=== PATIENT | female | born 1955 | race African-American/Black ===

== ENCOUNTER 2019-05-11 20:50 | Emergency (ER) | payer SELFPAY ==
--- NOTE | ~2019-05-11 | NM_ITS ---
EXAMINATION: NM lung vent and perfusion DATE: 05/12/2019 02:00 INDICATION: Chest pain TECHNIQUE: The patient breathed 14.8 mCi xenon-133 for ventilation images. 5.0 mCi Tc-99m MAA was adm inistered intravenously for perfusion images. Scintigraphic images of the chest were obtained. COMPARISON: None FINDINGS: The single breath ventilation image demonstrates uniform wash-in of tracer. Ventilation washout image s show mild tracer retention. Perfusion images show a small perfusion defect in the left mid posteri or lung zone in a nonsegmental distribution. ] IMPRESSION: 1. Low probability for pulmonary embolism. Reviewed, dictated and finalized at location A.
--- NOTE | ~2019-05-11 | XR_ITS ---
XR chest 2V 05/11/2019 21:40 Indication: Mid chest pain. Procedure: 2 view chest Comparison: 05/14/2004 Findings: Cardiomegaly. No focal air space disease, pulmonary edema, pleural effusion or suspected pn eumothorax. No acute osseous abnormality. Impression: 1: No acute cardiopulmonary disease. Reviewed, dictated and finalized at location A. Impression: 1: No acute cardiopulmonary disease.
[2019-05-11 21:02] VITALS: BP 153/109; PULSE 89; RESP 20; TEMP 37.2; O2SAT 95
--- NOTE | 2019-05-11 21:07 | ECG_ITS ---
Measurements Intervals [place] Rate: 85 P: 34 OR: 156 QRS: -10 QRSD: 83 T: 13 QT: 345 QTc: 411 Interpretive Statements SINUS RHYTHM LOW QRS VOLTAGE IN PRECORDIAL LEADS BORDERLINE R WAVE PROGRESSION, ANTERIOR LEADS BORDERLINE ECG Electronically Signed On 05-12-2019 7:56:43 CDT by Noe Rea D.O.
[2019-05-11 21:18] LABS: Basophils Percent Auto 0.4 % (0.2-1.2); Eosinophils Absolute Auto 0.2 K/mm3 (0-0.3); Eosinophils Percent Auto 2.2 % (0-4.4); Hematocrit 41.8 % (37.0-47.0); Hemoglobin 13.6 g/dL (12.0-15.0); Immature Granulocyte Absolute 0.12 K/mm3 (0.00-0.031); Immature Granulocyte Percent A 1.3 % (0-0.5); Lymphocytes Absolute Auto 3.46 K/mm3 (0.9-3.2); Lymphocytes Percent Auto 37.7 % (18.3-44.2); Mean Corpuscular HGB Conc 32.5 g/dl (32-36); Mean Corpuscular Hemoglobin 28.3 pg (26-34); Mean Corpuscular Volume 87.1 fl (80-100); Mean Platelet Volume 9.7 fl (7.4-10.4); Monocytes Absolute Auto 0.5 K/mm3 (0.1-0.6); Neutrophils Absolute Auto 4.9 K/mm3 (1.3-6.7); Neutrophils Percent Auto 53.4 % (45.5-73.1); Platelet Count Result 337 k/mm3 (150-375); Red Cell Distribution Width 13.8 % (11.5-14.5); White Blood Count 9.2 K/mm3 (4.5-10.0)
[2019-05-11 21:29] LABS: INR 0.9; Partial Thromboplastin Time 23.1 SECONDS (22.3-36.8); Prothrombin Time 11.7 Seconds (11.1-14.7)
[2019-05-11 21:30] LABS: Blood Urea Nitrogen 9 mg/dL (7-17); Calcium 9.1 mg/dL (8.4-10.2); Carbon Dioxide 29 mmol/L (22-30); Chloride 103 mmol/L (98-107); Estimated CRCL calculation 107 ml/min; Estimated Glomerular Filt Rate > 60; Glucose 92 mg/dL (65-105); Sodium 139 mmol/L (137-145)
[2019-05-11 21:41] LABS: Troponin I < 0.012 ng/mL (0.000-0.034)
--- NOTE | 2019-05-11 22:22 | ED.CHESTPAIN ---
HPI - Chest Pain General Chief Complaint: Chest Pain Stated Complaint: cp, sob Time Seen by Provider: 05/11/19 22:20 History of Present Illness HPI narrative: A 63 y/o female presents to the ED with worsening, constant, CP since 10 AM this morning. She states that she first developed rt chest pressure at 10 AM and then throughout the day the pain became more severe and began to migrated into her lt chest. She reports associated SOB. She notes that the pain is aggravated when she coughs, moves, or inspiration. She also notes that she went to her dentist on 05/03/19 and from 05/02-01/17 she had a sore throat, cough, a subjective fever, and chills, but denies having any since 05/09/19. She also denies any N/V/D or constipation. complaint: chest pain Onset (ago): hour(s) (12.5) Timing of current episode: constant and increasing Pain location: left chest, right chest and parasternal Quality: other (pressure) Exacerbating factors: inspiration, movement and other (cough) Associated symptoms: dyspnea, fever (subjective - resolved), cough (resolved) and other (sore throat (resolved) and chills (resolved)) Risk Factors Coronary artery disease risk factors: smoking history Related Data Allergies Allergy/AdvReac Type Severity Reaction Status Date / Time aspirin Allergy Unknown Unknown Verified 05/11/19 22:46 caffeine Allergy Unknown Unknown Verified 05/11/19 22:46 latex Allergy Unknown Unknown Verified 05/11/19 22:46 Review of Systems Review of Systems: All systems reviewed & are unremarkable except as noted in HPI and below Constitutional: Constitutional: Reports chills (resolved) and Reports fever(s) (subjective - resolved) ENT: Reports sore throat (resolved) Cardiovascular: Cardiovascular: Reports chest pain Respiratory: Respiratory: Reports cough (resolved) and Reports dyspnea Gastrointestinal: Gastrointestinal: Denies constipation, Denies diarrhea, Denies nausea and Denies vomiting PMFSH Past Medical History Medical History (Updated 05/12/19 @ 02:58 by Heidi Corey MD) IBS (irritable bowel syndrome) Surgical History Surgical History (Updated 05/11/19 @ 22:47 by Jake Bray) History of spinal surgery x2. Family History Family History Sibling Family history of migraine headaches Hypertension Family history of seizure disorder Mother Hypertension Family history of diabetes mellitus in first degree relative Father Family history of alcoholism Cerebrovascular accident Family history of arthritis Family history of hearing loss Social History Social History (Updated 05/11/19 @ 22:46 by Jake Bray) Smoking packs per day: 0.5 Smoking cigarettes per day: 10.0 Smoking status: Current every day smoker Tobacco type: cigarettes Second hand tobacco smoke exposure: Yes Alcohol intake: never Gender identity (if verbalized by the patient): Female Comments Patient reports questionable history of heart attack . However it does not sound as though patient had an abnormal stress test or cardiac catheterization or any other concrete findings to confirm this. Patient states after her hospitalization she was only put on a baby aspirin and no other medications. Exam Const: General: cooperative, no acute distress and alert Nutritional Appearance: well nourished Orientation/consciousness: patient oriented x3 Limitations: no limitations HENMT: Mouth: Yes lip normal and Yes moist mucous membranes Chest: Chest palpation & inspection: tenderness (Anterior) and other (sitting up reproduces the her CP) Resp: Effort & Inspection: normal respiratory effort Auscultation: clear to auscultation bilaterally Cardio: Rate: regular rate Rhythm: regular rhythm GI: GI Palp: Yes Soft to palpation and No Tenderness to palpation present (GI) Auscultation: normal bowel sounds Skin: General skin exam: normal color Neuro: General: patient oriented x3 Cognition (Neuro):
--- NOTE | 2019-05-11 22:37 | PC.NURSE ---
Called lab to add on D Dimer
[2019-05-11 22:43] VITALS: BP 171/93; PULSE 89; PULSE 94; RESP 18; O2SAT 100
[2019-05-11 22:49] LABS: D Dimer 0.53 ug/mL (<0.48)
[2019-05-11] MEDS: KETOROLAC 30 MG/ML VIAL (*BKC) IV PUSH (23:16)
[2019-05-12 00:22] VITALS: BP 169/93; PULSE 87; RESP 18; O2SAT 98
[2019-05-12 00:40] LABS: Troponin I < 0.012 ng/mL (0.000-0.034)
--- NOTE | 2019-05-12 00:52 | PC.NURSE ---
xy notified nuclear medicine need to be contacted.
[2019-05-12 01:05] VITALS: BP 170/94; PULSE 92; RESP 18; O2SAT 100
[2019-05-12 03:21] VITALS: BP 144/79; PULSE 78; RESP 18; O2SAT 98
== END 2019-05-12 03:22 | disposition home or self-care (01) ==
PROVIDERS: Emergency Provider Emergency Medicine; PCP Physician Assistant
DX: R07.89 Other chest pain (principal); K58.9 Irritable bowel syndrome, unspecified; F17.210 Nicotine dependence, cigarettes, uncomplicated; R94.31 Abnormal electrocardiogram [ECG] [EKG]
CPT/HCPCS: 36415; 71046; 71275; 78582; 80048; 84484; 85025; 85380; 85610; 85730; 93005; 96374; 99284; A9540; A9558; J1885; Q9967

== ENCOUNTER 2020-07-24 09:14 | Outpatient (CLI) | payer OTHER, SELFPAY ==
--- NOTE | ~2020-07-24 | CT_ITS ---
EXAMINATION: CT lung screening DATE: 07/24/2020 10:26 INDICATION: Personal history of tobacco dependence, current smoker with 72 pack year history TECHNIQUE: Computed tomography (CT) of the chest was performed without intravenous contrast. The dose -length product (DLP) was 502.18 mGy-cm. Automated exposure control and iterative reconstruction tech [employer] were employed. COMPARISON: None FINDINGS: There is mild emphysema. No suspicious pulmonary nodules are identified. The lungs are free of focal airspace opacities. Mild atelectasis is noted. There is no pleural effusion or pneumothorax . No pathologically enlarged thoracic lymph nodes are identified. The heart size is normal. There is mild thoracic spondylosis. IMPRESSION: 1. Lung-RADS category 1: Negative. Continue annual screening with noncontrast low-dose chest CT in 12 months. Reviewed, dictated and finalized at location A. IMPRESSION: 1. Lung-RADS category 1: Negative. Continue annual screening with noncontrast l ow-dose chest CT in 12 months.
== END 2020-07-24 09:15 | disposition home or self-care (01) ==
PROVIDERS: PCP Physician Assistant; Visit Provider Physician Assistant
DX: Z12.2 Encounter for screening for malignant neoplasm of respiratory organs (principal); Z87.891 Personal history of nicotine dependence
CPT/HCPCS: 71271

== ENCOUNTER 2021-08-13 13:14 | Outpatient (CLI) | payer OTHER, SELFPAY ==
--- NOTE | ~2021-08-13 | MM_ITS ---
EXAMINATION: MM diagnostic johann BI w tami HISTORY: Breast pain TECHNIQUE: Additional 3-D tomosynthesis images of the breasts were performed and synthetic 2-D images were generated. CAD analysis was submitted and interpreted. COMPARISON: Comparison to multiple prior studies sequentially, with oldest reviewed study dated 03/2013. BREAST PARENCHYMAL COMPOSITION: Breast composed of scattered areas of fibroglandular density FINDINGS: There are no suspicious masses, calcifications or architectural distortion in either breast to suggest malignancy. The breasts are stable. IMPRESSION: 1. No mammographic evidence for malignancy in either breast. 2. Routine yearly screening mammogram and regular clinical breast examination are recommended. BI-RADS Category 1: Negative Reviewed, dictated and finalized at location A. IMPRESSION: 1. No mammographic evidence for malignancy in either breast. 2. Routine yearly screening mammogram and regular clinical breast examination a re recommended. BI-RADS Category 1: Negative
== END 2021-08-13 13:15 | disposition home or self-care (01) ==
PROVIDERS: PCP Physician Assistant; Visit Provider Nurse Practitioner
DX: N64.4 Mastodynia (principal)
CPT/HCPCS: 77062; 77066; G0279

== ENCOUNTER 2021-11-19 15:13 | Outpatient (CLI) | payer OTHER, SELFPAY ==
--- NOTE | ~2021-11-19 | CT_ITS ---
EXAMINATION: CT lung screening DATE: 11/19/2021 15:33 INDICATION: Nicotine dependence TECHNIQUE: Computed tomography (CT) of the chest was performed without intravenous contrast. The dose -length product was 270.98 mGy-cm. Automated exposure control and iterative reconstruction technique were employed. COMPARISON: CT dated 07/24/2020 FINDINGS: Mild atherosclerosis. Heart size normal. No significant pleural or pericardial effusion. Vi sualized aspects of the upper abdomen are unremarkable. No thoracic lymphadenopathy. There are multip le small upper lobe nodules bilaterally measuring 4 mm or less. There are additional 3 mm nodules in the lower lobes. These are new compared with prior examinations. No focal airspace consolidation. No endobronchial lesions. Mild thoracic spondylosis. IMPRESSION: 1. Lung-RADS category 3: Probably benign. Further evaluation is recommended with noncontrast low-dose chest CT in 6 months. Reviewed, dictated and finalized at location A. IMPRESSION: 1. Lung-RADS category 3: Probably benign. Further evaluation is recommended wit h noncontrast low-dose chest CT in 6 months.
== END 2021-11-19 15:14 | disposition home or self-care (01) ==
PROVIDERS: PCP Physician Assistant; Visit Provider Physician Assistant
DX: Z12.2 Encounter for screening for malignant neoplasm of respiratory organs (principal); Z87.891 Personal history of nicotine dependence; R91.8 Other nonspecific abnormal finding of lung field
CPT/HCPCS: 71271

== ENCOUNTER 2022-11-07 23:06 | Emergency (ER) | payer OTHER, MEDICARE, SELFPAY ==
--- NOTE | ~2022-11-07 | CT_ITS ---
CT of the Abdomen and Pelvis: Indication: Abdominal pain Technique: 2.5 mm axial scans were obtained through the abdomen and pelvis following intravenous adm inistration of 100 cc of Omnipaque 350. Dose reduction technique was used on this scan by utilizing a utomated exposure control and iterative reconstruction technique. The dose-length product (DLP) was 1 473.49 mGy-cm. Findings: Scans through the lung bases are unremarkable. The liver, spleen, pancreas, gallbladder, adrenals and kidneys are within normal limits. There are at herosclerotic calcifications of the aorta. No lymphadenopathy. No bowel obstruction or bowel wall thickening. There is no evidence to suggest acute appendicitis. Images through the pelvis were performed. Urinary bladder unremarkable. No adnexal mass seen. No asci martin. Lumbar spinal fixation hardware is present. Impression: No significant abnormalities seen. Reviewed, dictated and finalized at [facility]. Impression: No significant abnormalities seen.
--- NOTE | ~2022-11-07 | XR_ITS ---
Clinical Indication: Chest pain PA and lateral views of the chest: Comparison: 05/11/2019 Findings: The lungs are clear, without evidence of focal consolidation or pleural effusion. Cardiome diastinal silhouette is within normal limits. Bones and soft tissues are unremarkable. Impression: Normal chest. Reviewed, dictated and finalized at location . Impression: Normal chest.
--- NOTE | 2022-11-07 23:07 | ECG_ITS ---
Measurements Intervals [place] Rate: 96 P: 49 LA: 149 QRS: -22 QRSD: 90 T: 12 QT: 327 QTc: 414 Interpretive Statements SINUS RHYTHM DELAYED PRECORDIAL R/S TRANSITION LOW QRS VOLTAGE IN PRECORDIAL LEADS BORDERLINE T WAVE ABNORMALITY- ANT/INF LEADS BORDERLINE ECG COMPARED TO ECG 05/11/2019 20:57:49 NO SIGNIFICANT CHANGES Electronically Signed On 11-08-2022 6:27:20 CDT by Noe Rae D.O.
[2022-11-07 23:42] VITALS: BP 207/80; PULSE 85; RESP 18; TEMP 37.1; O2SAT 98
[2022-11-08] VITALS (9 sets, daily range): BP systolic 176–199; BP diastolic 82–96; PULSE 83–110; RESP 14–26; O2SAT 97–100
[2022-11-08 00:05] LABS: Basophils Percent Auto 0.4 % (0.2-1.2); Eosinophils Absolute Auto 0.1 K/mm3 (0-0.3); Eosinophils Percent Auto 0.9 % (0-4.4); Hematocrit 40.3 % (37.0-47.0); Hemoglobin 13.5 g/dL (12.0-15.0); Immature Granulocyte Absolute 0.06 K/mm3 (0.00-0.031); Immature Granulocyte Percent A 0.6 % (0-0.5); Lymphocytes Absolute Auto 2.34 K/mm3 (0.9-3.2); Mean Corpuscular HGB Conc 33.5 g/dl (32-36); Mean Corpuscular Hemoglobin 29.7 pg (26-34); Mean Corpuscular Volume 88.6 fl (80-100); Mean Platelet Volume 9.6 fl (7.4-10.4); Monocytes Absolute Auto 0.7 K/mm3 (0.1-0.6); Monocytes Percent Auto 6.5 % (2.6-8.5); Neutrophils Absolute Auto 7.4 K/mm3 (1.3-6.7); Neutrophils Percent Auto 69.6 % (45.5-73.1); Nucleated Red Blood Cells Perc 0.2 % (0.0-0.2); Platelet Count Result 319 k/mm3 (150-375); Red Blood Count 4.55 M/mm3 (4.2-5.4); Red Cell Distribution Width 14.8 % (11.5-14.5); White Blood Count 10.6 K/mm3 (4.5-10.0)
[2022-11-08 00:18] LABS: Alanine Aminotransferase 33 U/L (6-35); Albumin Level 4.1 g/dL (3.5-5.1); Alkaline Phosphatase 130 U/L (38-126); Anion Gap 7 mmol/L (8-16); Aspartate Amino Transferase 31 U/L (14-36); Bilirubin,Total 0.3 mg/dL (0.2-1.3); Blood Urea Nitrogen 9 mg/dL (7-17); Calcium 9.6 mg/dL (8.4-10.2); Carbon Dioxide 31 mmol/L (22-30); Chloride 100 mmol/L (98-107); Estimated CRCL calculation 120 ml/min; Estimated Glomerular Filt Rate > 60; Glucose 97 mg/dL (65-110); Lipase 130 U/L (23-300); Partial Thromboplastin Time 28.5 SECONDS (22.3-36.8); Sodium 138 mmol/L (137-145)
[2022-11-08 00:21] LABS: INR 0.9; Prothrombin Time 12.3 Seconds (11.1-14.7)
[2022-11-08 00:30] LABS: Troponin I < 0.012 ng/mL (0.000-0.034)
[2022-11-08] MEDS: ONDANSETRON INJ 4 MG/2 ML VIAL IV PUSH (05:00)
--- NOTE | 2022-11-08 05:00 | ED.GENADULT ---
HPI - General Adult General Chief complaint: Chest Pain Stated complaint: chest pain Time Seen by Provider: 11/08/22 04:29 History of Present Illness HPI narrative: Patient presents to the emergency department with right upper quadrant abdominal pain. Pain started yesterday morning around 4 AM. It has been constant since. Taking medications at home without improvement. She denies vomiting or diarrhea. Denies fevers and chills. Pain radiates up into her chest. She still has her gallbladder Related Data Allergies Allergy/AdvReac Type Severity Reaction Status Date / Time aspirin Allergy Unknown Unknown Verified 11/08/22 04:41 caffeine Allergy Unknown Unknown Verified 11/08/22 04:41 latex Allergy Unknown Unknown Verified 11/08/22 04:41 Review of Systems Review of Systems: CONSTITUTIONAL: Denies fever, chills, or sweats. EYES: Denies visual changes, redness, or discharge. ENT: Denies rhinorrhea, congestion, sore throat, or otalgia. CARDIOVASCULAR: Denies chest pain, palpitations, or edema. RESPIRATORY: Denies cough or dyspnea. GASTROINTESTINAL: Denies nausea, vomiting, or diarrhea. Positive abdominal pain GENITOURINARY: Denies dysuria or hematuria. SKIN: Denies rash or itching. MUSCULOSKELETAL: Denies back pain, joint pain, or myalgia. NEUROLOGIC: Denies headache, numbness, or weakness. PSYCHIATRIC: Denies anxiety or depression. PMFSH Past Medical History Medical History (Updated 11/08/22 @ 07:36 by Jaycee Fernandez MD) IBS (irritable bowel syndrome) Surgical History Surgical History (Updated 05/11/19 @ 22:47 by Jake Bray) History of spinal surgery x2. Family History Family History Sibling Family history of migraine headaches Hypertension Family history of seizure disorder Mother Hypertension Family history of diabetes mellitus in first degree relative Father Family history of alcoholism Cerebrovascular accident Family history of arthritis Family history of hearing loss Social History Social History (Updated 05/11/19 @ 22:46 by Jake Bray) Smoking packs per day: 0.5 Smoking cigarettes per day: 10.0 Smoking status: Current every day smoker Tobacco type: cigarettes Second hand tobacco smoke exposure: Yes Alcohol intake: never Gender identity (if verbalized by the patient): Female Exam Narrative: GENERAL: Well-appearing, well-nourished, and in no acute distress. HEAD: Normocephalic, atraumatic. EYES: PERRLA and EOMI. ENT: Nares clear, no rhinorrhea or epistaxis. Mucous membranes moist. NECK: Supple. CHEST: Clear to auscultation. No respiratory distress. HEART: Regular rate and rhythm. ABDOMEN: Soft,nondistended. Right upper quadrant tenderness EXTREMITIES: Normal range of motion. No edema. SKIN: Warm, dry, no rash. NEURO: No focal deficits. Alert and oriented x3. PSYCH: Normal mood and affect. Course Course Emergency Course: Differential diagnosis includes but not limited to acute cholecystitis, kidney stone, pyelonephritis, pancreatitis Labs and CAT scan ordered. Labs evaluated with white blood cell count 10.6 normal hemoglobin Telemetry ordered due to abdominal pain and chest pain and pt getting narcotic to evaluate for dysrhythmias. Evaluated by myself. Rhythm NSR Rate 99 Patient hypertensive and tachycardic. She is very anxious about getting CAT scan. Valium ordered Vital Signs Vital signs: Vital Signs Temperature 37.1 C 11/07/22 23:42 Pulse Rate 85 11/07/22 23:42 Respiratory Rate 18 11/07/22 23:42 Blood Pressure 207/80 H 11/07/22 23:42 Pulse Oximetry 98 11/07/22 23:42 Oxygen Delivery Room Air 11/07/22 23:42 Temperature 37.1 C 11/07/22 23:42 Pulse Rate 103 H 11/08/22 07:02 Respiratory Rate 25 H 11/08/22 07:02 Blood Pressure 199/88 H 11/08/22 07:02 Pulse Oximetry 97 11/08/22 06:02 Oxygen Delivery Room Air 11/08/22 04:38 Medical Decision Making
[2022-11-08] MEDS: MORPHINE SULFATE (*CRX) 2 MG/ML INJ IV PUSH (05:01)
[2022-11-08] MEDS: diazePAM INJ (*CRX) 10 MG/2 ML SYRINGE 5 MG IV PUSH (05:02)
[2022-11-08] MEDS: SODIUM CHLORIDE 0.9% IV 1,000 ML 999 ML IV CONT (05:02)
[2022-11-08 07:11] LABS: Troponin I < 0.012 ng/mL (0.000-0.034)
== END 2022-11-08 08:02 | disposition home or self-care (01) ==
PROVIDERS: Emergency Provider Emergency Medicine; PCP Physician Assistant
DX: R10.11 Right upper quadrant pain (principal); I10 Essential (primary) hypertension; F17.210 Nicotine dependence, cigarettes, uncomplicated
CPT/HCPCS: 36415; 71046; 74177; 80053; 83690; 84484; 85025; 85610; 85730; 93005; 96361; 96374; 96375; 99284; J2270; J2405; J3360; J7030; Q9967

== ENCOUNTER 2022-11-13 00:38 | Inpatient (IN) | payer MEDICARE, SELFPAY ==
[2022-11-13] VITALS (32 sets, daily range): BP systolic 134–183; BP diastolic 57–117; PULSE 79–121; RESP 16–20; TEMP 36.5–37; O2SAT 92–100; BMI 43.1
--- NOTE | ~2022-11-13 | CT_ITS ---
EXAMINATION: CT abdomen pelvis w con DATE: 11/13/2022 06:24 INDICATION: Abdominal pain. Constipation. TECHNIQUE: Computed tomography (CT) of the abdomen and pelvis was performed with 100 CC Omnipaque 350 intravenous contrast. Automated exposure control and iterative reconstruction technique were employe d. Exam dose: 1416.06 mGy-cm total exam DLP. COMPARISON: 11/08/2022 CT abdomen pelvis FINDINGS: Slight atelectasis at the lung bases, greatest at the lingula. No pericardial or pleural ef fusion. Small sliding hiatal hernia. There is pericholecystic fat stranding. There is thickening of the wall of the gallbladder. There is thickening of the right anterior pararenal fascia. Findings suggest acute cholecystitis. The liver, spleen, pancreas, bile ducts and pancreatic duct appear normal. Normal morphology of the adrenal glands. No renal mass lesion or urinary tract calculus or hydroureteronephrosis. The urinary bladder is unrem arkable. Status post hysterectomy. 2 approximately 2.8 cm right ovarian cystic lesion; consider non-e mergent pelvic ultrasound correlation. Normal appendix. No bowel obstruction or intraperitoneal free air is detected. There is atherosclerotic calcification but normal caliber of the abdominal aorta. No intraperitoneal or retroperitoneal or pelvic mass lesion or adenopathy or ascites is detected. Posterior and interbody lumbar spine fusion at L3-L5. No suspicious osteolytic or osteoblastic lesions are noted. IMPRESSION: Prominent pericholecystic inflammation, gallbladder wall thickening, suggesting acute ch olecystitis Dr. Rodriguez telephoned the report on 11/13/2022 at 0803 hours to emergency room physician Dr. Escalante. Reviewed, dictated and finalized at [facility]. Reviewed, dictated and finalized at location [facility]. IMPRESSION: Prominent pericholecystic inflammation, gallbladder wall thickenin g, suggesting acute cholecystitis Dr. Rodriguez telephoned the report on 11/13/2022 at 0803 hours to emergency room sadia Escalante.
--- NOTE | ~2022-11-13 | US_ITS ---
EXAMINATION: US pelvic complete DATE: 11/15/2022 08:51 INDICATION: Ovarian cysts TECHNIQUE: Multiple transabdominal and endovaginal sonographic images of the pelvis were obtained. COMPARISON: CT, 11/13/2022 FINDINGS: The uterus is surgically absent. The left ovary is not visualized however no left adnexal a bnormality is seen. The right ovary measures approximately 5.1 x 3.5 cm. There are simple cysts of th e right ovary measuring 2.3 and 1.7 cm. There is normal vascular flow in the right ovary. There is no free fluid in the pelvis. IMPRESSION: 1. Simple cysts of the right ovary measuring up to 2.3 cm. Reviewed, dictated and finalized at location [facility].
--- NOTE | ~2022-11-13 | US_ITS ---
US abdomen limited DATE: 11/13/2022 13:37 INDICATION: Abdominal pain. Acute cholecystitis. TECHNIQUE: Real-time imaging and Doppler analysis with attention to liver, pancreas, gallbladder COMPARISON: 11/13/2022 CT abdomen pelvis FINDINGS: No hepatic or pancreatic space-occupying mass lesion is evident. Normal hepatopedal portal venous flow direction. Multiple gallbladder filling defects are noted with associated acoustical shadowing, consistent with cholelithiasis. There is gallbladder wall thickening and pericholecystic increased vascularity. Posit gumaro sonographic Aguilar's sign. The findings are most consistent with acute cholecystitis. The common bile duct measures 2.9 mm, within normal limits. IMPRESSION: Acute cholecystitis Reviewed, dictated and finalized at [facility]. Reviewed, dictated and finalized at location [facility]. IMPRESSION: Acute cholecystitis
[2022-11-13] MEDS: ONDANSETRON INJ 4 MG/2 ML VIAL IV PUSH ×2 (04:43→10:50)
[2022-11-13] MEDS: LORazepam INJ (*CRX) 2 MG/ML VIAL 0.5 MG IV PUSH (04:43)
[2022-11-13] MEDS: SODIUM CHLORIDE 0.9% IV 1,000 ML 999 ML IV CONT ×2 (04:43→08:35)
[2022-11-13 04:49] LABS: Basophils Absolute Auto 0.1 K/mm3 (0.0-0.1); Basophils Percent Auto 0.4 % (0.2-1.2); Eosinophils Absolute Auto 0.2 K/mm3 (0-0.3); Eosinophils Percent Auto 1.6 % (0-4.4); Hematocrit 37.6 % (37.0-47.0); Hemoglobin 12.4 g/dL (12.0-15.0); Immature Granulocyte Absolute 0.15 K/mm3 (0.00-0.031); Immature Granulocyte Percent A 1.1 % (0-0.5); Lymphocytes Percent Auto 22.1 % (18.3-44.2); Mean Corpuscular Hemoglobin 29.2 pg (26-34); Mean Corpuscular Volume 88.7 fl (80-100); Mean Platelet Volume 9.7 fl (7.4-10.4); Monocytes Percent Auto 7.1 % (2.6-8.5); Neutrophils Absolute Auto 9.2 K/mm3 (1.3-6.7); Neutrophils Percent Auto 67.7 % (45.5-73.1); Platelet Count Result 323 k/mm3 (150-375); Red Blood Count 4.24 M/mm3 (4.2-5.4); Red Cell Distribution Width 14.6 % (11.5-14.5); White Blood Count 13.6 K/mm3 (4.5-10.0)
[2022-11-13 04:57] LABS: Appearance Urine Clear (Clear); Bilirubin Urine Negative (Negative); Blood Urine Negative (Negative); Color Urine Yellow (Yellow); Glucose Urine UA Negative (Negative); Ketones Urine Negative (Negative); Leukocyte Esterase Ur Negative LEU/UL (Negative); Nitrate Urine Negative (Negative); Protein Urine Negative (Negative); Specific Grav Ur 1.005 (1.001-1.035); Urobilinogen Urine 0.2 mg/dL (<2.0); pH Urine 5.5 (5.0-9.0)
[2022-11-13 04:59] LABS: Add Urine Microscopic? NO
[2022-11-13 05:21] LABS: Alanine Aminotransferase 45 U/L (6-35); Albumin Level 3.8 g/dL (3.5-5.1); Alkaline Phosphatase 185 U/L (38-126); Anion Gap 7 mmol/L (8-16); Aspartate Amino Transferase 28 U/L (14-36); Bilirubin,Total 0.5 mg/dL (0.2-1.3); Blood Urea Nitrogen 4 mg/dL (7-17); Carbon Dioxide 29 mmol/L (22-30); Chloride 101 mmol/L (98-107); Estimated CRCL calculation 87 ml/min; Estimated Glomerular Filt Rate > 60; Glucose 116 mg/dL (65-110); Lipase 115 U/L (23-300); Potassium 3.7 mmol/L (3.4-5.0); Sodium 137 mmol/L (137-145)
[2022-11-13 05:22] LABS: Lactic Acid Reflex 1.3 mmol/L (0.7-2.0)
--- NOTE | 2022-11-13 05:31 | ED.GENADULT ---
HPI - General Adult General Chief complaint: Abdominal Pain <Juarez Bernard MD - Last Filed: 11/13/22 05:32> Stated complaint: constipated <Juarez Bernard MD - Last Filed: 11/13/22 05:32> Time Seen by Provider: 11/13/22 03:57 <Juarez Bernard MD - Last Filed: 11/13/22 05:32> History of Present Illness HPI narrative: Patient 66-year-old female who presents the emergency department with chief complaint of constipation and abdominal pain. Patient reports that she has not had a bowel movement in almost a week patient states she has tried multiple different home remedies to try to have a bowel movement and has had no success. The patient reports that her abdomen is sore all over reports she feels nauseated but has not had vomiting. <Juarez Bernard MD - Last Filed: 11/13/22 05:32> Related Data Home medications: Home Medications Medication Instructions Recorded Confirmed No Home Medications 11/13/22 11/13/22 <Juarez Bernard MD - Last Filed: 11/13/22 05:32> Allergies/adverse reactions: Allergies Allergy/AdvReac Type Severity Reaction Status Date / Time aspirin Allergy Unknown Unknown Verified 11/13/22 04:02 caffeine Allergy Unknown Unknown Verified 11/13/22 04:02 latex Allergy Unknown Unknown Verified 11/13/22 04:02 <Juarez Bernard MD - Last Filed: 11/13/22 05:32> Review of Systems Review of Systems: A 10 system review of systems was completed on the patient and is negative except for what is stated in the HPI. Nursing and ancillary documentation was reviewed. <Juarez Bernard MD - Last Filed: 11/13/22 05:32> [facility] Past Medical History Medical History: Medical History IBS (irritable bowel syndrome) <Juarez Bernard MD - Last Filed: 11/13/22 05:32> Surgical History Surgical History: Surgical History History of spinal surgery x2. <Juarez Bernard MD - Last Filed: 11/13/22 05:32> Family History Family History: Family History Sibling Family history of migraine headaches Hypertension Family history of seizure disorder Mother Hypertension Family history of diabetes mellitus in first degree relative Father Family history of alcoholism Cerebrovascular accident Family history of arthritis Family history of hearing loss <Juarez Bernard MD - Last Filed: 11/13/22 05:32> Social History Social History: Social History Smoking packs per day: 0.5 Smoking cigarettes per day: 10.0 Smoking status: Current every day smoker Tobacco type: cigarettes Second hand tobacco smoke exposure: Yes Alcohol intake: never Gender identity (if verbalized by the patient): Female <Juarez Bernard MD - Last Filed: 11/13/22 05:32> Exam Narrative: GENERAL: Well-appearing, well-nourished, and in no acute distress. HEAD: Normocephalic, atraumatic. EYES: PERRLA and EOMI. ENT: Nares clear, no rhinorrhea or epistaxis. Mucous membranes moist. NECK: Supple. CHEST: Clear to auscultation. No respiratory distress. HEART: Regular rate and rhythm. No murmur heard. Normal peripheral pulses. ABDOMEN: Soft, tenderness to palpation throughout the abdomen, nondistended, normal active bowel sounds. EXTREMITIES: Normal range of motion. No edema. SKIN: Warm, dry, no rash. NEURO: No focal deficits. Alert and oriented x3. PSYCH: Normal mood and affect. <Juarez Bernard MD - Last Filed: 11/13/22 05:32> Course Reevaluation(s) Reevaluation #1: Patient been resting quietly in the emergency room with right upper quadrant mild to moderate pain, Last p.o. intake 2 days ago, Dr. Rodriguez and hospitalist carmencita
--- NOTE | 2022-11-13 05:51 | PC.NURSE ---
Patient taken to CT via w/c at this time.
[2022-11-13] MEDS: PIPERACILLN/TAZ 3.375GM/NS50ML 3.375 GM/50 ML BAG IVPB ×3 (08:35→20:04)
[2022-11-13] MEDS: SODIUM CHLORIDE 0.9% IV 1,000 ML 125 ML IV CONT (10:45)
[2022-11-13] MEDS: HYDROmorphone HCL INJ (*CRX) 1 MG/ML SYR 0.5 MG IV PUSH ×3 (10:50→22:38)
--- NOTE | 2022-11-13 11:28 | ADMGEN ---
This patient, Hanane Fermin, was admitted to Medical Room 253-01. Patient/family oriented to hospital policies and general routines including ID bracelet, bed and alarms, visiting hours, pain management, procedures, bathroom and other care routines, personal items, smoking policy, room service/diet, and visiting hours. Information on how to activate the Rapid Response Team has been discussed. Patient/Family are encouraged to report perceived risks to care and to ask questions if they do not understand what they are told or what they should do.
--- NOTE | 2022-11-13 11:47 | PM.IMHP ---
H&P: HPI History of Present Illness Date/Time: 11/13/22 11:47 Chief Complaint: Abdominal pain Narrative: 66yo female with IBS, GERD and tobacco abuse here for abdominal pain. Patient developed abdominal about 1 week prior to admission. She is cooperative burning sensation. Occurred on our after eating 2 sandwiches consistent with canned meat, av and red pepper flakes. She was seen in the emergency room on 11/07/2022. Chest x-ray was clear. CT of the abdomen pelvis showed no abnormalities. Labs were unrevealing. She was hypertensive and tachycardic with EKG showing no change. Troponin negative. Her pain was treated. She felt better after discharge. Over next few days she was having abdominal ?soreness? but no significant pain. She which was having trouble with constipation and tried multiple home remedies. She had a bowel movement on 11/09 but nothing since. She complained of nausea to the ER but denies to me any nausea or vomiting. No dysuria or hematuria. No vaginal discharge. No fever or chills. No odynophagia dysphagia. She has irritable bowel syndrome but no history of IBD or colon cancer. No family history of colon cancer. She does take ibuprofen 800 mg 1-2 times per day chronically. She is on omeprazole as well. She has been having symptoms of pain that she describes as ?feels like gas? in the left upper chest that radiates to her mid chest. It is better with Tums and belching. She is on the members all for this symptom. Symptoms last about half an hour. She has had this for many years. No recent stress test. Patient had recurrent abdominal pain on the evening of 11/10 which came on when eating American fries. Symptoms continued to worsen and she presented to the emergency room for evaluation. Blood pressure was 150/98 with a heart rate of 105 white count was 13 K. CMP was normal except for an ALT of 45 and alk-phos 185. UA negative. CT the abdomen pelvis shows prominent pericholecystic inflammation and gallbladder wall thickening consistent with acute cholecystitis. She was given Zofran, Ativan, IV fluids and started on Zosyn. She was also given Dilaudid for pain. Return surgery was consulted. Patient was admitted for further care. Review of Systems Review of Systems: All systems reviewed & are unremarkable except as noted in HPI and below [facility] Past Medical History Medical History (Updated 11/13/22 @ 13:07 by Juarez Ferguson MD) Chronic low back pain GERD (gastroesophageal reflux disease) IBS (irritable bowel syndrome) ROSITA (obstructive sleep apnea) Noncompliant with treatment Surgical History Surgical History (Updated 11/13/22 @ 12:57 by Juarez Ferguson MD) History of section x2 History of spinal surgery x2. History of thyroid surgery 1988 for noncancerous reasons Family History Family History (Updated 11/13/22 @ 12:57 by Juarez Ferguson MD) Sibling Family history of migraine headaches Hypertension Family history of seizure disorder Lung cancer Mother Hypertension Family history of diabetes mellitus in first degree relative Father Family history of alcoholism Cerebrovascular accident Family history of arthritis Family history of hearing loss Social History Social History (Updated 11/13/22 @ 13:00 by Juarez Ferguson MD) Social History: Patient smokes half a pack a day since age 15. She states that she was an alcoholic and quit alcohol a age 32. She denies drug use. She denies any history of drug use. She is . She lives with her sister. She has an adult son and daughter. She is a full code. She nominates her granddaughter (Ashu) to be the individual would make medical decisions for her if she is unable Smoking packs per day: 0.5 Smoking cigarettes per day: 10.0 Smoking status: Current every day smoker Second hand tobacco smoke exposure: Yes Alcohol intake: never Lack of Transportation: No Lack of Food: Never True C
--- NOTE | 2022-11-13 12:10 | PM.CNGS ---
Assessment and Plan Assessment and plan (1) Acute cholecystitis: Code(s): K81.0 - Acute cholecystitis Status: Acute Assessment and Plan: I reviewed the CT and discussed the findings with the patient. She has evidence of acute cholecystitis. CT did not mention any evidence of cholelithiasis, therefore I would like to get a gallbladder ultrasound for further workup. Discussed that if gallstones are identified then I would recommend laparoscopic cholecystectomy, possible open. Discussed options of urgent surgical intervention verses dietary modification and antibiotics as first-line treatments. Surgery during this admission would certainly reduce the risk of recurrent hospitalization and recurrent attacks, but there are some slightly increased risks of conversion to open and other complications doing the surgery during an acute flare up. Patient voiced her understanding and would like to have surgery as soon as possible. Will review the ultrasound and determine further treatment options from there. Patient may have a clear liquid diet after ultrasound is completed. (2) IBS (irritable bowel syndrome): Qualifiers: Irritable bowel syndrome type: with constipation Qualified Code(s): K58.1 - Irritable bowel syndrome with constipation Code(s): K58.9 - Irritable bowel syndrome without diarrhea Status: Acute (3) Tobacco abuse: Code(s): Z72.0 - Tobacco use Status: Acute Assessment and Plan: Patient understands her risks of lung cancer but is unwilling to stop smoking now. History of Present Illness Consult details Consult date: 11/13/22 Reason for consult: other (cholecystitis) Requesting physician: Rosa Escalante MD Narrative: This is a 66-year-old woman who I am asked to see for acute cholecystitis. She presented to the emergency department this morning with worsening upper abdominal pain. She began having the pain about 5 days ago and felt like she was constipated. She tried taking prune juice and stool softeners but was not getting any relief. She went to the emergency department on 11/08/[address] was normal at that time. She was discharged from the emergency department. She continued taking some stool softeners and prune juice and eventually did have multiple bowel movements. She states that she still continued to have the same symptoms despite having some bowel movements. She does not recall any particular food that she ate that caused the pain. She had eaten a pork steak the night before the pain started. She has not had any symptoms like this in the past. She does deal with occasional constipation but does not typically deal with the pain like this. She denies any fevers or chills. In the emergency department this morning, she was noted to have a slightly elevated white blood count and transaminases. A repeat CT showed evidence of acute cholecystitis. She was admitted for further treatment. Review of Systems Review of Systems: All systems reviewed & are unremarkable except as noted in HPI and below Constitutional: Constitutional: Denies chills and Denies fever(s) Eyes: Eyes: Denies change in vision ENT: Denies hearing loss, Denies neck pain and Denies sore throat Cardiovascular: Cardiovascular: Denies chest pain and Denies dyspnea Respiratory: Respiratory: Denies cough, Denies dyspnea and Denies wheezing Gastrointestinal: Gastrointestinal: Reports as per HPI Genitourinary: Genitourinary: Denies hematuria and Denies dysuria Musculoskeletal: Musculoskeletal: Denies arthralgias, Denies joint swelling and Denies neck pain Allergic/Immunologic: Allergic/Immunologic: Denies wheezing [facility] Past Medical History Medical History (Updated 11/13/22 @ 12:17 by Eric Rodriguez DO) IBS (irritable bowel syndrome) Surgical History Surgical History (Updated 11/13/22 @ 12:15 by Eric Rodriguez DO) History of section x2 History of spinal surger
[2022-11-13] MEDS: PANTOPRAZOLE SODIUM IV 40 MG VIAL IV PUSH (13:54)
[2022-11-14] VITALS (14 sets, daily range): BP systolic 142–159; BP diastolic 62–85; PULSE 84–113; RESP 16–20; TEMP 36–36.9; O2SAT 91–97
[2022-11-14] MEDS: PIPERACILLN/TAZ 3.375GM/NS50ML 3.375 GM/50 ML BAG IVPB ×4 (03:48→20:29)
[2022-11-14] MEDS: SODIUM CHLORIDE 0.9% IV 1,000 ML 125 ML IV CONT (03:50)
[2022-11-14 05:23] LABS: Basophils Percent Auto 0.2 % (0.2-1.2); Eosinophils Absolute Auto 0.2 K/mm3 (0-0.3); Eosinophils Percent Auto 1.3 % (0-4.4); Hematocrit 34.5 % (37.0-47.0); Hemoglobin 10.9 g/dL (12.0-15.0); Immature Granulocyte Absolute 0.15 K/mm3 (0.00-0.031); Immature Granulocyte Percent A 1.2 % (0-0.5); Lymphocytes Absolute Auto 2.17 K/mm3 (0.9-3.2); Lymphocytes Percent Auto 17.4 % (18.3-44.2); Mean Corpuscular HGB Conc 31.6 g/dl (32-36); Mean Corpuscular Volume 91.8 fl (80-100); Mean Platelet Volume 9.3 fl (7.4-10.4); Monocytes Absolute Auto 0.7 K/mm3 (0.1-0.6); Monocytes Percent Auto 5.9 % (2.6-8.5); Neutrophils Absolute Auto 9.2 K/mm3 (1.3-6.7); Platelet Count Result 286 k/mm3 (150-375); Red Blood Count 3.76 M/mm3 (4.2-5.4); Red Cell Distribution Width 14.7 % (11.5-14.5); White Blood Count 12.4 K/mm3 (4.5-10.0)
[2022-11-14 05:33] LABS: Alanine Aminotransferase 37 U/L (6-35); Albumin Level 3.2 g/dL (3.5-5.1); Alkaline Phosphatase 171 U/L (38-126); Anion Gap 3 mmol/L (8-16); Aspartate Amino Transferase 27 U/L (14-36); Bilirubin,Total 0.7 mg/dL (0.2-1.3); Blood Urea Nitrogen 5 mg/dL (7-17); Carbon Dioxide 29 mmol/L (22-30); Chloride 103 mmol/L (98-107); Estimated CRCL calculation 88 ml/min; Estimated Glomerular Filt Rate > 60; Glucose 88 mg/dL (65-110); Potassium 3.9 mmol/L (3.4-5.0); Sodium 135 mmol/L (137-145)
[2022-11-14] MEDS: PANTOPRAZOLE SODIUM IV 40 MG VIAL IV PUSH (08:53)
[2022-11-14] MEDS: HYDROmorphone HCL INJ (*CRX) 1 MG/ML SYR 0.5 MG IV PUSH ×2 (09:11→20:28)
--- NOTE | 2022-11-14 09:19 | PM.IMPN ---
Progress Note: A&P Assessment and Plan (1) Acute cholecystitis: Code(s): K81.0 - Acute cholecystitis Status: Acute Assessment and Plan: Patient presents with abdominal pain and found to have acute cholecystitis by history, physical exam and imaging.? CT abdomen/pelvis shows prominent pericholecystic inflammation, gallbladder wall thickening. White count was elevated.? Lactic acid level was normal.? ALT mildly elevated as is the alk-phos but bili and AST are normal.? RUQ US with consistent with acute cholecystitis. Common bile duct was normal size. Patient started on Zosyn. WBC better. ALT and AP levels tredning down. She is NPO. General surgery is consulted with plans for cholecystectomy. (2) IBS (irritable bowel syndrome): Qualifiers: Irritable bowel syndrome type: with constipation Qualified Code(s): K58.1 - Irritable bowel syndrome with constipation Code(s): K58.9 - Irritable bowel syndrome without diarrhea Status: Acute Assessment and Plan: Stable. Patient complain of constipation. Resume laxatives once her surgery is complete. (3) Ovarian cyst: Code(s): N83.209 - Unspecified ovarian cyst, unspecified side Status: Acute Assessment and Plan: CT scan shows incidental finding of two 2.8 cm right ovarian cystic lesions. Radiology recommends pelvic ultrasound which will proceed with. (4) Elevated blood pressure reading: Code(s): R03.0 - Elevated blood-pressure reading, without diagnosis of hypertension Status: Acute Assessment and Plan: Blood pressures been elevated legs or the hospital course but this could be related to pain. She also has untreated sleep apnea which could be contributing to her elevated blood pressure. She also takes ibuprofen regularly which could be a contributing factor. Blood pressure overall has improved. Will continue to monitor. (5) ROSITA (obstructive sleep apnea): Code(s): G47.33 - Obstructive sleep apnea (adult) (pediatric) Status: Acute Assessment and Plan: Patient was encouraged to be compliant with CPAP therapy and she should talk with her doctor about this. (6) Chronic low back pain: Code(s): M54.50 - Low back pain, unspecified; G89.29 - Other chronic pain Status: Acute Assessment and Plan: Patient was educated about minimizing ibuprofen use and using acetaminophen if possible for her chronic low back pain.? (7) Tobacco abuse: Code(s): Z72.0 - Tobacco use Status: Acute Assessment and Plan: Patient was educated about the benefits of smoking cessation.? (8) GERD (gastroesophageal reflux disease): Code(s): K21.9 - Gastro-esophageal reflux disease without esophagitis Status: Acute Assessment and Plan: Protonix Plan DVT prophylaxis -SCDs Code status -full Subjective Date/time seen: 11/14/22 09:19 Interval history: 66yo female with IBS and tobacco abuse here for abdominal pain. No bowel movement since admission. She was asleep upon entering the room but she easily arouses. She complains that her abdominal pain is 7/10. No chest pain or shortness of breath. No nausea or vomiting. Exam Narrative: AF 98.4 155/74 113 18 95% ra Gen - NARD Chest - CTA bilaterally. CV - RRR S1/S2 Abd - soft, obese, +BS. Tender diffusely but worse in the RUQ pain. Ext - no pedal edema. SCDs applied. Psych - normal mood and affect Skin - warm and dry Objective Data Vital Signs Vital Signs: Vital Signs - 24 hr 11/13/22 10:52 11/13/22 11:00 11/13/22 13:55 Temperature 98.6 F 97.8 F Pulse Rate 86 95 79 Respiratory Rate 16 16 16 Blood Pressure 145/92 H 150/78 H 134/72 Pulse Oximetry 98 97 92 Oxygen Delivery 11/13/22 14:06 11/13/22 19:58 11/13/22 20:00 Temperature 97.9 F Pulse Rate 99 Respiratory Rate 16 Blood Pressure 134/57 L Pulse Oximetry 95 Oxygen Deliver
--- NOTE | 2022-11-14 10:00 | WPDHPUPDATE1 ---
History and Physical Update Update Date/Time: 11/14/22 10:00 History and Physical has been reviewed, including an updated exam of the patient. There are NO changes in the patient's condition. Risks, benefits, and alternatives have been discussed and questions answered. Patient agrees to proceed with procedure.
--- NOTE | 2022-11-14 10:17 | WPDANESEPPF ---
Anes - Initial Pre Proc Eval Procedure: Operation Date: 11/14/22 10:30 Proposed Procedures p Laparoscopic Cholecystectomy - Eric Rodriguez DO Date/Time: 11/14/22 10:17 Surgeon: Antonio Ferguson MD Pre Op Diagnosis: Acute Cholecystitis Patient Data Age: 66 Gender: F Height: 1.65 m Weight: 117.5 kg Last Vital Signs Temp 36.9 C 11/14/22 04:08 Pulse 113 H 11/14/22 04:08 Resp 18 11/14/22 04:08 BP 155/74 H 11/14/22 04:08 Pulse Ox 95 11/14/22 04:08 O2 Del Method Room Air 11/13/22 20:00 Allergies Allergy/AdvReac Type Severity Reaction Status Date / Time aspirin Allergy Unknown Unknown Verified 11/13/22 04:02 latex Allergy Unknown Unknown Verified 11/13/22 04:02 Home Medications Medication Instructions Recorded Confirmed Type bisacodyl 5 mg tablet,delayed 10 mg PO DAILY 11/13/22 11/13/22 History release (Women's Laxative (bisacodyl)) cyclobenzaprine 10 mg tablet 10 mg PO DAILY 11/13/22 11/13/22 History estradiol 1 mg tablet 1 mg PO DAILY 11/13/22 11/13/22 History ibuprofen 800 mg tablet 800 mg PO TID 11/13/22 11/13/22 History linaclotide 145 mcg capsule 145 mcg PO DAILY 11/13/22 11/13/22 History (Linzess) omeprazole 40 mg capsule,delayed 40 mg PO DAILY PRN Abdominal 11/13/22 11/13/22 History release Discomfort triamcinolone acetonide 0.1 % 1 applic topical DAILY 11/13/22 11/13/22 History topical ointment Laboratory Tests 11/14/22 05:13 WBC 12.4 H K/mm3 (4.5-10.0) RBC 3.76 L M/mm3 (4.2-5.4) Hgb 10.9 L g/dL (12.0-15.0) Hct 34.5 L % (37.0-47.0) MCV 91.8 fl (80-100) MCH 29.0 pg (26-34) MCHC 31.6 L g/dl (32-36) RDW 14.7 H % (11.5-14.5) Plt Count 286 k/mm3 (150-375) MPV 9.3 fl (7.4-10.4) Immature Gran % (Auto) 1.2 H % (0-0.5) Neut % (Auto) 74.0 H % (45.5-73.1) Lymph % (Auto) 17.4 L % (18.3-44.2) [place] % (Auto) 5.9 % (2.6-8.5) Eos % (Auto) 1.3 % (0-4.4) Baso % (Auto) 0.2 % (0.2-1.2) Lymph # (Auto) 2.17 K/mm3 (0.9-3.2) [place] # (Auto) 0.7 H K/mm3 (0.1-0.6) Eos # (Auto) 0.2 K/mm3 (0-0.3) Baso # (Auto) 0.0 K/mm3 (0.0-0.1) Abs Immat Gran (auto) 0.15 H K/mm3 (0.00-0.031) Absolute Neuts (auto) 9.2 H K/mm3 (1.3-6.7) Absolute Nucleated RBC 0.0 K/mm3 (0.0-0.012) Nucleated RBC % 0.0 % (0.0-0.2) Sodium 135 L mmol/L (137-145) Potassium 3.9 mmol/L (3.4-5.0) Chloride 103 mmol/L (98-107) Carbon Dioxide 29 mmol/L (22-30) Anion Gap 3 L mmol/L (8-16) BUN 5 L mg/dL (7-17) Creatinine 0.70 mg/dL (0.7-1.0) Estim Creat Clear Calc 88 ml/min Estimated GFR > 60 (59 - ) Glucose 88 mg/dL (65-110) Calcium 8.0 L mg/dL (8.4-10.2) Total Bilirubin 0.7 mg/dL (0.2-1.3) AST 27 U/L (14-36) ALT 37 H U/L (6-35) Alkaline Phosphatase 171 H U/L (38-126) Total Protein 6.0 L g/dL (6.3-8.2) Albumin 3.2 L g/dL (3.5-5.1) Patient hx anesthesia problems: none Family hx anesthesia problems: none Results Review: All pre-operative results and documents have been reviewed as part of the pre-operative evaluation. [facility] Past Medical History Medical History Chronic low back pain GERD (gastroesophageal reflux disease) IBS (irritable bowel syndrome) ROSITA (obstructive sleep apnea) Noncompliant with treatment Surgical History Surgical History History of section x2 History of spinal surgery x2. History of thyroid surgery 1988 for noncancerous reasons Family History Family History Sibling Family history of migraine headaches Hypertension Family history of seizure disorder Lung cancer Mother Hypertension Family history of diabetes mellitus in first degree relative Fa
--- NOTE | 2022-11-14 10:55 | PC.NURSE ---
Patient off the floor for surgery [id number]
[2022-11-14] MEDS: BUPIVACAINE/EPINEPHRINE 0.5% 30 ML VIAL INFILTRATE (11:08)
--- NOTE | 2022-11-14 11:19 | W.PM.PROC2 ---
Procedure Note - Detailed Date of Procedure 11/14/22 Pre-op Diagnosis Acute Cholecystitis Post-op Diagnosis Other (Acute/chronic calculous cholecystitis with gallbladder hydrops) Procedure Performed Laparoscopic Cholecystectomy Surgeon Eric Rodriguez, DO Anesthesia General and Local (0.5% bupivacaine) Indications This is a 66-year-old woman who presented to the emergency department with right upper quadrant abdominal pain that started about 1 week ago. She was feeling better initially but then symptoms worsened over the past 3-4 days. She had a CT in the emergency department 1 week ago when she 1st presented to the emergency department and there were no acute abnormalities. A repeat CT was then done yesterday morning and this showed evidence of acute cholecystitis. Ultrasound was also obtained and showed evidence of cholelithiasis with cholecystitis. Discussions were made with the patient about treatment options and decision was made to proceed with laparoscopic cholecystectomy, possible open. Findings Laparoscopic cholecystectomy was performed. The patient had evidence of acute and chronic cholecystitis. There were multiple large gallstones within the gallbladder and the gallbladder was distended and difficult to grasp. About 40 mL of clear mucus bile was aspirated. The gallbladder contained multiple gallstones and had evidence of gallbladder wall thickening and hyperemia. The cystic duct appeared normal in size. The gallbladder was removed and sent to the lab for pathology. Description of Procedure Procedure as well as risks, benefits, and alternatives were discussed with patient. Written consent was obtained and placed in chart prior to procedure. The patient was brought back to surgical suite. Patient was placed in supine position on operating table. Time-out was done to confirm patient and procedure. Patient was then intubated by the anesthesia department. Abdomen was prepped and draped in sterile fashion using chlorhexidine prep. 0.5% bupivacaine with epinephrine was infiltrated at each site of incision. A 5 millimeter incision was made near the umbilicus, and a 5 millimeter Optiview trocar was advanced through the abdominal layers under direct visualization. Once inside the abdominal cavity, carbon dioxide was insufflated to create a pneumoperitoneum. The camera was inserted and the abdomen was inspected. No immediate abnormalities were identified. The patient was placed in reverse Trendelenburg position and rotated slightly to the left. An 11 millimeter incision was made in the subxiphoid region, and an 11 millimeter trocar was inserted under direct visualization. Two 5 millimeter incisions were made in the right upper quadrant, and two 5 millimeter trocars were inserted under direct visualization. The gallbladder was identified and grasped at the fundus and retracted superiorly. It was then grasped at the infundibulum retracted laterally. Careful dissection around the neck of the gallbladder was performed using blunt dissection with a [place] grasper and hook electrocautery. The cystic duct was identified, and a window was created behind it. The cystic artery was also identified and a window was created behind it. The critical view of safety was identified, visualizing the cystic duct running directly into the neck of the gallbladder, and the cystic artery running directly into the wall of the gallbladder. A 5 millimeter clip elevator constructor helper was then used to place 2 clips proximally and 1 clip distally on both the cystic duct and cystic artery. They were then both transected using endoscopic scissors. Once safely away from the bautista hepatitis, the gallbladder was dissected free from the liver bed using hook electrocautery. Hemostasis was achieved along the way. The gallbladder was removed completely and then removed through the subxiphoid port. The liver bed was then inspected. Hemostasis appeared adequate, and our clips appeared secure.
[2022-11-14] MEDS: LACTATED RINGERS 1,000 ML 30 ML IV CONT (11:38)
[2022-11-14] MEDS: LACTATED RINGERS 1,000 ML 100 ML IV CONT (14:14)
[2022-11-14] MEDS: polyethylene glycoL 3350 17 GM POWD.PACK PO (17:20)
[2022-11-14] MEDS: BISACODYL 10 MG SUPPOSITORY RECTAL (21:20)
[2022-11-14] MEDS: HYDROcodone/acetaminophen (*CRX) 10-325 MG TABLET 1 TAB PO (21:29)
[2022-11-15 00:28] VITALS: BP 170/67; PULSE 95; RESP 20; TEMP 36.1; O2SAT 93
[2022-11-15] MEDS: PIPERACILLN/TAZ 3.375GM/NS50ML 3.375 GM/50 ML BAG IVPB ×2 (03:42→08:54)
[2022-11-15] MEDS: HYDROmorphone HCL INJ (*CRX) 1 MG/ML SYR IV PUSH (03:48)
[2022-11-15 03:49] VITALS: BP 171/73; PULSE 98; RESP 20; TEMP 36.4; O2SAT 97
--- NOTE | 2022-11-15 07:27 | WPDANESPN ---
Anes - Prog Note Post-Op Date/Time: 11/15/22 07:27 Cardiovascular status: other (HTN) Respiratory status: normal Airway patency: baseline Mental status: baseline Post-Op hydration status: normal Vital Signs: Last Vital Signs Temp 36.4 C 11/15/22 03:49 Pulse 98 11/15/22 03:49 Resp 20 11/15/22 03:49 BP 171/73 H 11/15/22 03:49 Pulse Ox 97 11/15/22 03:49 O2 Del Method Room Air 11/14/22 20:00 O2 Flow Rate 8 11/14/22 12:15 Pain Score (VAS): 03/09 I/O: Intake & Output 11/14/22 11/14/22 11/15/22 15:59 23:59 07:59 Intake Total 500 1638 1540 Output Total 300 Balance 200 1638 1540 Laboratory Tests 11/14/22 05:13 11/14/22 05:13 Post-procedural complaints: none Patient Feedback: Patient satisfied with anesthetic care.
[2022-11-15] MEDS: PANTOPRAZOLE SODIUM IV 40 MG VIAL IV PUSH (08:17)
[2022-11-15] MEDS: HYDROcodone/acetaminophen (*CRX) 10-325 MG TABLET 1 TAB PO (08:17)
[2022-11-15] MEDS: polyethylene glycoL 3350 17 GM POWD.PACK PO (08:18)
[2022-11-15] MEDS: BISACODYL 10 MG SUPPOSITORY RECTAL (08:19)
[2022-11-15 08:25] VITALS: RESP 20; O2SAT 97
--- NOTE | 2022-11-15 11:40 | PM.PNGS ---
Progress Note: A&P Assessment and Plan (1) Acute cholecystitis: Code(s): K81.0 - Acute cholecystitis Status: Acute Assessment and Plan: Postop day 1 and patient doing well. Stable from a surgical standpoint to discharge today. Follow up with Dr. Rodriguez in 2 weeks. Continue low-fat diet. (2) IBS (irritable bowel syndrome): Qualifiers: Irritable bowel syndrome type: with constipation Qualified Code(s): K58.1 - Irritable bowel syndrome with constipation Code(s): K58.9 - Irritable bowel syndrome without diarrhea Status: Acute (3) Tobacco abuse: Code(s): Z72.0 - Tobacco use Status: Acute Plan I have discussed the patient's case and plan of care with Dr. Rodriguez. Subjective Subjective Date/Time Seen: 11/15/22 11:40 Post Op day: 1 (Laparoscopic cholecystectomy) Patient reports: no new complaints Interval history: Patient doing well today. Pain well controlled. Tolerating activity. Tolerating low-fat diet. No nausea or vomiting. Review of Systems Review of Systems: All systems reviewed & are unremarkable except as noted in HPI and below Exam Const: General: comfortable, no acute distress and awake Orientation/consciousness: patient oriented x3 GI: Inspection: non-distended and incision (incisions dry and intact) GI Palp: Yes Soft to palpation and Yes Tenderness to palpation present (GI) (incisional) Auscultation: normal bowel sounds Objective Data Vital Signs Vital Signs: Vital Signs - 24 hr 11/14/22 11:50 11/14/22 12:15 11/14/22 12:30 Temperature Pulse Rate 90 90 89 Respiratory Rate 20 18 20 Blood Pressure 151/74 H 151/74 H 142/75 H Pulse Oximetry 97 97 92 Oxygen Delivery Simple Face Mask Simple Face Mask Room Air Oxygen Flow Rate 8 8 11/14/22 12:45 11/14/22 13:00 11/14/22 14:48 Temperature Pulse Rate 89 91 Respiratory Rate 18 20 Blood Pressure 150/74 H 156/70 H Pulse Oximetry 94 94 91 Oxygen Delivery Room Air Room Air Room Air Oxygen Flow Rate 11/14/22 13:12 11/14/22 13:27 11/14/22 13:57 Temperature 97 F L 97 F L 97.1 F L Pulse Rate 84 89 90 Respiratory Rate 18 18 16 Blood Pressure 154/74 H 150/62 H 153/67 H Pulse Oximetry 96 97 95 Oxygen Delivery Oxygen Flow Rate 11/14/22 14:57 11/14/22 19:21 11/14/22 21:04 Temperature 97.1 F L 96.9 F L 96.8 F L Pulse Rate 91 96 101 H Respiratory Rate 18 18 20 Blood Pressure 159/67 H 151/85 H 150/81 H Pulse Oximetry 96 94 94 Oxygen Delivery Oxygen Flow Rate 11/15/22 00:28 11/14/22 20:00 11/15/22 03:49 Temperature 96.9 F L 97.6 F Pulse Rate 95 98 Respiratory Rate 20 20 Blood Pressure 170/67 H 171/73 H Pulse Oximetry 93 97 Oxygen Delivery Room Air Oxygen Flow Rate 11/15/22 08:25 Temperature Pulse Rate Respiratory Rate 20 Blood Pressure Pulse Oximetry 97 Oxygen Delivery Room Air Oxygen Flow Rate Intake/Output Intake/Output: Intake & Output 11/12/22 11/13/22 11/14/22 11/15/22 23:59 23:59 23:59 23:59 Intake Total 3190 3388 1830 Output Total 850 1000 Balance 2340 2388 1830 Meds/Results Medications: Active Medications Generic Name Dose Route Start Last Admin Trade Name Freq PRN Reason Stop Dose Admin Acetaminophen 500 mg 11/14/22 13:12 Acetaminophen 500 Mg Tablet PO Q6H PRN Mild Pain (1-3) or Fever Hydrocodone Bitart/Acetaminophen 1 tab 11/14/22 13:12 Hydrocodone/Acetaminophen (*Crx) 5-325 Mg Tablet PO Q4H PRN Pain Rated 4-6 Hydrocodone Bitart/Acetaminophen 1 tab 11/14/22 13:12 11/15/22 08:17 Hydrocodone/Acetaminophen (*Crx) 10-325 Mg Tablet PO 1 tab Q6H PRN Administration Pain Rated 7-10 Bisacodyl 10 mg 11/15/22 09:00 11/15/22 08:19 Bisacodyl 10 Mg Suppository RECTAL 11/16/22 09:01 10 mg QAM DORA Administration Fluticasone Propionate 2 spray 11/14/22 09:30 11/15/22 08:17 Fluticasone Propionate 0.05% Na Spr 16 Gm Btl (*Bkc) NASAL Not Giv
[2022-11-15 12:03] VITALS: BP 155/77; PULSE 88; RESP 17; TEMP 36.6; O2SAT 95
--- NOTE | 2022-11-15 12:58 | PM.DS ---
DS: Admitting Diagnosis Discharge Date 11/15/22 Admitting Diagnosis Abdominal pain DS: Discharge Diagnosis Discharge Diagnosis (1) Acute cholecystitis: Code(s): K81.0 - Acute cholecystitis Status: Acute (2) IBS (irritable bowel syndrome): Qualifiers: Irritable bowel syndrome type: with constipation Qualified Code(s): K58.1 - Irritable bowel syndrome with constipation Code(s): K58.9 - Irritable bowel syndrome without diarrhea Status: Acute (3) Ovarian cyst: Code(s): N83.209 - Unspecified ovarian cyst, unspecified side Status: Acute (4) Elevated blood pressure reading: Code(s): R03.0 - Elevated blood-pressure reading, without diagnosis of hypertension Status: Acute (5) ROSITA (obstructive sleep apnea): Code(s): G47.33 - Obstructive sleep apnea (adult) (pediatric) Status: Acute (6) Chronic low back pain: Code(s): M54.50 - Low back pain, unspecified; G89.29 - Other chronic pain Status: Acute (7) Tobacco abuse: Code(s): Z72.0 - Tobacco use Status: Acute (8) GERD (gastroesophageal reflux disease): Code(s): K21.9 - Gastro-esophageal reflux disease without esophagitis Status: Acute DS: Summary Hospital Course Reason for hospitalization: 66yo female with IBS and tobacco abuse here for abdominal pain. Please see H&P for details. Hospital Course: Patient presented with abdominal pain and found to have acute cholecystitis by history, physical exam and imaging.?CT abdomen/pelvis shows prominent pericholecystic inflammation and gallbladder wall thickening. White count was elevated.? Lactic acid level was normal.? ALT mildly elevated as is the alk-phos but bili and AST are normal.?RUQ US with consistent with acute cholecystitis.?Common bile duct was normal size. Patient was started on Zosyn. WBC better. ALT and AP levels trended down. She was seen by General surgery and underwent a laparoscopic cholecystectomy on 11/14/22. The GB was sent to pathology. She tolerated the procedure well. She was started on a diet and advanced. CT scan showed incidental finding of two 2.8 cm right ovarian cystic lesions.? Radiology recommended pelvic ultrasound which showed right ovarian 2.3cm simple cyst. Patient informed and already has followup with her UPHOLSTERY TECH doctor for this. Blood pressures was elevated during her hospital course but this could be related to pain.? She also has untreated sleep apnea which could be contributing to her elevated blood pressure.? She also takes ibuprofen regularly which could be a contributing factor.? Blood pressure overall has improved.?Patient was encouraged to be compliant with CPAP therapy and she should talk with her doctor about this. Patient was educated about minimizing ibuprofen use and using acetaminophen if possible for her chronic low back pain.?Patient was educated about the benefits of smoking cessation.?She overall did well and was able to be discharged on 11/15/22. Status at Discharge Cognitive/behavioral status at discharge: stable Time Spent with Patient Time attestation: Total time spent providing and/or coordinating discharge services: 35 minutes Time spent: Greater than 30 minutes Exam Narrative: AF 97.9 155/77 88 17 95% ra Gen - NARD Chest - CTA bilaterally. CV - RRR S1/S2 Abd - soft, obese, +BS. 4 small healing incision with surrounding bruising Ext - no pedal edema. Psych - normal mood and affect Skin - warm and dry DS: Data Data Completed and Pending Pending studies at discharge: Pending at discharge 11/14/22 11:03 Surgical [PTH] Routine Discharge Plan Discharge Attending physician on discharge: Juarez Ferguson Consulting providers: Eric Rodriguez Discharging Clinician: Juarez Ferguson Anticipated Discharge Date/Time: 11/15/22 13:07 Patient Disposition: Home, Self-Care Activity: other - see discharge instructions D
[2022-11-15 14:26] VITALS: O2SAT 93
== END 2022-11-15 15:30 | disposition home or self-care (01) | DRG 418 ==
LOC: ANHED 09:48 → ANH2MED 10:25
PROVIDERS: Emergency Medicine; Surgery; Admitting Provider Internal Medicine; Emergency Provider Emergency Medicine; PCP Physician Assistant; Visit Provider Internal Medicine
PROC: 0FT44ZZ Resection of Gallbladder, Percutaneous Endoscopic Approach (ICD-10-PCS; CPT 47562; principal; 2022-11-14 10:30)
DX: K80.00 Calculus of gallbladder with acute cholecystitis without obstruction (principal); K82.1 Hydrops of gallbladder; K58.9 Irritable bowel syndrome, unspecified; F17.210 Nicotine dependence, cigarettes, uncomplicated; G47.33 Obstructive sleep apnea (adult) (pediatric); G89.29 Other chronic pain; K21.9 Gastro-esophageal reflux disease without esophagitis; M54.9 Dorsalgia, unspecified; N83.201 Unspecified ovarian cyst, right side; R03.0 Elevated blood-pressure reading, without diagnosis of hypertension; Z91.199 Patient's noncompliance with other medical treatment and regimen due to unspecified reason
CPT/HCPCS: 36415; 74177; 76705; 76856; 80053; 81003; 83605; 83690; 85025; 88304; 96361; 96374; 96375; 99285; A9270; C9113; J1100; J1170; J2060; J2250; J2405; J2543; J2704; J3010; J7030; J7120; Q9967

== ENCOUNTER 2022-11-22 08:07 | Outpatient (CLI) | payer MEDICARE, SELFPAY ==
--- NOTE | ~2022-11-22 | CT_ITS ---
EXAMINATION:CT lung screening DATE: 11/22/2022 08:35 INDICATION: Personal history of nicotine dependence. Current smoker with 50 pack year history. TECHNIQUE: Computed tomography (CT) of the chest was performed without intravenous contrast. Automate d exposure control and iterative reconstruction technique were employed. The dose-length product (DLP ) was 310.78 mGy-cm. COMPARISON: Chest CT 11/19/2021 FINDINGS: There is mild atelectasis bilaterally. There are a few pulmonary nodules measuring up to 3 mm in right upper lobe. No pleural effusion. The heart size is normal. No pericardial effusion. Surgi vandana clips in the right upper quadrant are likely from cholecystectomy. There is mild thoracic spondyl osis. IMPRESSION: 1. Lung-RADS category 2: Benign appearance or behavior. Continue annual screening with noncontrast lo w-dose chest CT in 12 months. Reviewed, dictated and finalized at location A. IMPRESSION: 1. Lung-RADS category 2: Benign appearance or behavior. Continue annual screeni ng with noncontrast low-dose chest CT in 12 months.
== END 2022-11-22 08:08 | disposition home or self-care (01) ==
PROVIDERS: PCP Physician Assistant; Visit Provider Physician Assistant
DX: Z12.2 Encounter for screening for malignant neoplasm of respiratory organs (principal); F17.210 Nicotine dependence, cigarettes, uncomplicated
CPT/HCPCS: 71271

== ENCOUNTER 2022-12-11 09:17 | Outpatient (CLI) | payer MEDICARE, SELFPAY ==
--- NOTE | ~2022-12-11 | US_ITS ---
EXAMINATION: US pelvic complete DATE: 12/11/2022 10:37 INDICATION: Ovarian cyst. TECHNIQUE: Multiple transabdominal sonographic images of the pelvis were obtained. COMPARISON: Ultrasound pelvis 11/15/2022, CT abdomen and pelvis 11/13/22 FINDINGS: There is no free fluid in the pelvis. The right ovary measures 5.9 x 3.2 cm. There are 2.3 cm and 2.3 cm cystic lesions in right ovary. The left ovary is not visualized.. IMPRESSION: 1. Small cystic lesions in the right ovary, likely benign. 2. Left ovary not visualized. 3. Absent uterus. Reviewed, dictated and finalized at location A.
== END 2022-12-11 09:18 ==
LOC: MICIMG 09:19
PROVIDERS: PCP Nurse Practitioner; Visit Provider Nurse Practitioner
DX: N83.201 Unspecified ovarian cyst, right side (principal)
CPT/HCPCS: 76856

== ENCOUNTER 2022-12-11 09:19 | Outpatient (CLI) | payer MEDICARE, SELFPAY ==
--- NOTE | ~2022-12-11 | US_ITS ---
EXAMINATION: US thyroid DATE: 12/11/2022 10:32 INDICATION: Dysphagia. TECHNIQUE: Multiple ultrasound images of the thyroid were obtained. COMPARISON: Ultrasound 04/16/2011 FINDINGS: The right thyroid lobe measures 6.2 x 2.9 x 3.5 cm. The left thyroid lobe measures 4.7 x 2.8 x 2.4 c m. In the right thyroid lobe, there is a 2.9 cm solid, isoechoic, wider than tall nodule with smooth margin without echogenic foci (TI-RADS TR3), increased from 2.2 cm on 04/16/11. In the right thyroid lobe, there is a 2.0 cm solid, isoechoic, wider than tall nodule with ill-defined margin without echo genic foci (TR3), increased from 1.1 cm on 04/16/11. In the left thyroid lobe, there is a 3.1 cm solid , hypoechoic, wider than tall nodule with ill-defined margin without echogenic foci (TR4), increased from 1.4 cm on 04/16/11. IMPRESSION: 1. Multinodular goiter. Consider ultrasound-guided fine-needle aspiration of 2 nodules. Reviewed, dictated and finalized at location A.
== END 2022-12-11 09:20 ==
LOC: MICIMG 09:20
PROVIDERS: PCP Physician Assistant; Visit Provider Physician Assistant
DX: R13.10 Dysphagia, unspecified (principal); E04.2 Nontoxic multinodular goiter
CPT/HCPCS: 76536

== ENCOUNTER 2023-02-17 08:27 | Outpatient (CLI) | payer MEDICARE, SELFPAY ==
--- NOTE | ~2023-02-17 | US_ITS ---
EXAMINATION: US FNA w image guidance, US FNA additional DATE: 02/17/2023 10:18 (accession [id number]), 02/17/2023 16:09 (accession [id number]) INDICATION: Multinodular goiter TECHNIQUE: A time-out was performed to verify the patient's name, date of , and procedure to be performed . The procedure and its benefits and risks were discussed with the patient. Risks specifically discus sed included bleeding and infection. The patient understood the risks and agreed to proceed. The neck was prepped and draped in the usual sterile manner. Attention was first turned to the right thyroid nodule. 3 mL 1% lidocaine was used for local anesthesia. A total of 6 passes were made with a 25G ne edle into the lesion. Appropriate needle location was documented with continuous sonographic guidanc e. Attention was then turned to the left thyroid nodule. An additional 3 mm 1% lidocaine was used for local anesthesia. A total of 7 passes were made with a 20 5G needle into the lesion. Appropriate nee dle location was documented with continuous sonographic guidance. Sterile bandages were applied. The re were no immediate complications. FINDINGS: Grayscale ultrasound images demonstrate biopsy needles advanced into a 3.1 cm solid right thyroid nod ule. Subsequent images demonstrate biopsy needles advanced into a 3.6 cm solid left thyroid nodule. IMPRESSION: 1. Successful ultrasound-guided fine needle aspiration of a 3.1 cm right thyroid nodule. 2. Successful ultrasound-guided fine-needle aspiration of a 3.6 cm left thyroid nodule. Reviewed, dictated and finalized at location A. DRY PRESS HELPER IMPRESSION: 1. Successful ultrasound-guided fine needle aspiration of a 3.1 cm right thyroi d nodule. 2. Successful ultrasound-guided fine-needle aspiration of a 3.6 cm left thyroid nodule.
== END 2023-02-17 08:28 | disposition home or self-care (01) ==
LOC: ANHIMG 08:34
PROVIDERS: PCP Physician Assistant; Visit Provider Otolaryngology
DX: E04.2 Nontoxic multinodular goiter (principal)
CPT/HCPCS: 10005; 10006; 88172; 88173; 88305

== ENCOUNTER 2023-03-02 14:07 | Outpatient (CLI) | payer MEDICARE, SELFPAY ==
--- NOTE | ~2023-03-02 | US_ITS ---
EXAMINATION: US venous doppler [facility] DATE: 03/02/2023 15:07 INDICATION: Lower limb pain and swelling TECHNIQUE: Grayscale ultrasound images without and with compression and Doppler ultrasound images of the bilateral lower extremity veins were obtained. COMPARISON: None. FINDINGS: The visualized portions of right common femoral vein, profunda (deep) femoral vein, femoral vein, pop liteal vein, posterior tibial veins, peroneal veins, gastrocnemius vein and greater saphenous vein ou tflow are patent. The visualized portions of left common femoral vein, profunda femoral vein, femoral vein, popliteal v ein, posterior tibial veins, peroneal veins, gastrocnemius vein and greater saphenous vein outflow ar e patent. IMPRESSION: 1. No deep venous thrombosis in either lower limb. Reviewed, dictated and finalized at location A. CH HOUSE OPERATOR
== END 2023-03-02 14:08 | disposition home or self-care (01) ==
LOC: ANHIMG 14:32
PROVIDERS: PCP Physician Assistant; Visit Provider Physician Assistant
DX: R60.9 Edema, unspecified (principal)
CPT/HCPCS: 93970

== ENCOUNTER → 2023-03-31 08:38 | Outpatient (CLI) | payer MEDICARE, SELFPAY ==
--- NOTE | ~2023-03-31 | MM_ITS ---
EXAMINATION: MM screening johann BI w tami HISTORY: Screening TECHNIQUE: Craniocaudal and mediolateral oblique 3-D tomosynthesis images were obtained and synthetic 2-D images were generated. CAD analysis was submitted and interpreted. COMPARISON: Comparison to multiple prior studies sequentially, with oldest reviewed study dated 03/2013. BREAST PARENCHYMAL COMPOSITION: Dense: The breasts are extremely dense, which lowers the sensitivity of mammography. FINDINGS: There is no evidence of suspicious mass, calcification, or architectural distortion to sugg est malignancy in either breast. There has been no suspicious interval change. IMPRESSION: 1. No mammographic evidence of malignancy. 2. Recommend routine screening mammography in one year. BI-RADS Category 1: Negative. Reviewed, dictated and finalized at location A. H ROLLER OPERATOR
--- NOTE | ~2023-03-31 | DEXA_ITS ---
Bone Density Report Name: SANG MUNIZ Age: 67 Sex: Female Ethnicity: Black Date of : 1955 Indication: postmenopausal; screening for osteoporosis; hysterectomy; Referring Provider: MIYA, ELIANA Study: Bone densitometry was performed. Exam Date: March 31, 2023 Accession number: [id number] Bone Density: Region BMD T-score Z-score Classification Total Forearm (Left) 0.603 0.8 2.5 1/3 Forearm (Left) 0.744 1.0 2.8 UD Forearm (Left) 0.421 0.2 1.5 Total Forearm (Right) 0.610 0.9 2.7 1/3 Forearm (Right) 0.738 0.9 2.7 UD Forearm (Right) 0.439 0.5 1.9 World Health Organization criteria for BMD impression classify patients as: Normal (T-score at or above -1.0), Osteopenia (T-score between -1.0 and -2.5), or Osteoporosis (T-score at or below -2.5). Clinical Information Provided by Patient: Smokes Has used the following medications: HRT (i.e. estrogen/hormone therapy), Vitamin D Has the following medical conditions: Hysterectomy Patient maximum height was 63 Menopause Age: 23 No regular weight bearing exercise Onset of menses at age 16 Number of children 2 Impression: The patient has normal bone mass. The patient has risk factors, including: smoking. Discussion: LOW RISK OF FRACTURE; BONE DENSITY IS WELL ABOVE THE MINIMUM DESIRABLE LEVEL AND ABOVE AVERAGE FOR AGE AND SEX AT ALL SKELETAL SITES TESTED. This person's bone density is above expected limits for age and sex. This is rarely clinically significant, but should be pursued if there are significant musculoskeletal complaints. The patient should follow a healthful lifestyle (good nutrition with adequate calcium and vitamin D, and appropriate weight-bearing exercise). Follow-Up: Consider repeating this study in 5 years or sooner if there is some new clinical indication. Reported by: DAMON on 03/31/2023 9:39:00 AM. Reviewed, dictated and finalized at location Marily BARRIENTOS
== END ==
PROVIDERS: PCP Nurse Practitioner; Visit Provider Nurse Practitioner
DX: Z12.31 Encounter for screening mammogram for malignant neoplasm of breast (principal); Z78.0 Asymptomatic menopausal state
CPT/HCPCS: 77063; 77067; 77081

== ENCOUNTER 2023-12-08 12:54 | Outpatient (CLI) | payer MEDICARE, MEDICAID, SELFPAY ==
--- NOTE | ~2023-12-08 | XR_ITS ---
3 VIEWS LUMBAR SPINE Ordering provider: Rudy Kwok, PA History: . INJURY OF RIGHT KNEE AND LEFT FOREARM;LBP . Comparison: None. FINDINGS: VERTEBRAL BODIES:Postoperative changes at the level of L3, L4 and L5. No visible fracture or subluxa tion. Degenerative changes of the spine. DISK SPACES: Disc spacers seen at the level of L4-L5. Narrowing of disc L5-S1. Other Disc spaces are preserved. SOFT TISSUES: Aortic atherosclerotic changes. Bilateral hip moderate osteoarthritic changes. IMPRESSION: No acute osseous abnormality lumbar spine. Postoperative changes. Reviewed, dictated and finalized at location A.
--- NOTE | ~2023-12-08 | XR_ITS ---
XR knee RT 3V Ordering provider: Rudy Kwok, PA History: . INJURY OF RIGHT KNEE AND LEFT FOREARM;LBP . Comparison: May 16, 2008 FINDINGS: BONES: No acute fracture or dislocation. JOINT SPACES: Chondrocalcinosis seen in the medial and lateral menisci. Narrowing of the medial tia rtment. SOFT TISSUES: Normal. IMPRESSION: No acute osseous abnormality right knee. Chondrocalcinosis. Reviewed, dictated and finalized at location A.
--- NOTE | ~2023-12-08 | CT_ITS ---
CT Scan of the Chest without Contrast: Clinical Indication: Lung cancer screening, nicotine dependence Technique: Contiguous sections were acquired throughout the chest without intravenous contrast. Dose reduction technique was used on this scan by utilizing automated exposure control and iterative recon struction technique. The dose-length product (DLP) was 453.15 mGy-cm. COMPARISON: 11/22/2022 Findings: There is no evidence of any significant mediastinal, hilar or axillary lymphadenopathy. The mediastin al soft tissues appear normal. There is no evidence of pleural or pericardial effusion. The lungs are clear. No pulmonary nodules or infiltrates are noted. Images through the upper abdomen reveal no abnormalities. Impression: Lung RADS 1: Negative. 12 month follow-up screening CT advised. Reviewed, dictated and finalized at location . Impression: Lung RADS 1: Negative. 12 month follow-up screening CT advised.
--- NOTE | ~2023-12-08 | XR_ITS ---
XR forearm LT 2V Ordering provider: Rudy Kwok, PA History: . INJURY OF RIGHT KNEE AND LEFT FOREARM;LBP . Comparison: None. FINDINGS: BONES: No acute fracture or dislocation. JOINT SPACES: Normal. SOFT TISSUES: Normal. IMPRESSION: No acute osseous abnormality left forearm. Reviewed, dictated and finalized at location A.
== END 2023-12-08 12:55 | disposition home or self-care (01) ==
PROVIDERS: PCP Family Medicine; Visit Provider Physician Assistant
DX: Z12.2 Encounter for screening for malignant neoplasm of respiratory organs (principal); M11.261 Other chondrocalcinosis, right knee; Z98.890 Other specified postprocedural states; Z87.891 Personal history of nicotine dependence; Z12.31 Encounter for screening mammogram for malignant neoplasm of breast
CPT/HCPCS: 71271; 72100; 73090; 73562

== ENCOUNTER 2024-04-05 11:20 | Outpatient (CLI) | payer MEDICARE, MEDICAID, SELFPAY ==
--- NOTE | ~2024-04-05 | MM_ITS ---
EXAMINATION: MM screening johann BI w tami HISTORY: Screening TECHNIQUE: Craniocaudal and mediolateral oblique 3-D tomosynthesis images were obtained and synthetic 2-D images were generated. CAD analysis was submitted and interpreted. COMPARISON: Comparison to multiple prior studies sequentially, with oldest reviewed study dated 08/27. BREAST PARENCHYMAL COMPOSITION: Not Dense: The breasts are almost entirely fatty. FINDINGS: There is no evidence of suspicious mass, calcification, or architectural distortion to sugg est malignancy in either breast. There has been no suspicious interval change. IMPRESSION: 1. No mammographic evidence of malignancy. 2. Recommend routine screening mammography in one year. BI-RADS Category 1: Negative Reviewed, dictated and finalized at location B. S LABORER
== END 2024-04-05 11:21 | disposition home or self-care (01) ==
LOC: MICIMG 11:24
PROVIDERS: PCP Obstetrics & Gynecology Gynecology; Visit Provider Physician Assistant
DX: Z12.31 Encounter for screening mammogram for malignant neoplasm of breast (principal)
CPT/HCPCS: 77063; 77067

== ENCOUNTER 2024-04-17 10:23 | Outpatient (CLI) | payer MEDICARE, MEDICAID, SELFPAY ==
--- NOTE | ~2024-04-17 | US_ITS ---
EXAMINATION: US transvaginal INDICATION: Follow-up ovarian cyst. Comparison:No prior studies for comparison. TECHNIQUE: Multiple transabdominal and endovaginal sonographic images of the pelvis performed. FINDINGS: The uterus is surgically absent. The right ovary measures 4.7 x 2.8 x 3.5 cm. The left ovary is not visualized. There are right ovaria n cysts measuring 2.6 and 2.4 cm respectively. Normal doppler signal in the right ovary. There is no free fluid in the pelvis. There are no abnormal masses seen on either side. IMPRESSION: 1. Simple right ovarian cysts, largest measuring 2.6 cm. Reviewed, dictated and finalized at location [facility]. [employer]
== END 2024-04-17 10:24 | disposition home or self-care (01) ==
LOC: MICIMG 10:24
PROVIDERS: PCP Obstetrics & Gynecology Gynecology; Visit Provider Obstetrics & Gynecology Gynecology
DX: N83.291 Other ovarian cyst, right side (principal)
CPT/HCPCS: 76830

== ENCOUNTER 2024-04-17 11:00 | Emergency (ER) | payer MEDICARE, MEDICAID, SELFPAY ==
--- NOTE | ~2024-04-17 | CT_ITS ---
Noncontrast CT scan of the lumbar spine CLINICAL HISTORY: Left-sided back pain TECHNIQUE: Axial noncontrast imaging of the lumbar spine was performed. Sagittal and coronal reformat jo ann images were constructed. Dose reduction technique was used on this scan by utilizing automated ex posure control and iterative reconstruction technique. The dose-length product (DLP) was 1096.74 mGy- cm. FINDINGS: No acute fracture or subluxation seen. There is posterior and interbody fusion from L3 thro ugh L5, bilateral rods and intrapedicular screws present. There are disc fusion devices with mature f usion across L3-L4 and L4-L5 disc spaces. At L1-L2, there is mild degenerative disc change, with mild bulge. There is advanced, severe facet ar thropathy. No carlos a central canal stenosis evident. There is probable severe bilateral neural foramin al narrowing, left worse than right. At L2-L3, there is moderate to advanced degenerative disc change with diffuse disc bulge and severe f acet arthropathy. There is severe spinal canal stenosis/thecal sac compression. There is severe bilat eral neural foraminal compromise. L3-L4 and L4-L5, there is no definite canal stenosis identified. Neural foramina appear patent at the se levels. At L5-S1, there is mild to moderate degenerative disc change. There is disc bulge with mild to modera te facet arthropathy. No carlos a central canal stenosis. There is severe bilateral neural foraminal mi rowing, right probably worse than left. Paravertebral soft tissues are unremarkable. Impression: Posterior and interbody fusion from L3 through L5, as above. Severe degenerative spondylosis at L1-L2 and L2-L3, as detailed above. Moderate degenerative spondylosis at L5-S1. Reviewed, dictated and finalized at [facility]. [employer]ING AND DEVELOPMENT DIRECTOR Impression: Posterior and interbody fusion from L3 through L5, as above. Severe degenerative spondylosis at L1-L2 and L2-L3, as detailed above. Moderate degenerative spondylosis at L5-S1.
--- OUTSIDE RECORDS SUMMARY | 2024-04-17 11:11 | XMS_ITS | Patient Health Summary ---
Author Organization [facility] Address [address] [place] [address] Care Team Providers Care Larriman Helper Name Role Phone Rudy Kwok Primary Care Provider + Note from [facility],non-owned Affiliates and Associated Physician Practices is amultiple site organization consisting of ambulatory clinics and hospital sitesin [place], [place], [place] and [place]. This disclosure is being madepursuant to the Care Everywhere program and may not contain all information available regarding this patient. Last updated 17.[facility] Social History Tobacco Use Types Packs/Day Years Used Date Smoking Tobacco: Never Assessed Sex and Gender Information Value Date Recorded Sex Assigned at Not on file Gender Identity Not on file Sexual Orientation Not on file Procedures * DERMATOPATHOLOGY(Performed 09/13/2023) Results * DERMATOPATHOLOGY (09/13/2023 12:00 AM CDT) Case Report Dermatopathology Report Case: [id number] Authorizing Provider: Issac Mae Jr., MD Collected: 09/13/2023 12:00 AM Ordering Location: [facility] - Received: 09/14/2023 01:39 PM DermPath Lab Pathologist: Marisol Lin MD Specimen: Skin, right nasal ala 1:40 PM CDT DERMATOPATHOLOGY LABORATORY Final Diagnosis Specimen A. SKIN, right nasal ala: INTRADERMAL MELANOCYTIC NEVUS WITH HYPERPIGMENTATION (D22.39) 1:40 PM CDT DERMATOPATHOLOGY LABORATORY Clinical History Intradermal nevus 1:40 PM CDT DERMATOPATHOLOGY LABORATORY Gross Description Specimen A: Received is one formalin filled container labeled with the patient's name and designated right nasal ala. The specimen consists of a shave biopsy measuring 2x2x1 mm. Jar 0. 4 1:40 PM CDT DERMATOPATHOLOGY LABORATORY Microscopic Description Specimen A. SKIN, right nasal ala: Sections show a domed skin segment containing a largely dermal proliferation of melanocytes with round to oval nuclei. Melanocytes diminish in size with dermal descent, and some melanocytes have pigmented cytoplasm. 4 1:40 PM CDT DERMATOPATHOLOGY LABORATORY Disclaimer An external and internal positive and negative controls are appropriate for the histochemical, immunohistochemical and immunofluorescence stain(s) in this case (if any), except where stated explicitly. The performance characteristics of the stain(s) cited in this report were developed and its performance characteristic determined by the Dermatopathology Laboratory at [facility], directed by Dr. Ольга Pope. These tests need not be, and therefore are not, approved by the [place] Food and Drug Administration. The tests are used for clinical purposes. Billing Codes Specimen Charges Stain Charges 20808 1 4 1:40 PM CDT DERMATOPATHOLOGY LABORATORY Embedded Images 4 1:40 PM CDT DERMATOPATHOLOGY LABORATORY Pathology/Cytolog y TISSUE SPECIMEN FROM SKIN / Unknown 09/13/2023 09/14/2023 1:39 PM CDT Issac Mae Jr., MD LAB - PATHOLOGY /CYTOLOGY ORDERABLES DERMATOPATHOLOGY LABORATORY [facility] - Department of Dermatology [facility] Special[facility] Medicine [address] [place] [address], [address] [phone] Care Teams Larriman Helper Relationship Specialty Start Date End Date Rudy Kwok PA [address] [place] [id number] PCP - General Physician Milk Receiver 09/13/18
--- OUTSIDE RECORDS SUMMARY | 2024-04-17 11:11 | XMS_ITS | Clinical Summary ---
Author Organization [facility] Address [address] [place] [address] Care Team Providers Care Rug Clipper Name Role Phone Rudy Kwok Primary Care Provider + Source Comments [facility],non-owned Affiliates and Associated Physician Practices is amultiple site organization consisting of ambulatory clinics and hospital sitesin [place], [place], [place] and [place]. This disclosure is being madepursuant to the Care Everywhere program and may not contain all information available regarding this patient. Last updated 17.[facility] [employer] Social History Tobacco Use Types Packs/Day Years Used Date Smoking Tobacco: Never Assessed Sex and Gender Information Value Date Recorded Sex Assigned at Not on file Gender Identity Not on file Sexual Orientation Not on file Plan of Treatment Health Maintenance Due Date Last Done Comments BONE DENSITY TESTING 1956 COLOGUARD (AGES 45-75) - COL ON CA SCREENING 1956 COLON MONITORING 1956 COLONOSCOPY - COLON CA SCREENING 1956 CT COLONOGRAPHY - COLON CA SCREENING 1956 Colorectal Cancer Screening 1956 FIT - COLON CA SCREENING 1956 FLEX SIG - COLON CA SCREENING 1956 LIPID TESTING 1956 MAMMOGRAM 1956 HEPATITIS C SCREENING 12/25/1974 DTAP/TDAP/TD VACCINES (1 - Tdap) 12/30/1975 PNEUMOCOCCAL VACCINE 50+ (1 of 1 - PCV) 2006 ZOSTER VACCINE (1 of 2) 2006 COVID-19 VACCINE ( - 2023-2 5 season) 2023 INFLUENZA VACCINE (#1) 2023 DEPRESSION SCREENING 02/29/2024 MEDICARE AWV CALENDAR YEAR 2024 Respiratory Syncytial Virus (RSV) Vaccine Pt: or over 60 yrs (1 - 1-dose 75+ series) 12/30/2031 HEPATITIS B VACCINE Aged Out No longe r eligible based on patient's age to complete this topic HIB VACCINE Aged Out No longer eligi ble based on patient's age to complete this topic HPV VACCINE Aged Out No longer eligi ble based on patient's age to complete this topic MENINGOCOCCAL (Group B) VACCINE Aged Out No longer eligible based on patient's age to complete this topic MENINGOCOCCAL VACCINE Aged Out No shaina ramos eligible based on patient's age to complete this topic Care Teams Rug Clipper Relationship Specialty Start Date End Date Rudy Kwok PA [address] [place] [id number] PCP - General Physician Legal Practice Manager 09/13/18
--- OUTSIDE RECORDS SUMMARY | 2024-04-17 11:11 | XMS_ITS | Referral Summary ---
Author Organization [facility] Address [address] [place] [address] Care Team Providers Care Linen Aide Name Role Phone Rudy Kwok Primary Care Provider + Source Comments [facility],non-owned Affiliates and Associated Physician Practices is amultiple site organization consisting of ambulatory clinics and hospital sitesin [place], [place], [place] and [place]. This disclosure is being madepursuant to the Care Everywhere program and may not contain all information available regarding this patient. Last updated 17.[facility] [employer] Social History Tobacco Use Types Packs/Day Years Used Date Smoking Tobacco: Never Assessed Sex and Gender Information Value Date Recorded Sex Assigned at Not on file Gender Identity Not on file Sexual Orientation Not on file Plan of Treatment Not on file Care Teams Linen Aide Relationship Specialty Start Date End Date Rudy Kwok PA [address] [place] [address] PCP - General Physician Train Operations Supervisor 09/13/18
--- OUTSIDE RECORDS SUMMARY | 2024-04-17 11:12 | XMS_ITS | Data Portability ---
Author Organization [facility] RODOLFOAddi Ferrari Address [address] [place] [address] Assessment No assessment recorded. Plan of Treatment Reminders Order Date Submit Date Provider Last Modified By Organization Details Last Modified Time Details Appointments None recorded . Lab None recorded . Referral None recorded . Procedures None recorded . Surgeries None recorded . Imaging XR, hip, bilatera l, 3 or 4 view [address] ([facility]), [address] [place] [address], [address], 3 14:15:17 XR, femur, 2 or more view [address] ([facility] Scheduling), [address] [place] [address], [address], 3 14:15:17 XR, chest, 2 view 2020 021 [facility] ([facility] Scheduling), [address] [place] [address], [address], 1 16:00:14 Medication Orders ibuprofe n 800 mg tablet 2022 023 [facility], [address] [facility], [place], [address], 3 12:36:49 cholecal ciferol (vitamin D3) 50 mcg (2,000 unit) capsule 2022 023 [facility], [address] [place], [address], 3 12:36:37 baclofen 10 mg tablet 2022 023 [facility], [address] [place], [address], 3 14:32:51 omeprazo le 20 mg capsule, delayed release 2022 023 [facility], [address] [place], [address], 3 15:56:54 ibuprofe n 800 mg tablet 2021 022 [email or web address] Not available 13:38:06 sulfamet hoxazole 800 mg-trime thoprim 160 mg tablet 2021 023 ATHENAFAX Not available 11:23:15 Linzess 290 mcg capsule 2021 022 JOSE E Not available 13:03:58 DOK 100 mg capsule 2021 023 [facility], [address] [place] [address], [id number], 3 13:05:19 baclofen 10 mg tablet 2021 022 [email or web address] Not available 14:32:51 cycloben zaprine 10 mg tablet 2021 022 JOSE E Not available 2 13:03:58 triamcin olone acetonid e 0.1 % topical ointment 2021 [email or web address] [facility], [address] [place] [address], [id number], 3 11:32:30 omeprazo le 20 mg capsule, delayed release 2021 022 [facility] 3 15:56:54 Linzess 290 mcg capsule 2020 [facility], [address] [place] [address], [id number], 1 13:01:21 ibuprofe n 800 mg tablet 2020 021 [facility], [address] [place] [address], [id number], 1 13:01:18 cycloben zaprine 10 mg tablet 2020 [facility], [address] [place] [address], [id number], 1 13:01:24 baclofen 10 mg tablet 2020 [facility], [address] [place] [address], [id number], 3 14:32:51 omeprazo le 20 mg capsule, delayed release 2020 [facility], [address] [place] [address], [id number], 3 15:56:54 azithrom ycin 250 mg tablet 2019 020 [facility], [address] [place] [address], [id number], 1 12:54:12 prometha zine-DM 6.25 mg-15 mg/5 mL oral syrup [email or web address] [place] [address] Pharmacy, [address] [place] [address], [id number], 2 12:10:21 Patient TargetsNo targets recorded. Patient Instructions Encounter Date Encounter Id Patient Instructions Last Modified By Organization Details Last Modified Time 05/24/2019 [id number] FF, sleep uprigh t , breathe in seam daily [email or web address] Not available 05/27/2019 14:25:08 she will go back to ED if not getting better ... [email or web address] Not available 05/27/2019 14:24:49 04/12/2022 [id number] gastroesophageal reflux disease (GERD): care instructions [facility] Not available 04/12/2022 12:36:29 A healthy lifest yle: care instructions [facility] Not available 04/12/2022 12:20:24 high cholesterol : care instructions [facility] Not available 04/12/2022 12:36:28 Reason for Referral None Reported. Results Created Date Observation Date Name Description Value Unit Range Abnormal Flag Note LastModifiedBy Organization Detail LastModifiedTime 06/16/19 22 06/16/2021 CBC WITH DIFFE RENTI AL/PL ATELE T WBC 7.9 x10e3 /uL 3.4-10 .8 Not Available [facility] ([facility]) [address] [place], [address], 06/16/2021 17:09:24 06/16/19 22 06/16/2021 CBC WITH DIFFE RENTI AL/PL ATELE T RBC 5.03 x10e6 /uL 3.77-5 .28 Not Available [facility] ([facility]) [address] [place], [address], 06/16/2021 17:09:24 06/16/19 22 06/16/2021 CBC WITH DIFFE RENTI AL/PL ATELE T hemoglobin 14.6 g/dL 11.1-1 5.9 Not Available [facility] ([facility]) [address] [place], [address], 06/16/2021 17:09:24 06/16/19 22 06/16/2021 CBC WITH DIFFE RENTI AL/PL ATELE T hematocrit 43.9 % 34.0-4 6.6 Not Available [facility] ([facility]) [address] [place], [address], 06/16/2021 17:09:24 06/16/19 22 06/16/2021 CBC WITH DIFFE RENTI AL/PL ATELE T MCV 87 fL 79-97 Not Available [facility] ([facility]) [address] [facility], [place], [address], 06/16/2021 17:09:24 06/16/19 22 06/16/2021 CBC WITH DIFFE RENTI AL/PL ATELE T MCH 29.0 pg 26.6-3 3.0 Not Available [facility] ([facility]) [address] [facility], [place], [address], 06/16/2021 17:09:24 06/16/19 22 06/16/2021 CBC WITH DIFFE RENTI AL/PL ATELE T MCHC 33.3 g/dL 31.5-3 5.7 Not Available [facility] ([facility]) [address] [facility], [place], [address], 06/16/2021 17:09:24 06/16/19 22 06/16/2021 CBC WITH DIFFE RENTI AL/PL ATELE T RDW 14.1 % 11.7-1 5.4 Not Available [facility] ([facility]) [address] [facility], [place], [address], 06/16/2021 17:09:24 06/16/19 22 06/16/2021 CBC WITH DIFFE RENTI AL/PL ATELE T platelets 343 x10e3 /uL 150-45 0 Not Available [facility] ([facility]) [address] [place], [address], 06/16/2021 17:09:24 06/16/19 22 06/16/2021 CBC WITH DIFFE RENTI AL/PL ATELE T neutrophils 57 % not estab. Not Available [facility] ([facility]) [address] [place], [address], 06/16/2021 17:09:24 06/16/19 22 06/16/2021 CBC WITH DIFFE RENTI AL/PL ATELE T lymphs 34 % not estab. Not Available [facility] ([facility]) [address] [facility], [place], [address], 06/16/2021 17:09:24 06/16/19 22 06/16/2021 CBC WITH DIFFE RENTI AL/PL ATELE T monocytes 6 % not estab. Not Available [facility] ([facility]) [address] [facility], [place], [address], 06/16/2021 17:09:24 06/16/19 22 06/16/2021 CBC WITH DIFFE RENTI AL/PL ATELE T eos 2 % not estab. Not Available [facility] ([facility]) [address] [facility], [place], [address], 06/16/2021 17:09:24 06/16/19 22 06/16/2021 CBC WITH DIFFE RENTI AL/PL ATELE T basos 0 % not estab. Not Available [facility] ([facility]) [address] [facility], [place], [address], 06/16/2021 17:09:24 06/16/19 22 06/16/2021 CBC WITH DIFFE RENTI AL/PL ATELE T immature cells WALLCOVERING HANGER Not Available [facility] ([facility]) [address] [facility], [place], [address], 06/16/2021 17:09:24 06/16/19 22 06/16/2021 CBC WITH DIFFE RENTI AL/PL ATELE T neutrophils (absolute) 4.5 x10e3 /uL 1.4-7. 0 Not Available [facility] ([facility]) [address] [place], [address], 06/16/2021 17:09:24 06/16/19 22 06/16/2021 CBC WITH DIFFE RENTI AL/PL ATELE T lymphs (absolute) 2.6 x10e3 /uL 0.7-3. 1 Not Available [facility] ([facility]) [address] [facility], [place], [address], 06/16/2021 17:09:24 06/16/19 22 06/16/2021 CBC WITH DIFFE RENTI AL/PL ATELE T monocytes(ab solute) 0.5 x10e3 /uL 0.1-0. 9 Not Available [facility] ([facility]) [address] [facility], [place], [address], 06/16/2021 17:09:24 06/16/19 22 06/16/2021 CBC WITH DIFFE RENTI AL/PL ATELE T eos (absolute) 0.2 x10e3 /uL 0.0-0. 4 Not Available [facility] ([facility]) [address] [place], [address], 06/16/2021 17:09:24 06/16/19 22 06/16/2021 CBC WITH DIFFE RENTI AL/PL ATELE T baso (absolute) 0.0 x10e3 /uL 0.0-0. 2 Not Available [facility] ([facility]) [address] [facility], [place], [address], 06/16/2021 17:09:24 06/16/19 22 06/16/2021 CBC WITH DIFFE RENTI AL/PL ATELE T immature granulocytes 1 % not estab. Not Available [facility] ([facility]) [address] [place], [address], 06/16/2021 17:09:24 06/16/19 22 06/16/2021 CBC WITH DIFFE RENTI AL/PL ATELE T immature grans (abs) 0.1 x10e3 /uL 0.0-0. 1 Not Available [facility] ([facility]) [address] [place], [address], 06/16/2021 17:09:24 06/16/19 22 06/16/2021 CBC WITH DIFFE RENTI AL/PL ATELE T NRBC [employer] H[employer]ER Not Available [facility] ([facility]) [address] [facility], [place], [address], 06/16/2021 17:09:24 06/16/19 22 06/16/2021 CBC WITH DIFFE RENTI AL/PL ATELE T hematology comments: W[employer]OVER[employer] HANGER Not Available [facility] ([facility]) [address] [facility], [place], [address], 06/16/2021 17:09:24 06/16/19 22 06/16/2021 COMP. METAB OLIC PANEL (14) glucose 97 mg/dL 65-99 Not Available [facility] ([facility]) [address] [facility], [place], [address], 06/16/2021 17:09:25 06/16/19 22 06/16/2021 COMP. METAB OLIC PANEL (14) BUN 7 mg/dL 8-27 below low normal Not Available [facility] ([facility]) [address] [place], [address], 06/16/2021 17:09:25 06/16/19 22 06/16/2021 COMP. METAB OLIC PANEL (14) creatinine 0.66 mg/dL 0.57-1 .00 Not Available [facility] ([facility]) [address] [place], [address], 06/16/2021 17:09:25 06/16/19 22 06/16/2021 COMP. METAB OLIC PANEL (14) eGFR 98 mL/mi n/1.7 3 >59 Not Available [facility] ([facility]) [address] [place], [address], 06/16/2021 17:09:25 06/16/19 22 06/16/2021 COMP. METAB OLIC PANEL (14) BUN/creatini ne ratio 11 12-28 below low normal Not Available [facility] ([facility]) [address] [facility] [place], [address], 06/16/2021 17:09:25 06/16/19 22 06/16/2021 COMP. METAB OLIC PANEL (14) sodium 144 mmol/ L 134-14 4 Not Available [facility] ([facility]) [address] [facility] [place], [address], 06/16/2021 17:09:25 06/16/19 22 06/16/2021 COMP. METAB OLIC PANEL (14) potassium 4.5 mmol/ L 3.5-5. 2 Not Available [facility] ([facility]) [address] [facility] [place], [address], 06/16/2021 17:09:25 06/16/19 22 06/16/2021 COMP. METAB OLIC PANEL (14) chloride 104 mmol/ L 96-106 Not Available [facility] ([facility]) [address] [facility] [place], [address], 06/16/2021 17:09:25 06/16/19 22 06/16/2021 COMP. METAB OLIC PANEL (14) carbon dioxide, total 22 mmol/ L 20-29 Not Available [facility] ([facility]) [address] [facility] [place], [address], 06/16/2021 17:09:25 06/16/19 22 06/16/2021 COMP. METAB OLIC PANEL (14) calcium 9.4 mg/dL 8.7-10 .3 Not Available [facility] ([facility]) [address] [facility] [place], [address], 06/16/2021 17:09:25 06/16/19 22 06/16/2021 COMP. METAB OLIC PANEL (14) protein, total 7.0 g/dL 6.0-8. 5 Not Available [facility] ([facility]) [address] [facility], [place], [address], 06/16/2021 17:09:25 06/16/19 22 06/16/2021 COMP. METAB OLIC PANEL (14) albumin 4.0 g/dL 3.8-4. 8 Not Available [facility] ([facility]) [address] [place], [address], 06/16/2021 17:09:25 06/16/19 22 06/16/2021 COMP. METAB OLIC PANEL (14) globulin, total 3.0 g/dL 1.5-4. 5 Not Available [facility] ([facility]) [address] [place], [address], 06/16/2021 17:09:25 06/16/19 22 06/16/2021 COMP. METAB OLIC PANEL (14) A/G ratio 1.3 1.2-2. 2 Not Available [facility] ([facility]) [address] [place], [address], 06/16/2021 17:09:25 06/16/19 22 06/16/2021 COMP. METAB OLIC PANEL (14) bilirubin, total <0.2 mg/dL 0.0-1. 2 Not Available [facility] ([facility]) [address] [place], [address], 06/16/2021 17:09:25 06/16/19 22 06/16/2021 COMP. METAB OLIC PANEL (14) alkaline phosphatase 167 IU/L 44-121 above high normal Not Available [facility] ([facility]) [address] [place], [address], 06/16/2021 17:09:25 06/16/19 22 06/16/2021 COMP. METAB OLIC PANEL (14) AST (SGOT) 26 IU/L 0-40 Not Available [facility] ([facility]) [address] [place], [address], 06/16/2021 17:09:25 06/16/19 22 06/16/2021 COMP. METAB OLIC PANEL (14) ALT (SGPT) 31 IU/L 0-32 Not Available [facility] ([facility]) [address] [facility], [place], [address], 06/16/2021 17:09:25 06/16/19 22 06/16/2021 LIPID PANEL WITH LDL/H DL RATIO cholesterol, total 193 mg/dL 100-19 9 Not Available [facility] ([facility]) [address] [place], [address], 06/16/2021 17:09:26 06/16/19 22 06/16/2021 LIPID PANEL WITH LDL/H DL RATIO triglyceride s 70 mg/dL 0-149 Not Available [facility] ([facility]) [address] [place], [address], 06/16/2021 17:09:26 06/16/19 22 06/16/2021 LIPID PANEL WITH LDL/H DL RATIO HDL cholesterol 54 mg/dL >39 Not Available [facility] ([facility]) [address] [place], [address], 06/16/2021 17:09:26 06/16/19 22 06/16/2021 LIPID PANEL WITH LDL/H DL RATIO VLDL cholesterol vandana 13 mg/dL 5-40 Not Available [facility] ([facility]) [address] [place], [address], 06/16/2021 17:09:26 06/16/19 22 06/16/2021 LIPID PANEL WITH LDL/H DL RATIO LDL chol calc ([facility]) 126 mg/dL 0-99 above high normal Not Available [facility] ([facility]) [address] [place], [address], 06/16/2021 17:09:26 06/16/19 22 06/16/2021 LIPID PANEL WITH LDL/H DL RATIO comment: [employer]ER Not Available [facility] ([facility]) [address] [facility], [place], [address], 06/16/2021 17:09:26 06/16/19 22 06/16/2021 LIPID PANEL WITH LDL/H DL RATIO LDL/HDL ratio 2.3 ratio 0.0-3. 2 LDL/H DL Ratio Men Women 1/2 Avg.R isk 1.0 1.5 Avg.R isk 3.6 3.2 2X Avg.R isk 6.2 5.0 3X Avg.R isk 8.0 6.1 Not Available [facility] ([facility]) [address] [facility], [place], [address], 06/16/2021 17:09:26 06/16/19 22 06/16/2021 VITAM IN B12 AND FOLAT E vitamin B12 752 pg/mL 232-12 45 Not Available [facility] ([facility]) [address] [facility], [place], [address], 06/16/2021 17:09:27 06/16/19 22 06/16/2021 VITAM IN B12 AND FOLAT E folate (folic acid), serum 5.3 NG/mL >3.0 A serum folat e mary ntrat ion of less than 3.1 ng/mL is consi dered to repre sent clini vandana defic iency . Not Available [facility] ([facility]) [address] [facility], [place], [address], 06/16/2021 17:09:27 06/16/19 22 06/16/2021 DIABE EDUARDO PATIE NT EDUCA TION pdf . Not Available [facility] ([facility]) [address] [facility], [place], [address], 06/16/2021 17:09:29 06/16/19 22 06/16/2021 HEMOG LOBIN A1C hemoglobin A1C 6.5 % 4.8-5. 6 above high normal Predi abete s: 5.7 - 6.4 Diabe eduardo: >6.4 Glyce janet contr ol for adult s with diabe eduardo: <7.0 Not Available [facility] ([facility]) [address] [facility], [place], [address], 06/16/2021 17:09:29 06/16/19 22 06/16/2021 TSH TSH 1.890 uIU/m L 0.450- 4.500 Not Available [facility] ([facility]) [address] [facility], [place], [address], 06/16/2021 17:09:30 06/16/19 22 06/16/2021 VITAM IN D, 25-HY DROXY vitamin D, 25-hydroxy 11.5 NG/mL 30.0-1 00.0 below low normal Vitam in D defic iency has been defin ed by the Insti tute of Medic ine and an Endoc rine Socie ty pract ice guide line as a level of serum 25-OH vitam in D less than 20 ng/mL (1,2) . The Endoc rine Socie ty went on to furth er defin e vitam in D insuf ficie ncy as a level betwe en 21 and 29 ng/mL (2). 1. IOM (Inst itute of Medic ine). 2009. Dieta ry refer ence intak es for calci um and D. Naz pineda [place]: [facility] . 2. Ale burnett MF, Eber masters [place], Yasmine off-F errar i BROWN, et al. Evalu ation , treat ment, and preve ntion of vitam in D defic iency : an Endoc rine Socie ty clini vandana pract ice guide line. JCEM. 2010; 96(7) :1911 -30. Not Available [facility] ([facility]) [address] [facility], [place], [address], 06/16/2021 17:09:31 06/16/19 22 06/16/2021 CREAT INE DIANNE E,TOT AL creatine kinase,total 158 U/L 32-182 Not Available [facility] ([facility]) [address] [facility], [place], [address], 06/16/2021 17:09:32 06/01/19 23 06/01/2022 VITAM IN D, 25-HY DROXY vitamin D, 25-hydroxy 44.3 NG/mL 30.0-1 00.0 Vitam in D defic iency has been defin ed by the Insti tute of Medic ine and an Endoc rine Socie ty pract ice guide line as a level of serum 25-OH vitam in D less than 20 ng/mL (1,2) . The Endoc rine Socie ty went on to furth er defin e vitam in D insuf ficie ncy as a level betwe en 21 and 29 ng/mL (2). 1. IOM (Inst itute of Medic ine). 2009. Ilanaa ry refer ence intak es for calci um and D. Naz pineda [place]: [facility] . 2. Ale burnett MF, Eber masters [place], Yasmine off-F errar i BROWN, et al. Evalu ation , treat ment, and preve ntion of vitam in D defic iency : an Endoc rine Socie ty clini vandana pract ice guide line. JCEM. 2010; 96(7) :1911 -30. Not Available [facility] ([facility]) [address] [facility], [place], [address], 06/01/2022 07:11:59 05/18/19 20 05/11/2019 XR, chest , 2 view No observ ation record ed. [email or web address] Not Available 03/2019 20:17:30 05/18/19 20 05/12/2019 NM, lung scan, venti latio n/per fusio n No observ ation record ed. [email or web address] Not Available 03/2019 20:17:30 05/15/19 21 05/14/2020 DEXA, axial skele ton No observ ation record ed. [address], [address], 06/03/2020 16:35:08 05/15/19 21 05/14/2020 MAMMO , scree ana, bilat eral No observ ation record ed. [email or web address] [facility], [place], [address], 05/15/2020 11:00:46 08/01/19 21 07/24/2020 LDCT, chest , for lung cance r scree ana No observ ation record ed. [facility] (Im[facility]) [address] [place] [address] [address], [place], [address], 07/28/2021 17:10:36 08/14/19 22 08/13/2021 MAMMO , diagn ostic , bilat eral No observ ation record ed. [address], [place], [address], 08/25/2021 15:06:44 11/21/19 22 11/19/2021 LDCT, chest , for lung cance r scree ana No observ ation record ed. [address], [place], [address], 11/26/2021 18:34:30 11/09/19 23 11/07/2022 XR, chest No observ ation record ed. [address], [place], [address], 11/08/2022 16:21:49 11/09/19 23 11/08/2022 CT, abdom en + pelvi s, w/ contr ast No observ ation record ed. [address], [place], [address], 11/08/2022 16:21:50 11/14/19 23 11/13/2022 CT, abdom en + pelvi s, w/o contr ast No observ ation record ed. [address], [place], [address], 11/17/2022 18:46:49 11/14/19 23 11/13/2022 US, abdom en No observ ation record ed. [address], [place], [address], 11/17/2022 18:46:49 11/16/19 23 11/15/2022 US, pelvi s, compl ete No observ ation record ed. [address], [place], [address], 11/17/2022 18:46:50 11/23/19 23 11/22/2022 LDCT, chest , for lung cance r scree ana No observ ation record ed. [address], [place], [address], 11/23/2022 14:30:31 12/12/19 23 12/11/2022 US, thyro id No observ ation record ed. [facility] [address], [place], [address], 12/17/2022 11:51:16 02/18/20 23 02/17/2023 imagi ng/di agnos tic resul t No observ ation record ed. [address], [place], [address], 02/18/2023 11:22:01 03/02/19 24 03/02/2023 US, vesna elkins, lower extre mity No observ ation record ed. [address], [place], [address], 03/03/2023 18:00:47 03/04/19 24 03/02/2023 US, vesna elkins, lower extre mity No observ ation record ed. [address], [place], [address], 03/04/2023 13:51:46 06/02/19 24 06/02/2023 XR, chest , 3 view No observ ation record ed. [facility] [address] [place], [address], 06/02/2023 12:26:03 12/08/19 24 12/08/2023 CT, chest , w/o contr ast No observ ation record ed. [address] [facility], [place], [address], 12/08/2023 17:22:08 12/08/19 24 12/08/2023 XR, forea rm No observ ation record ed. [address] [address], [place], [address], 12/08/2023 17:21:31 12/08/19 24 12/08/2023 XR, knee No observ ation record ed. [address] [address], [place], [address], 12/08/2023 17:21:01 12/08/19 24 12/08/2023 XR, lumba r spine No observ ation record ed. [address] [address], [place], [address], 12/08/2023 17:34:33 Result Notes None recorded. 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 Not Available [facility] 3 16:32:12 Obesity 934735158 Active 2017 Not Available [facility] 3 16:32:13 Hyperlipidemi a 00148569 Active 2017 Not Available [facility] 3 16:32:13 Failure to lose weight 21016749 Active 2018 Not Available [facility] 3 16:32:13 Vitamin D deficiency 39790628 Active 2018 Not Available [facility] 3 16:32:12 Acute pharyngitis 870894546 Active 2018 Not Available [facility] 3 16:32:12 Claustrophobi a 32497552 Active 2020 Not Available [facility] 3 16:32:12 Contact dermatitis 52641632 Active 2021 legs and arms Not Available [facility] 3 16:32:13 Acute folliculitis 314860008 Active 2021 Not Available [facility] 3 16:32:12 Anxiety 40654039 Active Not Available [facility] 3 16:32:13 Sleep apnea 30642078 Active Not Available [facility] 3 16:32:13 Constipation 02943174 Active Not Available [facility] 3 16:32:12 Depressive disorder 15772425 Active Not Available [facility] 3 16:32:12 Acute sciatica 620011635 Active Not Available [facility] 3 16:32:12 High hemoglobin A1c level 455564211 Active Not Available [facility] 3 16:32:13 Neck pain 63813968 Active Not Available [facility] 3 16:32:13 Sinusitis 37963452 Active Not Available [facility] 3 16:32:12 Gastroesophag eal reflux disease 070598827 Active Not Available [facility] 3 16:32:12 Menopausal syndrome 521699478 Active Not Available [facility] 3 16:32:12 Low back pain 327864530 Active Not Available [facility] 3 16:32:12 Hyperglycemia 83272857 Active Not Available [facility] 3 16:32:13 Tobacco user 363367567 Active Not Available [facility] 3 16:32:12 Headache 70594698 Active 2016 Not Available [facility] 3 16:32:12 Postconcussio n syndrome 26413066 Active 2016 Not Available [facility] 3 16:32:13 Cramp in lower limb 094092768 Active 2016 Not Available [facility] 3 16:32:13 Administratio n of influenza vaccine Active 2016 Not Available [facility] 3 16:32:13 Notes:Some problems listed i n Document: #[id number] could not be added to this patient's chart. Please review this document and add these problems to the patient's chart manually as needed. Problem Notes None recorded. Procedures Surgical History Date Name Laterality Status Provider Name and Address Organization Details Recorded Time 11/20/19 22 biopsy completed JERONIMO Luna [facility] 12/01/2021 11:55:19 11/20/19 22 biopsy completed JERONIMO Luna [facility] 12/01/2021 11:55:42 02/28/19 05 Back Surgery completed JERONIMO Abbott [facility] 03/13/2014 11:48:21 02/28/19 00 Back Surgery completed Enma Varela MA [facility] 03/13/2014 11:48:21 02/28/18 89 Remove thyroid lesion completed Enma Varela MA [facility] 03/13/2014 11:48:21 02/28/18 85 Hysterectomy completed Enma Varela MA [facility] 03/13/2014 11:48:21 02/28/18 74 Caesarean Section completed Enma Varela MA [facility] 03/13/2014 11:48:21 02/28/18 73 Caesarean Section completed Enma Varela MA [facility] 03/13/2014 11:48:21 Imaging Results Imaging Date Name Status [facility]Modified by [facility] Details LastModified Time 05/11/2019 XR, chest, 2 view completed [email or web address] Information not available 05/31/2019 20:17:30 05/12/2019 NM, lung scan, ventilation/pe rfusion completed [email or web address] Information not available 05/31/2019 20:17:30 05/14/2020 DEXA, axial skeleton completed [facility] [address] [place], [address], 06/03/2020 16:35:08 05/14/2020 MAMMO, screening, bilateral completed [address] [facility], [place], [address], 05/15/2020 11:00:46 07/24/2020 LDCT, chest, for lung cancer screening completed [facility] (Imaging) [address] [place] [address] [address] [facility], [place], [address], 07/28/2021 17:10:36 08/13/2021 MAMMO, diagnostic, bilateral completed [address], [place], [address], 08/25/2021 15:06:44 11/19/2021 LDCT, chest, for lung cancer screening completed [address] [facility], [place], [address], 11/26/2021 18:34:30 11/07/2022 XR, chest completed [address], [place], [address], 11/08/2022 16:21:49 11/08/2022 CT, abdomen + pelvis, w/ contrast completed [address] [facility], [place], [address], 11/08/2022 16:21:50 11/13/2022 CT, abdomen + pelvis, w/o contrast completed [address] [facility], [place], [address], 11/17/2022 18:46:49 11/13/2022 US, abdomen completed [address] [facility], [place], [address], 11/17/2022 18:46:49 11/15/2022 US, pelvis, complete completed [address], [place], [address], 11/17/2022 18:46:50 11/22/2022 LDCT, chest, for lung cancer screening completed [address], [place], [address], 11/23/2022 14:30:31 12/11/2022 US, thyroid completed [facility] [address], [place], [address], 12/17/2022 11:51:16 02/17/2023 imaging/diagno stic result completed [address] [facility], [place], [address], 02/18/2023 11:22:01 03/02/2023 US, duplex, venous, lower extremity completed [address], [place], [address], 03/03/2023 18:00:47 03/02/2023 US, duplex, venous, lower extremity completed [address] [facility], [place], [address], 03/04/2023 13:51:46 06/02/2023 XR, chest, 3 view completed [facility] [address] [place], [address], 06/02/2023 12:26:03 12/08/2023 CT, chest, w/o contrast completed [address] [facility], [place], [address], 12/08/2023 17:22:08 12/08/2023 XR, forearm completed [address] [place] [address], [address], 12/08/2023 17:21:31 12/08/2023 XR, knee completed [address], [address], 12/08/2023 17:21:01 12/08/2023 XR, lumbar spine completed [email or web address], [place], [address], 12/08/2023 17:34:33 Procedure Notes None recorded. Medical Equipment None Reported. Allergies Allergen ID Allergen Name Allergen Category Reaction Reaction Severity Criticality Documentation Date Start Date Code Code System Note Provider Name and Address Organization Details Recorded Time 71753 aspirin medicatio n itching Not available Not available 03/13/2014 1191 RxNorm Not Available Not Available Not Available Medications Name Sig Start Date Stop Date Status Note LastModified by Organization Details LastModified Time cyclobenz aprine 10 mg tablet TAKE 1 TABLET BY MOUTH ONCE DAILY AT BEDTIME FOR 30 DAYS active Not Available Not Available No t Available metformin 500 mg tablet Take 1 tablet twice a day by oral route. 08/07 completed Not Available Not Available Not Available promethaz ine-DM 6.25 mg-15 mg/5 mL oral syrup Take 5 mL every 4 hours by oral route for 10 days. 12/01 completed Not Available Not Available Not Available azithromy karel 250 mg tablet TAKE 2 TABLETS (500 MG) BY ORAL ROUTE ONCE DAILY FOR 1 DAY THEN 1 TABLET (250 MG) BY ORAL ROUTE ONCE DAILY FOR 4 DAYS 05/06 completed Not Available Not Available Not Available ibuprofen 800 mg tablet TAKE 1 TABLET BY MOUTH THREE TIMES DAILY WITH MEALS active Not Available Not Available No t Available ranitidin e 300 mg tablet 07/06 completed Not Available Not Available Not Available clarithro mycin 500 mg tablet 08/07 completed Not Available Not Available Not Available promethaz ine 6.25 mg/5 mL oral syrup 12/01 completed Not Available Not Available Not Available clonazepa m 0.5 mg tablet Take 1 tablet twice a day by oral route as needed for 30 days. 08/07 completed Not Available Not Available Not Available ciproflox acin 500 mg tablet Take 1 tablet every 12 hours by oral route for 10 days. active Not Available Not Available No t Available sulfameth oxazole 800 mg-trimet hoprim 160 mg tablet Take 1 tablet every 12 hours by oral route for 10 days. 04/12 completed Not Available Not Available Not Available omeprazol e 40 mg capsule,d elayed release Take 1 capsule every day by oral route for 30 days. 2022 active Not Available Not Available Not Danie barajas Kenalog 40 mg/mL suspensio n for injection Take 40 mg by injectio n route. 08/07 completed patient tolerate d injectio n well Not Available Not Available Not Available estradiol 1 mg tablet TAKE 1 TABLET BY MOUTH ONCE DAILY active Not Available Not Available No t Available DOK 100 mg capsule Take 1 capsule twice a day by oral route for 30 days. 06/01 completed Not Available Not Available Not Available baclofen 10 mg tablet TAKE 1 TABLET BY MOUTH TWICE DAILY FOR MUSCLE SPASM 06/04 completed Not Available Not Available Not Available Banophen 25 mg tablet Take 1 tablet every 4 hours by oral route. active Not Available Not Available No t Available triamcino lone acetonide 0.1 % topical ointment APPLY A THIN LAYER TO THE AFFECTED AREA(S) BY TOPICAL ROUTE 2 TIMES PER DAY 04/12 completed Not Available Not Available Not Available ranitidin e 150 mg tablet TAKE ONE TABLET BY MOUTH TWICE A DAY BEFORE MEALS 07/06 completed Not Available Not Available Not Available sertralin e 25 mg tablet Take 1 tablet every day by oral route in the morning for 30 days. 08/07 completed Not Available Not Available Not Available omeprazol e 20 mg capsule,d elayed release TAKE 1 CAPSULE BY MOUTH TWICE DAILY BEFORE MEAL(S) FOR STOMACH active Not Available Not Available No t Available aspirin 81 mg chewable tablet Chew 1 tablet every day by oral route. 04/12 completed Not Available Not Available Not Available estradiol 2 mg tablet 12/01 completed Not Available Not Available Not Available estradiol 0.5 mg tablet 08/07 completed Not Available Not Available Not Available ergocalci ferol (vitamin D2) 1,250 mcg (50,000 unit) capsule TAKE 1 CAPSULE BY MOUTH ONCE A WEEK WITH MEALS active Not Available Not Available No t Available diazepam 10 mg tablet TAKE 1 TABLET BY MOUTH NEEDED [address] SCAN,MAY REPEAT NEEDED TIMES ONE. active Not Available Not Available No t Available metformin ER 500 mg tablet,ex tended release 24 hr take one tablet by mouth every evening with food 08/07 completed Not Available Not Available Not Available bisacodyl 5 mg tablet Take 1 tablet every day by oral route. active Not Available Not Available No t Available rosuvasta tin 10 mg tablet Take 1 tablet every day by oral route in the morning for 30 days. 12/01 completed Not Available Not Available Not Available Constulos e 10 gram/15 mL oral solution TAKE 15 ML BY MOUTH ONCE DAILY NEEDED FOR 30 DAYS active Not Available Not Available No t Available estradiol 08/07 completed Not Available Not Available Not Available metformin ER 500 mg 24 hr tablet,ex tended release (gastric retention ) active Not Available Not Available Not Available ClearLax 17 gram/dose oral powder TAKE 17 G NEEDED BY ORAL ROUTE IN THE MORNING FOR 3 DAYS. 08/07 completed Not Available Not Available Not Available Vitamin D3 50 mcg (2,000 unit) capsule TAKE 1 CAPSULE BY MOUTH ONCE DAILY WITH MEALS FOR 30 DAYS active Not Available Not Available No t Available Combivent Respimat 20 mcg-100 mcg/actua tion solution for inhalatio n 04/12 completed Not Available Not Available Not Available Linzess 145 mcg capsule 1AM 08/07 completed Not Available Not Available Not Available Linzess 290 mcg capsule TAKE 1 CAPSULE BY MOUTH ONCE DAILY WITH MEALS FOR 30 DAYS active Not Available Not Available No t Available ChlorTabs 4 mg tablet Take 1 tablet every 4 hours by oral route. active Not Available Not Available No t Available Vitals Date Recorded Body height Provider Name an d Address Organization Details Last Updated DateTime 05/24/2019 160.02 cm Norma De La Cr , [facility] 05/24/2019 11:16:18 Date Recorded Body height Provider Name an d Address Organization Details Last Updated DateTime 05/06/2020 160.02 cm Norma De La Cr u, [facility] 05/06/2020 12:54:04 Date Recorded Body height Provider Name an d Address Organization Details Last Updated DateTime 06/19/2020 160.02 cm Norma De La Cr u, [facility] 06/19/2020 15:34:13 Date Recorded Body height Body mass index (BMI) Body weight Oxygen saturation Oxygen saturation in Arterial blood by Pulse oximetry Heart rate Body temperature Systolic blood pressure Diastolic blood pressure Provider Name and Address Organization Details Last Updated DateTime 2 160.02 cm 48.5 kg/m2 235836. 59 g 98 % 98 % 96 /min 98.1 [degF] 140 mm[Hg] 78 mm[Hg] Norma Nicholas [place] - [facility] 2 12:49:11 Date Recorded Body height Body mass index (BMI) Body weight Oxygen saturation Oxygen saturation in Arterial blood by Pulse oximetry Heart rate Systolic blood pressure Diastolic blood pressure Provider Name and Address Organization Details Last Updated DateTime 2 160.02 cm 48 kg/m2 611662. 53 g 95 % 95 % 101 /min 142 mm[Hg] 76 mm[Hg] Norma Nicholas [place] [facility] 2 12:02:13 Date Recorded Body height Body mass index (BMI) Body weight Oxygen saturation Oxygen saturation in Arterial blood by Pulse oximetry Heart rate Systolic blood pressure Diastolic blood pressure Provider Name and Address Organization Details Last Updated DateTime 3 160.02 cm 47.3 kg/m2 411284. 59 g 95 % 95 % 90 /min 130 mm[Hg] 80 mm[Hg] Norma Nicholas [place] [facility] 3 11:37:12 Social History Question Answer Notes LastModified by Organizat ion Details LastModified Time Tobacco Smoking Status Current Every Day Smoker Enma Varela MA [facility], [facility] 03/13/2014 11:48:21 Do You Have An Advance Directive? No Information not available 03/13/2014 What Is Your Level Of Alcohol Consumption? None Information not available 03/13/2014 Are You Blind Or Do You Have Difficulty Seeing? No Information not available 03/13/2014 What Is Your Level Of Caffeine Consumption? None Information not available 03/13/2014 Are You A Caregiver? No Information not available 03/13/2014 How Much Tobacco Do You Chew? None Information not available 03/13/2014 Are You Deaf Or Do You Have Serious Difficulty Hearing? No Information not available 03/13/2014 What Type Of Diet Are You Following? REGULAR Information not available 03/13/2014 Do You Have A Directive To Physicians? No Information not available 03/13/2014 Which Illicit Or Recreational Drugs Have You Used? 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 No Information not available 03/13/2014 Hard Of Hearing Or Deaf In One Or Both Ears? No Information not available 03/13/2014 Legally Blind In One Or Both Eyes? No Information no t available 03/13/2014 Marital Status Informatio n not available 03/13/2014 Do You Have A Medical Power Of Learning Support Assistant? No Information not available 03/13/2014 What Was The Date Of Your Most Recent Tobacco Screening? 04/12/2022 Information not available 04/12/2022 Do You Have An Out Of Hospital DNR? No Information not available 03/13/2014 Performs Monthly Self-breast Exam? No Information no t available 03/13/2014 Seat Belts Used Routinely Yes Information not available 03/13/2014 Smoke Alarm In Home Yes Information not available 03/13/2014 At What Age Did You Start Smoking Tobacco? 16 Information not available 03/13/2014 How Much Tobacco Do You Smoke? 0.5 PPD Information not available 03/13/2014 General Stress Level Low Information not available 03/13/2014 Do You Use Sunscreen Routinely? Yes Information not available 03/13/2014 Has Tobacco Cessation Counseling Been Provided? Yes Information not available 06/11/2021 On What Date Was Tobacco Cessation Counseling Provided? 12/01/2021 Information not available 12/01/2021 Sex: Unknown Functional Status Question Answer Note LastModified by Organizat ion Details LastModified Time Do you have difficulty walking or climbing stairs? Yes Climbing stairs Information not available 03/13/2014 Do you have transportation difficulties? No Information not available 03/13/2014 Do you have difficulty doing errands alone? No Information not available 03/13/2014 Do you have difficulty dressing or bathing? No Information not available 03/13/2014 What is your exercise level? None Information not available 03/13/2014 Mental Status Question Answer Note LastModified by Organization D etails LastModified Time Do you have difficulty concentrating, remembering or making decisions? No Information no t available 03/13/2014 Family History Relationship Description Onset Age of this Age Resolved Age Notes LastModified by Organization Details LastModified Time Mother Hypertensive disorder Not available 2014 10:38:58 Mother Heart disease Not available 2014 10:38:58 Mother Diabetes mellitus Not available 2014 10:38:58 Father Alcohol abuse Not available 2014 10:38:58 Brother Alcohol abuse Not available 2014 10:38:58 Maternal Grandmother Alcohol abuse Not available 2014 10:38:58 Medical History Condition Response Thyroid Problems Y Heart Attack (CT) Y Muscle, Joint, or Bone Problems Y Allergies Y Gynecological HistoryNo gynecological history recorded. Obstetrics History GPAL:G 0 P 0 0 0 0 Immunizations Vaccine Type Date Status Note Provider Nam e and Address Organization Details Recorded Time Influenza, split virus, trivalent, preservative 5 completed Not Available [facility] 03/17/2019 02:45:26 COVID-19, mRNA, LNP-S, PF, 30 mcg/0.3 mL dose 1 completed Not Available [facility] 07/28/2022 16:32:13 COVID-19, mRNA, LNP-S, PF, 30 mcg/0.3 mL dose 1 completed Not Available [facility] 07/28/2022 16:32:13 Influenza, split virus, quadrivalent, preservative 1 completed Not Available [facility] 07/28/2022 16:32:13 COVID-19, mRNA, LNP-S, PF, 30 mcg/0.3 mL dose 1 completed Not Available [facility] 07/28/2022 16:32:13 COVID-19, mRNA, LNP-S, PF, 100 mcg/0.5mL dose or 50 mcg/0.25mL dose 2 completed Not Available [facility] 07/28/2022 16:32:13 pneumococcal, unspecified formulation 2 completed Not Available [facility] 07/28/2022 16:32:13 zoster, unspecified formulation 2 completed Not Available [facility] 07/28/2022 16:32:13 influenza, unspecified formulation 2 completed Not Available [facility] 07/28/2022 16:32:13 Influenza, split virus, quadrivalent, preservative 7 completed Not Available [facility] 03/17/2019 02:34:22 Influenza, split virus, quadrivalent, preservative 8 completed Not Available [facility] 03/17/2019 02:43:37 Influenza, split virus, quadrivalent, preservative 9 completed Not Available [facility] 03/17/2019 02:46:43 Past Encounters Encounter ID Performer Location Encounter Start Date Encounter Closed Date Diagnosis/Indication Diagnosis SNOMED-CT Code Diagnosis ICD10 Code Diagnosis Note [id number] JERONIMO Abbott (Adult Med) [address] [place] [address] [id number] 03/13/2014 11:25:50 03/13/2014 13:58:51 Sinusitis 79388784 Gastroesop hageal reflux disease 965020753 Menopausal syndrome 364909096 Low back pain 943185590 Hyperglycemia 96758005 Active or passive immunization 168552641 Tobacco user [id number] NURYS Fuentes (Adult Med) [address] [place] [address] [id number] 05/20/2014 10:30:59 05/20/2014 11:27:17 Sinusitis 87753467 Tobacco user 044772021 Low back pain 341564872 Menopausal syndrome 785971624 Gastroesop hageal reflux disease 733156555 Hyperglycemia 80367137 Anxiety 78519121 Sleep apnea 71823727 [id number] JERONIMO Abbott (Adult Med) [address] [place] [address] [id number] 06/14/2014 10:41:30 06/14/2014 11:19:44 Sinusitis 22281894 Anxiety 47081680 Gastroesop hageal reflux disease 878442028 Hyperglycemia 24096665 Low back pain 285618597 Tobacco user [id number] Norma Coffey Gerry (Adult Med) [address] [place] [address] [id number] 09/17/2014 10:10:31 09/17/2014 14:28:00 Low back pain 982965849 Anxiety 76200697 Gastroesop hageal reflux disease 225272772 Hyperglycemia 10362290 Active or passive immunization 708490860 Sleep apnea 82907864 Tobacco user 364988345 Constipation 02863834 Depressive disorder 16803963 [id number] NURYS Fuentes (Adult Med) [address] [place] [address] [id number] 08/06/2015 09:41:09 08/06/2015 10:27:59 Acute sciatica 404694045 M54.31 Depressive disorder 3548 9007 F32.9 Gastroesop hageal reflux disease 358662271 K21.9 Low back pain 026978184 M54.5 Sleep apnea 06300735 G47 .30 Tobacco user 790124275 Z 72.0 High hemog lobin A1c level 463401873 R73.09 [id number] NURYS Fuentes (Adult Med) [address] [place] [address] [id number] 10/06/2015 10:22:39 10/06/2015 17:59:16 Anxiety 26841985 F41.9 Constipation 93388256 K5 9.00 Depressive disorder 3548 9007 F32.9 Gastroesop hageal reflux disease 466576386 K21.9 Low back pain 870793319 M54.5 Neck pain 10106533 M54.2 Sleep apnea 20610969 G47 .30 Tobacco user 207649295 Z 72.0 down to 8 cigarettes per day . (10/06/15) [id number] NURYS Fuentes (Adult Med) [address] [place] [address] [id number] 03/24/2016 11:04:15 03/24/2016 17:29:06 Low back pain 755290343 M54.5 Postconcus ale syndrome 49278298 F07.81 Gastroesop hageal reflux disease 597640317 K21.9 [id number] NURYS Fuentes (Adult Med) [address] [place] [address] [id number] 05/24/2016 11:06:21 05/24/2016 18:13:39 Low back pain 552120607 M54.5 Acute sciatica 213426288 M54.31 High hemog lobin A1c level 157753893 R73.09 [id number] NURYS Fuentes (Adult Med) [address] [place] [address] [id number] 12/02/2016 10:40:48 12/02/2016 11:43:09 Administration of influenza vaccine 52166679 Z23 Constipation 28074994 K5 9.00 Low back pain 483641466 M54.5 Gastroesop hageal reflux disease 233774511 K21.9 Sleep apnea 02193047 G47 .30 Depressive disorder 3548 9007 F32.9 Tobacco user 506765346 Z 72.0 [id number] NURYS Fuentes (Adult Med) [address] [place] [address] [id number] 07/14/2017 13:50:52 07/14/2017 16:53:53 Constipation 20815214 K59.04 Disorder o f lumbar spine 940401469 M53.9 6 screws , plates , cage Obesity 321651578 E66.9 High hemog lobin A1c level 336287934 R73.09 Gastroesop hageal reflux disease 962362977 K21.9 Tobacco user 698267903 Z 72.0 Hyperlipidemia 84726019 E78.00 Acute sciatica 078182400 M54.31 Sleep apnea 98748834 G47 .30 [id number] JERONIMO Queen (Adult Med) [address] [place] [address] [id number] 01/09/2018 10:47:39 01/09/2018 15:15:54 Administration of influenza vaccine 10943373 Z23 [id number] NURYS Fuentes (Adult Med) [address] [place] [address] [id number] 08/07/2018 11:00:49 08/08/2018 08:53:58 Failure to lose weight 05080530 R63.8 Gastroesop hageal reflux disease 398153490 K21.9 High hemog lobin A1c level 404695445 R73.09 Sleep apnea 25699808 G47 .30 Hyperlipidemia 26795507 E78.00 Obesity 594406215 E66.9 Vitamin D deficiency 347 05873 E55.9 Constipation 87713008 K5 9.04 Low back pain 205943938 M54.5 [id number] NURYS Fuentes (Adult Med) [address] [place] [address] [id number] 12/01/2018 10:57:57 12/04/2018 12:02:20 Acute pharyngitis 619021736 J02.9 Vitamin D deficiency 347 30603 E55.9 Hyperlipidemia 74068102 E78.00 Obesity 431734943 E66.9 Gastroesop hageal reflux disease 854304891 K21.9 Low back pain 740208223 M54.5 Sleep apnea 62491300 G47 .30 [id number] NURYS Fuentes (Adult Med) [address] [place] [address] [id number] 01/02/2019 10:58:57 01/04/2019 17:25:48 [id number] JERONIMO Luna (Adult Med) [address] [place] [address] [id number] 01/02/2019 11:31:34 01/03/2019 09:29:15 Administration of influenza vaccine 83950900 Z23 [id number] NURYS Fuentes (Adult Med) [address] [place] [address] [id number] 05/24/2019 08:59:52 05/24/2019 11:27:33 Acute pharyngitis 620826436 J02.9 Anxiety 49846255 F41.9 Gastroesop hageal reflux disease 368984635 K21.9 Hyperlipidemia 20081553 E78.00 Low back pain 187286329 M54.5 Sleep apnea 30589624 G47 .30 Tobacco user 152397597 Z 72.0 Vitamin D deficiency 347 82205 E55.9 [id number] NURYS Fuentes (Adult Med) [address] [place] [address] [id number] 05/06/2020 09:39:07 05/06/2020 13:04:54 Low back pain 675796770 M54.5 Chronic id iopathic constipation 61375029 K59.04 Disorder o f lumbar spine 704152713 M53.9 6 screws , plates , cage Hyperlipidemia 73517951 E78.00 Gastroesop hageal reflux disease 086228187 K21.9 Vitamin D deficiency 347 43949 E55.9 Tobacco user 641937144 Z 72.0 Z87.891 Anxiety 91141680 F41.9 Sleep apnea 68275299 G47 .30 Obesity 325145890 E66.9 [id number] NURYS Fuentes (Adult Med) [address] [place] [address] [id number] 06/11/2021 12:25:04 06/12/2021 09:02:28 Gastroesophageal reflux disease 867972767 K21.9 Disorder o f lumbar spine 954901926 M53.9 6 screws , plates , cage High hemog lobin A1c level 084713002 R73.09 Hyperlipidemia 74960310 E78.00 Low back pain 549784765 M54.50 Postconcus ale syndrome 81181187 F07.81 Sleep apnea 28102373 G47 .30 Tobacco user 258648820 Z 72.0 Z87.891 Constipation 97944331 K5 9.04 Contact dermatitis 67494 004 L25.9 Anxiety 80598187 F41.9 Claustrophobia 67588967 F40.240 Neck pain 73839996 M54.2 Vitamin D deficiency 347 53094 E55.9 [id number] NURYS Fuentes (Adult Med) [address] [place] [address] [id number] 12/01/2021 11:31:29 12/02/2021 12:07:20 Acute pharyngitis 569955472 J02.9 Anxiety 48620032 F41.9 Claustrophobia 35045435 F40.240 Constipation 25768425 K5 9.04 Cramp in lower limb 4499 22013 R25.2 Disorder o f lumbar spine 156139619 M53.9 6 screws , plates , cage Failure to lose weight 97977901 R63.8 Headache 90376512 R51.9 Hyperlipidemia 26641317 E78.00 Obesity 301281662 E66.9 Sinusitis 13422121 J32.9 Tobacco user 303487618 Z 72.0 Z87.891 Vitamin D deficiency 347 06841 E55.9 Hyperglycemia 58074317 R 73.9 Acute folliculitis 87660 7007 L73.9 [id number] JERONIMO Renner (Adult Med) [address] [place] [address] [id number] 04/12/2022 11:11:01 04/13/2022 14:15:17 Morbid obesity 199440168 E66.01 As 04/12/22. BMI is 47.3, diet, exercise and lose weight. Pain of bi lateral thighs 8237485673 3884082 M79.651 M79.652 She wants x ray first., NO injury. Gastroesop hageal reflux disease 245685964 K21.9 Med refill. Hyperlipidemia 84643268 E78.00 Low animal fat diet. Vitamin D deficiency 347 28113 E55.9 Refill med. Low back pain 330237001 M54.50 No acting up of her back or sciatica she said. Disorder o f lumbar spine [id number] M53.9 Had operation on lower back with metal rodeos in. 2000 and 2006 Health Concerns Section Related Observation LastModified by Organization Detai ls LastModified Time None Recorded Concern Status LastModified by Organization Details LastModified Time None Recorded Advance Directives Directive N: Payers Encounter Date Sequence Insurance Name Policy Number Policy Rivera Covered Member ID Rivera Member ID Guarantor Name 05/06/2020 1 [employer] [id number] Hanane [id number] Hanane Fermin 06/11/2021 1 [employer] [facility] [id number] Hanane Fermin [id number] Hanane Fermin 12/01/2021 1 [facility] [id number] Hanane Fermin [id number] Hanane Fermin 04/12/2022 1 [facility] Fermin [id number] Hanane Fermin Notes Date Note Type Note Provider Name and Address Organization Details Recorded Time 05/24/2019 text/html no fever for las 3 days , still coughing; throat sore ... 7 on a scale of 1 to 10 ....no close acquaintances with throat infections .... no travel or friends with traveling Rudy Kwok PA-C Attn: [address] [place], [address], [place] 05/27/2019 14:25:18 05/06/2020 text/html no changes Rudy Kwok PA-C Attn: [address] [place], [address], [place] 05/07/2020 17:52:38 06/11/2021 text/html no changes , goi ng on apple cider vinegar to lose weight Rudy Kwok PA-C Attn: [address] [facility], [place], [address], [place] 06/18/2021 14:47:22 12/01/2021 text/html Sabra Fermin is her e today for a general follow up. She states that she had sores on her right elbow and mercedes and went to her paster supervisor to get them biopsied on 11/24/21. She states that she has the results and needs to call her paster supervisor to ask how she should manage them. She recently refilled her medication and is taking them regularly. She currently smokes .5 pack a day and has been smoking for the past 50 years. LDCT was performed last week and results were negative. Rudy Kwok PA-C Attn: [address] [place], [address], [place] [facility] 12/08/2021 10:56:28 04/12/2022 text/html Office visit, allergic to aspirin. C/C both hips and thigh's sore, failed to respond to OTC med she had tried. Wants to refill all other med, Will D/C aspirin which she is allergic to. Vianey Leach MA [facility], [place] - PENDING SALE TO [facility] 04/12/2022 17:22:14 OBGyn Episode No OBEpisode recorded.
--- OUTSIDE RECORDS SUMMARY | 2024-04-17 11:12 | XMS_ITS | Clinical Summary ---
Author Organization [facility] Address [address] [place] [address] Care Team Providers Care Consumer Loan Manager Name Role Phone Rudy Kwok Primary Care Provider + Francine Claudio MD Unavailable [phone] Allergies Active Allergy Reactions Criticality Noted Date Comments Aspirin Nausea only Low 09/18/2018 Medications cyclobenzaprine (FLEXERIL) 10 mg tablet Take 1 tablet (10 mg total) by mouth daily Active estradiol (ESTRACE) 2 mg tablet Take 1 tablet (2 mg total) by mouth daily Active ibuprofen (ADVIL,MOTRIN) 800 mg tablet Take 1 tablet (800 mg total) by mouth daily as needed for pain Active linaCLOtide (LINZESS) 290 mcg capsule Take 1 capsule (290 mcg total) by mouth daily Active aspirin 81 mg enteric coated tablet Take 1 tablet (81 mg total) by mouth daily Active ezetimibe (ZETIA) 10 mg tablet 11/01/2023 Active hydroCHLOROthia zide (HYDRODIURIL) 25 mg tablet 12/01/2023 Active losartan (COZAAR) 100 mg tablet 10/08/2023 Active magnesium citrate solution Take 296 mL by mouth once Active Rybelsus 14 mg tablet 11/22/2023 Active triamcinolone (KENALOG) 0.5 % ointment 12/02/2023 Active multivit-minera h-iwrz-oxffas tablet Take by mouth Active gabapentin (NEURONTIN) 300 mg capsule Take 1 capsule (300 mg total) by mouth nightly 30 capsule 2 12/13/2023 Active ammonium lactate (LAC-HYDRIN) 12 % lotion APPLY TO THE AFFECTED AREAS ON THE BODY TWICE A DAY Active diazePAM (VALIUM) 10 mg tablet 0 02/14/2024 Active Active Problems No known active problems Encounters Date Type Department Care Team Description 03/20/2024 Telephone [facility] [address] [place] [address] [place] [phone] Johana Hoyt NP 03/15/2024 1:00 PM FISHING ACCESSORIES MAKER Office Visit [facility] [address] [place] [address] [place] [phone] Johana Hoyt NP Low back pain, unspecified back pain laterality, unspecified chronicity, unspecified whether sciatica present (Primary Dx) 01/31/2024 Orders Only [facility] [address] [place] [address] [address], [address] [place] [address] Aaron Longo MD Chronic low back pain with sciatica, sciatica laterality unspecified, unspecified back pain laterality (Primary Dx) 01/30/2024 11:44 AM FISHING ACCESSORIES MAKER - 01/30/2024 11:59 PM FISHING ACCESSORIES MAKER Hospital Encounter [facility] Di[facility] Imaging [address] [place] [address] Low back pain, unspecified back pain laterality, unspecified chronicity, unspecified whether sciatica present Discharge Disposition: Discharge to home or self care 01/30/2024 11:00 AM FISHING ACCESSORIES MAKER Office Visit [facility] [address] [place] [address], [address] [place] [address] Babak Hutchins PA Chronic left-sided low back pain with right-sided sciatica (Primary Dx) from Last 3 Months Surgical History Surgery Date Site/Laterality Comments BACK SURGERY Medical History Medical History Date Comments Chronic back pain IBS (irritable bowel syndrome) Social History Tobacco Use Types Packs/Day Years Used Date Smoking Tobacco: Every Day Cigarettes Alcohol Use Standard Drinks/Week Comments Not Currently 0 (1 standard drink = 0.6 oz pur e alcohol) Comments Unknown Sex and Gender Information Value Date Recorded Sex Assigned at Not on file Legal Sex Female 11:58 PM FISHING ACCESSORIES MAKER Gender Identity Not on file Sexual Orientation Not on file Obstetrics History Last Filed Vital Signs Vital Sign Reading Time Taken Comments Blood Pressure 140/70 03/15/2024 12:37 PM FISHING ACCESSORIES MAKER Pulse 108 03/15/2024 12:37 PM FISHING ACCESSORIES MAKER Temperature 36.4 C (97.5 F) 09/18/2018 12:01 PM CDT Respiratory Rate 22 03/15/2024 12:37 PM FISHING ACCESSORIES MAKER Oxygen Saturation 96% 03/15/2024 12:37 PM FISHING ACCESSORIES MAKER Inhaled Oxygen Concentration - - Weight 114.3 kg (252 lb) 03/15/2024 12:37 PM FISHING ACCESSORIES MAKER Height 162.6 cm (5' 4 ) 03/15/2024 12:37 PM FISHING ACCESSORIES MAKER Body Mass Index 43.26 03/15/2024 12:37 PM FISHING ACCESSORIES MAKER Plan of Treatment Health Maintenance Due Date Last Done Comments Breast Cancer Screening-Mammogram 1956 Colon Cancer Screening-Colonoscopy 1955 Depression Screening 1956 Fall Risk Assessment 1956 Hepatitis C Screening 1956 Osteoporosis Screening-Bone Density Scan 1956 DTaP/Tdap/Td Vaccine (1 - Tdap) 12/30/1967 Hepatitis B Screening 1974 Well Visit 65+ 2021 Pneumococcal vaccine 65+ Completed 11/25/2021, 10/30 Zoster Vaccine Completed 02/01/2022, 10/30, 11/23/2021 Covid-19 Vaccine Completed 10/28/2023, , 11/06/2021, Additional history exists Influenza Vaccine Completed 10/28/2023, , 12/30/2021, Additional history exists Procedures Procedure Name Priority Date/Time Associated Diagnosis Comments XR SCOLIOSIS AP LAT Schedule Routine, Read Routine (OP Routine) 01/30/2024 11:56 AM FISHING ACCESSORIES MAKER Low back pain, unspecified back pain laterality, unspecified chronicity, unspecified whether sciatica present XR LUMBAR SPINE ROUTINE W FLEX EXT Schedule Routine, Read Routine (OP Routine) 01/30/2024 11:56 AM FISHING ACCESSORIES MAKER Low back pain, unspecified back pain laterality, unspecified chronicity, unspecified whether sciatica present from Last 3 Months Results * XR Spine Lumbar Incl Bending Views 6 or More Views (01/30/2024 11:56 AM FISHING ACCESSORIES MAKER) Anatomical Region Laterality Modality L-spine N/A Computed Radiogr aphy 01/30/2024 7:05 PM FISHING ACCESSORIES MAKER Narrative 01/30/2024 7:14 PM FISHING ACCESSORIES MAKER EXAM DESCRIPTION: XR SPINE LUMBAR INCL BENDING VIEWS 6 OR MORE VIEWS; XR SCOLIOSIS AP AND LATERAL REASON FOR STUDY: lumbar stenosis Increased pain in lower back for 1 year, no injury, hx of lumbar surgery in 2000 and 2004 FINDINGS: 6 views lumbar spine two views thoracolumbar spine submitted with comparison 2023. There is long segment levoscoliosis of the thoracolumbar spine. No acute fractures are identified. There is multilevel thoracic degenerative disc disease. No acute fractures are identified. L3-L5 combined anterior posterior spinal fusion with posterior decompression is present. There is mild L1-L3 and L5-S1 degenerative disc disease. Arterial atherosclerosis is present. IMPRESSION: Long segment levoscoliosis of the thoracolumbar spine. Mild multilevel thoracic degenerative disc disease. L3-L5 combined anterior posterior spinal fusion with posterior decompression. Mild L1-L3 and L5-S1 degenerative disc disease. THIS IS AN ELECTRONICALLY VERIFIED FINAL REPORT 01/30/2024 7:14 PM - Electronically signed by Osmel Zhang M.D. T: Report ID: [id number] Reading Location: [id number] Procedure Note Osmel Zhang MD - 01/30/2024 EXAM DESCRIPTION: XR SPINE LUMBAR INCL BENDING VIEWS 6 OR MORE VIEWS; XR SCOLIOSIS AP AND LATERAL REASON FOR STUDY: lumbar stenosis Increased pain in lower back for 1 year, no injury, hx of lumbar surgeryin 2000 and 2004 FINDINGS: 6 views lumbar spine two views thoracolumbar spine submittedwith comparison 2023. There is long segment levoscoliosis of the thoracolumbar spine. No acute fractures are identified. There is multilevel thoracic degenerative disc disease. No acute fractures are identified. L3-L5 combined anterior posterior spinal fusion with posterior decompression is present. There is mild L1-L3 and L5-S1 degenerative disc disease. Arterial atherosclerosisis present. IMPRESSION: Long segment levoscoliosis of the thoracolumbar spine. Mild multilevel thoracic degenerative disc disease. L3-L5 combined anterior posterior spinal fusion with posteriordecompression. Mild L1-L3 and L5-S1 degenerative disc disease. THIS IS AN ELECTRONICALLY VERIFIED FINAL REPORT 01/30/2024 7:14 PM - Electronically signed by Osmel Zhang M.D. T: Report ID: [id number] Reading Location: [id number] us Babak MCKENZIE IMG XR PROCEDURES Final Re sult * XR Scoliosis 2 or 3 Views (01/30/2024 11:56 AM FISHING ACCESSORIES MAKER) Anatomical Region Laterality Modality Spine N/A Computed Radiogr aphy 01/30/2024 7:05 PM FISHING ACCESSORIES MAKER Narrative 01/30/2024 7:14 PM FISHING ACCESSORIES MAKER EXAM DESCRIPTION: XR SPINE LUMBAR INCL BENDING VIEWS 6 OR MORE VIEWS; XR SCOLIOSIS AP AND LATERAL REASON FOR STUDY: lumbar stenosis Increased pain in lower back for 1 year, no injury, hx of lumbar surgery in 2000 and 2004 FINDINGS: 6 views lumbar spine two views thoracolumbar spine submitted with comparison 2023. There is long segment levoscoliosis of the thoracolumbar spine. No acute fractures are identified. There is multilevel thoracic degenerative disc disease. No acute fractures are identified. L3-L5 combined anterior posterior spinal fusion with posterior decompression is present. There is mild L1-L3 and L5-S1 degenerative disc disease. Arterial atherosclerosis is present. IMPRESSION: Long segment levoscoliosis of the thoracolumbar spine. Mild multilevel thoracic degenerative disc disease. L3-L5 combined anterior posterior spinal fusion with posterior decompression. Mild L1-L3 and L5-S1 degenerative disc disease. THIS IS AN ELECTRONICALLY VERIFIED FINAL REPORT 01/30/2024 7:14 PM - Electronically signed by Osmel Zhang M.D. T: Report ID: [id number] Reading Location: [id number] Procedure Note Omsel Zhang MD - 01/30/2024 EXAM DESCRIPTION: XR SPINE LUMBAR INCL BENDING VIEWS 6 OR MORE VIEWS; XR SCOLIOSIS AP AND LATERAL REASON FOR STUDY: lumbar stenosis Increased pain in lower back for 1 year, no injury, hx of lumbar surgeryin 2000 and 2004 FINDINGS: 6 views lumbar spine two views thoracolumbar spine submittedwith comparison 2023. There is long segment levoscoliosis of the thoracolumbar spine. No acute fractures are identified. There is multilevel thoracic degenerative disc disease. No acute fractures are identified. L3-L5 combined anterior posterior spinal fusion with posterior decompression is present. There is mild L1-L3 and L5-S1 degenerative disc disease. Arterial atherosclerosisis present. IMPRESSION: Long segment levoscoliosis of the thoracolumbar spine. Mild multilevel thoracic degenerative disc disease. L3-L5 combined anterior posterior spinal fusion with posteriordecompression. Mild L1-L3 and L5-S1 degenerative disc disease. THIS IS AN ELECTRONICALLY VERIFIED FINAL REPORT 01/30/2024 7:14 PM - Electronically signed by Osmel Zhang M.D. T: Report ID: [id number] Reading Location: [place] [address] Babak MCKENZIE IMNikolas XR PROCEDURES Final Re sult from Last 3 Months Insurance [facility] MEDICARE [facility] Address: [address] [address] [place] [address] ID[employer] MEDICARE [employer] MEDICARE Care Teams Consumer Loan Manager Relationship Specialty Start Date End Date Rudy Kwok PA [facility] [place] [address] PCP - General Internal Medicine 12/23/23 Francine Claudio MD [address] [address] Referring Physician Gynecology 03/15/24
--- OUTSIDE RECORDS SUMMARY | 2024-04-17 11:12 | XMS_ITS | Referral Summary ---
Author Organization [facility] Address [address] [place] [address] Care Team Providers Care Biscuit Factory Worker Name Role Phone Rudy Kwok Primary Care Provider + Francine Claudio MD Unavailable [phone] Encounters Date Type Department Care Team Description 03/20/[address] [facility] Neurology [address] [place] [address] [address] [place] [address] Johana Hoyt NP 03/15/2024 1:00 PM FRAME STRAIGHTENER Office Visit [facility] Neurology [address] [place] [address] [address] [place] [address] Johana Hoyt NP Low back pain, unspecified back pain laterality, unspecified chronicity, unspecified whether sciatica present (Primary Dx) 01/31/2024 Orders Only [facility] [address] [place] [address] [address], [address] [place] [phone] Aaron Longo MD Chronic low back pain with sciatica, sciatica laterality unspecified, unspecified back pain laterality (Primary Dx) 01/30/2024 11:44 AM FRAME STRAIGHTENER - 01/30/2024 11:59 PM FRAME STRAIGHTENER Hospital Encounter [facility] Diag Imaging [address] [place] [address] Low back pain, unspecified back pain laterality, unspecified chronicity, unspecified whether sciatica present Discharge Disposition: Discharge to home or self care 01/30/2024 11:00 AM FRAME STRAIGHTENER Office Visit [facility] [address], [address] [place] [address] Babak Hutchins PA Chronic left-sided low back pain with right-sided sciatica (Primary Dx) from Last 3 Months Allergies Active Allergy Reactions Criticality Noted Date [...] (KENALOG) 0.5 % ointment 12/02/2023 Active multivit-minera h-apeb-ezfhgq tablet Take by mouth Active gabapentin (NEURONTIN) 300 mg capsule Take 1 capsule (300 mg total) by mouth nightly 30 capsule 2 12/13/2023 Active ammonium lactate (LAC-HYDRIN) 12 % lotion APPLY TO THE AFFECTED AREAS ON THE BODY TWICE A DAY Active diazePAM (VALIUM) 10 mg tablet 0 02/14/2024 Active Active Problems No known active problems Social History Tobacco Use Types Packs/Day Years Used Date Smoking Tobacco: Every Day Cigarettes Alcohol Use Standard Drinks/Week Comments Not Currently 0 (1 standard drink = 0.6 oz pur e alcohol) Comments Unknown Sex and Gender Information Value Date Recorded Sex Assigned at Not on file Legal Sex Female 11:58 PM FRAME STRAIGHTENER Gender Identity Not on file Sexual Orientation Not on file Last Filed Vital Signs Vital Sign Reading Time Taken Comments Blood Pressure 140/70 03/15/2024 12:37 PM FRAME STRAIGHTENER Pulse 108 03/15/2024 12:37 PM FRAME STRAIGHTENER Temperature 36.4 C (97.5 F) 09/18/2018 12:01 PM CDT Respiratory Rate 22 03/15/2024 12:37 PM FRAME STRAIGHTENER Oxygen Saturation 96% 03/15/2024 12:37 PM FRAME STRAIGHTENER Inhaled Oxygen Concentration - - Weight 114.3 kg (252 lb) 03/15/2024 12:37 PM FRAME STRAIGHTENER Height 162.6 cm (5' 4 ) 03/15/2024 12:37 PM FRAME STRAIGHTENER Body Mass Index 43.26 03/15/2024 12:37 PM FRAME STRAIGHTENER Plan of Treatment Not on file Procedures Procedure Name Priority Date/Time Associated Diagnosis Comments XR SCOLIOSIS AP LAT Schedule Routine, Read Routine (OP Routine) 01/30/2024 11:56 AM FRAME STRAIGHTENER Low back pain, unspecified back pain laterality, unspecified chronicity, unspecified whether sciatica present XR LUMBAR SPINE ROUTINE W FLEX EXT Schedule Routine, Read Routine (OP Routine) 01/30/2024 11:56 AM FRAME STRAIGHTENER Low back pain, unspecified back pain laterality, unspecified chronicity, unspecified whether sciatica present from Last 3 Months Results * XR Spine Lumbar Incl Bending Views 6 or More Views (01/30/2024 11:56 AM FRAME STRAIGHTENER) Anatomical Region Laterality Modality L-spine N/A Computed Radiogr aphy 01/30/2024 7:05 PM FRAME STRAIGHTENER Narrative 01/30/2024 7:14 PM FRAME STRAIGHTENER EXAM DESCRIPTION: XR SPINE LUMBAR INCL BENDING [...] by Osmel Zhang M.D. T: Report ID: [id number] Reading Location: [id number] Procedure Note Osmel Zhang MD - 01/30/2024 [...] by Osmel Zhang M.D. T: Report ID: [id number] Reading Location: [id number] us Babak MCKENZIE IMG XR PROCEDURES Final Re sult * XR Scoliosis 2 or 3 Views (01/30/2024 11:56 AM FRAME STRAIGHTENER) Anatomical Region Laterality Modality Spine N/A Computed Radiogr aphy 01/30/2024 7:05 PM FRAME STRAIGHTENER Narrative 01/30/2024 7:14 PM FRAME STRAIGHTENER EXAM DESCRIPTION: XR SPINE LUMBAR INCL BENDING [...] by Osmel Zhang M.D. T: Report ID: [id number] Reading Location: [id number] Procedure Note Osmel Zhang MD - 01/30/2024 [...] by Osmel Zhang M.D. T: Report ID: [id number] Reading Location: [id number] Babak MCKENZIE IMG XR PROCEDURES Final Re sult from Last [address] [place] [address] MEDICARE SOLUTIONS [facility] MEDICARE [facility] MEDIC[facility] Address: [address] [address] [place] [address] IDPA MEDICARE [facility] Address: [address] [address] [place] [address] Care Teams Biscuit Factory Worker Relationship Specialty Start Date End Date Rudy Kwok PA [address] [place] [address] [place] [address] PCP - General Internal Medicine 12/23/23 Francine Claudio MD [address] [address] Referring Physician Gynecology 03/15/24
--- OUTSIDE RECORDS SUMMARY | 2024-04-17 11:13 | XMS_ITS | Data Portability ---
Author Organization [place] [facility], Main Office Address [address] [place] [address] Care Team Providers Care Mounter Flutes And Piccolos Name Role Phone RUDY KWOK Primary Care Provider Assessment No assessment recorded. Plan of Treatment Reminders Order Date Submit Date Provider Last Modified By Organization Details Last Modified Time Details Appointments Any 15 2024 02:45P M MAGALY Fuentes Not available Not available Not available Lab CBC w/ auto diff 2023 024 [facility], [address] [place] [address] [address], [place], [address], 03/07/2023 14:44:16 CMP, serum or plasma 2023 024 [facility], [facility] [address], [place], [address], 03/07/2023 14:44:16 lipid panel, serum 2023 024 [facility], [facility] [address], [place], [address], 03/07/2023 14:44:16 Referral gastroent erologist referral - abdominal bloating , eating spicy foods. just had a cholecyst ectomy ; Please eval and treat. Please call patient to schedule an appointme nt. Thank you [email or web address] [place] [address] [facility], [address], [address], [place], [address], 12/28/2023 09:15:[address] referral - chronic low back pain . Please eval and treat. Please call patient to schedule an appointme nt. Thank you 2023 [facility], [facility] , [address], [place], [address], 02/01/2024 08:38:38 Procedures None recorded. Surgeries None recorded. Imaging LDCT, chest, for lung cancer screening - Please call pt to schedule [address] [facility], [address], [place], [address], 12/09/2023 09:42:54 MAMMO, screening , digital, bilateral - Please call pt to schedule [email or web address] [place] [address], [address], [place], [address], 12/30/2023 09:17:30 XR, lumbar spine [address] [facility], [address], [place], [address], 12/08/2023 17:25:45 Medication Orders Rybelsus 14 mg tablet 2023 [facility] [address] [place], [address], 06/02/2023 10:47:46 fluocinon joselin 0.05 % topical ointment 2023 [facility] [address] [place], [address], 06/02/2023 11:01:41 hydrochlo rothiazid e 25 mg tablet 2023 [facility] [address] [place], [address], 06/02/2023 10:42:28 Rybelsus 7 mg tablet 2023 024 [facility] [address] [place], [address], 11/28/2023 11:26:42 losartan 100 mg tablet 2023 024 JOSE E [facility] [address] [place], [address], 03/07/2023 09:33:45 Patient TargetsNo targets recorded. Patient Instructions Encounter Date Encounter Id Patient Instructions Last Modified By Organization Details Last Modified Time 01/06/2023 [id number] this patient has bilateral nodules which are qualified for a needle biopsy. These have been scheduled [email or web address] Not available 01/06/2023 13:03:21 03/07/2023 [id number] samples of 3 mg Rybelsus given. reviewed salty foods to avoid . get BP rechecked here in a week , free . [email or web address] Not available 03/07/2023 15:53:18 11/28/2023 [id number] dementia rating scale-2* [email or web address] Not available 11/28/2023 12:11:18 multi-dimensiona l health assessment questionnaire* [email or web address] Not available 11/28/2023 12:11:12 Personalized Hea lt Plan and Screening Recommendations Advance Directives - Do you have one? Yes Advance Directives - Do we have your advance directive on file in your health record? Primary Prevention/Interven tion (prevents or decreases the chance of common diseases from occurring) Smoking Risk: Smoker Refer to attached smoking cessation handouts Refer to attached handouts and prescription will be sent to pharmacy Continue to consider stopping smoking and call if we can assist you Alcohol Misuse Screening: Negative Weight: Appropriate Overwei ght continue your current weight loss efforts try to lose 5% of your body weight try to lose 10% of your body weight Physical activity: Need more exercise/physical activity minimum of 10-20 minutes of activity that causes mild breathlessness/day minimum of 20-30 minutes activity that causes mild breathlessness/day Nutrition: Good Average Fall Risk (screened today): Low Vaccines Pneumococcal: Ordered Recommended today Recommended today, but you have declined No further needed Influenza: Your next one in the fall of this year Chronic Disease Risks Stroke: Low Risk Intermediate Risk I have no recommendations Act gumaro diagnosis, Continue current treatment plan Heart Attack: Low risk Intermediate Risk I have no recommendations Act gumaro diagnosis, Continue current treatment plan Clogging of the Arteries: Low risk Intermediate Risk I have no recommendations Act gumaro diagnosis, Continue current treatment plan Diabetes: Low Risk I have no recommendations Secondary Prevention/Interven tion (detects treatable diseases before they may cause symptoms, disability, or ) Breast Cancer Screening with mammogram: Your next mammogram: Ordered Recommended today Cervical/Uterine/Ov richa Cancer Screening: Your next PAP/pelvic in: Referral to loss prevention operations manager Recomm ended today Osteoporosis Screening: Your next DEXA in: Ordered Recomme nded today Date Screening Last Performed: Colon Cancer Screening: Colonoscopy Date Screening Last Performed: Eye Disease Screening: No Eye exam necessary Dementia Risk: Low I have no recommendations Depression Screening: Negative [email or web address] Not available 11/28/2023 11:04:08 Reason for Referral Crisis Intervention Specialist Referral for Abdominal bloating abdominal bloating , eating spicy foods. just had a cholecystectomy ; Please eval and treat. Please call patient to schedule an appointment. Thank you Referring Physician: Rudy Kwok [facility], Encounter Date: 11/28/2023 Neurologist Referral for Low back pain chronic low back pain . Please eval and treat. Please call patient to schedule an appointment. Thank you Referring Physician: Rudy Kwok [facility], Encounter Date: 11/28/2023 Results Created Date Observation Date Name Description Value Unit Range Abnormal Flag Note LastModifiedBy Organization Detail LastModifiedTime 12/12/1912/11/2022 US, thyro id No observ ation record ed. [email or web address] [facility] [address], [place], [address], 12/14/2022 12:48:04 02/18/20 23 02/17/2023 fine needl e aspir ation , ultra sound guide d, thyro id (PROC ) No observ ation record ed. [email or web address] [facility] [address], [place], [address], 02/23/2023 11:33:50 02/25/20 23 02/17/2023 fine needl e aspir ation , ultra sound guide d, thyro id (PROC ) No observ ation record ed. [email or web address] [facility] [address] [facility] [address], [place], [address], 03/02/2023 14:34:06 03/07/19 24 03/02/2023 US, doppl er, venou s No observ ation record ed. [place] [id number] [facility] [address], [place], [address], 03/07/2023 09:51:17 03/07/19 24 03/02/2023 US, doppl er, venou s No observ ation record ed. [place] [address], [place], [address], 03/07/2023 09:51:26 06/07/19 24 06/02/2023 XR, chest , 2 view No observ ation record ed. [facility] [address], [place], [address], 06/16/2023 17:07:00 12/08/19 24 12/08/2023 LDCT, chest , for lung cance r scree ana No observ ation record ed. [facility] [address], [place], [address], 01/25/2024 15:32:16 12/08/19 24 12/08/2023 XR, forea rm, 2 view No observ ation record ed. [place] [id number] [address], [place], [address], 01/25/2024 15:32:16 12/08/19 24 12/08/2023 XR, knee, 3 view No observ ation record ed. [address] [place] [address], [place], [address], 01/25/2024 15:32:17 12/08/19 24 12/08/2023 XR, lumba r spine No observ ation record ed. [facility] [address], [place], [address], 01/25/2024 15:32:18 12/08/19 24 12/08/2023 LDCT, chest , for lung cance r scree ana No observ ation record ed. [facility] [address], [place], [address], 01/25/2024 15:32:18 01/06/[address], lumba r spine , w/o contr ast No observ ation record ed. [address] ([facility]) [address] [facility] , [place], [address], 01/09/2024 09:19:21 04/05/19 25 04/05/2024 MAMMO , scree ana, digit al, bilat eral No observ ation record ed. [address] [facility] [address], [place], [address], 04/06/2024 10:15:06 Result Notes None recorded. Problems Name Problem SNOMED Code Status Onset Date Resolution Date Notes Provider Name and Address Organization Details Recorded Time Irritable bowel syndrome 75323637 Active 2022 ROXANNA Chan null, [facility] [employer] 3 14:15:55 Continuous dependence on cigarette smoking 4308404478910 08 Active 2022 MAGALY Fuentes [address], [place], [address], [facility] [employer] 3 14:27:14 Bilateral spasm of muscle of calves 2249071549392 9109 Active 2022 MAGALY Fuentes [address], [address], [place], [address], [employer] 3 14:33:45 Low back pain 795274469 Active 2022 MAGALY Fuentes [address], [address], [place], [address], [employer] 3 14:34:29 Chronic idiopathic constipati on 30170534 Active 2022 MAGALY Fuentes [address], [address], [place], [address], [employer] 3 14:35:04 Obese 128358939 Active 2022 MAGALY Fuentes [address], [address], [place], [address], [employer] 3 14:37:25 Vitamin D below reference range 249411179 Active 2022 MAGALY Fuentes [address], [address], [place], [address], [employer] 3 16:12:57 Nicotine dependence 08045677 Active 2022 MAGALY Fuentes [address], [address], [place], [address], [employer] 3 15:15:52 Irritable bowel syndrome characteri zed by constipati on 206066292 Active 2022 MAGALY Fuentes [address], [address], [place], [address], [employer] 3 13:41:12 Contact dermatitis 73944686 Active 2022 MAGALY Fuentes [address], [address], [place], [address], [employer] 3 10:02:36 Dysphagia 43698912 Active 2022 MAGAYL Fuentes [address], [address], [place], [address], [employer] 3 13:58:06 Screening for malignant neoplasm of breast Active 2022 MAGALY Fuentes [address], [address], [place], [address], [employer] [place] [facility] [employer] 3 09:49:10 Multinodul ar goiter 607604245 Active 2022 MAGALY Fuentes [address], [address], [place], [address], [employer] [place] [facility] [employer] [facility] 3 17:08:01 Edema of right lower leg 442469632 Active 2022 MAGALY Fuentes [address], [address], [place], [address], [employer] [place] [facility] [employer] [facility] [employer] 3 16:44:28 High hemoglobin A1c level 342027432 Active 2022 MAGALY Fuentes [address], [address], [place], [address], [employer] [place] [facility] [employer] [facility] 3 16:14:35 Gastroesop hageal reflux disease 746828711 Active 2022 MAGALY Fuentes [address], [address], [place], [address], [employer] 3 16:03:21 Screening for osteoporos is Active 2022 MAGALY Fuentes [address], [address], [place], [address], [employer] [facility] 3 13:52:18 Non-toxic multinodul ar goiter 77126691 Active 2022 Evan Shanks MD [address], [address], [place], [address], [facility] [place] [facility] [employer] [facility] 3 13:03:05 Upper respirator y infection 37997339 Active 2022 MAGALY Fuentes [address], [address], [place], [address], [employer] [place] [facility] [employer] 3 11:25:19 Diarrhea 45810820 Active 2022 MAGALY Fuentes [address], [address], [place], [address], [employer] [facility] [employer] 3 11:25:59 Failure to lose weight 56110268 Active 2023 MAGALY Fuentes [address], [address], [place], [address], [employer] 4 09:24:02 Essential hypertensi on 76920278 Active 2023 MAGALY Fuentes [address], [address], [place], [address], [employer] 4 09:30:59 Sensorineu ral hearing loss 68122132 Active 2023 Inga Amador RN null, [facility] - [facility] [employer] 4 11:24:37 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 72224064 Active 2023 Evan Shanks MD [address], [address], [place], [address], [employer] [facility] [employer] 4 11:29:42 Hyperlipid emia 25214076 Active 2023 MAGALY Fuentes [address], [address], [place], [address], [employer] 4 17:05:10 Hypercalce osmar 89356554 Active 2023 MAGALY Fuentes [address], [address], [place], [address], [facility] [place] [facility] [employer] 4 17:05:53 Tuberculos is screening Active 2023 MAGALY Fuentes [address], [address], [place], [address], [facility] [place] [facility] [employer] 4 14:53:51 Smoker 99515622 Active 2023 Renetta Bhatti RN null, [facility] [employer] [facility] [employer] 4 17:04:44 Screening mammograph y Active 2023 MAGALY Fuentes [address], [address], [place], [address], [facility] 4 11:53:13 Abdominal bloating 236857201 Active 2023 MAGALY Fuentes [address], [address], [place], [address], [facility] [employer] [facility] 4 11:56:26 Injury of left forearm 0987637605341 9108 Active 2023 MAGALY Fuentes [address], [address], [place], [address], [facility] 16:27:04 Injury of right knee 9371531333374 4107 Active 2023 MAGALY Fuentes [address], [place], [address], [facility] [employer] [facility] 16:27:24 Abdominal mass 289547505 Active [address] of lumbar spine MAGALY Fuentes [address], [place], [address], [facility] [employer] [facility] 17:08:33 Notes:Roll On Worker is Dr. Minerva mata problems listed in Documents: #[id number], #[id number], #[id number] could not be added to this patient's chart. Please review these documents and add these problems to the patient's chart manually as needed. Problem Notes None recorded. Procedures Surgical History Date Name Laterality Status Provider Name and Address Organization Details Recorded Time 11/28/19 24 Medicare Wellness CPT Code, subsequent completed Guera Gracia RN [facility] [employer] [facility] 11/28/2023 10:48:24 11/15/19 23 procedure on gallbladder completed Gerda Cochran MA [facility] [employer] [facility] 03/07/2023 09:07:52 completed ROXANNA Chan [facility] [employer] 07/13/2022 14:13:21 Thyroid Surgery [facility] 12/20/2022 12:21:23 [address]sterectomy [address] Eryn Ho [facility] 07/13/2022 14:13:49 Back Surgery completed Eryn Ho [place] [facility] 07/13/2022 14:14:10 Imaging Results Imaging Date Name Status LastModified by Organiz ation Details LastModified Time 12/11/2022 US, thyroid completed [address], [place], [address], 12/14/2022 12:48:04 02/17/2023 fine needle aspiration, ultrasound guided, thyroid (PROC) completed [address], [address], 02/23/2023 11:33:50 02/17/2023 fine needle aspiration, ultrasound guided, thyroid (PROC) completed [address], [address], 03/02/2023 14:34:06 03/02/2023 US, doppler, venous completed [address], [address], 03/07/2023 09:51:17 03/02/2023 US, doppler, venous completed [address], [address], 03/07/2023 09:51:26 06/02/2023 XR, chest, 2 view completed [facility] [address] [place], [address], 06/16/2023 17:07:00 12/08/2023 LDCT, chest, for lung cancer screening completed [facility] [address], [place], [address], 01/25/2024 15:32:16 12/08/2023 XR, forearm, 2 view completed [facility] [address], [place], [address], 01/25/2024 15:32:16 12/08/2023 XR, knee, 3 view completed [address], [place], [address], 01/25/2024 15:32:17 12/08/2023 XR, lumbar spine completed [address], [place], [address], 01/25/2024 15:32:18 12/08/2023 LDCT, chest, for lung cancer screening completed [facility] [address] [facility] [address], [place], [address], 01/25/2024 15:32:[address], lumbar spine, w/o contrast completed [address] ([facility]) [facility] , [place], [address], 01/09/2024 09:19:21 04/05/2024 MAMMO, screening, digital, bilateral active [address] [facility] [address], [place], [address], 04/06/2024 10:15:06 Procedure Notes None recorded. Medical Equipment None Reported. Allergies Allergen ID Allergen Name Allergen Category Reaction Reaction Severity Criticality Documentation Date Start Date Code Code System Note Provider Name and Address Organization Details Recorded Time 45843 ragweed pollen environme nt Not available Not available Not available 09/08/2022 [id number] JERONIMO Grimes [place] [employer] [facility] 09:52:16 No known drug allergies Medications Name Sig Start Date Stop Date Status Note LastModified by Organization Details LastModified Time Prescript ion - Prior Authoriza tion Request active Not Available Not Available Not Available cyclobenz aprine 10 mg tablet TAKE 1 & 1/2 (ONE & ONE-HALF ) TABLETS BY MOUTH ONCE DAILY AT BEDTIME 2024 active Not Available Not Available Not Avai lable ammonium lactate 12 % lotion active Not Available Not Available Not Available azithromy karel 250 mg tablet TAKE 2 TABLETS BY MOUTH ON DAY 1, AND THEN TAKE 1 TABLET BY MOUTH ONCE A DAY ON DAY 2 THROUGH DAY 5 03/15 completed Not Available Not Available Not Available ibuprofen 800 mg tablet Take 1 tablet 3 times a day by oral route with meals for 30 days. active Not Available Not Available No t Available hydrocodo ne 5 mg-acetam inophen 325 mg tablet TAKE 1 TABLET BY MOUTH EVERY 4 HOURS NEEDED FOR PAIN 09/28 completed Not Available Not Available Not Available triamcino lone acetonide 0.5 % topical ointment APPLY A THIN LAYER TO THE AFFECTED AREA(S) BY TOPICAL ROUTE 2 TIMES PER DAY active Not Available Not Available No t Available fluocinon joselin 0.05 % topical ointment APPLY TO THE AFFECTED AREA(S) BY TOPICAL ROUTE 2 TIMES PER DAY 2023 active Not Available Not Available Not Avai lable omeprazol e 40 mg capsule,d elayed release Take 1 capsule every day by oral route before meals for 30 days. 11/27 completed Not Available Not Available Not Available Depo-Medr ol 80 mg/mL suspensio n for injection Take 1 mL by injectio n route. 06/01 completed Not Available Not Available Not Available estradiol 1 mg tablet TAKE 1 TABLET BY MOUTH ONCE DAILY 11/27 completed dose adjustme nt Not Available Not Available Not Available Imodium A-D 2 mg tablet 2 tabs po after every loose stool 2022 active Not Available Not Available Not Avai lable baclofen 10 mg tablet TAKE 1 TABLET BY MOUTH TWICE DAILY FOR MUSCLE SPASM 07/13 completed Not Available Not Available Not Available triamcino lone acetonide 0.1 % topical ointment APPLY A THIN LAYER TO THE AFFECTED AREA(S) BY TOPICAL ROUTE 2 TIMES PER DAY 2022 active Not Available Not Available Not Avai lable gabapenti n 300 mg capsule TAKE 1 CAPSULE BY MOUTH NIGHTLY active Not Available Not Available No t Available omeprazol e 20 mg capsule,d elayed release 10/18 /2023 completed Not Available Not Available Not Available hydrochlo rothiazid e 25 mg tablet TAKE 1 TABLET BY MOUTH ONCE DAILY IN THE MORNING active Not Available Not Available No t Available estradiol 0.5 mg tablet TAKE 1 TABLET BY MOUTH ONCE DAILY active Not Available Not Available No t Available ergocalci ferol (vitamin D2) 1,250 mcg (50,000 unit) capsule TAKE 1 CAPSULE BY MOUTH ONCE A WEEK WITH MEALS 11/27 completed Not Available Not Available Not Available diazepam 10 mg tablet 1 tab po as needed [address] scan, and other tests, and injectio ns may repeat as needed times one active Not Available Not Available No t Available losartan 100 mg tablet TAKE 1 TABLET BY MOUTH ONCE DAILY IN THE MORNING 2023 active Not Available Not Available Not Avai lable bisacodyl 5 mg tablet Take 1 tablet every day by oral route for 30 days. 2022 active Not Available Not Available Not Avai lable ezetimibe 10 mg tablet TAKE 1 TABLET BY MOUTH ONCE DAILY IN THE MORNING active Not Available Not Available No t Available Constulos e 10 gram/15 mL oral solution TAKE 15 ML BY MOUTH ONCE DAILY NEEDED FOR 30 DAYS 11/27 completed Not Available Not Available Not Available aspirin 81 mg daily active Not Available Not Available No t Available Tums active Not Available Not Availa ble Not Available Viactiv active Not Available Not Avail able Not Available apple cider vinegar active Not Available Not Available Not Available ClearLax 17 gram/dose oral powder Take 17 g as needed by oral route for 3 days. 2023 active Not Available Not Available Not Avai lable Vitamin D3 50 mcg (2,000 unit) capsule TAKE 1 CAPSULE BY MOUTH ONCE DAILY WITH MEALS FOR 30 DAYS 07/13 completed Not Available Not Available Not Available Linzess 290 mcg capsule Take 1 capsule every day by oral route with meals for 30 days. active Not Available Not Available No t Available Trulance 3 mg tablet Take 1 tablet every day by oral route for 30 days. 11/27 completed Not Available Not Available Not Available [employer] active Not Available Not Available Not Available Rybelsus 14 mg tablet TAKE 1 TABLET BY MOUTH ONCE DAILY IN THE MORNING active Not Available Not Available No t Available Rybelsus 7 mg tablet Take 1 tablet every day by oral route for 30 days. 11/27 completed Not Available Not Available Not Available Cibinqo 100 mg tablet Take 1 tablet every day by oral route for 30 days. 11/27 completed Dermatol ogist (Dr. Mae ) started pt on this med Not Available Not Available Not Available Vitals Date Recorded Body height Body mass index (BMI) Body weight Body temperature Provider Name and Address Organization Details Last Updated DateTime 01/06/2023 165.1 cm 43.6 kg/m2 435972.2 g 98 [degF] Inga Amador RN [facility] 01/06/2023 12:38:04 Date Recorded Body height Body mass index (BMI) Body weight Body temperature Heart rate Oxygen saturation Oxygen saturation in Arterial blood by Pulse oximetry Systolic blood pressure Diastolic blood pressure Provider Name and Address Organization Details Last Updated DateTime 4 165.1 cm 43.8 kg/m2 265437. 79 g 97.5 [degF] 108 /min 94 % 94 % 186 mm[Hg] 112 mm[Hg] Gerda Cochran MA [facility] 4 09:06:30 Date Recorded Body height Body mass index (BMI) Body weight Body temperature Provider Name and Address Organization Details Last Updated DateTime 03/16/2023 165.1 cm 43.6 kg/m2 494189.92 g 97.7 [degF] Inga Amador RN [facility] 03/16/2023 11:07:17 Date Recorded Body height Body mass index (BMI) Body weight Body temperature Heart rate Respiratory rate Oxygen saturation Oxygen saturation in Arterial blood by Pulse oximetry Systolic blood pressure Diastolic blood pressure Provider Name and Address Organization Details Last Updated DateTime 4 165.1 cm 42.9 kg/m2 558063. 83 g 98.1 [degF] 102 /min 16 /min 98 % 98 % 134 mm[Hg] 72 mm[Hg] Geraldine Santana RN [facility] 4 10:26:27 Date Recorded Body height Body mass index (BMI) Body weight Body temperature Heart rate Oxygen saturation Oxygen saturation in Arterial blood by Pulse oximetry Respiratory rate Systolic blood pressure Diastolic blood pressure Provider Name and Address Organization Details Last Updated DateTime 4 165.1 cm 41.8 kg/m2 743805. 68 g 97.8 [degF] 101 /min 98 % 98 % 16 /min 120 mm[Hg] 60 mm[Hg] Renetta Bhatti RN [facility] [employer] [facility] 4 11:34:05 Social History Question Answer Notes LastModified by Organizat ion Details LastModified Time Tobacco Smoking Status Current Every Day Smoker 1/2ppd ROXANNA Chan null, [facility] [employer] [facility] 07/13/2022 14:13:00 Do You Use Your Seat Belt Or Car Seat Routinely? Yes [email or web address] Information not available 09/08/2022 At What Age Did You Start Smoking Tobacco? 16 Information not available 07/13/2022 How Many Years Have You Smoked Tobacco? 50 Information not available 07/13/2022 Sex: Unknown Functional Status None recorded. Mental Status None recorded. Family History Relationship Description Onset Age of this Age Resolved Age Notes LastModified by Organization Details LastModified Time Father Heart disease [email or web address] Not available 2022 14:12:10 Mother Hypertensive disorder [email or web address] Not available 2022 14:12:19 Medical History Condition Response BLINDNESS N RHEUMATIC FEVER N KIDNEY STONES N BLADDER PROBLEMS N MRSA N OTHER # 1 N POLIO N LUNG DISEASE/DISORDER N HISTORY OF DRUG ABUSE N RADIATION / CHEMOTHERAPY N COPD N Other # 2 N BLOOD DISEASES N SURGERY N EAR OR HEARING PROBLEMS N MUMPS N SHINGLES N BOWEL PROBLEMS N FEMALE PROBLEMS / INFECTIONS N DEPRESSION (INCLUDING POST ) N FAILED BACK SYNDROME N STROKE/TIA N THYROID DISEASE N ULCERS N BENIGN PROSTATIC HYPERPLASIA N MEASLES N CERVICALGIA N HYPOTENSION N TB SKIN TEST N MYOCARDIAL INFARCTION N PARAPELGIA N OBESITY Y GERD/NAUSEA N ANEURYSM N URINARY/BLADDER/KIDNEY PROBLEMS N CORONARY ARTERY DISEASE (CAD) N MENIERE'S DISEASE N Do you have Advance directive? N ADDICTION CONCERNS N ENDOMETRIOSIS N USE OF BLOOD THINNERS N SKIN PROBLEMS N EMPHYSEMA N GASTROINTESTINAL DISORDER N PERIPHERAL ARTERY DISEASE N MUSCLE,JOINT OR BONE PROBLEMS N GASTROINTESTINAL BLEEDING N BLOOD CLOTS N ASTHMA N Abdominal Pain N CATARACTS N ARTERIAL INSUFFICIENCY N ERECTILE DYSFUNCTION N GI PROBLEMS N CHF N Low Testosterone N NEUROPATHY N INFERTILITY N AIDS/HIV N FRACTURES N CHEMOTHERAPY / RADIATION N VISION/EYE PROBLEMS N LIVER DISEASE N HYPERTENSION N TOURETTE'S N ANXIETY DISORDER N BLOOD TRANSFUSION N ANEMIA/BLOOD DISORDER N CHRONIC EAR INFECTIONS N BRONCHITIS N TUBERCULOSIS N GLAUCOMA N FOOT PROBLEM N DIVERTICULITIS N CHICKENPOX N SLEEP APNEA Y BACK INJECTIONS N ALLERGIES/HAYFEVER N INFECTIOUS DISEASE N HEART ARRHYTHMIA N PROSTATE N ESRD N INSOMNIA N HIGH CHOLESTEROL / HYPERLIPIDEMIA N HYPERTHYROIDISM N EYE PROBLEMS N PVD N EATING DISORDER N EDEMA N CHRONIC PAIN SYNDROME N CAROTID BLOCKAGE N CONSTIPATION N BACK / NECK PROBLEMS N HAVE YOU BEEN HOSPITALIZED OR SEEN IN [facility] IN THE PAST YEAR ? N ATHEROSCLEROSIS N BREAST PROBLEMS N DIALYSIS N POLYCYSTIC OVARIES N ECZEMA N FIBROMYALGIA N OSTEOPOROSIS N ARTHRITIS N NO SIGNIFICANT PAST MEDICAL HISTORY N APPENDICITIS N DIABETES, TYPE N BAD TEETH N VON WILLIBRAND'S DISEASE N HEARTBURN / REFLUX N ADD/ADHD N AUTISM SPECTRUM DISORDER (ASD) N POST LAMINECTOMY SYNDROME N HEPATITIS / LIVER DISEASE N PULMONARY DISEASE N GOUT N SLEEP DISORDER Y ALZHEIMER'S DISEASE N PAIN N HERPES N DEMENTIA N HEADACHES/MIGRAINES N SEIZURES/EPILEPSY N VASCULAR DISEASE N PACEMAKER N DIZZINESS N HEART DISEASE/HEART PROBLEMS N KIDNEY DISEASE N DEVELOPMENTAL OR BEHAVIORAL DISORDERS N MULTIPLE SCLEROSIS N SCARLET FEVER N MENTAL DISORDER/ILLNESS N NEUROPSYCHOLOGICAL N CARDIAC ARRHYTHMIA N CANCER: SPECIFY N PNEUMONIA N ATRIAL FIBRILLATION N Gall Stones N PULMONARY EMBOLISM N AUTOIMMUNE DISEASE N Gynecological History Statement/Question Response How many live births 2 Abnormal Pap N Obstetrics History GPAL:G 2 P 1 1 0 2 Type Value Full Term 1 Premature 1 Living 2 Total 2 Past Encounters Encounter ID Performer Location Encounter Start Date Encounter Closed Date Diagnosis/Indication Diagnosis SNOMED-CT Code Diagnosis ICD10 Code Diagnosis Note [id number] MAGALY Fuentes [facility] Paulo fisher [address] [facility] [place] [address] 07/13/2022 13:59:08 07/13/2022 15:09:59 Continuous dependence on cigarette smoking 9366609713 21539 F17.210 smoking for 50 years Z87,891 Bilateral spasm of muscle of calves 0290921373 7138413 M62.831 Low back pain 577280898 M54.50 Chronic id iopathic constipation 82134537 K59.04 Obese 743867807 E66.9 Vitamin D below reference range 643855615 E55.9 Nicotine dependence 5629 4008 Z87.891 [id number] MAGALY Fuentes [facility] [address] [place] [address] 09/08/2022 09:45:03 09/08/2022 11:04:57 Contact dermatitis 85571048 L25.9 Chronic id iopathic constipation 82004083 K59.04 Irritable bowel syndrome 69911750 K58.9 Low back pain 976902069 M54.50 Nicotine dependence 5629 4008 Z87.891 Obese 898112245 E66.9 Vitamin D below reference range 959915509 E55.9 [id number] MAGALY Fuentes [facility] [place] [address] 12/09/2022 09:11:21 12/09/2022 09:54:59 Bilateral spasm of muscle of calves 8580272073 3555524 M62.831 Screening for malignant neoplasm of breast 458081780 Z12.39 Edema of r ight lower leg 811108515 R60.0 Peripheral edema 2682728 00 R60.9 [id number] Evan Shanks MD [facility] [address] [place] [address] 01/06/2023 12:10:42 01/06/2023 15:03:58 Non-toxic multinodular goiter 11352268 E04.2 [id number] MAGALY Fuentes [facility] [place] [address] 03/07/2023 08:57:57 03/07/2023 09:38:02 Failure to lose weight 28442943 R63.8 Essential hypertension 86122913 I10 [id number] Evan Shanks MD [facility] [address] [place] [address] 03/16/2023 10:41:46 03/16/2023 12:35:44 Mixed conductive AND sensorineural hearing loss 10286011 H90.8 [id number] MAGALY Fuentes [facility] [address] [facility] [address] [place] [address] 06/02/2023 10:10:15 06/02/2023 11:05:02 Essential hypertension 04135446 I10 Failure to lose weight 63706204 R63.8 Contact dermatitis 64348 004 L25.9 Chronic id iopathic constipation 97130632 K59.04 Gastroesop hageal reflux disease 686080744 K21.9 Hyperlipidemia 99322284 E78.5 Irritable bowel syndrome characterized by constipation 847785312 K58.1 Low back pain 357562597 M54.50 Mixed cond uctive AND sensorineural hearing loss 27488715 H90.8 Obese 387005111 E66.9 Vitamin D below reference range 068010680 E55.9 [id number] [facility] [address] [facility] [place] [address] 11/28/2023 10:58:32 11/28/2023 12:10:41 Adult health examination 903020159 Z00.00 Screening for disorder 770405578 Z13.9 Nicotine dependence 5629 4008 Z87.891 Screening mammography 24 771358 Z12.31 Abdominal bloating 54817 9008 R14.0 Low back pain 478896718 M54.50 Chronic id iopathic constipation 62957890 K59.04 Continuous dependence on cigarette smoking 0226711566 12001 F17.210 smoking for 50 years Z87,891 Essential hypertension 16447689 I10 Gastroesop hageal reflux disease 533133417 K21.9 Hyperlipidemia 87882799 E78.5 Irritable bowel syndrome characterized by constipation 561425036 K58.1 Multinodular goiter 2375 16619 E04.2 Obese 420751348 E66.9 Vitamin D below reference range 310806673 E55.9 Health Concerns Section Related Observation LastModified by Organization Detai ls LastModified Time None Recorded Concern Status LastModified by Organization Details LastModified Time None Recorded Advance Directives Directive None Recorded Payers Encounter Date Sequence Insurance Name Policy Number Policy Rivera Covered Member ID Rivera Member ID Guarantor Name 01/06/2023 1 [facility] (MEDICARE REPLACEMENT/A DVANTAGE - HMO) [id number] Hanane Mina Jeny [id number] Hanane Jeny 03/07/2023 1 [facility] (MEDICARE REPLACEMENT/A DVANTAGE - HMO) [id number] Hanane Mina Jeny [id number] Hanane Jeny 03/16/2023 1 [facility] (MEDICARE REPLACEMENT/A DVANTAGE - HMO) [id number] Hanane Mina Jeny [id number] Hanane Fermin 06/02/2023 1 [facility] (MEDICARE REPLACEMENT/A DVANTAGE - HMO) [id number] Hanane Mina Jeny [id number] Hanane Jeny 11/28/2023 1 [facility] (MEDICARE REPLACEMENT/A DVANTAGE - HMO) [id number] Hanane Mina Jeny [id number] Hanane Jeny Notes Date Note Type Note Provider Name and Address Organization Details Recorded Time 01/06/2023 text/html id this patient has a history of left thyroid lobectomy in 1999 and but has developed goiter. A thyroid ultrasound confirmed the presence of bilateral goiter and the supposed left lobectomy has evidently regenerated. The right lobe measures 6.2 cm the left measures 4.7 cm. There is a tie rads 3 nodule which measures 2.9 cm on the right there is a 2nd 2.2 cm tie rads nodule on the right and on the left there is a 3.1 cm tie rads 4 nodule which is increased from 1.4 cm in 2012. Evan Shanks MD [address] [facility] [address], [place], [address], [employer] 01/06/2023 13:03:50 03/07/2023 text/html she feels fine . She is requesting [facility] . MAGALY Fuentes [address], [place], [address], [employer] 03/07/2023 15:53:33 03/16/2023 text/html the patient was very pleased that her thyroid needle biopsy was benign. However now she has which she describes is a bubbly sound in the right ear and a tunnel sound in the left. This has been going on for 7-8 months. She has allergies but no history of upper respiratory infection. She regards her hearing overall is good. Evan Shanks MD [address], [place], [address], [facility] 03/16/2023 11:30:13 06/02/2023 text/html needs refills MAGALY Fuentes [address], [place], [address], [facility] 06/15/2023 11:44:00 11/28/2023 text/html Needs LDCT and a mammogram . has chronic lbp , would like an x-ray MAGALY Fuentes [address], [place], [address], [facility] [employer] 11/29/2023 14:15:11 OBGyn Episode No OBEpisode recorded.
--- OUTSIDE RECORDS SUMMARY | 2024-04-17 11:13 | XMS_ITS | Encounter Summary ---
Author Organization [facility] Address [address] [place] [address] Care Team Providers Care Brusher Name Role Phone Rudy Kwok Primary Care Provider + Encounter Details Date Type Department Care Team (Late st Contact Info) Description 09/14/2023 Lab Requisition [facility] - DermPath Lab [address] [facility] [place] [address] Issac Mae Jr., MD [address] [facility] [address] [place] [address] Social History Tobacco Use Types Packs/Day Years Used Date Smoking Tobacco: Never Assessed Sex and Gender Information Value Date Recorded Sex Assigned at Not on file Gender Identity Not on file Sexual Orientation Not on file documented as of this encounter Plan of Treatment Not on file documented as of this encounter Procedures Procedure Name Priority Date/Time Associated Diagnosis Comments DERMATOPATHOLOGY Routine 09/13/2023 12:0 0 AM CDT documented in this encounter Results * DERMATOPATHOLOGY (09/13/2023 12:00 AM CDT) Case Report Dermatopathology Report Case: [id number] Authorizing Provider: Issac Mae Jr., MD Collected: 09/13/2023 12:00 AM Ordering Location: [facility] - Received: 09/14/2023 01:39 PM DermPath Lab Pathologist: Marisol Lin MD Specimen: Skin, right nasal ala 1:40 PM CDT DERMATOPATHOLOGY LABORATORY Final Diagnosis Specimen A. SKIN, right nasal ala: INTRADERMAL MELANOCYTIC NEVUS WITH HYPERPIGMENTATION (D22.39) 4 1:40 PM CDT DERMATOPATHOLOGY LABORATORY Clinical History Intradermal nevus 1:40 PM CDT DERMATOPATHOLOGY LABORATORY Gross Description Specimen A: Received is one formalin filled container labeled with the patient's name and designated right nasal ala. The specimen consists of a shave biopsy measuring 2x2x1 mm. Jar 0. 1:40 PM CDT DERMATOPATHOLOGY LABORATORY Microscopic Description Specimen A. SKIN, right nasal ala: Sections show a domed skin segment containing a largely dermal proliferation of melanocytes with round to oval nuclei. Melanocytes diminish in size with dermal descent, and some melanocytes have pigmented cytoplasm. 1:40 PM CDT DERMATOPATHOLOGY LABORATORY Disclaimer An external and internal positive and negative controls are appropriate for the histochemical, immunohistochemical and immunofluorescence stain(s) in this case (if any), except where stated explicitly. The performance characteristics of the stain(s) cited in this report were developed and its performance characteristic determined by the Dermatopathology Laboratory at [facility], directed by Dr. Ольга Pope. These tests need not be, and therefore are not, approved by the [place] Food and Drug Administration. The tests are used for clinical purposes. Billing Codes Specimen Charges Stain Charges 03513 1 1:40 PM CDT DERMATOPATHOLOGY LABORATORY Embedded Images 1:40 PM CDT DERMATOPATHOLOGY LABORATORY Pathology/Cytolog y TISSUE SPECIMEN FROM SKIN / Unknown 09/13/2023 09/14/2023 1:39 PM CDT Issac Mae Jr., MD LAB - PATHOLOGY /CYTOLOGY ORDERABLES DERMATOPATHOLOGY LABORATORY [facility] - Department of Dermatology [facility] Medicine [address] [place] [address], [address] [phone] documented in this encounter Visit Diagnoses Not on filedocumented in this encounter Care Teams Brusher Relationship Specialty Start Date End Date Rudy Kwok PA [address] [place] [address] [phone] PCP - General Physician Lacquer Sprayer 09/13/18 documented as of this encounter
--- OUTSIDE RECORDS SUMMARY | 2024-04-17 11:13 | XMS_ITS | Clinical Summary ---
Author Organization [facility] Address [address] [place] [address] Care Team Providers Care Head Tennis Professional Name Role Phone Rudy Kwok Primary Care Provider + Allergies Active Allergy Reactions Criticality Noted Date Comments Powder Rash Low 06/16/2018 In gloves Medications ranitidine 150 MG tablet Take 150 mg by mouth 2 (two) times daily. Active cyclobenzaprine 10 MG tablet Take 10 mg by mouth 3 (three) times daily as needed for Muscle Spasms. Active baclofen 10 MG tablet Take 10 mg by mouth 3 (three) times daily. Active ibuprofen 800 MG tablet Take 800 mg by mouth every 6 (six) hours as needed for Pain. Active estradiol 1 MG tablet Take 2 mg by mouth daily. Active aspirin EC (ASPIRIN EC) 81 MG tablet Take 81 mg by mouth daily. Active magnesium citrate 1.745 GM/30ML Solution Take 296 mLs by mouth once. 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 Gender Identity Not on file Sexual Orientation Not on file Last Filed Vital Signs Vital Sign Reading Time Taken Comments Blood Pressure 136/68 06/20/2018 12:52 PM CDT Pulse 88 06/20/2018 12:52 PM CDT Temperature 37.1 C (98.8 F) 06/20/2018 12:33 PM CDT Respiratory Rate 23 06/20/2018 12:52 PM CDT Oxygen Saturation 87% 06/20/2018 12:52 PM CDT Inhaled Oxygen Concentration - - Weight 114.8 kg (253 lb) 06/16/2018 10:25 AM CDT Height 165.1 cm (5' 5 ) 06/16/2018 10:25 AM CDT Body Mass Index 42.1 06/16/2018 10:25 AM CDT Plan of Treatment Health Maintenance Due Date Last Done Comments Colorectal Cancer Screening Colonoscopy (10 Years) 1955 Pneumococcal Vaccine: 65+ Ye ars (1 of 2 - PCV) 1962 Hepatitis C 1974 DTaP, Tdap and Td Vaccines ( 1 - Tdap) 12/30/1975 Mammogram Screening 1996 Zoster Vaccines (1 of 2) 2006 Dexa Scan (General) 2021 COVID-19 Vaccine ( - 2023-2 5 season) 2023 Influenza Adult (#1) 2023 RSV Immunization or 60+ Years (1 - 1-dose 75+ series) 12/30/2031 Meningococcal B Vaccine Aged Out No l onger eligible based on patient's age to complete this topic Meningococcal Vaccine Aged Out No shaina ramos eligible based on patient's age to complete this topic RSV Immunizations Under 20 Months Aged Out No longer eligible based on patient's age to complete this topic Insurance [employer] Care Teams Head Tennis Professional Relationship Specialty Start Date End Date Rudy Kwok PA PCP - General PHYSICIAN NURSING SERVICE DIRECTOR 06/19/18
--- NOTE | 2024-04-17 11:24 | ED_ITS ---
HPI - Back Pain/Injury General Chief Complaint: Back Pain/Injury Stated Complaint: left back pain Time Seen by Provider: 04/17/24 11:05 Source: patient Mode of arrival: ambulatory Limitations: no limitations History of Present Illness HPI Narrative: This is a 68 year old female that presents to the ER for left sided low back pain. Ongoing over the last 3 days. No recent injury or trauma. Reports the pain is worse with movement and relieved with rest. She has been taking anti- inflammatories with little relief. Reports history of previous spinal surgery, she does also currently see pain management and receives injections. Denies saddle anesthesia or bowel/bladder incontinence. Related Data Home Medications ?Medication ?Instructions ?Recorded ?Confirmed ?Last Taken ?Type cyclobenzaprine 10 mg tablet 10 mg PO DAILY 11/13/22 12/20/23 Unknown History estradiol 1 mg tablet 1 mg PO DAILY 11/13/22 12/20/23 Unknown History omeprazole 40 mg capsule,delayed 40 mg PO DAILY PRN Abdominal 11/13/22 12/20/23 Unknown History release Discomfort triamcinolone acetonide 0.1 % 1 applic topical DAILY 11/13/22 12/20/23 Unknown History topical ointment aspirin 81 mg capsule 81 mg PO DAILY 12/20/23 12/20/23 Unknown History ezetimibe 10 mg tablet 10 mg PO DAILY 12/20/23 12/20/23 Unknown History hydrochlorothiazide 12.5 mg tablet 12.5 mg PO DAILY 12/20/23 12/20/23 Unknown History losartan 50 mg tablet 50 mg PO DAILY 12/20/23 12/20/23 Unknown History semaglutide 3 mg tablet (Rybelsus) 3 mg PO DAILY 12/20/23 12/20/23 Unknown History Allergies Allergy/AdvReac Type Severity Reaction Status Date / Time aspirin Allergy Unknown Unknown Verified 12/20/23 10:53 latex Allergy Unknown Unknown Verified 12/20/23 10:53 Review of Systems Review of Systems: CONSTITUTIONAL: Denies fever MUSCULOSKELETAL: Reports back pain, joint pain, and myalgia. NEUROLOGIC: Denies numbness, or weakness. All systems reviewed & are unremarkable except as noted in HPI and below PMFSH Past Medical History Medical History Chronic low back pain GERD (gastroesophageal reflux disease) IBS (irritable bowel syndrome) ROSITA (obstructive sleep apnea) Noncompliant with treatment Surgical History Surgical History History of section x2 History of spinal surgery x2. History of thyroid surgery 1988 for noncancerous reasons Hx laparoscopic cholecystectomy Family History Family History Sibling Family history of migraine headaches Hypertension Family history of seizure disorder Lung cancer Mother Hypertension Family history of diabetes mellitus in first degree relative Father Family history of alcoholism Cerebrovascular accident Family history of arthritis Family history of hearing loss Social History Social History Social History: Patient smokes half a pack a day since age 15. She states that she was an alcoholic and quit alcohol a age 32. She denies drug use. She denies any history of drug use. She is . She lives with her sister. She has an adult son and daughter. She is a full code. She nominates her granddaughter (Ashu) to be the individual would make medical decisions for her if she is unable Smoking packs per day: 0.5 Smoking cigarettes per day: 10.0 Smoking status: Current every day smoker Second hand tobacco smoke exposure: Yes Alcohol intake: never Lack of Transportation: No Lack of Food: Never True Current Housing: I Have Housing Concerned About Future Housing: No Difficulty Paying Gas/Electric Bills: No Difficulty Paying for Meds: No Currently Unemployed: No Education: Don't Know Difficulty w/ Childcare or Family Care: No Gender identity (if verbalized by the patient): Female Spiritual care concerns: No Exam Narrative: GENERAL: Well-appearing, well-nourished, and in no acute distress. HEAD: Normocephalic, atraumatic. EYES: EOMI. CHEST: Clear to auscultation. No respiratory distress. No wheezes rales or rhonchi HEART: Regular rate and rhythm. No murmur heard. Normal peripheral pulses. EXTREMITIES: Normal range of motion. No edema. Strength equal in bilateral lower extremities (5/5) SKIN: Warm, dry, no rash. NEURO: No focal deficits. Alert and oriented x3. PSYCH: Normal mood and affect Course Course Emergency Course: Patient updated on her workup. Resting comfortably Vital Signs Vital signs: Vital Signs Temperature 97.8 F 04/17/24 12:24 Pulse Rate 87 04/17/24 12:24 Respiratory Rate 18 04/17/24 12:24 Blood Pressure 146/82 H 04/17/24 12:24 Pulse Oximetry 99 04/17/24 12:24 Temperature 97.8 F 04/17/24 12:24 Pulse Rate 87 04/17/24 12:24 Respiratory Rate 18 04/17/24 12:24 Blood Pressure 146/82 H 04/17/24 12:24 Pulse Oximetry 99 04/17/24 12:24 MDM - Back Pain/Injury MDM Narrative Medical decision making narrative: Patient presents the emergency department for acute on chronic low back pain. She is afebrile and nontoxic appearing. She is neurologically intact. CT lumbar spine shows posterior and interbody fusions L through through L5. Severe degenerative spondylosis L1/L2 and L2/L3. Monitor of degenerative spondylosis at L5/S1. Patient updated on her workup. Resting comfortably. Instructed to have further follow-up with her auto customize painter. She was given warnings to return to the ER Differential Diagnosis Differential diagnosis: Likely lumbar radiculopathy, sciatica and strain of lumbar region Imaging Data Radiologist's impression: ITS Impressions Lumbar Spine CT 04/17/24 11:51 Impression: Posterior and interbody fusion from L3 through L5, as above. Severe degenerative spondylosis at L1-L2 and L2-L3, as detailed above. Moderate degenerative spondylosis at L5-S1. Critical Care Time Critical Care Time Critical Care Time: No Discharge Plan Discharge Clinical Impression: Low back pain Qualifiers: Chronicity: unspecified Back pain laterality: left Sciatica presence: without sciatica Qualified Code(s): M54.50 - Low back pain, unspecified Patient Disposition: Home, Self-Care Condition: Stable Instructions: Back Pain (ED) Additional Instructions: Return to the ER if you experience weakness, numbness, bowel/bladder incontinence, or any other symptoms that are concerning to you Rest, use ice/heat, take anti-inflammatories (Aleve, Ibuprofen, Naproxen, etc) or Tylenol as needed for pain as well as muscle relaxer (Flexeril) as needed for pain. Muscle relaxers can make you drowsy, do not drive if you take this. Take steroid taper as prescribed Follow up with your auto customize painter Patient Language: Kiswahili Prescriptions: New methylprednisolone 4 mg tablets,dose pack See Rx Instructions .ROUTE .COMPLEX Qty: 21 0RF Rx Instructions: orally per package directions No Action Rybelsus 3 mg tablet 3 mg PO DAILY ezetimibe 10 mg tablet 10 mg PO DAILY hydrochlorothiazide 12.5 mg tablet 12.5 mg PO DAILY aspirin 81 mg capsule 81 mg PO DAILY losartan 50 mg tablet 50 mg PO DAILY cyclobenzaprine 10 mg tablet 10 mg PO DAILY omeprazole 40 mg capsule,delayed release(DR/EC) 40 mg PO DAILY PRN (Reason: Abdominal Discomfort) estradiol 1 mg tablet 1 mg PO DAILY triamcinolone acetonide 0.1 % ointment 1 applic TOPICAL DAILY Rx Instructions: Use on rashes on bilateral lower legs, bilateral upper arms, and upper back polyethylene glycol 3350 [Miralax] 17 gram/dose powder 17 g PO DAILY Qty: 238 3RF Linzess 290 mcg capsule See Rx Instructions .ROUTE .COMPLEX Qty: 30 3RF Dose Instruction: Take 1 capsule by mouth once daily Rx Instructions: Take 1 capsule by mouth once daily Follow-up/Referrals: Sundar,MAGALY Aguilar [Primary Care Provider] -
--- OUTSIDE RECORDS SUMMARY | 2024-04-17 11:39 | XMS_ITS | Clinical Summary ---
Author Organization [facility] Address [address] [place] [address] Care Team Providers Care Electronics Hardware Design Engineer Name Role Phone Rudy Kwok Primary Care Provider + Source Comments [facility],non-owned Affiliates and Associated Physician Practices is amultiple site organization consisting of ambulatory clinics and hospital sitesin [place], [place], [place] and [place]. This disclosure is being madepursuant to the Care Everywhere program and may not contain all information available regarding this patient. Last updated 17.[facility] [employer] Social History Tobacco Use Types Packs/Day Years [...] age to complete this topic Care Teams Electronics Hardware Design Engineer Relationship Specialty Start Date End Date Rudy Kwok PA [address] [place] [address] PCP - General Physician Stacker Straightener 09/13/18
--- OUTSIDE RECORDS SUMMARY | 2024-04-17 11:39 | XMS_ITS | Referral Summary ---
Author Organization [facility] Address [address] [place] [address] Care Team Providers Care Sweet Dough Mixer Name Role Phone Rudy Kwok Primary Care Provider + Source Comments [facility],non-owned Affiliates and Associated Physician Practices is amultiple site organization consisting of ambulatory clinics and hospital sitesin [place], [place], [place] and [place]. This disclosure is being madepursuant to the Care Everywhere program and may not contain all information available regarding this patient. Last updated 17.[facility] [employer] Social History Tobacco Use Types Packs/Day Years Used Date Smoking Tobacco: Never Assessed Sex and Gender Information Value Date Recorded Sex Assigned at Not on file Gender Identity Not on file Sexual Orientation Not on file Plan of Treatment Not on file Care Teams Sweet Dough Mixer Relationship Specialty Start Date End Date Rudy Kwok PA [address] [place] [address] PCP - General Physician Health/Safety Job Titles 09/13/18
--- OUTSIDE RECORDS SUMMARY | 2024-04-17 11:39 | XMS_ITS | Patient Health Summary ---
Author Organization [facility] Address [address] [place] [address] Care Team Providers Care Melt House Centrifugal Operator Name Role Phone Rudy Kwok Primary Care Provider + Note [facility]non-owned Affiliates and Associated Physician Practices is amultiple site organization consisting of ambulatory clinics and hospital sitesin [place], [place], [place] and [place]. This disclosure is being madepursuant to the Care Everywhere program and may not contain all information available regarding this patient. Last updated 17.[facility] Social History Tobacco Use Types Packs/Day Years Used Date Smoking Tobacco: Never Assessed Sex and Gender Information Value Date Recorded Sex Assigned at Not on file Gender Identity Not on file Sexual Orientation Not on file Procedures * DERMATOPATHOLOGY(Performed 09/13/2023) Results * DERMATOPATHOLOGY (09/13/2023 12:00 AM CDT) Case Report Dermatopathology Report Case: [id number] Authorizing Provider: Issac Mae Jr., MD Collected: 09/13/2023 12:00 AM Ordering Location: [facility] - Received: 09/14/2023 [...] characteristic determined by the Dermatopathology Laboratory at [facility], directed by Dr. Ольга Pope. These tests need not be, and therefore are not, approved by the [place] Food and Drug Administration. The tests are used for clinical purposes. Billing Codes Specimen Charges Stain Charges 43067 1 4 1:40 PM CDT DERMATOPATHOLOGY LABORATORY Embedded Images 4 1:40 PM CDT DERMATOPATHOLOGY LABORATORY Pathology/Cytolog y TISSUE SPECIMEN FROM SKIN / Unknown 09/13/2023 09/14/2023 1:39 PM CDT Issac Mae Jr., MD LAB - PATHOLOGY /CYTOLOGY ORDERABLES DERMATOPATHOLOGY LABORATORY [facility] - Department of Dermatology [facility] [address] [place] [address], [address] [phone] Care Teams Melt House Centrifugal Operator Relationship Specialty Start Date End Date Rudy Kwok PA [address] [place] [phone] PCP - General Physician Lead Fire Protection Engineer 09/13/18
--- OUTSIDE RECORDS SUMMARY | 2024-04-17 11:40 | XMS_ITS | Clinical Summary ---
Author Organization [facility] Address [address] [place] [address] Care Team Providers Care Early Childhood Lead Teacher Name Role Phone Rudy Kwok Primary Care [...] on file Legal Sex Female 10:22 AM INSULATION TECHNICIAN Gender Identity Not on file Sexual Orientation [...] patient's age to complete this topic Insurance [place] Care Teams Early Childhood Lead Teacher Relationship Specialty Start Date End Date Rudy Kwok PA PCP - General PHYSICIAN MAGISTRATE 06/19/18
--- OUTSIDE RECORDS SUMMARY | 2024-04-17 11:40 | XMS_ITS | Encounter Summary ---
Author Organization [facility] Address [address] [place] [address] Care Team Providers Care Gimp Buttonhole Machine Operator Name Role Phone Rduy Kwok Primary Care Provider + Encounter Details Date Type Department Care Team (Late st Contact Info) Description 09/14/2023 Lab Requisition [facility] - DermPath Lab [address] [place] [address] Issac Mae Jr., MD [address] [place] [address] Social History Tobacco Use Types Packs/Day Years [...] AM CDT) Case Report Dermatopathology Report Case: [id number] Authorizing Provider: Issac Mae Jr., MD Collected: 09/13/2023 12:00 AM Ordering Location: [facility] - Received: 09/14/2023 01:39 PM [...] characteristic determined by the Dermatopathology Laboratory at [facility], directed by Dr. Ольга Pope. These tests need not be, and therefore are not, approved by the [place] Food and Drug Administration. The tests are used for clinical purposes. Billing Codes Specimen Charges Stain Charges 32701 1 1:40 PM CDT DERMATOPATHOLOGY LABORATORY Embedded Images 1:40 PM CDT DERMATOPATHOLOGY LABORATORY Pathology/Cytolog y TISSUE SPECIMEN FROM SKIN / Unknown 09/13/2023 09/14/2023 1:39 PM CDT Issac Mae Jr., MD LAB - PATHOLOGY /CYTOLOGY ORDERABLES DERMATOPATHOLOGY LABORATORY [facility] - Department of Dermatology [facility] Medicine [address] [place] [address], [address] [phone] documented in this encounter Visit Diagnoses Not on filedocumented in this encounter Care Teams Gimp Buttonhole Machine Operator Relationship Specialty Start Date End Date Rudy Kwok PA [address] [place] [phone] PCP - General Physician Explosive Operator Grenade 09/13/18 documented as of this encounter
--- OUTSIDE RECORDS SUMMARY | 2024-04-17 11:40 | XMS_ITS | Referral Summary ---
Author Organization [facility] Address [address] [place] [address] Care Team Providers Care Extension Worker Name Role Phone Rudy Kwok Primary Care Provider + Francine Claudio MD Unavailable [phone] Encounters Date Type Department Care Team Description 03/20/2024 Telephone [facility] Neurology [address] [place] [address] [address] [place] [address] Johana Hoyt NP 03/15/2024 1:00 PM TROPHY ASSEMBLER Office Visit [facility] Neurology [address] [place] [address] [address] [place] [address] Johana Hoyt NP Low back pain, unspecified back pain laterality, unspecified chronicity, unspecified whether sciatica present (Primary Dx) 01/31/2024 Orders Only [facility] [address] [place] [address] [address], [address] [place] [phone] Aaron Longo MD Chronic low back pain with sciatica, sciatica laterality unspecified, unspecified back pain laterality (Primary Dx) 01/30/2024 11:44 AM TROPHY ASSEMBLER - 01/30/2024 11:59 PM TROPHY ASSEMBLER Hospital Encounter [facility] Di[facility] Imaging [address] [place] [address] Low back pain, unspecified back pain laterality, unspecified chronicity, unspecified whether sciatica present Discharge Disposition: Discharge to home or self care 01/30/2024 11:00 AM TROPHY ASSEMBLER Office Visit [facility] [address], [address] [place] [address] Babak Hutchins PA Chronic left-sided [...] (KENALOG) 0.5 % ointment 12/02/2023 Active multivit-minera r-ehxy-kamcsz tablet Take by mouth Active gabapentin (NEURONTIN) [...] on file Legal Sex Female 11:58 PM TROPHY ASSEMBLER Gender Identity Not on file Sexual Orientation Not on file Last Filed Vital Signs Vital Sign Reading Time Taken Comments Blood Pressure 140/70 03/15/2024 12:37 PM TROPHY ASSEMBLER Pulse 108 03/15/2024 12:37 PM TROPHY ASSEMBLER Temperature 36.4 C (97.5 F) 09/18/2018 12:01 PM CDT Respiratory Rate 22 03/15/2024 12:37 PM TROPHY ASSEMBLER Oxygen Saturation 96% 03/15/2024 12:37 PM TROPHY ASSEMBLER Inhaled Oxygen Concentration - - Weight 114.3 kg (252 lb) 03/15/2024 12:37 PM TROPHY ASSEMBLER Height 162.6 cm (5' 4 ) 03/15/2024 12:37 PM TROPHY ASSEMBLER Body Mass Index 43.26 03/15/2024 12:37 PM TROPHY ASSEMBLER Plan of Treatment Not on file Procedures Procedure Name Priority Date/Time Associated Diagnosis Comments XR SCOLIOSIS AP LAT Schedule Routine, Read Routine (OP Routine) 01/30/2024 11:56 AM TROPHY ASSEMBLER Low back pain, unspecified back pain laterality, unspecified chronicity, unspecified whether sciatica present XR LUMBAR SPINE ROUTINE W FLEX EXT Schedule Routine, Read Routine (OP Routine) 01/30/2024 11:56 AM TROPHY ASSEMBLER Low back pain, unspecified back pain laterality, unspecified chronicity, unspecified whether sciatica present from Last 3 Months Results * XR Spine Lumbar Incl Bending Views 6 or More Views (01/30/2024 11:56 AM TROPHY ASSEMBLER) Anatomical Region Laterality Modality L-spine N/A Computed Radiogr aphy 01/30/2024 7:05 PM TROPHY ASSEMBLER Narrative 01/30/2024 7:14 PM TROPHY ASSEMBLER EXAM DESCRIPTION: XR SPINE LUMBAR INCL BENDING [...] by Osmel Zhang M.D. T: Report ID: [id number] Reading Location: [id number] Procedure Note Osmel Zhang MD - 01/30/2024 [...] by Osmel Zhang M.D. T: Report ID: [id number] Reading Location: [id number] us Babak MCKENZIE IMG XR PROCEDURES Final Re sult * XR Scoliosis 2 or 3 Views (01/30/2024 11:56 AM TROPHY ASSEMBLER) Anatomical Region Laterality Modality Spine N/A Computed Radiogr aphy 01/30/2024 7:05 PM TROPHY ASSEMBLER Narrative 01/30/2024 7:14 PM TROPHY ASSEMBLER EXAM DESCRIPTION: XR SPINE LUMBAR INCL BENDING [...] by Osmel Zhang M.D. T: Report ID: [id number] Reading Location: [id number] Procedure Note Osmel Zhang MD - 01/30/2024 [...] by Osmel Zhang M.D. T: Report ID: [id number] Reading Location: [id number] Babak MCKENZIE IMG XR PROCEDURES Final Re sult from Last [address] [place] [address] MEDICARE SOLUTIONS [facility] MEDICARE SOLUTIONS [facility] MEDICARE Address: [address] [address] [place] [address] [employer] MEDICARE Care Teams Extension Worker Relationship Specialty Start Date End Date Rudy Kwok PA [address] [place] [address] [place] [address] PCP - General Internal Medicine 12/23/23 Francine Claudio MD [address] [address] Referring Physician Gynecology 03/15/24
--- OUTSIDE RECORDS SUMMARY | 2024-04-17 11:40 | XMS_ITS | Clinical Summary ---
Author Organization [facility] Address [address] [place] [address] Care Team Providers Care Cigarette Tipper Name Role Phone Rudy Kwok Primary Care Provider + Francine Claudio MD Unavailable [phone] Allergies Active Allergy Reactions Criticality Noted Date [...] (KENALOG) 0.5 % ointment 12/02/2023 Active multivit-minera t-pbjh-hldito tablet Take by mouth Active gabapentin (NEURONTIN) [...] Type Department Care Team Description 03/20/2024 Telephone [facility] Neurology [address] [place] [address] [place] [phone] Johana Hoyt NP 03/15/2024 1:00 PM LEDGER CLERK Office Visit [facility] Neurology [address] [place] [address] [place] [phone] Johana Hoyt NP Low back pain, unspecified back pain laterality, unspecified chronicity, unspecified whether sciatica present (Primary Dx) 01/31/2024 Orders Only [facility] [address] [place] [address] [address], [address] [place] [address] Aaron Longo MD Chronic low back pain with sciatica, sciatica laterality unspecified, unspecified back pain laterality (Primary Dx) 01/30/2024 11:44 AM LEDGER CLERK - 01/30/2024 11:59 PM LEDGER CLERK Hospital Encounter [facility] Diag Imaging [address] [place] [address] Low back pain, unspecified back pain laterality, unspecified chronicity, unspecified whether sciatica present Discharge Disposition: Discharge to home or self care 01/30/2024 11:00 AM LEDGER CLERK Office Visit [facility] [address] [place] [address], [address] [place] [address] Babak Hutchins PA Chronic left-sided low back [...] on file Legal Sex Female 11:58 PM LEDGER CLERK Gender Identity Not on file Sexual Orientation Not on file Obstetrics History Last Filed Vital Signs Vital Sign Reading Time Taken Comments Blood Pressure 140/70 03/15/2024 12:37 PM LEDGER CLERK Pulse 108 03/15/2024 12:37 PM LEDGER CLERK Temperature 36.4 C (97.5 F) 09/18/2018 12:01 PM CDT Respiratory Rate 22 03/15/2024 12:37 PM LEDGER CLERK Oxygen Saturation 96% 03/15/2024 12:37 PM LEDGER CLERK Inhaled Oxygen Concentration - - Weight 114.3 kg (252 lb) 03/15/2024 12:37 PM LEDGER CLERK Height 162.6 cm (5' 4 ) 03/15/2024 12:37 PM LEDGER CLERK Body Mass Index 43.26 03/15/2024 12:37 PM LEDGER CLERK Plan of Treatment Health Maintenance Due Date [...] Read Routine (OP Routine) 01/30/2024 11:56 AM LEDGER CLERK Low back pain, unspecified back pain laterality, unspecified chronicity, unspecified whether sciatica present XR LUMBAR SPINE ROUTINE W FLEX EXT Schedule Routine, Read Routine (OP Routine) 01/30/2024 11:56 AM LEDGER CLERK Low back pain, unspecified back pain laterality, unspecified chronicity, unspecified whether sciatica present from Last 3 Months Results * XR Spine Lumbar Incl Bending Views 6 or More Views (01/30/2024 11:56 AM LEDGER CLERK) Anatomical Region Laterality Modality L-spine N/A Computed Radiogr aphy 01/30/2024 7:05 PM LEDGER CLERK Narrative 01/30/2024 7:14 PM LEDGER CLERK EXAM DESCRIPTION: XR SPINE LUMBAR INCL BENDING [...] by Osmel Zhang M.D. T: Report ID: [id number] Reading Location: [id number] Procedure Note Osmel Zhang MD - 01/30/2024 [...] by Osmel Zhang M.D. T: Report ID: [id number] Reading Location: [id number] us Babak MCKENZIE IMG XR PROCEDURES Final Re sult * XR Scoliosis 2 or 3 Views (01/30/2024 11:56 AM LEDGER CLERK) Anatomical Region Laterality Modality Spine N/A Computed Radiogr aphy 01/30/2024 7:05 PM LEDGER CLERK Narrative 01/30/2024 7:14 PM LEDGER CLERK EXAM DESCRIPTION: XR SPINE LUMBAR INCL BENDING [...] by Osmel Zhang M.D. T: Report ID: [id number] Reading Location: [id number] Procedure Note Osmel Zhang MD - 01/30/2024 [...] by Osmel Zhang M.D. T: Report ID: [id number] Reading Location: [place] [address] Babak MCKENZIE IMNikolas XR PROCEDURES Final Re sult from Last 3 Months Insurance [facility] MEDICARE SOLUTIONS [employer] MEDICARE SOLUTIONS [employer] MED[employer]ARE Care Teams Cigarette Tipper Relationship Specialty Start Date End Date Rudy Kwok PA [facility] [place] [address] PCP - General Internal Medicine 12/23/23 Francine Claudio MD [address] [address] Referring Physician Gynecology 03/15/24
[2024-04-17] MEDS: ACETAMINOPHEN 500 MG TABLET 1000 MG PO (12:01)
[2024-04-17] MEDS: LIDOCAINE 5% PATCH 1 PATCH TRANSDERM (12:02)
[2024-04-17 12:24] VITALS: BP 146/82; PULSE 87; RESP 18; TEMP 36.6; O2SAT 99
== END 2024-04-17 12:52 | disposition home or self-care (01) ==
PROVIDERS: Emergency Provider Physician Assistant; PCP Physician Assistant
DX: M54.50 Low back pain, unspecified (principal); M47.816 Spondylosis without myelopathy or radiculopathy, lumbar region; F17.210 Nicotine dependence, cigarettes, uncomplicated; K21.9 Gastro-esophageal reflux disease without esophagitis; G47.30 Sleep apnea, unspecified
CPT/HCPCS: 72131; 99284; A9270

== ENCOUNTER 2024-08-02 08:52 | Outpatient (CLI) | payer MEDICARE, MEDICAID, SELFPAY ==
--- NOTE | ~2024-08-02 | US_ITS ---
EXAMINATION: US art doppler w press LE BI DATE: 08/02/2024 10:31 INDICATION: Peripheral arterial occlusive disease TECHNIQUE: Segmental pressures and plethysmographic and Doppler waveforms of the brachial and lower e xtremity arteries were obtained. COMPARISON: None. FINDINGS: Right and left brachial artery pressures of 142 mm Hg and 143 mm Hg, respectively, are concordant (no rmal difference <= 30 mmHg). The right ankle-brachial index (MIKA) is 1.07 (normal >= 0.9-1). The right great toe-brachial index (T BI) is 0.49 (normal >= 0.6-0.8). The right lower extremity segmental pressure gradients are increased between the arteries of the right ankle and the right eucjd-pdx-lwig popliteal artery (normal gradie nts <= 20-30 mmHg between adjacent levels on the same leg or the same levels on the two legs). Arteri al waveforms demonstrate brisk systolic upstrokes throughout the arteries of the right lower limb. The left MIKA is 1.03. The left TBI is 0.59. The left lower extremity segmental pressure gradients are increased between the left atatz-fdu-cnbw popliteal artery and both the left mkwhg-jqf-nrgt poplitea l artery and the contralateral right fwdpa-mcv-fkra popliteal artery. Arterial waveforms and straight brisk systolic upstrokes throughout the arteries of the left lower limb. IMPRESSION: 1. Arterial occlusive disease with normal bilateral ABIs but mildly decreased bilateral TBIs. Reviewed, dictated and finalized at location A. IMPRESSION: 1. Arterial occlusive disease with normal bilateral ABIs but mildly decreased b ilateral TBIs.
--- NOTE | ~2024-08-02 | XR_ITS ---
XR chest 2V 08/02/2024 09:32 Indication: Peripheral arterial disease Procedure: 2 view chest Comparison: 11/08/2022 Findings: Heart size normal. Right middle lobe infiltrates are present. No edema, pleural effusion or pneumothorax. Impression: 1: Right middle lobe infiltrates, atelectasis versus pneumonia. Reviewed, dictated and finalized at location A. Impression: 1: Right middle lobe infiltrates, atelectasis versus pneumonia.
--- NOTE | ~2024-08-02 | US_ITS ---
US soft tissue head and neck INDICATION: Right anterior neck swelling TECHNIQUE: Real-time sonographic images of the thyroid gland were obtained. COMPARISON: No prior studies for comparison. FINDINGS: There are multiple right thyroid masses corresponding to the area of swelling. Right thyroi d lobe measures 7.8 x 3.5 x 3.1 cm. There are multiple right thyroid masses including a heterogeneous solid mass measuring 3.4 x 2.5 x 2.7 cm which is wider than tall, isoechoic, irregular margins witho ut echogenic foci, TR 4. There is an isoechoic mass which is solid, slightly hypoechoic, taller than wide with ill-defined margins and no internal calcifications measuring 3.2 x 2.4 x 2.6 cm, TR 5. Per clinical history patient's left thyroid lobe has been surgically resected, although there is mass in the thyroid bed measuring 3.6 x 1.9 x 2.6 cm which is isoechoic, solid, wider than tall with ill- defined margins and no internal calcifications, TR 4. IMPRESSION: 1. Multiple bilateral thyroid masses corresponding to area of palpable concern. Bilateral ultrasound -guided fine-needle aspiration biopsies recommended. Reviewed, dictated and finalized at location A. IMPRESSION: 1. Multiple bilateral thyroid masses corresponding to area of palpable concern . Bilateral ultrasound-guided fine-needle aspiration biopsies recommended.
--- OUTSIDE RECORDS SUMMARY | 2024-08-02 09:27 | XMS_ITS | Referral Summary ---
Author Organization [facility] Address [address] [place] [address] Care Team Providers Care Data Migration Lead Name Role Phone Rudy Kwok Primary Care Provider + Francine Claudio MD Unavailable [phone] Encounters Date Type Department Care Team Description 06/25/2024 10:30 AM CDT Office Visit [facility] [address] [facility] [address], [address] [place] [address] Aaron Longo MD Lumbar stenosis with neurogenic claudication (Primary Dx); Chronic left-sided low back pain with right-sided sciatica 06/18/2024 10:37 AM CDT - 06/18/2024 11:59 PM CDT Hospital Encounter [facility] MRI [address] [place] [id number] Lumbar pain; Lumbar foraminal stenosis Discharge Disposition: Discharge to home or self care 06/18/2024 12:40 PM CDT Anesthesia Event [address] [address] Ana Peterson MD Taylor-White, Carlotta A., NP 06/14/2024 12:00 PM CDT Pre-Admission Testing [facility] PreAdmission Testing [address] [place] [id number] Pre-op testing (Primary Dx); Preop testing 06/12/2024 Orders Only [facility] PreAdmission Testing [facility] [place] [address] Rosa M Vitale, EMILIANO Anxiety (Primary Dx) 06/12/2024 Telephone [facility] PreAdmission Testing [address] [place] [address] Rosa M Vitale, EMILIANO 06/11/2024 Telephone [facility] PreAdmission Testing [address] [place] [address] Vickie Thompson RN 05/07/2024 Orders Only [facility] [address] [place] [address], [address] [place] [phone] Babak Hutchins PA Lumbar pain (Primary Dx); Lumbar foraminal stenosis 05/04/2024 Orders Only [facility] [address] [place] [address], [address] [place] [phone] Babak Hutchins PA Chronic left-sided low back pain with right-sided sciatica (Primary Dx) from Last 3 Months Allergies Active Allergy Reactions Criticality Noted Date Comments Aspirin Nausea only Low 09/18/2018 Other Rash Medium 06/12/2024 Glove Powder Ragweed Eye irritation,Itching,Rash Medium 06/13/19 25 Medications cyclobenzaprine (FLEXERIL) 10 mg tablet Take 1.5 tablets (15 mg total) by mouth daily Active estradioL (ESTRACE) 0.5 mg tablet Take 1 tablet (0.5 mg total) by mouth daily Active ibuprofen (ADVIL,MOTRIN) 800 mg tablet Take 1 tablet (800 mg total) by mouth 2 (two) times a day Active linaCLOtide (LINZESS) 290 mcg capsule Take 1 capsule (290 mcg total) by mouth daily Active aspirin 81 mg enteric coated tablet Take 1 tablet (81 mg total) by mouth daily Active ezetimibe (ZETIA) 10 mg tablet Take 1 tablet (10 mg total) by mouth daily 4 Active hydroCHLOROthia zide (HYDRODIURIL) 25 mg tablet Take 1 tablet (25 mg total) by mouth daily 4 Active losartan (COZAAR) 100 mg tablet Take 1 tablet (100 mg total) by mouth daily PREVENTATIVE PER PATIENT REPORT. 4 Active magnesium citrate solution Take 296 mL by mouth once Active Rybelsus 14 mg tablet Take 1 tablet (14 mg total) by mouth daily before breakfast TAKES FOR WEIGHT LOSS PER PATIENT REPORT 4 Active triamcinolone (KENALOG) 0.5 % ointment 4 Active multivit-minera m-qubq-eazhgy tablet Take 1 tablet/chew tab by mouth daily CENTRUM SILVER Active gabapentin (NEURONTIN) 300 mg capsule Take 1 capsule (300 mg total) by mouth nightly 30 capsule 2 4 Active ammonium lactate (LAC-HYDRIN) 12 % lotion APPLY TO THE AFFECTED AREAS ON THE BODY TWICE A DAY Active diazePAM (VALIUM) 10 mg tablet Take 1 tablet (10 mg total) by mouth as needed 0 4 Active calcium carbonate (Tums) 500 mg (200 mg elemental calcium) chewable tablet Take 2 tablet/chew tab (1,000 mg total) by mouth daily Active docusate sodium (COLACE) 100 mg capsuleIndicati ons:constipatio n Take 1 capsule (100 mg total) by mouth daily Active ferrous sulfate ER 324 mg (65 mg iron) EC tabletIndicatio ns:Iron Deficiency Anemia Take 65 mg by mouth Active Active Problems No known active problems Social History Tobacco Use Types Packs/Day Years Used Date Smoking Tobacco: Every Day Cigarettes Tobacco Cessation:Ready to Q uit: Not Asked; Counseling Given: Not Answered Comments:Last smoked last night at 2300 Alcohol Use Standard Drinks/Week Comments Not Currently 0 (1 standard drink = 0.6 oz pur e alcohol) AUDIT-C Answer Date Recorded Q1: How often do you have a drink containing alcohol? Never 06/25/2024 Q2: How many drinks containi ng alcohol do you have on a typical day when you are drinking? Patient does not drink 5 Q3: How often do you have si x or more drinks on one occasion? Never 06/25/2024 Personal Safety Answer Date Recorded Have you ever been in or are you currently in a harmful physical or emotional relationship or is someone making you feel afraid or unsafe? 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 Gender Identity Not on file Sexual Orientation Not on file Last Filed Vital Signs Vital Sign Reading Time Taken Comments Blood Pressure 136/75 06/25/2024 9:47 AM CDT Pulse 102 06/25/2024 9:47 AM CDT Temperature 36.1 C (97 F) 06/18/2024 2:15 PM CDT Respiratory Rate 18 06/25/2024 9:47 AM CDT Oxygen Saturation 98% 06/25/2024 9:47 AM CDT Inhaled Oxygen Concentration - - Weight 115.2 kg (254 lb) 06/25/2024 9:47 AM CDT Height 162.6 cm (5' 4.02) 06/25/2024 9:47 AM CD T Body Mass Index 43.58 06/25/2024 9:47 AM CDT Plan of Treatment Not on file Medical Devices Implanted Type Area Chief Catalyst Operator Device Identifier Shelf Expiration Date Model / Serial / Lot Plate Plate N/A: Back Screw Screw N/A: Back Coil N/A: Back Description:PER PATIENT REPO RT Procedures Procedure Name Priority Date/Time Associated Diagnosis Comments NM AN PROCEDURE PLACEHOLDER Routine 06/18/2024 1:42 PM CDT NM AN ELECTIVE ENDOTRACHEAL AIRWAY Routine 06/18/2024 1:42 PM CDT MRI LUMBAR SPINE WO CONTRAST Schedule Routine, Read Routine (OP Routine) 06/18/2024 1:40 PM CDT Lumbar pain Lumbar foraminal stenosis EGFR Routine 06/14/2024 10:35 AM CDT Preop testing DIFFERENTIAL AUTO Routine 06/14/2024 10: 35 AM CDT Pre-op testing BASIC METABOLIC PANEL Routine 06/14/2024 10:35 AM CDT Preop testing CBC WITH AUTO DIFFERENTIAL Routine 06/14/2024 10:35 AM CDT Pre-op testing ECG 12-LEAD Routine 06/14/2024 10:22 AM CDT Pre-op testing Preop testing from Last 3 Months Results * NM AN ELECTIVE ENDOTRACHEAL AIRWAY, NM AN PROCEDURE PLACEHOLDER (06/18/2024 1:42 PM CDT) Narrative Tony Cagle CRNA - 06/18/2024 1:42 PM CDT Tony Cagle CRNA 06/18/2024 1:43 PM Airway Patient location: OR Urgency: elective Indications for airway management: anesthesia Difficult airway: no Staff: Placed by: Anesthesiologist: Ana Peterson MD Emergent airway documentation: Risks and benefits discussed: yes Consent obtained: yes Consent given by: patient Airway prep: Preoxygenated: yes Patient position: sniffing Mask difficulty assessment: 0 - not attempted Spontaneous ventilation during airway: absent Sedation level during airway: deep Final airway details: Final airway type: endotracheal airway Tube type: ETT ETT size: 7.0 mm Cuffed: yes Technique used for successful ETT placement: video laryngoscopy Devices/Methods used in placement: intubating stylet Insertion site: oral Blade type: Carla Video blade type: Moon Blade size: 4 Cormack-Lehane (direct): grade IIb - view of arytenoids or posterior of glottis only Cuff volume: 5 mL Cuff inflated with: air ETT to gums: 21 cm Placement verified by: auscultation and CO2 detection Airway secured with: silk tape Number of attempts: 1 Ana Peterson MD ANESTHESIA ORDERABLES Final Result * MRI Lumbar Spine WO Contrast (06/18/2024 1:40 PM CDT) Anatomical Region Laterality Modality Spine N/A Magnetic Resonan ce 06/19/2024 8:35 AM CDT Narrative 06/19/2024 8:48 AM CDT EXAM DESCRIPTION: MRI LUMBAR SPINE WO CONTRAST REASON FOR STUDY: Lumbar radiculopathy, symptoms persist with > 6 wks treatment Lower back pain, intermittent sharp stabbing pains for over a year. Hx of lumbar fusion TECHNIQUE: Sagittal and Axial imaging includes T1, T2, STIR sequences. COMPARISON: 01/30/2020. 2019 FINDINGS: SEGMENTATION: No transitional anatomy. The lowest well-developed disc space is labeled L5-S1 (image 8 of series 601). ALIGNMENT: Normal. VERTEBRAE: In the T11 vertebral body there is a 12 mm stir hyperintense and heterogeneously T1 hypointense and isointense rounded lesion. No MR evidence for recent fracture or ligamentous injury DISC HEIGHT: Unchanged disc height loss at the non fused levels, which is wvod-rq-notiratj go to vertebra HARDWARE: There is anterior discectomy and instrumented fusion at L4-L5 with combined posterior instrumented fusion from L3-L5 with posterior decompression CORD/CAUDA: Normal in size and signal intensity. Conus at the T12-L1 level. LOWER THORACIC: Incompletely imaged. No stenosis seen. INDIVIDUAL DISC LEVELS: T12-L1: Normal disc configuration. Moderate bilateral facet arthropathy. Mild ligamentum flavum thickening. Onfl-lp-rcatbjjn right and mild left neural foraminal stenosis. No significant spinal canal stenosis L1-2: Mild disc bulge. Moderate to severe bilateral facet arthropathy. Significant ligamentum flavum thickening. Mild bilateral neural foraminal stenosis. Mild spinal canal stenosis L2-3: Disc bulge and posterior osteophytes. Severe bilateral facet arthropathy. Significant ligamentum flavum thickening . Moderate to severe left and moderate right neural foraminal stenosis. Severe spinal canal stenosis L3-4: Postoperative level. No spinal canal stenosis. No high-grade neural foraminal stenosis L4-5: Postoperative level. No spinal canal stenosis. No neural foraminal stenosis L5-S1: Disc bulge with superimposed right subarticular through foraminal disc protrusion. Moderate bilateral facet arthropathy. Moderate to severe left and severe right neural foraminal stenosis. Narrowing of the right lateral recess. Otherwise, no substantial spinal canal stenosis. SACRUM: Visualized upper sacrum intact. VISUALIZED UPPER ABDOMEN: There is a small amount of somewhat linear T2 hyperintensity extending medial to the left kidney and inferiorly along the medial aspect of the psoas muscle. This does not appear to have a correlate on the sagittal T2 or STIR sequences and this is likely artifactual. Similar T1 hyperintense signal is seen on series 501, image 23. OTHER: No other significant findings. IMPRESSION: Posterior instrumented L3-L5 fusion with combined L3-L4 interbody fusion. No spinal canal stenosis at the postoperative levels. Multilevel degenerative disc and joint disease, as detailed level by level above. There is severe spinal canal stenosis at L2-L3 and multilevel neural foraminal stenosis, severe on the right at L5-S1. 12 mm STIR hyperintense and T1 heterogeneous lesion in the T11 vertebral body. This could be an atypical hemangioma but is ultimately indeterminate. Please correlate clinically; if there is high suspicion for malignancy, a PET-CT could be performed. Otherwise, follow-up MRI and 3-6 months is recommended. THIS IS AN ELECTRONICALLY VERIFIED FINAL REPORT 06/19/2024 8:48 AM - Electronically signed by César TSE T: Report ID: [id number] Reading Location: [id number] Procedure Note César Harris MD - 06/19/2024 EXAM DESCRIPTION: MRI LUMBAR SPINE WO CONTRAST REASON FOR STUDY: Lumbar radiculopathy, symptoms persist with > 6 wks treatment Lower back pain, intermittent sharp stabbing pains for over a year. Hx of lumbar fusion TECHNIQUE: Sagittal and Axial imaging includes T1, T2, STIR sequences. COMPARISON: 01/30/2020. 2019 FINDINGS: SEGMENTATION: No transitional anatomy. The lowestwell-developed disc space is labeled L5-S1 (image 8 of series 601). ALIGNMENT: Normal. VERTEBRAE: In the T11 vertebral body there is a 12 mm stir hyperintenseand heterogeneously T1 hypointense and isointense rounded lesion. No MRevidence for recent fracture or ligamentous injury DISC HEIGHT: Unchanged disc height loss at the non fused levels, whichis xrcy-zj-lwzzbxzb go to vertebra HARDWARE: There is anterior discectomy and instrumented fusion at L4-L5with combined posterior instrumented fusion from L3-L5 with posteriordecompression CORD/CAUDA: Normal in size and signal intensity. Conus at the S08-S6aaelt. LOWER THORACIC: Incompletely imaged. No stenosis seen. INDIVIDUAL DISC LEVELS: T12-L1: Normal disc configuration. Moderate bilateral facet arthropathy. Mild ligamentum flavum thickening. Fvbg-na-mnzkxqhp right and mild left neural foraminal stenosis. No significant spinal canal stenosis L1-2: Mild disc bulge. Moderate to severe bilateral facet arthropathy. Significant ligamentum flavum thickening. Mild bilateral neural foraminal stenosis. Mild spinal canal stenosis L2-3: Disc bulge and posterior osteophytes. Severe bilateral facet arthropathy. Significant ligamentum flavum thickening . Moderate tosevere left and moderate right neural foraminal stenosis. Severe spinal canal stenosis L3-4: Postoperative level. No spinal canal stenosis. No high-gradeneural foraminal stenosis L4-5: Postoperative level. No spinal canal stenosis. No neuralforaminal stenosis L5-S1: Disc bulge with superimposed right subarticular through foraminal disc protrusion. Moderate bilateral facet arthropathy. Moderate tosevere left and severe right neural foraminal stenosis. Narrowing of the right lateral recess. Otherwise, no substantial spinal canal stenosis. SACRUM: Visualized upper sacrum intact. VISUALIZED UPPER ABDOMEN: There is a small amount of somewhat linear T2 hyperintensity extending medial to the left kidney and inferiorly alongthe medial aspect of the psoas muscle. This does not appear to have acorrelate on the sagittal T2 or STIR sequences and this is likely artifactual.Similar T1 hyperintense signal is seen on series 501, image 23. OTHER: No other significant findings. IMPRESSION: Posterior instrumented L3-L5 fusion with combined L3-L4 interbody fusion.No spinal canal stenosis at the postoperative levels. Multilevel degenerative disc and joint disease, as detailed level bylevel above. There is severe spinal canal stenosis at L2-L3 and multilevelneural foraminal stenosis, severe on the right at L5-S1. 12 mm STIR hyperintense and T1 heterogeneous lesion in the T11 vertebral body. This could be an atypical hemangioma but is ultimatelyindeterminate. Please correlate clinically; if there is high suspicion for malignancy, a PET-CT could be performed. Otherwise, follow-up MRI and 3-6 months is recommended. THIS IS AN ELECTRONICALLY VERIFIED FINAL REPORT 06/19/2024 8:48 AM - Electronically signed by César Harris M.D. MZ T: Report ID: [id number] Reading Location: [place] [address] Babak MCKENZIE IM MRI PROCEDURES Final R esult * eGFR (06/14/2024 10:35 AM CDT) eGFR 76 >=60 mL/min/1. 73 m2 Comment: Interpretive Data Reference Interval Normal >/= 90 mL/min/1.73m2 Mildly decreased* 60 - 89 mL/min/1.73m2 Mildly to moderately decreased 45 - 59 mL/min/1.73m2 Moderately to severely decreased 30 - 44 mL/min/1.73m2 Severely decreased 15 - 29 mL/min/1.73m2 Kidney Failure < 15 mL/min/1.73m2 *Relative to young adult level Estimated glomerular filtration rate is determined by the 2020 CKD-EPI equation recommended by the National Kidney Foundation (A Unifying Approach to GFR Estimation: Recommendations of the NKF-ASK Task Force on Reassessing the Inclusion of Race in Diagnosing Kidney Disease, JASN 2020). The CKD-EPI equation should not be used for patients with unstable renal function and has not been validated in children and those over 70. Current interpretive data was last reviewed 2020. Blood 06/14/2024 10:3 5 AM CDT 06/14/2024 10:40 AM CDT Janae Santos PROCESSING REP LAB BLOOD ORDERABLES Final Result [facility] [address] [facility] Department [place] [address] * Differential, auto (06/14/2024 10:35 AM CDT) Neutrophil abs 4.56 1.50 - 6.50 K/cumm Imm gran abs 0.07 0.00 - 0.10 K/cumm [facility] Lymphocyte abs 2.44 0.80 - 3.30 K/cumm [facility] Monocyte abs 0.47 0.20 - 0.80 K/cumm [facility] Eosinophil abs 0.17 0.00 - 0.50 K/cumm [facility] Basophil abs 0.04 0.00 - 0.10 K/cumm [facility] Neutrophil pct 58.8 % [facility] Comment: Interpretive Data Percent cell count reference ranges are not reported, since discordance with absolute values may lead to misinterpretation of CBC data. Current Interpretive Data was last revised on 2017. Imm gran pct 0.9 % [facility] Comment: Interpretive Data Percent cell count reference ranges are not reported, since discordance with absolute values may lead to misinterpretation of CBC data. Current Interpretive Data was last revised on 2017. Lymphocyte pct 31.5 % [facility] Comment: Interpretive Data Percent cell count reference ranges are not reported, since discordance with absolute values may lead to misinterpretation of CBC data. Current Interpretive Data was last revised on 2017. Monocyte pct 6.1 % [facility] Comment: Interpretive Data Percent cell count reference ranges are not reported, since discordance with absolute values may lead to misinterpretation of CBC data. Current Interpretive Data was last revised on 2017. Eosinophil pct 2.2 % [facility] Comment: Interpretive Data Percent cell count reference ranges are not reported, since discordance with absolute values may lead to misinterpretation of CBC data. Current Interpretive Data was last revised on 2017. Basophil pct 0.5 % [facility] Comment: Interpretive Data Percent cell count reference ranges are not reported, since discordance with absolute values may lead to misinterpretation of CBC data. Current Interpretive Data was last revised on 2017. Blood 06/14/2024 10:3 5 AM CDT 06/14/2024 10:40 AM CDT Janae Santos PROCESSING REP LAB BLOOD ORDERABLES Final Result [facility] [address] [facility] Department [place] [address] * (ABNORMAL) CBC with auto differential (06/14/2024 10:35 AM CDT) WBC 7.75 3.80 - 9.90 K/cumm Hgb 11.9 11.9 - 15.5 g/dL [facility] Hct 36.6 35.6 - 45.5 % [facility] Plt 304 150 - 400 K/cumm [facility] MPV 9.4 9.1 - 12.3 fL [facility] RBC 4.11 3.90 - 5.20 M/cumm [facility] MCV 89.1 81.3 - 96.4 fL [facility] MCH 29.0 27.1 - 33.3 pg [facility] MCHC 32.5 32.3 - 35.7 g/dL [facility] RDW CV 14.5 11.1 - 14.9 % [facility] RDW SD 46.7 35.7 - 48.1 fL [facility] NRBC abs 0.02(H) 0.00 - 0.01 K/cumm [facility] Blood 06/14/2024 10:3 5 AM CDT 06/14/2024 10:40 AM CDT Janae Santos PROCESSING REP LAB BLOOD ORDERABLES Final Result [facility] [address] [facility] Department [place] [address] * Basic metabolic panel (06/14/2024 10:35 AM CDT) Sodium 139 135 - 145 mmol/L Potassium, pl 3.8 3.3 - 4.9 mmol/L [facility] Chloride 101 97 - 110 mmol/L [facility] CO2 26 22 - 32 mmol/L [facility] Anion gap 12 2 - 15 mmol/L [facility] BUN 12 6 - 25 mg/dL [facility] Creatinine 0.84 0.60 - 1.10 mg/dL [facility] Glucose 93 70 - 199 mg/dL [facility] Comment: Interpretive Data Fasting glucose >/= 126 mg/dl is diagnostic for diabetes. Fasting is defined as no caloric intake for at least 8 hours. Fasting glucose between 100 mg/dl to 125 mg/dl is diagnostic of prediabetes. In a patient with classic symptoms of hyperglycemia or hyperglycemic crisis, a random glucose >/= 200 mg/dl is diagnostic for diabetes. In the absence of unequivocal hyperglycemia, results should be confirmed by repeat testing. The classification and Diagnosis of Diabetes Diabetes Care 2021; 46: S19-S40. Current interpretive data was last revised 2022. Calcium 9.9 8.5 - 10.3 mg/dL [facility] Blood 06/14/2024 10:3 5 AM CDT 06/14/2024 10:40 AM CDT Janae Santos NP LAB BLOOD ORDERABLES Final Result [facility] [address] Department [place] [address] * ECG 12 lead (06/14/2024 10:22 AM CDT) Ventricular Rate EKG/Min 116 BPM [facility] Atrial Rate 116 BPM [facility] NM-Interval (MSEC) 150 ms [facility] QRS-Interval (MSEC) 72 ms [facility] QT-Interval (MSEC) 314 ms [facility] QTc 436 ms [facility] P [place] 46 degrees [facility] R [place] 25 degrees [facility] T [place] 34 degrees [facility] Diagnosis Sinus tachycardia Otherwise normal ECG No previous ECGs available Confirmed by ZANE MORENO M.D. ([facility]) on 06/14/2024 11:19:44 AM [facility] 06/14/2024 10:2 2 AM CDT 06/14/2024 11:19 AM CDT Aaron Longo MD ECG ORDERABLES Final Re sult Performing Organization Address City[facility] Co de Phone Number [facility] from Last 3 Months Insurance [facility] MEDICARE ADVANTAGE [facility] Address: [address] [address] [place] [address] [employer] [facility] MEDICARE ADVANTAGE [facility] Address: [facility] [address] [place] [address] [employer] Care Teams Data Migration Lead Relationship Specialty Start Date End Date Rudy Kwok PA [facility] [place] [address] PCP - General Internal Medicine 12/23/23 Francine Claudio MD [address] [address] Referring Physician Gynecology 03/15/24
--- OUTSIDE RECORDS SUMMARY | 2024-08-02 09:27 | XMS_ITS | Data Portability ---
Author Organization [facility] RODOLFOAddi Ferrari Address [address] [place] [address] Assessment No assessment recorded. Plan of Treatment Reminders Order Date Submit Date Provider Last Modified By Organization Details Last Modified Time Details Appointments None recorded . Lab None recorded . Referral None recorded . Procedures None recorded . Surgeries None recorded . Imaging XR, hip, bilatera l, 3 or 4 view [address] ([facility]), [address] [place] [address], [address], 3 14:15:17 XR, femur, 2 or more view [address] ([facility]), [address] [place] [address], [address], 3 14:15:17 XR, chest, 2 view 2020 021 [facility] ([facility]), [address] [place] [address], [address], 1 16:00:14 Medication Orders ibuprofe n 800 mg tablet 2022 023 [facility], [address] [facility], [place], [address], 3 12:36:49 cholecal ciferol (vitamin D3) 50 mcg (2,000 unit) capsule 2022 023 [facility], [address] [place], [address], 3 12:36:37 baclofen 10 mg tablet 2022 023 [facility], [address] [place], [address], 3 14:32:51 omeprazo le 20 mg capsule, delayed release 2022 023 [facility], [address] [place], [address], 3 15:56:54 ibuprofe n 800 mg tablet 2021 022 [email or web address] Not available 13:38:06 sulfamet hoxazole 800 mg-trime thoprim 160 mg tablet 2021 023 ATHENAFAX Not available 11:23:15 Linzess 290 mcg capsule 2021 022 JOSE E Not available 13:03:58 DOK 100 mg capsule 2021 023 ATHENAFAX [facility], [address] [place] [address], [id number], 3 13:05:19 baclofen 10 mg tablet 2021 022 [email or web address] Not available 14:32:51 cycloben zaprine 10 mg tablet 2021 022 JOSE E Not available 2 13:03:58 triamcin olone acetonid e 0.1 % topical ointment 2021 jdelacruzma [facility], [address] [place] [address], [id number], 3 11:32:30 omeprazo le 20 mg capsule, delayed release 2021 [facility]22 [facility] 3 15:56:54 Linzess 290 mcg capsule 2020 [facility], [address] [place] [address], [id number], 1 13:01:21 ibuprofe n 800 mg tablet 2020 021 [facility], [address] [place] [address], [id number], 1 13:01:18 cycloben zaprine 10 mg tablet 2020 [facility], [address] [place] [address], [id number], 1 13:01:24 baclofen 10 mg tablet 2020 [facility], [address] [place] [address], [id number], 3 14:32:51 omeprazo le 20 mg capsule, delayed release 2020 [facility], [address] [place] [address], [id number], 3 15:56:54 azithrom ycin 250 mg tablet 2019 020 [facility], [address] [place] [address], [id number], 1 12:54:12 prometha zine-DM 6.25 mg-15 mg/5 mL oral syrup [email or web address] [place] [address] Pharmacy, [address] [place] [address], [id number], 2 12:10:21 Patient TargetsNo targets recorded. Patient Instructions Encounter Date Encounter Id Patient Instructions Last Modified By Organization Details Last Modified Time 05/24/2019 [id number] FF, sleep uprigh t , breathe in seam daily [email or web address] Not available 05/27/2019 14:25:08 she will go back to ED if not getting better ... [email or web address] Not available 05/27/2019 14:24:49 04/12/2022 [id number] gastroesophageal reflux disease (GERD): care instructions [facility] Not available 04/12/2022 12:36:29 A healthy lifest yle: care instructions [facility] Not available 04/12/2022 12:20:24 high cholesterol : care instructions [facility] Not available 04/12/2022 12:36:28 Reason for Referral None Reported. Results Created Date Observation Date Name Description Value Unit Range Abnormal Flag Note LastModifiedBy Organization Detail LastModifiedTime 06/16/19 22 06/16/2021 CBC WITH DIFFE RENTI AL/PL ATELE T WBC 7.9 x10e3 /uL 3.4-10 .8 Not Available [facility] ([facility]) [address] [place], [address], 06/16/2021 17:09:24 06/16/19 22 06/16/2021 CBC WITH DIFFE RENTI AL/PL ATELE T RBC 5.03 x10e6 /uL 3.77-5 .28 Not Available [facility] ([facility]) [address] [place], [address], 06/16/2021 17:09:24 06/16/19 22 06/16/2021 CBC WITH DIFFE RENTI AL/PL ATELE T hemoglobin 14.6 g/dL 11.1-1 5.9 Not Available [facility] ([facility]) [address] [place], [address], 06/16/2021 17:09:24 06/16/19 22 06/16/2021 CBC WITH DIFFE RENTI AL/PL ATELE T hematocrit 43.9 % 34.0-4 6.6 Not Available [facility] ([facility]) [address] [place], [address], 06/16/2021 17:09:24 06/16/19 22 06/16/2021 CBC WITH DIFFE RENTI AL/PL ATELE T MCV 87 fL 79-97 Not Available [facility] ([facility]) [address] [facility], [place], [address], 06/16/2021 17:09:24 06/16/19 22 06/16/2021 CBC WITH DIFFE RENTI AL/PL ATELE T MCH 29.0 pg 26.6-3 3.0 Not Available [facility] ([facility]) [address] [facility], [place], [address], 06/16/2021 17:09:24 06/16/19 22 06/16/2021 CBC WITH DIFFE RENTI AL/PL ATELE T MCHC 33.3 g/dL 31.5-3 5.7 Not Available [facility] ([facility]) [address] [facility], [place], [address], 06/16/2021 17:09:24 06/16/19 22 06/16/2021 CBC WITH DIFFE RENTI AL/PL ATELE T RDW 14.1 % 11.7-1 5.4 Not Available [facility] ([facility]) [address] [facility], [place], [address], 06/16/2021 17:09:24 06/16/19 22 06/16/2021 CBC WITH DIFFE RENTI AL/PL ATELE T platelets 343 x10e3 /uL 150-45 0 Not Available [facility] ([facility]) [address] [place], [address], 06/16/2021 17:09:24 06/16/19 22 06/16/2021 CBC WITH DIFFE RENTI AL/PL ATELE T neutrophils 57 % not estab. Not Available [facility] ([facility]) [address] [place], [address], 06/16/2021 17:09:24 06/16/19 22 06/16/2021 CBC WITH DIFFE RENTI AL/PL ATELE T lymphs 34 % not estab. Not Available [facility] ([facility]) [address] [facility], [place], [address], 06/16/2021 17:09:24 06/16/19 22 06/16/2021 CBC WITH DIFFE RENTI AL/PL ATELE T monocytes 6 % not estab. Not Available [facility] ([facility]) [address] [facility], [place], [address], 06/16/2021 17:09:24 06/16/19 22 06/16/2021 CBC WITH DIFFE RENTI AL/PL ATELE T eos 2 % not estab. Not Available [facility] ([facility]) [address] [facility], [place], [address], 06/16/2021 17:09:24 06/16/19 22 06/16/2021 CBC WITH DIFFE RENTI AL/PL ATELE T basos 0 % not estab. Not Available [facility] ([facility]) [address] [facility], [place], [address], 06/16/2021 17:09:24 06/16/19 22 06/16/2021 CBC WITH DIFFE RENTI AL/PL ATELE T immature cells REIMBURSEMENT ANALYST Not Available [facility] ([facility]) [address] [facility], [place], [address], 06/16/2021 17:09:24 06/16/19 22 06/16/2021 CBC WITH DIFFE RENTI AL/PL ATELE T neutrophils (absolute) 4.5 x10e3 /uL 1.4-7. 0 Not Available [facility] ([facility]) [address] [place], [address], 06/16/2021 17:09:24 06/16/19 22 06/16/2021 CBC WITH DIFFE RENTI AL/PL ATELE T lymphs (absolute) 2.6 x10e3 /uL 0.7-3. 1 Not Available [facility] ([facility]) [address] [facility], [place], [address], 06/16/2021 17:09:24 06/16/19 22 06/16/2021 CBC WITH DIFFE RENTI AL/PL ATELE T monocytes(ab solute) 0.5 x10e3 /uL 0.1-0. 9 Not Available [facility] ([facility]) [address] [facility], [place], [address], 06/16/2021 17:09:24 06/16/19 22 06/16/2021 CBC WITH DIFFE RENTI AL/PL ATELE T eos (absolute) 0.2 x10e3 /uL 0.0-0. 4 Not Available [facility] ([facility]) [address] [place], [address], 06/16/2021 17:09:24 06/16/19 22 06/16/2021 CBC WITH DIFFE RENTI AL/PL ATELE T baso (absolute) 0.0 x10e3 /uL 0.0-0. 2 Not Available [facility] ([facility]) [address] [facility], [place], [address], 06/16/2021 17:09:24 06/16/19 22 06/16/2021 CBC WITH DIFFE RENTI AL/PL ATELE T immature granulocytes 1 % not estab. Not Available [facility] ([facility]) [address] [place], [address], 06/16/2021 17:09:24 06/16/19 22 06/16/2021 CBC WITH DIFFE RENTI AL/PL ATELE T immature grans (abs) 0.1 x10e3 /uL 0.0-0. 1 Not Available [facility] ([facility]) [address] [place], [address], 06/16/2021 17:09:24 06/16/19 22 06/16/2021 CBC WITH DIFFE RENTI AL/PL ATELE T NRBC REIMBURSEMENT ANALYST Not Available [facility] ([facility]) [address] [facility], [place], [address], 06/16/2021 17:09:24 06/16/19 22 06/16/2021 CBC WITH DIFFE RENTI AL/PL ATELE T hematology comments: REIMBURSEMENT ANALYST Not Available [facility] ([facility]) [address] [facility], [place], [address], 06/16/2021 17:09:24 06/16/19 22 06/16/2021 COMP. METAB OLIC PANEL (14) glucose 97 mg/dL 65-99 Not Available [facility] ([facility]) [address] [facility], [place], [address], 06/16/2021 17:09:25 06/16/19 22 06/16/2021 COMP. METAB OLIC PANEL (14) BUN 7 mg/dL 8-27 below low normal Not Available [facility] ([facility]) [address] [place], [address], 06/16/2021 17:09:25 06/16/19 22 06/16/2021 COMP. METAB OLIC PANEL (14) creatinine 0.66 mg/dL 0.57-1 .00 Not Available [facility] ([facility]) [address] [place], [address], 06/16/2021 17:09:25 06/16/19 22 06/16/2021 COMP. METAB OLIC PANEL (14) eGFR 98 mL/mi n/1.7 3 >59 Not Available [facility] ([facility]) [address] [place], [address], 06/16/2021 17:09:25 06/16/19 22 06/16/2021 COMP. METAB OLIC PANEL (14) BUN/creatini ne ratio 11 12-28 below low normal Not Available [facility] ([facility]) [address] [facility] [place], [address], 06/16/2021 17:09:25 06/16/19 22 06/16/2021 COMP. METAB OLIC PANEL (14) sodium 144 mmol/ L 134-14 4 Not Available [facility] ([facility]) [address] [facility] [place], [address], 06/16/2021 17:09:25 06/16/19 22 06/16/2021 COMP. METAB OLIC PANEL (14) potassium 4.5 mmol/ L 3.5-5. 2 Not Available [facility] ([facility]) [address] [facility] [place], [address], 06/16/2021 17:09:25 06/16/19 22 06/16/2021 COMP. METAB OLIC PANEL (14) chloride 104 mmol/ L 96-106 Not Available [facility] ([facility]) [address] [facility] [place], [address], 06/16/2021 17:09:25 06/16/19 22 06/16/2021 COMP. METAB OLIC PANEL (14) carbon dioxide, total 22 mmol/ L 20-29 Not Available [facility] ([facility]) [address] [facility] [place], [address], 06/16/2021 17:09:25 06/16/19 22 06/16/2021 COMP. METAB OLIC PANEL (14) calcium 9.4 mg/dL 8.7-10 .3 Not Available [facility] ([facility]) [address] [facility] [place], [address], 06/16/2021 17:09:25 06/16/19 22 06/16/2021 COMP. METAB OLIC PANEL (14) protein, total 7.0 g/dL 6.0-8. 5 Not Available [facility] ([facility]) [address] [facility], [place], [address], 06/16/2021 17:09:25 06/16/19 22 06/16/2021 COMP. METAB OLIC PANEL (14) albumin 4.0 g/dL 3.8-4. 8 Not Available [facility] ([facility]) [address] [place], [address], 06/16/2021 17:09:25 06/16/19 22 06/16/2021 COMP. METAB OLIC PANEL (14) globulin, total 3.0 g/dL 1.5-4. 5 Not Available [facility] ([facility]) [address] [place], [address], 06/16/2021 17:09:25 06/16/19 22 06/16/2021 COMP. METAB OLIC PANEL (14) A/G ratio 1.3 1.2-2. 2 Not Available [facility] ([facility]) [address] [place], [address], 06/16/2021 17:09:25 06/16/19 22 06/16/2021 COMP. METAB OLIC PANEL (14) bilirubin, total <0.2 mg/dL 0.0-1. 2 Not Available [facility] ([facility]) [address] [place], [address], 06/16/2021 17:09:25 06/16/19 22 06/16/2021 COMP. METAB OLIC PANEL (14) alkaline phosphatase 167 IU/L 44-121 above high normal Not Available [facility] ([facility]) [address] [place], [address], 06/16/2021 17:09:25 06/16/19 22 06/16/2021 COMP. METAB OLIC PANEL (14) AST (SGOT) 26 IU/L 0-40 Not Available [facility] ([facility]) [address] [place], [address], 06/16/2021 17:09:25 06/16/19 22 06/16/2021 COMP. METAB OLIC PANEL (14) ALT (SGPT) 31 IU/L 0-32 Not Available [facility] ([facility]) [address] [facility], [place], [address], 06/16/2021 17:09:25 06/16/19 22 06/16/2021 LIPID PANEL WITH LDL/H DL RATIO cholesterol, total 193 mg/dL 100-19 9 Not Available [facility] ([facility]) [address] [place], [address], 06/16/2021 17:09:26 06/16/19 22 06/16/2021 LIPID PANEL WITH LDL/H DL RATIO triglyceride s 70 mg/dL 0-149 Not Available [facility] ([facility]) [address] [place], [address], 06/16/2021 17:09:26 06/16/19 22 06/16/2021 LIPID PANEL WITH LDL/H DL RATIO HDL cholesterol 54 mg/dL >39 Not Available [facility] ([facility]) [address] [place], [address], 06/16/2021 17:09:26 06/16/19 22 06/16/2021 LIPID PANEL WITH LDL/H DL RATIO VLDL cholesterol vandana 13 mg/dL 5-40 Not Available [facility] ([facility]) [address] [place], [address], 06/16/2021 17:09:26 06/16/19 22 06/16/2021 LIPID PANEL WITH LDL/H DL RATIO LDL chol calc ([facility]) 126 mg/dL 0-99 above high normal Not Available [facility] ([facility]) [address] [place], [address], 06/16/2021 17:09:26 06/16/19 22 06/16/2021 LIPID PANEL WITH LDL/H DL RATIO comment: REIMBURSEMENT ANALYST Not Available [facility] ([facility]) [address] [facility], [place], [address], 06/16/2021 17:09:26 06/16/19 22 06/16/2021 LIPID PANEL WITH LDL/H DL RATIO LDL/HDL ratio 2.3 ratio 0.0-3. 2 LDL/H DL Ratio Men Women 1/2 Avg.R isk 1.0 1.5 Avg.R isk 3.6 3.2 2X Avg.R isk 6.2 5.0 3X Avg.R isk 8.0 6.1 Not Available [facility] ([facility]) [address] [facility], [place], [address], 06/16/2021 17:09:26 06/16/19 22 06/16/2021 VITAM IN B12 AND FOLAT E vitamin B12 752 pg/mL 232-12 45 Not Available [facility] ([facility]) [address] [facility], [place], [address], 06/16/2021 17:09:27 06/16/19 22 06/16/2021 VITAM IN B12 AND FOLAT E folate (folic acid), serum 5.3 NG/mL >3.0 A serum folat e mary ntrat ion of less than 3.1 ng/mL is consi dered to repre sent clini vandana defic iency . Not Available [facility] ([facility]) [address] [facility], [place], [address], 06/16/2021 17:09:27 06/16/19 22 06/16/2021 DIABE EDUARDO PATIE NT EDUCA TION pdf . Not Available [facility] ([facility]) [address] [facility], [place], [address], 06/16/2021 17:09:29 06/16/19 22 06/16/2021 HEMOG LOBIN A1C hemoglobin A1C 6.5 % 4.8-5. 6 above high normal Predi abete s: 5.7 - 6.4 Diabe eduardo: >6.4 Glyce janet contr ol for adult s with diabe eduardo: <7.0 Not Available [facility] ([facility]) [address] [facility], [place], [address], 06/16/2021 17:09:29 06/16/19 22 06/16/2021 TSH TSH 1.890 uIU/m L 0.450- 4.500 Not Available [facility] ([facility]) [address] [facility], [place], [address], 06/16/2021 17:09:30 06/16/19 22 06/16/2021 VITAM IN [...] um and D. Naz pineda [place]: [facility] . 2. Ale burnett MF, Eber masters [place], Yasmine off-F errar i BROWN, et al. Evalu ation , treat ment, and preve ntion of vitam in D defic iency : an Endoc rine Socie ty clini vandana pract ice guide line. JCEM. 2010; 96(7) :1911 -30. Not Available [facility] ([facility]) [address] [facility], [place], [address], 06/16/2021 17:09:31 06/16/19 22 06/16/2021 CREAT INE DIANNE E,TOT AL creatine kinase,total 158 U/L 32-182 Not Available [facility] ([facility]) [address] [facility], [place], [address], 06/16/2021 17:09:32 06/01/19 23 06/01/2022 VITAM IN [...] um and D. Naz pineda [place]: [facility] . 2. Ale burnett MF, Eber masters [place], Yasmine off-F errar i BROWN, et al. Evalu ation , treat ment, and preve ntion of vitam in D defic iency : an Endoc rine Socie ty clini vandana pract ice guide line. JCEM. 2010; 96(7) :1911 -30. Not Available [facility] ([facility]) [address] [facility], [place], [address], 06/01/2022 07:11:59 05/18/19 20 05/11/2019 XR, chest , 2 view No observ ation record ed. [email or web address] Not Available 03/2019 20:17:30 05/18/19 20 05/12/2019 NM, lung scan, venti latio n/per fusio n No observ ation record ed. [email or web address] Not Available 03/2019 20:17:30 05/15/19 21 05/14/2020 DEXA, axial skele ton No observ ation record ed. [address], [address], 06/03/2020 16:35:08 05/15/19 21 05/14/2020 MAMMO , scree ana, bilat eral No observ ation record ed. [email or web address] [facility], [place], [address], 05/15/2020 11:00:46 08/01/19 21 07/24/2020 LDCT, chest , for lung cance r scree ana No observ ation record ed. [facility] (Imaging) [address] [place] [address] [address], [place], [address], 07/28/2021 17:10:36 08/14/19 22 08/13/2021 MAMMO , diagn ostic , bilat eral No observ ation record ed. [address], [place], [address], 08/25/2021 15:06:44 11/21/19 22 11/19/2021 LDCT, chest , for lung cance r scree ana No observ ation record ed. [address], [place], [address], 11/26/2021 18:34:30 11/09/19 23 11/07/2022 XR, chest No observ ation record ed. [address], [place], [address], 11/08/2022 16:21:49 11/09/19 23 11/08/2022 CT, abdom en + pelvi s, w/ contr ast No observ ation record ed. [address], [place], [address], 11/08/2022 16:21:50 11/14/19 23 11/13/2022 CT, abdom en + pelvi s, w/o contr ast No observ ation record ed. [address], [place], [address], 11/17/2022 18:46:49 11/14/19 23 11/13/2022 US, abdom en No observ ation record ed. [address], [place], [address], 11/17/2022 18:46:49 11/16/19 23 11/15/2022 US, pelvi s, compl ete No observ ation record ed. [address], [place], [address], 11/17/2022 18:46:50 11/23/19 23 11/22/2022 LDCT, chest , for lung cance r scree ana No observ ation record ed. [address], [place], [address], 11/23/2022 14:30:31 12/12/19 23 12/11/2022 US, thyro id No observ ation record ed. [facility] [address], [place], [address], 12/17/2022 11:51:16 02/18/20 23 02/17/2023 imagi ng/di agnos tic resul t No observ ation record ed. [address], [place], [address], 02/18/2023 11:22:01 03/02/19 24 03/02/2023 US, vesna elkins, lower extre mity No observ ation record ed. [address], [place], [address], 03/03/2023 18:00:47 03/04/19 24 03/02/2023 US, vesna elkins, lower extre mity No observ ation record ed. [address], [place], [address], 03/04/2023 13:51:46 06/02/19 24 06/02/2023 XR, chest , 3 view No observ ation record ed. [facility] [address] [place], [address], 06/02/2023 12:26:03 12/08/19 24 12/08/2023 CT, chest , w/o contr ast No observ ation record ed. [address] [facility], [place], [address], 12/08/2023 17:22:08 12/08/19 24 12/08/2023 XR, forea rm No observ ation record ed. [address] [address], [place], [address], 12/08/2023 17:21:31 12/08/19 24 12/08/2023 XR, knee No observ ation record ed. [address] [address], [place], [address], 12/08/2023 17:21:01 12/08/19 24 12/08/2023 XR, lumba r spine No observ ation record ed. [address] [address], [place], [address], 12/08/2023 17:34:33 Result Notes None recorded. 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 Not Available [facility] 3 16:32:12 Obesity 595262685 Active 2017 Not Available [facility] 3 16:32:13 Hyperlipidemi a 22403710 Active 2017 Not Available [facility] 3 16:32:13 Failure to lose weight 70019643 Active 2018 Not Available [facility] 3 16:32:13 Vitamin D deficiency 81185974 Active 2018 Not Available [facility] 3 16:32:12 Acute pharyngitis 988787534 Active 2018 Not Available [facility] 3 16:32:12 Claustrophobi a 17345844 Active 2020 Not Available [facility] 3 16:32:12 Contact dermatitis 46040973 Active 2021 legs and arms Not Available [facility] 3 16:32:13 Acute folliculitis 345865372 Active 2021 Not Available [facility] 3 16:32:12 Anxiety 80349616 Active Not Available [facility] 3 16:32:13 Sleep apnea 25838568 Active Not Available [facility] 3 16:32:13 Constipation 51788238 Active Not Available [facility] 3 16:32:12 Depressive disorder 90899311 Active Not Available [facility] 3 16:32:12 Acute sciatica 066581445 Active Not Available [facility] 3 16:32:12 High hemoglobin A1c level 863294542 Active Not Available [facility] 3 16:32:13 Neck pain 99461054 Active Not Available [facility] 3 16:32:13 Sinusitis 97013189 Active Not Available [facility] 3 16:32:12 Gastroesophag eal reflux disease 608868646 Active Not Available [facility] 3 16:32:12 Menopausal syndrome 035541865 Active Not Available [facility] 3 16:32:12 Low back pain 419780693 Active Not Available [facility] 3 16:32:12 Hyperglycemia 39391635 Active Not Available [facility] 3 16:32:13 Tobacco user 562344598 Active Not Available [facility] 3 16:32:12 Headache 28539094 Active 2016 Not Available [facility] 3 16:32:12 Postconcussio n syndrome 34075516 Active 2016 Not Available [facility] 3 16:32:13 Cramp in lower limb 291471500 Active 2016 Not Available [facility] 3 16:32:13 Administratio n of influenza vaccine Active 2016 Not Available [facility] 3 16:32:13 Notes:Some problems listed i n Document: #[id number] could not be added to this patient's chart. Please review this document and add these problems to the patient's chart manually as needed. Problem Notes None recorded. Procedures Surgical History Date Name Laterality Status Provider Name and Address Organization Details Recorded Time 11/20/19 22 biopsy completed JERONIMO Luna [facility] 12/01/2021 11:55:19 11/20/19 22 biopsy completed JERONIMO Luna [facility] 12/01/2021 11:55:42 02/28/19 05 Back Surgery completed Enma Varela [facility] 03/13/2014 11:48:21 02/28/19 00 Back Surgery completed Enma Varela [facility] [facility]13[facility]2014 11:48:21 02/28/18 89 Remove thyroid lesion completed Enma Varela MA [facility] 03/13/2014 11:48:21 02/28/18 85 Hysterectomy completed Enma Varela MA [facility] 03/13/2014 11:48:21 02/28/18 74 Caesarean Section completed Enma Varela MA [facility] 03/13/2014 11:48:21 02/28/18 73 Caesarean Section completed Enma Varela MA [facility] 03/13/2014 11:48:21 Imaging Results None recorded. Procedure Notes None recorded. Medical Equipment None Reported. Allergies Allergen ID Allergen Name Allergen Category Reaction Reaction Severity Criticality Documentation Date Start Date Code Code System Note Provider Name and Address Organization Details Recorded Time 77719 aspirin medicatio n itching Not available Not available 03/13/2014 1191 RxNorm JERONIMO Abbott, [facility] 5 11:48:21 Medications Name Sig Start Date Stop Date [...] Not Available Not Available Not Avai lable Kenalog 40 mg/mL suspensio n for injection [...] t Available Vitals Date Recorded Body height Body mass index (BMI) Body weight Oxygen saturation Oxygen saturation in Arterial blood by Pulse oximetry Heart rate Systolic blood pressure Diastolic blood pressure Provider Name and Address Organization Details Last Updated DateTime 3 160.02 cm 47.3 kg/m2 040863. 59 g 95 % 95 % 90 /min 130 mm[Hg] 80 mm[Hg] Norma Nicholas MA [facility] 3 11:37:12 Date Recorded Body height Provider Name an d Address Organization Details Last Updated DateTime 05/06/2020 160.02 cm Norma De La Cr [facility] 05/06/2020 12:54:04 Date Recorded Body height Provider Name an d Address Organization Details Last Updated DateTime 05/24/2019 160.02 cm Norma De La Cr [facility] 05/24/2019 11:16:18 Date Recorded Body height Body mass index (BMI) Body weight Oxygen saturation Oxygen saturation in Arterial blood by Pulse oximetry Heart rate Body temperature Systolic blood pressure Diastolic blood pressure Provider Name and Address Organization Details Last Updated DateTime 2 160.02 cm 48.5 kg/m2 830459. 59 g 98 % 98 % 96 /min 98.1 [degF] 140 mm[Hg] 78 mm[Hg] Normatomas Nicholas [place] [facility] 2 12:49:11 Date Recorded Body height Provider Name an d Address Organization Details Last Updated DateTime 06/19/2020 160.02 cm Norma De La Cr uz, [place] [facility] 06/19/2020 15:34:13 Date Recorded Body height Body mass index (BMI) Body weight Oxygen saturation Oxygen saturation in Arterial blood by Pulse oximetry Heart rate Systolic blood pressure Diastolic blood pressure Provider Name and Address Organization Details Last Updated DateTime 2 160.02 cm 48 kg/m2 287079. 53 g 95 % 95 % 101 /min 142 mm[Hg] 76 mm[Hg] Norma Nicholas MA [facility] 2 12:02:13 Social History Question Answer Notes LastModified by Organizat ion Details LastModified Time Tobacco Smoking Status Current Every Day Smoker JERONIMO Abbott, [facility] 03/13/2014 11:48:21 Do You Have An Advance Directive? No Information not available 03/13/2014 Are You Blind [...] not available 03/13/2014 Education 2 Year College Information not available 03/13/2014 Are There Any Guns Present In Your Home? No Information not available 03/13/2014 Hard Of Hearing Or Deaf In One Or Both Ears? No Information not available 03/13/2014 Legally Blind In One Or Both Eyes? No Information not available 03/13/2014 Marital Status Informatio n not available 03/13/2014 Do You Have A Medical Power Of Food Safety Officer? No Information not available 03/13/2014 What Was The Date Of Your Most Recent Tobacco Screening? 04/12/2022 Information not available 04/12/2022 Do You Have An Out Of Hospital DNR? No Information not available 03/13/2014 Performs Monthly Self-breast Exam? No Information not available 03/13/2014 Seat Belts Used Routinely Yes [...] Counseling Provided? 12/01/2021 Information not available 12/01/2021 Do You Have Difficulty Walking Or Climbing Stairs? Yes Climbing Stairs Information not available 03/13/2014 Sex: Unknown Functional Status Question Answer Note LastModified by Organizat ion Details LastModified Time What is your level of alcohol consumption? None Information not available 03/13/2014 Do you have transportation difficulties? No Information not available 03/13/2014 Do you have difficulty doing errands alone? 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 Obstetrics History GPAL:G 0 P 0 0 0 0 Immunizations Vaccine Type Date Status Note Provider Nam e and Address Organization Details Recorded Time Influenza, split virus, trivalent, preservative 5 completed Not Available [facility] 03/17/2019 02:45:26 COVID-19, mRNA, LNP-S, PF, 30 mcg/0.3 mL dose 1 completed Not Available [facility] 07/28/2022 16:32:13 COVID-19, mRNA, LNP-S, PF, 30 mcg/0.3 mL dose 1 completed Not Available [facility] 07/28/2022 16:32:13 Influenza, split virus, quadrivalent, preservative 1 completed Not Available [facility] 07/28/2022 16:32:13 COVID-19, mRNA, LNP-S, PF, 30 mcg/0.3 mL dose 1 completed Not Available [facility] 07/28/2022 16:32:13 COVID-19, mRNA, LNP-S, PF, 100 mcg/0.5mL dose or 50 mcg/0.25mL dose 2 completed Not Available [facility] 07/28/2022 16:32:13 pneumococcal, unspecified formulation 2 completed Not Available [facility] 07/28/2022 16:32:13 zoster, unspecified formulation 2 completed Not Available [facility] 07/28/2022 16:32:13 influenza, unspecified formulation 2 completed Not Available [facility] 07/28/2022 16:32:13 Influenza, split virus, quadrivalent, preservative 7 completed Not Available [facility] 03/17/2019 02:34:22 Influenza, split virus, quadrivalent, preservative 8 completed Not Available [facility] 03/17/2019 02:43:37 Influenza, split virus, quadrivalent, preservative 9 completed Not Available [facility] 03/17/2019 02:46:43 Past Encounters Encounter ID Performer Location Encounter Start Date Encounter Closed Date Diagnosis/Indication Diagnosis SNOMED-CT Code Diagnosis ICD10 Code Diagnosis Note [id number] NURYS Fuentes (Adult Med) [address] [place] [address] 68005-980 0 03/13/2014 11:25:50 03/13/2014 13:58:51 Sinusitis 84095911 Gastroesop hageal reflux disease 855063500 Menopausal syndrome 412860486 Low back pain 872113775 Hyperglycemia 48102180 Active or passive immunization 744487411 Tobacco user 408701593 [id number] NURYS Fuentes (Adult Med) [address] [place] [address] 46098-907 0 05/20/2014 10:30:59 05/20/2014 11:27:17 Sinusitis 05695352 Tobacco user 183785720 Low back pain 501968794 Menopausal syndrome 143257211 Gastroesop hageal reflux disease 484978715 Hyperglycemia 23723015 Anxiety 50879722 Sleep apnea 77253165 [id number] NURYS Fuentes (Adult Med) [address] [place] [address] 45421-838 0 06/14/2014 10:41:30 06/14/2014 11:19:44 Sinusitis 56620014 Anxiety 56496350 Gastroesop hageal reflux disease 690524087 Hyperglycemia 33070657 Low back pain 786814902 Tobacco user 623695932 [id number] MD Gerry Briceño (Adult Med) [address] [place] [address] 04995-933 0 09/17/2014 10:10:31 09/17/2014 14:28:00 Low back pain 562011973 Anxiety 46420539 Gastroesop hageal reflux disease 824237131 Hyperglycemia 89453562 Active or passive immunization 651056565 Sleep apnea 88109675 Tobacco user 777461952 Constipation 79306450 Depressive disorder 24084628 [id number] NURYS Fuentes (Adult Med) [address] [place] [address] 94657-429 0 08/06/2015 09:41:09 08/06/2015 10:27:59 Acute sciatica 250410987 M54.31 Depressive disorder 3548 9007 F32.9 Gastroesop hageal reflux disease 174628077 K21.9 Low back pain 400737590 M54.5 Sleep apnea 32840539 G47 .30 Tobacco user 721995423 Z 72.0 High hemog lobin A1c level 059039943 R73.09 [id number] NURYS Fuentes (Adult Med) [address] [place] [address] 54922-949 0 10/06/2015 10:22:39 10/06/2015 17:59:16 Anxiety 35765318 F41.9 Constipation 19561244 K5 9.00 Depressive disorder 3548 9007 F32.9 Gastroesop hageal reflux disease 897670124 K21.9 Low back pain 124111933 M54.5 Neck pain 13450827 M54.2 Sleep apnea 67381256 G47 .30 Tobacco user 199372580 Z 72.0 down to 8 cigarettes per day . (10/06/15) [id number] MD Gerry Briceño (Adult Med) [address] [place] [address] 74298-221 0 03/24/2016 11:04:15 03/24/2016 17:29:06 Low back pain 317921523 M54.5 Postconcus ale syndrome 56968592 F07.81 Gastroesop hageal reflux disease 522011038 K21.9 [id number] MD Gerry Briceño (Adult Med) [address] [place] [address] 36686-106 0 05/24/2016 11:06:21 05/24/2016 18:13:39 Low back pain 938990409 M54.5 Acute sciatica 925469052 M54.31 High hemog lobin A1c level 525060629 R73.09 [id number] MD Gerry Briceño (Adult Med) [address] [place] [address] 39147-449 0 12/02/2016 10:40:48 12/02/2016 11:43:09 Administration of influenza vaccine 30095932 Z23 Constipation 01515407 K5 9.00 Low back pain 386586206 M54.5 Gastroesop hageal reflux disease 394719816 K21.9 Sleep apnea 95797365 G47 .30 Depressive disorder 3548 9007 F32.9 Tobacco user 383858064 Z 72.0 [id number] NURYS Fuentes (Adult Med) [address] [place] [address] 79318-210 0 07/14/2017 13:50:52 07/14/2017 16:53:53 Constipation 27143258 K59.04 Disorder o f lumbar spine 785833282 M53.9 6 screws , plates , cage Obesity 629499257 E66.9 High hemog lobin A1c level 322835997 R73.09 Gastroesop hageal reflux disease 776843573 K21.9 Tobacco user 909961106 Z 72.0 Hyperlipidemia 87447618 E78.00 Acute sciatica 590667815 M54.31 Sleep apnea 93797021 G47 .30 [id number] MD Gerry Briceño (Adult Med) [address] [place] [address] 00924-519 0 01/09/2018 10:47:39 01/09/2018 15:15:54 Administration of influenza vaccine 32342211 Z23 [id number] MD Gerry Briceño (Adult Med) [address] [place] [address] 11116-853 0 08/07/2018 11:00:49 08/08/2018 08:53:58 Failure to lose weight 28488760 R63.8 Gastroesop hageal reflux disease 795327252 K21.9 High hemog lobin A1c level 487813356 R73.09 Sleep apnea 54827985 G47 .30 Hyperlipidemia 30008557 E78.00 Obesity 885873758 E66.9 Vitamin D deficiency 347 05417 E55.9 Constipation 38505161 K5 9.04 Low back pain 234056480 M54.5 [id number] MD Gerry Briceño (Adult Med) [address] [place] [address] 34099-392 0 12/01/2018 10:57:57 12/04/2018 12:02:20 Acute pharyngitis 020621660 J02.9 Vitamin D deficiency 347 85462 E55.9 Hyperlipidemia 73452383 E78.00 Obesity 961333281 E66.9 Gastroesop hageal reflux disease 655882856 K21.9 Low back pain 808884227 M54.5 Sleep apnea 81527264 G47 .30 [id number] MD Gerry Briceño (Adult Med) [address] [place] [address] 0 01/02/2019 10:58:57 01/04/2019 17:25:48 [id number] MD Gerry Briceño (Adult Med) [address] [place] [address] [id number] 0 01/02/2019 11:31:34 01/03/2019 09:29:15 Administration of influenza vaccine 20587121 Z23 [id number] MD Gerry Briceño (Adult Med) [address] [place] [address] 0 05/24/2019 08:59:52 05/24/2019 11:27:33 Acute pharyngitis 998326235 J02.9 Anxiety 92984182 F41.9 Gastroesop hageal reflux disease 733471730 K21.9 Hyperlipidemia 32761363 E78.00 Low back pain 713712382 M54.5 Sleep apnea 41762251 G47 .30 Tobacco user 672544757 Z 72.0 Vitamin D deficiency 347 08648 E55.9 [id number] MD Gerry Briceño (Adult Med) [address] [place] [address] 21099-911 0 05/06/2020 09:39:07 05/06/2020 13:04:54 Low back pain 755130759 M54.5 Chronic id iopathic constipation 23183337 K59.04 Disorder o f lumbar spine 236463179 M53.9 6 screws , plates , cage Hyperlipidemia 90204794 E78.00 Gastroesop hageal reflux disease 618056773 K21.9 Vitamin D deficiency 347 84867 E55.9 Tobacco user 321831320 Z 72.0 Z87.891 Anxiety 28573421 F41.9 Sleep apnea 13278221 G47 .30 Obesity 977541315 E66.9 [id number] Pati Smyth MD [facility] (Adult Med) [address] [place] [address] 93124-514 0 06/11/2021 12:25:04 06/12/2021 09:02:28 Gastroesophageal reflux disease 191924044 K21.9 Disorder o f lumbar spine 716041745 M53.9 6 screws , plates , cage High hemog lobin A1c level 769235652 R73.09 Hyperlipidemia 67048277 E78.00 Low back pain 891695614 M54.50 Postconcus ale syndrome 54243604 F07.81 Sleep apnea 21677794 G47 .30 Tobacco user 023036339 Z 72.0 Z87.891 Constipation 15550156 K5 9.04 Contact dermatitis 08008 004 L25.9 Anxiety 02518303 F41.9 Claustrophobia 82681035 F40.240 Neck pain 14874076 M54.2 Vitamin D deficiency 347 59052 E55.9 [id number] Pati Smyth MD [facility] (Adult Med) [address] [place] [address] 85843-517 0 12/01/2021 11:31:29 12/02/2021 12:07:20 Acute pharyngitis 861225649 J02.9 Anxiety 51588964 F41.9 Claustrophobia 95361007 F40.240 Constipation 76767717 K5 9.04 Cramp in lower limb 4499 56512 R25.2 Disorder o f lumbar spine 654072524 M53.9 6 screws , plates , cage Failure to lose weight 89726076 R63.8 Headache 50601938 R51.9 Hyperlipidemia 36730477 E78.00 Obesity 883592372 E66.9 Sinusitis 98068494 J32.9 Tobacco user 556577714 Z 72.0 Z87.891 Vitamin D deficiency 347 34200 E55.9 Hyperglycemia 37632218 R 73.9 Acute folliculitis 62685 7007 L73.9 [id number] Pati Smyth MD [facility] (Adult Med) [address] [place] [address] 04/12/2022 11:11:01 04/13/2022 14:15:17 Morbid obesity 337499326 E66.01 As 04/12/22. BMI is 47.3, diet, exercise and lose weight. Pain of bi lateral thighs 5978716044 4679670 M79.651 M79.652 She wants x ray first., NO injury. Gastroesop hageal reflux disease 046160120 K21.9 Med refill. Hyperlipidemia 36557244 E78.00 Low animal fat diet. Vitamin D deficiency 347 51310 E55.9 Refill med. Low back pain 752013137 M54.50 No acting up of her back or sciatica she said. Disorder o f lumbar spine 796006723 M53.9 Had operation on lower back with metal rodeos in. 2000 and 2006 Health Concerns Section Related Observation LastModified by Organization Detai ls LastModified Time None Recorded Concern Status LastModified by Organization Details LastModified Time None Recorded Advance Directives Directive N: Payers Encounter Date Sequence Insurance Name Policy Number Policy Rivera Covered Member ID Rivera Member ID Guarantor Name 05/06/2020 1 [facility] [id number] Hanane Fermin 06/11/2021 1 [facility] [id number] Hanane Fermin 12/01/2021 1 [id number] Hanane Fermin [id number] Hanane Fermin 04/12/2022 1 [id number] Hanane Fermin [id number] Hanane Fermin Notes Date Note Type Note Provider Name and Address Organization Details Recorded Time 05/24/2019 text/html no fever for las 3 days , still coughing; throat sore ... 7 on a scale of 1 to 10 ....no close acquaintances with throat infections .... no travel or friends with traveling Rudy Kwok PA-C Attn: [address] [place], [address], [place] [facility] 05/27/2019 14:25:18 05/06/2020 text/html no changes Rudy Kwok PA-C Attn: [address] , [place], [address], [facility] - [facility] 05/07/2020 17:52:38 06/11/2021 text/html no changes , goi ng on apple cider vinegar to lose weight Rudy Kwok PA-C Attn: [address] , [place], [address], [facility] - [facility] 06/18/2021 14:47:22 12/01/2021 text/html Sabra Fermin is her e today for a general follow up. She states that she had sores on her right elbow and mercedes and went to her advertising traffic manager to get them biopsied on 11/24/21. She states that she has the results and needs to call her advertising traffic manager to ask how she should manage them. She recently refilled her medication and is taking them regularly. She currently smokes .5 pack a day and has been smoking for the past 50 years. LDCT was performed last week and results were negative. Rudy Kwok PA-C Attn: [address] [facility], [place], [address], [facility] - [facility] 12/08/2021 10:56:28 04/12/2022 text/html Office visit, allergic to aspirin. C/C both hips and thigh's sore, failed to respond to OTC med she had tried. Wants to refill all other med, Will D/C aspirin which she is allergic to. Vianey Leach MA [facility], [place] [facility] 04/12/2022 17:22:14 OBGyn Episode No OBEpisode recorded.
--- OUTSIDE RECORDS SUMMARY | 2024-08-02 09:27 | XMS_ITS | Clinical Summary ---
Author Organization [facility] Address [address] [place] [address] Care Team Providers Care Grain Shoveler Name Role Phone Rudy Kwok Primary Care Provider + Source Comments [facility],non-owned Affiliates and Associated Physician Practices is amultiple site organization consisting of ambulatory clinics and hospital sitesin [place], [place], [place] and [place]. This disclosure is being madepursuant to the Care Everywhere program and may not contain all information available regarding this patient. 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 Gender Identity Not on file Sexual Orientation [...] VACCINE ( - 2023-2 5 season) 2023 DEPRESSION SCREENING 02/29/2024 MEDICARE AWV CALENDAR YEAR 2024 INFLUENZA VACCINE (Season Ended) 2024 Respiratory Syncytial Virus (RSV) Vaccine Pt: [...] to complete this topic MENINGOCOCCAL (Group B) VACC INE SHARED DECISION-MAKING Aged Out No longer eligibl e based on patient's age to complete this topic MENINGOCOCCAL GROUPS A/C/Y/W VACCINE Aged Out No longer eligible b ased on patient's age to complete this topic Insurance [facility] MEDICARE ADV Care Teams Grain Shoveler Relationship Specialty Start Date End Date Rudy Kwok PA [address] [place] [id number] PCP - General Physician Music Therapist 09/13/18
--- OUTSIDE RECORDS SUMMARY | 2024-08-02 09:28 | XMS_ITS | CONTINUITY OF CARE DOCUMENT ---
Author Name ethel davenport Address Unknown Organization [facility] Address [address] [place] [address] Phone [phone] Care Team Providers Care Swedger Name Role Phone Luis HILL, Alia Unavailable NIXON GREGORIO Unavailable [phone] NIXON GREGORIO Unavailable PROBLEMS Condition Status Date Provider Notes RESTLESS LEG SYNDROME active Denetrdaniel Landry n LOW BACK PAIN, CHRONIC active Marioetrdaniel All en OBESITY active Mery Rodríguez GERD active Marioetrdaniel Rodríguez TOBACCO ABUSE active Mery Rodríguez CHEST PAIN-TYPE TO BE DETERMINED active Mery Rodríguez HTN-02/02 STRESS ECHO NEG active Alia hanson MD HISTORY OF TOBACCO ABUSE active Alia montes MD PULMONARY CIRCULATION DISEAS E NOS completed - Alia Smith MD ANXIETY DISORDER active Alia Smith MD DEPRESSION active Alia Smith MD THYROID DISORDER active Alia Smith MD CHEST PAIN-10/05 ECHO EF 60%, RSVP 30MMHG active ? Ted Mulligan RN ARRHYTHMIA-01/04 HOLTER NEG completed - Alia Smith MD Family History of Hypertension: completed - Alia Smith MD ENCOUNTERS Date Type Provider Location Encounter Diag nosis - In-person encounter Office Visit Alia Smith MD [place] [facility] Family History of Hypertension: - In-person encounter Office Visit Alia Smith MD [place] [facility] HTN-02/02 STRESS ECHO NEGARRHYTHMIA-01/04 HOLTER NEG - In-person encounter Office Visit Alia Smith MD [place] [facility] - In-person encounter Office Visit Alia Smith MD [facility] HISTORY OF TOBACCO ABUSEPULMONARY CIRCULATION DISEASE NOSANXIETY DISORDERDEPRESSIONTHYROID DISORDERCHEST PAIN-10/05 ECHO EF 60%, RSVP 30MMHG VITAL SIGNS Date Observation Value Provider Body Mass Index (Ratio) 41.10 kg/m2 Burdick i Sanju blood pressure, diastolic 76 mm[Hg] Ke rri Sanju blood pressure, systolic 138 mm[Hg] Taylor ri Sanju pulse rate 89 /min Diana Mikki [facility] oxygen saturation, oximetry 98 % Diana Sanju respiratory rate E&M 16 /min Diana G jordyn weight E&M 247 [lb_av] Diana Mikki [facility] Body Mass Index (Ratio) 41.10 kg/m2 Anea shilo Nabor blood pressure, diastolic 100 mm[Hg] An eatris Nabor blood pressure, systolic 154 mm[Hg] Ane atris [facility] pulse rate 79 /min Aneatris Brown oxygen saturation, oximetry 99 % Aneatris Brown respiratory rate E&M 18 /min Aneatri s Brown weight E&M 247 [lb_av] Aneatris [facility] height E&M 65 [in_i] Aneatris Nabor pulse rate #2 87 Travis bassett blood pressure, hall tolic, second observation 80 mm[Hg] Travis Collazo blood pressure, syst olic, second observation 125 mm[Hg] Travis Collazo oxygen saturation, oximetry 96 % Travis Collazo pulse rate 90 /min Travis Collazo blood pressure, diastolic 83 mm[Hg] Ra ndy Collazo blood pressure, systolic 136 mm[Hg] Ran dy Collazo pulse rate #2 88 Travis McPherso n blood pressure, hall tolic, second observation 81 mm[Hg] Travis Collazo blood pressure, syst olic, second observation 124 mm[Hg] Travis Collazo oxygen saturation, oximetry 96 % Travis Collazo pulse rate 90 /min Travis Collazo blood pressure, diastolic 85 mm[Hg] Ra ndy Collazo blood pressure, systolic 134 mm[Hg] Ran dy Collazo pulse rate #2 83 Travis McPherso n blood pressure, hall tolic, second observation 76 mm[Hg] Travis Collazo blood pressure, syst olic, second observation 110 mm[Hg] Travis Collazo oxygen saturation, oximetry 96 % Travis Collazo pulse rate 85 /min Travis Collazo blood pressure, diastolic 70 mm[Hg] Ra ndy Collazo blood pressure, systolic 117 mm[Hg] Ran dy Collazo pulse rate #2 88 Travis McPherso n blood pressure, hall tolic, second observation 85 mm[Hg] Travis Collazo blood pressure, syst olic, second observation 128 mm[Hg] Travis Collazo oxygen saturation, oximetry 96 % Travis Collazo pulse rate 85 /min Travis Collazo blood pressure, diastolic 78 mm[Hg] Ra ndy Collazo blood pressure, systolic 150 mm[Hg] Ran dy Collazo pulse rate #2 86 Travis McPherso n blood pressure, hall tolic, second observation 86 mm[Hg] Travis Collazo blood pressure, syst olic, second observation 119 mm[Hg] Travis Collazo oxygen saturation, oximetry 96 % Travis Collazo pulse rate 83 /min Travis Collazo blood pressure, diastolic 80 mm[Hg] Ra ndy Collazo blood pressure, systolic 148 mm[Hg] Ran dy Collazo pulse rate #2 77 Travis McPherso n blood pressure, hall tolic, second observation 90 mm[Hg] Travis Collazo blood pressure, syst olic, second observation 140 mm[Hg] Travis Collazo oxygen saturation, oximetry 96 % Travis Collazo pulse rate 81 /min Travis Collazo blood pressure, diastolic 90 mm[Hg] Ra ndy Collazo blood pressure, systolic 132 mm[Hg] Ran dy Collazo pulse rate #2 85 Travis McPherso n blood pressure, hall tolic, second observation 85 mm[Hg] Travis Collazo blood pressure, syst olic, second observation 110 mm[Hg] Travis Collazo oxygen saturation, oximetry 96 % Travis Collazo pulse rate 81 /min Travis Collazo blood pressure, diastolic 83 mm[Hg] Ra ndy Collazo blood pressure, systolic 156 mm[Hg] Ran dy Collazo blood pressure, diastolic 84 mm[Hg] Renae Sylvester MA blood pressure, systolic 128 mm[Hg] Kaya Sylvester MA pulse rate 97 /min Amber Sylvester MA oxygen saturation, oximetry 100 % Amber Sylvester MA respiratory rate E&M 22 /min Amber Sylvester MA weight E&M 234 [lb_av] Amber Sylvester MA blood pressure, diastolic 86 mm[Hg] Evaristo Mcdnoough blood pressure, systolic 123 mm[Hg] Porter Mcdonough pulse rate 77 /min Morena Mccormickett oxygen saturation, oximetry 100 % Morena Mcdonough respiratory rate E&M 18 /min Morena Richmond travis weight E&M 231 [lb_av] Morena Ceasar ALLERGIES No Known Drug Allergies RESULTS Date Observation Value Provider Reference Range Interpretation Location nitrate usage none Travis Collazo nitrate usage none Travis Collazo nitrate usage none [facility] usage [facility] usage none [facility] nitrate usage none [facility] alkaline phosphatase, serum 163 1/L [facility] alanine aminotransferase (SGPT), serum 67 1/L [facility] aspartate aminotransferase (SGOT), serum 52 1/L [facility] creatinine, serum 0.70 mg/dL [facility] urea nitrogen, blood 11 mg/dL [facility] potassium, serum 4.1 mmol/L [facility] sodium, serum 140 mmol/L [facility] HISTORY OF MEDICATION USE Medication Status Instructions Dates Provider Indications Com ments METFORMIN HCL ER (OSM) 500 MG ORAL TABLET EXTENDED RELEASE 24 HOUR completed 1 TAB DAILY - Alia Smith MD CYCLOBENZAPRINE HCL 10 MG ORAL TABLET active 1/2 TAB DAILY Aneatris Brown LENA BACK & BODY PAIN EX ST TABLET active take three times a week Diana Bills RANITIDINE HCL 150 MG ORAL TABLET active 1 TAB TWICE DAILY Aneatris Brown ESTRADIOL 1 MG ORAL TABLET active one tablet a day Apurva Schuyler POTASSIUM TABLET completed TAKE DIRECTED - Diana Bills ACCUPRIL 10 MG ORAL TABLET completed ONE TAB. DAILY - Aneatris Brown FISH OIL 1000 MG ORAL CAPSULE completed - Katrinatrsrinivasa Tomlin ASPIRIN 81 MG ORAL TABLET active ONE TAB. DAILY Amber Sylvester MA PRAVACHOL 40 MG ORAL TABLET completed ONE TAB. DAILY - Aneatris Nabor CARVEDILOL 6.25 MG ORAL TABLET completed ONE TAB. TWICE DAILY - Aneatrsrinivasa Tomlin IMDUR 60 MG ORAL TABLET EXTENDED RELEASE 24 HOUR completed ONE TAB. DAILY - Aneatris Nabor DIOVAN 320 MG ORAL TABLET completed ONE TAB. DAILY - Aneatris Nabor FOLIC ACID CAPS completed 800mcg - Aneatris Nabor MULTIVITAMINS TABS completed - Aneatris Nabor GLIMEPIRIDE 4 MG ORAL TABLET completed once daily - Aneatris Nabor CLONIDINE HCL 0.1 MG ORAL TABLET completed ONE TAB. TWICE DAILY - Aneatris Nabor OCUTABS ORAL TABLET completed - Aneatris Nabor OS-CHRISTINE 500 + D TABS completed - Aneatris Nabor NITROQUICK 0.4 MG SUBL completed as needed - Aneatris Nabor FUROSEMIDE 20 MG ORAL TABLET completed once daily - Aneatris Nabor VITAMIN E COMPLEX CAPSULE completed 400 international units - Aneatris Nabor FLEXALL ULTRA PLUS GEL completed - Amber Sylvester MA TRAMADOL-ACETAMIN OPHEN TABLET completed as needed - Amber Sylvester MA IBUPROFEN 800 MG ORAL TABLET completed PRN - Amber Sylvester MA AMITRIPTYLINE HCL 50 MG ORAL TABLET completed ONCE DAILY - Morena Mcdonough CITALOPRAM HYDROBROMIDE 40 MG ORAL TABLET completed TWICE DAILY - Morena Mcdonough VITAMIN D-400 TABLET completed WEEKLY - Katrinatrsrinivasa Tomlin FERROUS SULFATE TABLET completed 325MG ONCE DAILY - Morena Mcdonough REQUIP 2 MG ORAL TABLET completed ONCE DAILY - Morena Mcdonough VIVELLE-DOT 0.05 MG/24HR TRANSDERMAL PATCH TWICE WEEKLY completed TWICE DAILY - Amber Sylvester MA RANITIDINE HCL 150 MG ORAL TABLET completed ONE TAB TWICE DAILY - Amber Sylvester MA SOCIAL HISTORY Date Observation Value Provider social history reviewed E&M revi ewed - no changes required Alia Smith MD smoking/tobacco cess ation, patient education and counseling yes Alia Smith MD alcohol use no Diana Kaye lder number of years as a smoker 40 a Diana Sanju smoking history, tot al pack/day 1/2 Diana Sanju cigarette use yes Diana Sdhunter gabriela smoking status Current every day smoker K xander Sanju smoking/tobacco cess ation, patient education and counseling yes Alia Smith MD social history reviewed E&M i ewed - no changes required Kvng Tomlin smoking status Current every day smoker Leopoldo Tomlin social history reviewed E&M reviewed Alia Smith MD social history reviewed E&M reviewed Alia Smith MD social history E&M L robson with family/friends E thnicity: [facility] drug use none [facility] physical exercise, f requency, days per week yes [facility] caffeine use, averag e drinks per day denies [facility] alcohol use, average drinks per day denies [facility] smoking history, tot al pack/year 10 [facility] smoking status Smoker [facility] MENTAL STATUS Date Observation Value Provider energy level no Travis Collazo energy level yes Travis Collazo energy level no Travis Collazo energy level no Travis Collazo energy level no Travis Collazo energy level no Travis Collazo energy level no Travis Collazo assessment of judgme nt and insight E&M Alert and oriented to time, place and person. Mood and affect are normal. Ted Mulligan RN assessment of judgme nt and insight E&M Alert and oriented to time, place and person. Mood and affect are normal. Alia Smith MD FAMILY HISTORY Family Member Condition Father Family History of Hy pertension: Father Family History of CV A or Stroke: Mother Family History of Co ronary Artery Disease: Mother Family History of Hy pertension: Mother Family History of Di abetes: INSURANCE PROVIDERS Payer name Policy type / Coverage type [employer]ika [employer] ID [employer] MEDICAID (2) Medicaid [id number] TREATMENT PLAN Date Name Performer Follow up : H er updated medication list for this problem includes: Aspirin 81 Mg Tabs (Aspirin) ..... One tab. daily BP today: 138/76 P rior BP: 154/100 (05/20/2014) Labs Reviewed: C reat: 0.70 (10/16/2007) Alia Smith MD FU: O rders: G allbaladder Ultrasound (CPT-33971) R enal Artery Duplex (CPT-68090) Alia Smith MD FU Alia Smith MD FU: H er updated medication list for this problem includes: Furosemide 20 Mg Tabs (Furosemide) ..... Once daily Clonidine Hcl 0.1 Mg Tabs (Clonidine hcl) ..... One tab. twice daily Diovan 320 Mg Tabs (Valsartan) ..... One tab. daily Carvedilol 6.25 Mg Tabs (Carvedilol) ..... One tab. twice daily Aspirin 81 Mg Tabs (Aspirin) ..... One tab. daily Accupril 10 Mg Tabs (Quinapril hcl) ..... One tab. daily BP today: 128/84 P rior BP: 123/86 (09/18/2007) Alia Smith MD FU: O rders: C OMPREHENSIVE METABOLIC PANEL W/EGFR (57912) L IPID PANEL (7600) T HYROID PANEL (7020) Alia Smith MD FU: O rders: C OMPREHENSIVE METABOLIC PANEL W/EGFR (02217) L IPID PANEL (7600) T HYROID PANEL (7020) Alia Smith MD FU: O rders: G allbaladder Ultrasound (CPT-49320) R enal Artery Duplex (CPT-70399) Alia Smith MD FU: O rders: C OMPREHENSIVE METABOLIC PANEL W/EGFR (02771) L IPID PANEL (7600) T HYROID PANEL (7020) G allbaladder Ultrasound (CPT-98145) R enal Artery Duplex (CPT-25158) Alia Smith MD FU: O rders: C OMPREHENSIVE METABOLIC PANEL W/EGFR (29777) L IPID PANEL (7600) T HYROID PANEL (7020) G allbaladder Ultrasound (CPT-38958) R enal Artery Duplex (CPT-01490) Alia Smith MD FU: H er updated medication list for this problem includes: Nitroquick 0.4 Mg Subl (Nitroglycerin) ..... As needed Imdur 60 Mg Tb24 (Isosorbide mononitrate) ..... One tab. daily Carvedilol 6.25 Mg Tabs (Carvedilol) ..... One tab. twice daily Aspirin 81 Mg Tabs (Aspirin) ..... One tab. daily Accupril 10 Mg Tabs (Quinapril hcl) ..... One tab. daily BP today: 128/84 Prior BP: 123/86 (09/18/2007) S tress Echo Findings: Normal-no evidence of ischemia. (02/15/2006) E chocardiogram: The left ventricular chamber size is normal. Normal left ventricular wall thickness.Normal left ventricular function. LV EF is estimated at 60%. T he right ventricle is normal in size. The right ventricle has normal systolic function. N ormal left atrium. Normal right atrium. T he Mitral Valve is structurally normal and appears to open and close adequately. T he aortic valve appears structurally normal. T he tricuspid valve is structurally normal. The right ventricular systolic pressure (RSVP) is estimated to be less than 3 0 mmHg and is within normal limits. (10/09/2007) Orders: C OMPREHENSIVE METABOLIC PANEL W/EGFR (58792) L IPID PANEL (7600) T HYROID PANEL (1955) G allbaladder Ultrasound (CPT-82772) R enal Artery Duplex (CPT-61561) Alia Smith MD recurring cp: O rders: C omplete Echo (CPT-32604) Alia Smith MD recurring cp: O rders: E KG (CPT-58544) C omplete Echo (CPT-19351) S tress Echo Findings: Normal-no evidence of ischemia. (02/15/2006) Alia Smith MD recurring cp Alia Smith MD Date Name Renal Artery Duplex Gallbaladder Ultraso und THYROID PANEL LIPID PANEL COMPREHENSIVE METABO LIC PANEL W/EGFR Complete Echo HISTORY OF PROCEDURES Procedure Date Procedure Name Provider Procedure Notes S tatus EKG Alia Smith MD completed EKG Alia Smith MD completed
--- OUTSIDE RECORDS SUMMARY | 2024-08-02 09:28 | XMS_ITS | Data Portability ---
Author Organization [facility] [employer], Main Office Address [address] [place] [address] Care Team Providers Care Will Call Clerk Name Role Phone LYRIC RUDY Primary Care Provider [phone] Assessment No assessment recorded. Plan of Treatment Reminders Order Date Submit Date Provider Last Modified By Organization Details Last Modified Time Details Appointments None recorded. Lab PT/PTT, plasma 2024 025 [facility], [address] [place] [address], [address] [place] [address], [address], 16:10:39 hemoglobin A1C, fingerstick 2024 [facility], [address] [place] [address], [address], 15:20:46 lipid panel, serum [address] [place] [address], [address] [place] [address], [address] [place] [address], [address], 5 11:21:06 CMP, serum or plasma [address] [place] [address], [address] [place] [address], [address] [place] [address], [address], 5 11:21:06 CBC w/ auto diff [address] [place] [address], [address] [place] [address], [address] [place] [address], [address], 5 11:21:06 CK (creatine kinase), total, serum [address], [address], [place], [address], 5 11:21:06 hepatitis panel (A+B+C), acute, serum [address], [address], [place], [address], 5 11:20:33 gamma-gluta myl transferase (ggt), serum [address], [address], [place], [address], 5 11:21:05 lipase, serum or plasma [address], [address], [place], [address], 5 11:21:05 amylase, serum or plasma [address], [address], [place], [address], 5 11:21:06 Referral gastroenter ologist referral - abdominal bloating , eating spicy foods. just had a cholecystec jorge ; Please eval and treat. Please call patient to schedule an appointment . Thank you [address] [facility], [address], [address], [place], [address], 4 09:15:09 neurologist referral - chronic low back pain . Please eval and treat. Please call patient to schedule an appointment . Thank you 2023 024 [facility] [address] , [address], [place], [address], 4 08:38:38 Procedures None recorded. Surgeries None recorded. Imaging XR, chest, 2 view 2024 025 [facility], [address], [place], [address], 5 16:29:29 electrocard iogram, routine ECG, 12 leads min 2024 025 [email or web address] 4 [facility], [address], [place], [address], 5 15:36:40 LDCT, chest, for lung cancer screening - Please call pt to schedule 2023 024 [facility], [address], [place], [address], 09:42:54 MAMMO, screening, digital, bilateral - Please call pt to schedule 2023 024 [email or web address] 256 [facility], [address], [place], [address], 09:17:30 XR, lumbar spine 2023 024 [facility], [address], [place], [address], 4 17:25:45 Medication Orders Zepbound 2.5 mg/0.5 mL subcutaneou s pen injector 2024 025 [facility], [address] [facility], [place], [address], 5 14:42:58 Rybelsus 14 mg tablet [email or web address] [place] [address] Pharmacy 1761, [address] [place], [address], 5 09:18:15 fluocinonid e 0.05 % topical ointment 2023 [facility], [address] [place] [address], [address], 11:01:41 hydrochloro thiazide 25 mg tablet 2023 [facility], [address] [place], [address], 10:42:28 Patient TargetsNo targets recorded. Patient Instructions Encounter Date Encounter Id Patient Instructions Last Modified By Organization Details Last Modified Time 11/28/2023 [id number] dementia rating scale-2* [email or web address] Not available 11/28/2023 12:11:18 multi-dimensiona l health assessment questionnaire* [email or web address] Not available 11/28/2023 12:11:12 Personalized a lt Plan and Screening Recommendations Advance Directives - Do you have one? Yes You have indicated that you are capable of preparing your advance care directive I recommend consulting with an Cruise Guide, family member, or friend to assist you. I have no recommendations Advance Directives - Do we have your advance directive on file in your health record? Yes No, please bring in a copy at your earliest convenience I have no recommendations Primary Prevention/Interven tion (prevents or decreases the chance of common diseases from occurring) Smoking Risk: Smoker Continue to consider stopping smoking and call if we can assist you Alcohol Misuse Screening: Negative Refer to attached alcohol cessation handout Refer to attached handout and prescription will be sent to pharmacy Decrease alcohol intake to 1 or less servings per day Continue to consider stopping alcohol and call if we can assist you Recommend referral for alcohol counseling/rehabili tation I have no recommendations Weight: Overweight try to lose 10% of your body weight Physical activity: Need more exercise/physical activity minimum of 20-30 minutes activity that causes mild breathlessness/day Nutrition: Average Refer to attached handout Heart-Healthy Diet: After Your Visit Refer to attached handout DASH Diet: After Your Visit Recommend consultation with a solar photovoltaic designer Eat Heart Healthy Diet Fall Risk (screened today): Low Refer to attached handout Preventing Falls: After your Visit Recommend regular use of cane or walker Referral for physical therapy Referral for home health nurse evaluation Referral for home health nurse evaluation with physical therapy I have no recommendations Vaccines Pneumococcal: No further needed Influenza: Your next one in the fall of this year Chronic Disease Risks Stroke: Intermediate Risk Active diagnosis, Continue current treatment plan Heart Attack: Intermediate Risk Active diagnosis, Continue current treatment plan Clogging of the Arteries: Intermediate Risk Active diagnosis, Continue current treatment plan Diabetes: Low Risk I have no recommendations Secondary Prevention/Interven tion (detects treatable diseases before they may cause symptoms, disability, or ) Breast Cancer Screening with mammogram: Recommended today Cervical/Uterine/Ov richa Cancer Screening: Recommended today Osteoporosis Screening: Recommended today Date Screening Last Performed: Colon Cancer Screening: Colonoscopy In: Ordered Recomme nded Recommended today, but you have declined No screening necessary No screening necessary Due 2028 Screening Last Performed: Eye Disease Screening: No Eye exam necessary Dementia Risk: Low I have no recommendations Depression Screening: Negative Recommend additional evaluation and/or treatment as noted above Recommend follow appointment to further evaluate Recommend Behavioral Health referral Active diagnosis, Continue current treatment plan I have no recommendations [email or web address] Not available 11/28/2023 11:04:08 05/01/2024 [id number] . a1c today is 6 .0, liver enzymes up , no hepatitis , amylase and lipase normal . cpk still a little high [email or web address] Not available 05/06/2024 21:21:53 07/05/2024 [id number] a1c was 6 i Markie h , let;s see what ecg , cxr , coag panel shows before surgery [email or web address] Not available 07/08/2024 17:41:03 Reason for Referral Leather Lacer Referral for Abdominal bloating abdominal bloating , eating spicy foods. just had a cholecystectomy ; Please eval and treat. Please call patient to schedule an appointment. Thank you Referring Physician: [facility], Encounter Date: 11/28/2023 Neurologist Referral for Low back pain chronic low back pain . Please eval and treat. Please call patient to schedule an appointment. Thank you Referring Physician: [facility], Encounter Date: 11/28/2023 Results Created Date Observation Date Name Description Value Unit Range Abnormal Flag Note LastModifiedBy Organization Detail LastModifiedTime 02/18/20 23 02/17/2023 fine needl e aspir ation , ultra sound guide d, thyro id (PROC ) No observ ation record ed. [address], [place], [address], 02/23/2023 11:33:50 02/25/20 23 02/17/2023 fine needl e aspir ation , ultra sound guide d, thyro id (PROC ) No observ ation record ed. [address], [place], [address], 03/02/2023 14:34:06 03/07/19 24 03/02/2023 US, doppl er, venou s No observ ation record ed. [address], [place], [address], 03/07/2023 09:51:17 03/07/19 24 03/02/2023 US, doppl er, venou s No observ ation record ed. [address] [facility], [place], [address], 03/07/2023 09:51:26 06/07/19 24 06/02/2023 XR, chest , 2 view No observ ation record ed. [facility] [address] [place], [address], 06/16/2023 17:07:00 12/08/19 24 12/08/2023 LDCT, chest , for lung cance r scree ana No observ ation record ed. [facility] [address], [place], [address], 01/25/2024 15:32:16 12/08/19 24 12/08/2023 XR, forea rm, 2 view No observ ation record ed. [address] [facility], [place], [address], 01/25/2024 15:32:16 12/08/19 24 12/08/2023 XR, knee, 3 view No observ ation record ed. [place] [address] [facility] [address], [place], [address], 01/25/2024 15:32:17 12/08/19 24 12/08/2023 XR, lumba r spine No observ ation record ed. [place] [address] [facility] [address], [place], [address], 01/25/2024 15:32:18 12/08/19 24 12/08/2023 LDCT, chest , for lung cance r scree ana No observ ation record ed. [facility] [address], [place], [address], 01/25/2024 15:32:18 01/06/[address], lumba r spine , w/o contr ast No observ ation record ed. [address] ([facility]) [address] [place] [address] , [place], [address], 01/09/2024 09:19:21 04/05/19 25 04/05/2024 MAMMO , scree ana, digit al, bilat eral No observ ation record ed. [facility] [address], [place], [address], 04/18/2024 13:39:51 04/17/19 25 04/17/2024 CT, lumba r spine , w/o contr ast No observ ation record ed. [address], [place], [address], 04/17/2024 16:52:43 Result Notes None recorded. Problems Name Problem SNOMED Code Status Onset Date Resolution Date Notes Provider Name and Address Organization Details Recorded Time Irritable bowel syndrome 12591368 Active 2022 ROXANNA Chan null, [facility] 3 14:15:55 Continuous dependence on cigarette smoking 2432303242434 08 Active 2022 MAGALY Fuentes [address], [address], [place], [address], [facility] 3 14:27:14 Bilateral spasm of muscle of calves 0958994811731 9109 Active 2022 MAGALY Fuentes [address], [address], [place], [address], [facility] 3 14:33:45 Low back pain 208337044 Active 2022 MAGALY Fuentes [address], [address], [place], [address], [facility] 3 14:34:29 Chronic idiopathic constipati on 67639142 Active 2022 MAGALY Fuentes [address], [address], [place], [address], [facility] 3 14:35:04 Obese 223528852 Active 2022 MAGALY Fuentes [address], [place], [address], [facility] 3 14:37:25 Vitamin D below reference range 615421948 Active 2022 MAGALY Fuentes [address], [place], [address], [facility] 3 16:12:57 Nicotine dependence 51212027 Active 2022 MAGALY Fuentes [address], [place], [address], [facility] 3 15:15:52 Irritable bowel syndrome characteri zed by constipati on 902420474 Active 2022 MAGALY Fuentes [address], [address], [place], [address], [facility] [employer] 3 13:41:12 Contact dermatitis 25607094 Active 2022 MAGALY Fuentes [address], [place], [address], [employer] 3 10:02:36 Dysphagia 16920605 Active 2022 MAGALY Fuentes [address], [place], [address], [employer] 3 13:58:06 Screening for malignant neoplasm of breast Active 2022 MAGALY Fuentes [address], [address], [place], [address], [employer] [facility] 3 09:49:10 Multinodul ar goiter 859419472 Active 2022 MAGALY Fuentes [address], [place], [address], [employer] 3 17:08:01 Edema of right lower leg 128629336 Active 2022 MAGALY Fuentes [address], [place], [address], [employer] [facility] 3 16:44:28 High hemoglobin A1c level 942583269 Active 2022 MAGALY Fuentes [address], [place], [address], [employer] [facility] 3 16:14:35 Gastroesop hageal reflux disease 574801002 Active 2022 MAGALY Fuentes [address], [place], [address], [employer] 3 16:03:21 Screening for osteoporos is Active 2022 MAGALY Fuentes [address], [place], [address], [employer] [facility] 3 13:52:18 Non-toxic multinodul ar goiter 14203564 Active 2022 Evan Shanks MD [address], [place], [address], [place] [facility] 3 13:03:05 Upper respirator y infection 42395393 Active 2022 MAGALY Fuentes [address], [place], [address], [place] [facility] 3 11:25:19 Diarrhea 20783737 Active 2022 MAGALY Fuentes [address], [place], [address], [place] [facility] 3 11:25:59 Failure to lose weight 93035389 Active 2023 MAGALY Fuentes [address], [place], [address], [place] [facility] 4 09:24:02 Essential hypertensi on 11008495 Active 2023 AMGALY Fuentes [address], [place], [address], [facility] 4 09:30:59 Sensorineu ral hearing loss 78146798 Active 2023 Inga Amador RN null, [place] [facility] 4 11:24:37 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 35627244 Active 2023 Evan Shanks MD [address], [place], [address], [facility] 4 11:29:42 Hyperlipid emia 48322255 Active 2023 MAGALY Fuentes [address], [place], [address], [place] [facility] 4 17:05:10 Hypercalce osmar 76767269 Active 2023 MAGALY Fuentes [address], [place], [address], [employer] 4 17:05:53 Tuberculos is screening Active 2023 MAGALY Fuentes [address], [place], [address], [employer] 4 14:53:51 Smoker 47304876 Active 2023 Renetta Bhatti RN null, [place] [employer] 4 17:04:44 Screening mammograph y Active 2023 MAGALY Fuentes [address], [place], [address], [employer] 4 11:53:13 Abdominal bloating 299860324 Active 2023 MAGALY Fuentes [address], [place], [address], [employer] 4 11:56:26 Injury of left forearm 6588798250404 9108 Active 2023 MAGALY Fuentes [address], [place], [address], [employer] 4 16:27:04 Injury of right knee 4774253038823 4107 Active 2023 MAGALY Fuentes [address], [place], [address], [employer] 4 16:27:24 Abdominal mass 261313234 Active [address] of lumbar spine MAGALY Fuentes [address], [place], [address], [employer] 4 17:08:33 Liver enzymes level above reference range 230676402 Active 2024 MAGALY Fuentes [address], [place], [address], [employer] 15:02:12 Lymphadeno monika 34087354 Active 2024 MAGALY Fuentes [address], [facility] [address], [place], [address], [facility] [employer] [facility] 11:21:50 Pre-surger y evaluation Active 2024 MAGALY Fuentes [address], [facility] [address], [place], [address], [facility] [employer] [facility] [employer] [facility] 10:46:29 Notes:Fortune Teller is Dr. Minerva mata problems listed in Documents: #[id number], #[id number], #[id number], #[id number] could not be added to this patient's chart. Please review these documents and add these problems to the patient's chart manually as needed. Problem Notes None recorded. Procedures Surgical History Date Name Laterality Status Provider Name and Address Organization Details Recorded Time 04/05/19 25 screening mammography completed Piero Tomlin RN [facility] [employer] [facility] 04/18/2024 11:44:40 11/28/19 24 Medicare Wellness CPT Code, subsequent completed May EMILIANO Gracia [facility] [employer] [facility] 11/28/2023 10:48:24 11/15/19 23 procedure on gallbladder completed Gerda Cochran MA [facility] [employer] [facility] 03/07/2023 09:07:52 completed Eryn Ho [facility] [employer] [facility] 07/13/2022 14:13:21 Thyroid Surgery completed AMBROSIO Gregory [facility] [employer] [facility] 12/20/2022 12:21:23 Hysterectomy completed Eyrn Ho [facility] [employer] [facility] 07/13/2022 14:13:49 Back Surgery completed Eryn Ho Leopoldo [facility] [employer] [facility] 07/13/2022 14:14:10 Imaging Results None recorded. Procedure Notes None recorded. Medical Equipment None Reported. Allergies Allergen ID Allergen Name Allergen Category Reaction Reaction Severity Criticality Documentation Date Start Date Code Code System Note Provider Name and Address Organization Details Recorded Time 33911 ragweed pollen environme nt Not available Not available Not available 09/08/2022 24198 UNK Gerda Cochran MA null, [place] [facility] 09:52:16 No known drug allergies Medications Name Sig Start Date Stop Date Status Note LastModified by Organization Details LastModified Time Prescript ion - Prior Authoriza tion Request active Not Available Not Available Not Available cyclobenz aprine 10 mg tablet TAKE 1 & 1/2 (ONE & ONE-HALF ) TABLETS BY MOUTH AT BEDTIME 2024 active Not Available Not Available Not Avai lable ammonium lactate 12 % lotion APPLY TO THE AFFECTED AREAS ON THE BODY TWICE A DAY 07/05 completed Not Available Not Available Not Available [...] 2 tabs po after every loose stool 07/05 completed Not Available Not Available Not Available [...] omeprazol e 20 mg capsule,d elayed release 12/15 completed Not Available Not Available Not Available [...] completed Not Available Not Available Not Available Valium 10 mg tablet 1 tab po as needed [address] scan, and other tests, and injectio ns may repeat as needed times one 07/05 completed Not Available Not Available Not Available methylpre dnisolone 4 mg tablets in a dose pack TAKE BY MOUTH DIRECTED ON INSIDE OF PACKAGE active Not Available Not Available No t Available losartan 100 mg tablet Take 1 tablet every day by oral route in the morning for 90 days. 2024 active Not Available Not Available Not Avai lable clotrimaz ole 1 % topical cream APPLY CREAM TOPICALL Y TO AFFECTED AREA TWICE DAILY FOR 7 DAYS NEEDED active Not Available Not Available No t Available bisacodyl 5 mg tablet Take 1 [...] needed by oral route for 3 days. 07/05 completed Not Available Not Available Not Available Vitamin D3 50 mcg (2,000 unit) capsule TAKE 1 CAPSULE BY MOUTH ONCE DAILY WITH MEALS FOR 30 DAYS 07/13 completed Not Available Not Available Not Available Linzess 290 mcg capsule TAKE 1 CAPSULE BY MOUTH ONCE DAILY active Not Available [...] med Not Available Not Available Not Available Zepbound 2.5 mg/0.5 mL subcutane ous pen injector INJECT 1 SYRINGE SUBCUTAN EOUSLY ONCE A WEEK active Not Available Not Available No t Available Vitals Date Recorded Body height Body mass index (BMI) Body weight Body temperature Provider Name and Address Organization Details Last Updated DateTime 03/16/2023 165.1 cm 43.6 kg/m2 617446.92 g 97.7 [degF] Inga Amador RN [facility] [employer] 03/16/2023 11:07:17 Date Recorded Body height Body mass index (BMI) Body weight Body temperature Heart rate Respiratory rate Oxygen saturation Oxygen saturation in Arterial blood by Pulse oximetry Systolic blood pressure Diastolic blood pressure Provider Name and Address Organization Details Last Updated DateTime 165.1 cm 42.3 kg/m2 698643. 46 g 97.5 [degF] 97 /min 16 /min 98 % 98 % 118 mm[Hg] 72 mm[Hg] Geraldine Santana RN [facility] [employer] 14:34:04 Date Recorded Body height Body mass index (BMI) Body weight Body temperature Heart rate Respiratory rate Oxygen saturation Oxygen saturation in Arterial blood by Pulse oximetry Systolic blood pressure Diastolic blood pressure Provider Name and Address Organization Details Last Updated DateTime 4 165.1 cm 42.9 kg/m2 869571. 83 g 98.1 [degF] 102 /min 16 /min 98 % 98 % 134 mm[Hg] 72 mm[Hg] Geraldine Santana RN [facility] [employer] [facility] 4 10:26:27 Date Recorded Body height Body mass index (BMI) Body weight Heart rate Oxygen saturation Oxygen saturation in Arterial blood by Pulse oximetry Systolic blood pressure Diastolic blood pressure Provider Name and Address Organization Details Last Updated DateTime 5 165.1 cm 42.4 kg/m2 197372. 05 g 90 /min 98 % 98 % 126 mm[Hg] 84 mm[Hg] Radha Zimmer Leopoldo [facility] [employer] [facility] 5 10:16:00 Date Recorded Body height Body mass index (BMI) Body weight Body temperature Heart rate Oxygen saturation Oxygen saturation in Arterial blood by Pulse oximetry Respiratory rate Systolic blood pressure Diastolic blood pressure Provider Name and Address Organization Details Last Updated DateTime 4 165.1 cm 41.8 kg/m2 136324. 68 g 97.8 [degF] 101 /min 98 % 98 % 16 /min 120 mm[Hg] 60 mm[Hg] Reentta Bhatti RN [facility] [employer] [facility] 4 11:34:05 Social History Question Answer Notes LastModified by Organizat ion Details LastModified Time Tobacco Smoking Status Current Every Day Smoker 1/2ppd ROXANNA Chan, [facility] [employer] [facility] 07/13/2022 14:13:00 Do You Use Your Seat Belt Or Car Seat Routinely? Yes Information not available 09/08/2022 At What Age [...] HEARING PROBLEMS N MUMPS N SHINGLES N FEMALE PROBLEMS / INFECTIONS N DEPRESSION (INCLUDING POST ) N BOWEL PROBLEMS N FAILED BACK SYNDROME N STROKE/TIA N THYROID DISEASE N ULCERS N BENIGN PROSTATIC HYPERPLASIA N MEASLES N CERVICALGIA N TB SKIN TEST N HYPOTENSION N MYOCARDIAL INFARCTION N PARAP[place]IA N OBESITY [...] BLEEDING N BLOOD CLOTS N ASTHMA N CATARACTS N Abdominal Pain N ERECTILE DYSFUNCTION N ARTERIAL INSUFFICIENCY N GI PROBLEMS N CHF N Low Testosterone N NEUROPATHY N INFERTILITY N AIDS/HIV N FRACTURES N CHEMOTHERAPY / RADIATION N VISION/EYE PROBLEMS N LIVER DISEASE N HYPERTENSION N TOURETTE'S N ANXIETY DISORDER N BLOOD TRANSFUSION N ANEMIA/BLOOD DISORDER N CHRONIC EAR INFECTIONS N BRONCHITIS N TUBERCULOSIS N GLAUCOMA N FOOT PROBLEM N DIVERTICULITIS N SLEEP APNEA Y CHICKENPOX N ALLERGIES/HAYFEVER N BACK INJECTIONS N INFECTIOUS DISEASE N PROSTATE N HEART ARRHYTHMIA N ESRD N INSOMNIA N HIGH CHOLESTEROL / HYPERLIPIDEMIA N EYE PROBLEMS N HYPERTHYROIDISM N PVD N EATING DISORDER N EDEMA N CHRONIC PAIN SYNDROME N CAROTID BLOCKAGE N CONSTIPATION N BACK / NECK PROBLEMS N HAVE YOU BEEN HOSPITALIZED OR SEEN IN [facility] IN THE PAST YEAR ? N ATHEROSCLEROSIS [...] DISORDER Y ALZHEIMER'S DISEASE N PAIN N DEMENTIA N HERPES N SEIZURES/EPILEPSY N HEADACHES/MIGRAINES N VASCULAR DISEASE N PACEMAKER N DIZZINESS N KIDNEY DISEASE N HEART DISEASE/HEART PROBLEMS N SCARLET FEVER N MULTIPLE SCLEROSIS N MENTAL DISORDER/ILLNESS N DEVELOPMENTAL OR BEHAVIORAL DISORDERS N NEUROPSYCHOLOGICAL N CANCER: SPECIFY N CARDIAC ARRHYTHMIA N PNEUMONIA N ATRIAL FIBRILLATION N Gall [...] SNOMED-CT Code Diagnosis ICD10 Code Diagnosis Note [id number] Chito Celaya MD [facility] [address] [place] [address] 07/13/2022 13:59:08 07/13/2022 15:09:59 Continuous dependence on cigarette smoking [id number] 05174 F17.210 smoking for 50 years Z87,891 Bilateral spasm of muscle of calves 3115044189 4587672 M62.831 Low back pain 021504832 M54.50 Chronic id iopathic constipation 61843251 K59.04 Obese 172817265 E66.9 Vitamin D below reference range 001780557 E55.9 Nicotine dependence 5629 4008 Z87.891 [id number] Chito Celaya MD [facility] [address] [place] [address] 09/08/2022 09:45:03 09/08/2022 11:04:57 Contact dermatitis 01500450 L25.9 Chronic id iopathic constipation 08762205 K59.04 Irritable bowel syndrome 91923065 K58.9 Low back pain 759841340 M54.50 Nicotine dependence 5629 4008 Z87.891 Obese 089151359 E66.9 Vitamin D below reference range 766382223 E55.9 [id number] Chito Celaya MD [facility] [address] [place] [address] 12/09/2022 09:11:21 12/09/2022 09:54:59 Bilateral spasm of muscle of calves 8080262446 0365929 M62.831 Screening for malignant neoplasm of breast 152310785 Z12.39 Edema of r ight lower leg 706582140 R60.0 Peripheral edema 6348810 00 R60.9 [id number] Evan Shanks MD [facility] [address] [place] [address] 01/06/2023 12:10:42 01/06/2023 15:03:58 Non-toxic multinodular goiter 64818017 E04.2 [id number] Chito Celaya MD [facility] [place] [address] [place] [address] 03/07/2023 08:57:57 03/07/2023 09:38:02 Failure to lose weight 99236873 R63.8 Essential hypertension 22449629 I10 [id number] Evan Shanks MD [facility] [address] [place] [address] 03/16/2023 10:41:46 03/16/2023 12:35:44 Mixed conductive AND sensorineural hearing loss 88858417 H90.8 [id number] Chito Celaya MD [facility] [place] [address] [place] [address] 06/02/2023 10:10:15 06/02/2023 11:05:02 Essential hypertension 21681274 I10 Failure to lose weight 78952112 R63.8 Contact dermatitis 97444 004 L25.9 Chronic id iopathic constipation 36677678 K59.04 Gastroesop hageal reflux disease 832758247 K21.9 Hyperlipidemia 29496638 E78.5 Irritable bowel syndrome characterized by constipation 684027079 K58.1 Low back pain 479576900 M54.50 Mixed cond uctive AND sensorineural hearing loss 95012785 H90.8 Obese 257020735 E66.9 Vitamin D below reference range 772126297 E55.9 [id number] Abel Johansen MD [facility] [place] [address] [place] [address] 11/28/2023 10:58:32 11/28/2023 12:10:41 Adult health examination 388070347 Z00.00 Screening for disorder 034585892 Z13.9 Nicotine dependence 5629 4008 Z87.891 Screening mammography 24 113485 Z12.31 Abdominal bloating 46563 9008 R14.0 Low back pain 262643988 M54.50 Chronic id iopathic constipation 55905435 K59.04 Continuous dependence on cigarette smoking 1370453102 49939 F17.210 smoking for 50 years Z87,891 Essential hypertension 81621626 I10 Gastroesop hageal reflux disease 399478015 K21.9 Hyperlipidemia 05700824 E78.5 Irritable bowel syndrome characterized by constipation 438422785 K58.1 Multinodular goiter 2375 01079 E04.2 Obese 819894492 E66.9 Vitamin D below reference range 023694711 E55.9 [id number] Abel Johansen MD [address] [address] 05/01/2024 14:16:09 05/07/2024 10:00:31 Abdominal bloating 867916112 R14.0 Abdominal mass 868144301 R19.00 Low back pain 256661856 M54.50 High hemog lobin A1c level 275395671 R73.09 Liver enzy mes level above reference range 708689570 R74.01 Hyperlipidemia 52022400 E78.5 [id number] Abel Johansen MD [address] [address] 07/05/2024 09:31:02 07/05/2024 11:31:15 Preoperative state 74278665 Z01.818 Obese 112260018 E66.9 Pre-surger y evaluation 552359079 Z01.818 Health Concerns Section Related Observation LastModified by Organization Detai ls LastModified Time None Recorded Concern Status LastModified by Organization Details LastModified Time None Recorded Advance Directives Directive None Recorded Payers Encounter Date Sequence Insurance Name Policy Number Policy Rivera Covered Member ID Rivera Member ID Guarantor Name 03/16/2023 1 [facility] (MEDICARE REPLACEMENT/A DVANTAGE - HMO) [id number] Hanane Fermin [id number] Hananebarbara Fermin 06/02/2023 1 [facility] (MEDICARE REPLACEMENT/A DVANTAGE - HMO) [id number] Hanane Mina Jeny [id number] Hananebarbara Fermin 11/28/2023 1 [facility] (MEDICARE REPLACEMENT/A DVANTAGE - HMO) [id number] Hanane Mina Jeny [id number] Hanane Jeny 05/01/2024 1 [facility] (MEDICARE REPLACEMENT/A DVANTAGE - HMO) [id number] Hanane Mina Jeny [id number] Hanane Jeny 05/01/2024 2 [place] [facility] Hanane Mina Jeny [id number] Hananebarbara Fermin 07/05/2024 1 [facility] (MEDICARE REPLACEMENT/A DVANTAGE - HMO) [id number] Hanane Mina Jeny [id number] Hananebarbara Fermin 07/05/2024 2 [place] [facility] Hanane Leopoldo Fermin [id number] Hanane Fermin Notes Date Note Type Note Provider Name and Address Organization Details Recorded Time 03/16/2023 text/html the patient was very pleased [...] is good. Evan Shanks MD [address], [place], [address], [employer] 03/16/2023 11:30:13 06/02/2023 text/html needs refills MAGALY Fuentes [address], [place], [address], Active-[employer]i 06/15/2023 11:44:00 11/28/2023 text/html Needs LDCT and a mammogram . has chronic lbp , would like an x-ray MAGALY Fuentes [address], [place], [address], [employer] 11/29/2023 14:15:11 05/01/2024 text/html no changes, getting epidurals , CT coming up of back MAGALY Fuentes [address], [place], [address], [employer] 05/06/2024 21:22:00 07/05/2024 text/html needs clearance for back surgery MAGALY Fuentes [address], [place], [address], [employer] 07/08/2024 17:42:20 OBGyn Episode No OBEpisode recorded.
--- OUTSIDE RECORDS SUMMARY | 2024-08-02 09:28 | XMS_ITS | Clinical Summary ---
Author Organization [facility] Address [address] [place] [address] Care Team Providers Care Bicycle Service Technician Name Role Phone Rudy Kwok Primary Care Provider + Francine Claudio MD Unavailable [phone] Allergies Active Allergy Reactions Criticality Noted Date [...] (KENALOG) 0.5 % ointment 4 Active multivit-minera a-gwof-qsgpos tablet Take 1 tablet/chew tab by mouth [...] AM CDT Office Visit [facility], [address] [place] [address] Aaron Longo MD Lumbar stenosis with neurogenic claudication (Primary Dx); Chronic left-sided low back pain with right-sided sciatica 06/18/2024 12:40 PM CDT Anesthesia Event [address] [address] Ana Peterson MD Taylor-White, Carlotta A., NP 06/18/2024 10:37 AM CDT - 06/18/2024 11:59 PM CDT Hospital Encounter [place] [address] [place] [address] Lumbar pain; Lumbar foraminal stenosis Discharge Disposition: Discharge to home or self care 06/14/2024 12:00 PM CDT Pre-Admission Testing [facility] PreAdmission Testing [address] [place] [address] Pre-op testing (Primary Dx); Preop testing 06/12/2024 Orders Only [facility] PreAdmission Testing [address] [place] [address] Rosa M Vitale, EMILIANO Anxiety (Primary Dx) 06/12/2024 Telephone [facility] PreAdmission Testing [address] [place] [address] Rosa M Vitale, EMILIANO 06/11/2024 Telephone [facility] PreAdmission Testing [address] [place] [address] Vickie Thompson RN 05/07/2024 Orders Only [facility] Neuro[facility] [address] [place] [address], [address] [place] [address] Babak Hutchins PA Lumbar pain (Primary Dx); Lumbar foraminal stenosis 05/04/2024 Orders Only [facility] Neurosurgery Clinic [address] [place] [address], [address] [place] [address] Babak Hutchins PA Chronic left-sided low back pain with right-sided sciatica (Primary Dx) from Last 3 Months Surgical History Surgery Date Site/Laterality Comments ESOPHAGOGASTRODUODENOSCOPY 06/20/2018 LUMBAR FUSION 09/28/2000 - 10/28/2000 LUMBAR 4-5 FUSION LUMBAR FUSION 01/28/2005 - 02/27/2005 L3-4 FUSION; L4-5 REVISION HYSTERECTOMY 02/28/1978 - 02/27/1979 THYROIDECTOMY, PARTIAL 02/28/1979 - 02/28/1980 Left CHOLECYSTECTOMY 02/28/2023 - 02/28/2024 SECTION 02/28/1973 - 02/27/1974 (X2) COLONOSCOPY 10/29/2018 - 11/27/2018 Medical History Medical History Date Comments Chronic back pain IBS (irritable bowel syndrome) Hypertension Anxiety Edema Prurigo nodularis ELBOWS AND LEG S Social History Tobacco Use Types Packs/Day Years [...] you are drinking? 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 Gender Identity Not on file Sexual Orientation [...] 06/25/2024 9:47 AM CDT Plan of Treatment Health Maintenance Due Date Last Done Comments Breast Cancer Screening-Mammogram 1955 Colon Cancer Screening-Colonoscopy 1955 Depression Screening 1955 Hepatitis C Screening 1955 Osteoporosis Screening-Bone Density Scan 1956 DTaP/Tdap/Td Vaccine (1 - Tdap) 12/30/1967 Hepatitis B Screening 1974 Well Visit 65+ 2021 Covid-19 Vaccine (2023-2 5 season) 2024 10/28/2023, 11/23/2022, 11/06/2021, Additional history exists Fall Risk Assessment 06/18/2025 06/18/2024 Pneumococcal vaccine 65+ Completed 11/25/2021, 10/30 Zoster Vaccine Completed 02/01/2022, 10/30, 11/23/2021 Influenza Vaccine Completed 10/28/2023, , 12/30/2021, Additional history exists Medical Devices Implanted Type Area Chaplaincy Device Identifier Shelf Expiration Date Model / Serial / Lot Plate Plate N/A: Back Screw Screw N/A: Back Coil N/A: Back Description:PER PATIENT REPO RT Procedures Procedure Name Priority Date/Time Associated Diagnosis Comments [place] AN PROCEDURE PLACEHOLDER Routine 06/18/2024 1:42 PM CDT [place] AN ELECTIVE ENDOTRACHEAL AIRWAY Routine 06/18/2024 1:42 [...] testing from Last 3 Months Results * [place] AN ELECTIVE ENDOTRACHEAL AIRWAY, [place] AN PROCEDURE PLACEHOLDER (06/18/2024 1:42 PM CDT) [...] with: silk tape Number of attempts: 1 us Ana Peterson MD ANESTHESIA ORDERABLES Final Result [...] at the non fused levels, which is fymk-vq-vialcdfb go to vertebra HARDWARE: There is anterior discectomy and instrumented fusion at L4-L5 with combined posterior instrumented fusion from L3-L5 with posterior decompression CORD/CAUDA: Normal in size and signal intensity. Conus at the T12-L1 level. LOWER THORACIC: Incompletely imaged. No stenosis seen. INDIVIDUAL DISC LEVELS: T12-L1: Normal disc configuration. Moderate bilateral facet arthropathy. Mild ligamentum flavum thickening. Xxla-ph-wsjioasg right and mild left neural foraminal stenosis. [...] César Harris M.D. MZ T: Report ID: [id number] Reading Location: [id number] Procedure Note César Harris MD - 06/19/2024 [...] loss at the non fused levels, whichis saxw-jg-mvswnrad go to vertebra HARDWARE: There is anterior discectomy and instrumented fusion at L4-L5with combined posterior instrumented fusion from L3-L5 with posteriordecompression CORD/CAUDA: Normal in size and signal intensity. Conus at the V64-T3nkxmj. LOWER THORACIC: Incompletely imaged. No stenosis seen. INDIVIDUAL DISC LEVELS: T12-L1: Normal disc configuration. Moderate bilateral facet arthropathy. Mild ligamentum flavum thickening. Agif-lt-qvmgpdxu right and mild left neural foraminal stenosis. [...] César Harris M.D. MZ T: Report ID: [id number] Reading Location: [place] [address] Babak MCKENZIE IMG MRI PROCEDURES Final R esult * eGFR [...] of Race in Diagnosing Kidney Disease, JASN 202). The CKD-EPI equation should not be used for patients with unstable renal function and has not been validated in children and those over 70. Current interpretive data was last reviewed 2020. Blood 06/14/2024 10:3 5 AM CDT 06/14/2024 10:40 AM CDT Janae Santos PLANT WORKER LAB BLOOD ORDERABLES Final Result [facility] [address] [facility] Department [place] [address] * Differential, auto (06/14/2024 10:35 AM CDT) Pathologist [facility] Neutrophil abs 4.56 1.50 - 6.50 K/cumm Imm gran abs 0.07 0.00 - 0.10 K/cumm [facility] Lymphocyte abs 2.44 0.80 - 3.30 K/cumm [facility] Monocyte abs 0.47 0.20 - 0.80 K/cumm [facility] Eosinophil abs 0.17 0.00 - 0.50 K/cumm [facility] Basophil abs 0.04 0.00 - 0.10 K/cumm [facility] Neutrophil pct 58.8 % [facility] Comment: Interpretive Data Percent cell count reference ranges are not reported, since discordance with absolute values may lead to misinterpretation of CBC data. Current Interpretive Data was last revised on 2017. Imm gran pct 0.9 % [facility] Comment: Interpretive Data Percent cell count reference ranges are not reported, since discordance with absolute values may lead to misinterpretation of CBC data. Current Interpretive Data was last revised on 2017. Lymphocyte pct 31.5 % [facility] Comment: Interpretive Data Percent cell count reference ranges are not reported, since discordance with absolute values may lead to misinterpretation of CBC data. Current Interpretive Data was last revised on 2017. Monocyte pct 6.1 % [facility] Comment: Interpretive Data Percent cell count reference ranges are not reported, since discordance with absolute values may lead to misinterpretation of CBC data. Current Interpretive Data was last revised on 2017. Eosinophil pct 2.2 % [facility] Comment: Interpretive Data Percent cell count reference ranges are not reported, since discordance with absolute values may lead to misinterpretation of CBC data. Current Interpretive Data was last revised on 2017. Basophil pct 0.5 % [facility] Comment: Interpretive Data Percent cell count reference ranges are not reported, since discordance with absolute values may lead to misinterpretation of CBC data. Current Interpretive Data was last revised on 2017. Blood 06/14/2024 10:3 5 AM CDT 06/14/2024 10:40 AM CDT Janae Santos PLANT WORKER LAB BLOOD ORDERABLES Final Result [place] [id number] [facility] Department [place] [address] * (ABNORMAL) CBC with auto differential (06/14/2024 10:35 AM CDT) WBC 7.75 3.80 - 9.90 K/cumm Hgb 11.9 11.9 - 15.5 g/dL [facility] Hct 36.6 35.6 - 45.5 % [facility] Plt 304 150 - 400 K/cumm [facility] MPV 9.4 9.1 - 12.3 fL [facility] RBC 4.11 3.90 - 5.20 M/cumm [facility] MCV 89.1 81.3 - 96.4 fL [facility] MCH 29.0 27.1 - 33.3 pg [facility] MCHC 32.5 32.3 - 35.7 g/dL [facility] RDW CV 14.5 11.1 - 14.9 % [facility] RDW SD 46.7 35.7 - 48.1 fL [facility] NRBC abs 0.02(H) 0.00 - 0.01 K/cumm [facility] Blood 06/14/2024 10:3 5 AM CDT 06/14/2024 10:40 AM CDT Janae Santos NP LAB BLOOD ORDERABLES Final Result [facility] [address] [place] [address] * Basic metabolic panel (06/14/2024 10:35 AM CDT) Sodium 139 135 - 145 mmol/L Potassium, pl 3.8 3.3 - 4.9 mmol/L [facility] Chloride 101 97 - 110 mmol/L [facility] CO2 26 22 - 32 mmol/L [facility] Anion gap 12 2 - 15 mmol/L [facility] BUN 12 6 - 25 mg/dL [facility] Creatinine 0.84 0.60 - 1.10 mg/dL [facility] Glucose 93 70 - 199 mg/dL [facility] Comment: Interpretive Data Fasting glucose >/= [...] classification and Diagnosis of Diabetes Diabetes Care 202; 46: S19-S40. Current interpretive data was last revised 2022. Calcium 9.9 8.5 - 10.3 mg/dL [facility] Blood 06/14/2024 10:3 5 AM CDT 06/14/2024 10:40 AM CDT Janae Santos NP LAB BLOOD ORDERABLES Final Result [facility] [address] [place] [address] * ECG 12 lead (06/14/2024 10:22 AM CDT) Ventricular Rate EKG/Min 116 BPM [facility] Atrial Rate 116 BPM [facility] [place]-Interval (MSEC) 150 ms [facility] QRS-Interval (MSEC) 72 ms [facility] QT-Interval (MSEC) 314 ms [facility] QTc [address] [facility] P [place] 46 degrees [facility] R [place] 25 degrees [facility] T [place] 34 degrees [facility] Diagnosis Sinus tachycardia Otherwise normal ECG No previous ECGs available Confirmed by ZANE MORENO M.D. ([id number]) on 06/14/2024 11:19:[address] [facility] 06/14/2024 10:2 2 AM CDT 06/14/2024 11:19 AM CDT us Aaron Longo MD ECG ORDERABLES Final Re sult [facility] [place] from Last 3 Months Insurance [facility] ADVANT[facility] MEDIC[facility] Address: [facility] [address] [place] [address] IDPA [facility] MEDICARE ADVANTAGE [facility] MEDIC[facility] Address: [address] [address] [place] [address] IDPA Care Teams Bicycle Service Technician Relationship Specialty Start Date End Date Rudy Kwok PA [address] [place] [address] [place] [address] PCP - General Internal Medicine 12/23/23 Francine Claudio MD [address] [address] Referring Physician Gynecology 03/15/24
--- OUTSIDE RECORDS SUMMARY | 2024-08-02 09:28 | XMS_ITS | Encounter Summary ---
Author Organization [facility] Address [address] [facility] [place] [address] Care Team Providers Care Sky Diver Name Role Phone Rudy Kwok Primary Care Provider + Encounter Details Date Type Department Care Team (Late st Contact Info) Description 09/14/2023 Lab Requisition [facility] - DermPath Lab [address] [facility] [place] [address] Issac Mae Jr., MD [address] [facility] [address] [place] [address] Social History Tobacco Use Types Packs/Day Years Used Date Smoking Tobacco: Never Assessed Comments Unknown Sex and Gender Information Value Date Recorded Sex Assigned at Not on file 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 Gender Identity Not on file Sexual Orientation Not on file documented as of this encounter Plan of Treatment Not on file documented as of this encounter Procedures Procedure Name Priority Date/Time Associated Diagnosis Comments DERMATOPATHOLOGY Routine 09/13/2023 12:0 0 AM CDT documented in this encounter Results * DERMATOPATHOLOGY (09/13/2023 12:00 AM CDT) Case Report Dermatopathology Report Case: [id number] Authorizing Provider: Issac Mae Jr., MD Collected: 09/13/2023 12:00 AM Ordering Location: [facility] - Received: 09/14/2023 01:39 PM DermPath Lab Pathologist: Marisol Lin MD Specimen: Skin, right nasal ala 1:40 PM CDT DERMATOPATHOLOGY LABORATORY Final Diagnosis Specimen A. SKIN, right nasal ala: INTRADERMAL MELANOCYTIC NEVUS WITH HYPERPIGMENTATION (D22.39) 4 1:40 PM CDT DERMATOPATHOLOGY LABORATORY at 1340 CDT Clinical History Intradermal nevus 4 1:40 PM CDT DERMATOPATHOLOGY LABORATORY Gross Description [...] characteristic determined by the Dermatopathology Laboratory at [facility], directed by Dr. Ольга Pope. These tests need not be, and therefore are not, approved by the [place] Food and Drug Administration. The tests are used for clinical purposes. Billing Codes Specimen Charges Stain Charges 83638 1 4 1:40 PM CDT DERMATOPATHOLOGY LABORATORY Embedded Images 1:40 PM CDT DERMATOPATHOLOGY LABORATORY Pathology/Cytolog y TISSUE SPECIMEN FROM SKIN / Unknown 09/13/2023 09/14/2023 1:39 PM CDT us Issac Mae Jr., MD LAB - PATHOLOGY/CYTOLOG Y ORDERABLES Final Result DERMATOPATHOLOGY LABORATORY [facility] - Department of Dermatology [address], [address] [phone] documented in this encounter Visit Diagnoses Not on filedocumented in this encounter Care Teams Sky Diver Relationship Specialty Start Date End Date Rudy Kwok PA [address] [place], [place] [phone] PCP - General Physician Caul Fat Puller 09/13/18 documented as of this encounter
--- NOTE | 2024-08-02 10:25 | ECG_ITS ---
Test Date: 2024-08-02 10:35:49 Measurements Intervals Cornish Rate: 98 P: 55 WY: 156 QRS: 4 QRSD: 85 T: 36 QT: 340 QTc: 435 Interpretive Statements SINUS RHYTHM POSSIBLE LEFT ATRIAL ENLARGEMENT DELAYED PRECORDIAL R/S TRANSITION BORDERLINE ECG No previous ECG available for comparison Electronically Signed On 08-02-2024 11:09:19 CDT by Noe Rae D.O.
== END 2024-08-02 08:53 | disposition home or self-care (01) ==
PROVIDERS: PCP Physician Assistant; Visit Provider Family Medicine
DX: R94.31 Abnormal electrocardiogram [ECG] [EKG] (principal); R91.8 Other nonspecific abnormal finding of lung field; I73.89 Other specified peripheral vascular diseases; E07.9 Disorder of thyroid, unspecified; I70.90 Unspecified atherosclerosis; Z01.818 Encounter for other preprocedural examination
CPT/HCPCS: 71046; 76536; 93005; 93923

== ENCOUNTER 2024-10-16 08:48 | Outpatient (CLI) | payer MEDICARE, MEDICAID, SELFPAY ==
--- OUTSIDE RECORDS SUMMARY | 2010-01-07 05:30 | XMS_ITS | Continuity of Care Document ---
Author Organization [facility] Address [address] [place] [address] [address] [place] [address] Phone Care Team Providers Care Outreach Associate Name Role Phone Serrano OD, Rehan Unavailable Unavailable Procedures Procedure Date Eye Exam & Treatment Refraction Office/outpatient Visit, Est Eye Exam & Treatment Refraction Eye Exam & Treatment Advance Directives Directive Yes / No Effective Date File Name No Information Encounters Encounter Description Practice Location Reason(s) For Visit Diagnoses Date Provider Providers Copied on Encounter [facility], [address] [place] [address] [address], [place], [place], [id number], [place] tel:[phone] [facility] [place] No Information 0-201 0 Serrano OD Rehan. [address] [facility] , [address], [place], [place], [facility], . tel:[phone] Office/outpat ient Visit, Est [facility], [address] [place] [address] [address], [place], [place], [id number], [place] tel:[phone] [facility] [place] No Information [phone] Madhavi Covarrubias [address] [facility] , [address], [place], [address], [place]. tel:[phone] [facility], [address] [place] [address] [address], [place], [place], [id number], tel:[phone] [facility] [place] No Information 9 Madhavi Carrasquillo. [address] [facility] , [address], [place], [address], [place]. tel:[phone] [facility], [address], [place], [place], [id number], [place] tel:[phone] [facility] No Information 8 Madhavi Carrasquillo. [address] [facility] , [address], [place], [address], [place]. tel:[phone] Family History Family Member Type Diagnosis Age At Onset No Information Payers Payer name Insurance type Covered constitution party ID Authoriza tion(s) [place] [id number] Social History Type Description Quantity Date Captured Comments Sex Female Smoking Status No Information Chief Complaint And Reason For Visit No Information Reason For Referral Reason For Referral No Information History Of Present Illness Encounter Date Complaint History Of Prese nt Illness No Information Functional Status Date Functional Assessmen t No Information Instructions Date Instruction Additional Infor mation No Information Assessments Type Assessment Date No Information Patient Care Teams Name Effective Dates (start - stop) Status Members No Information
--- OUTSIDE RECORDS SUMMARY | 2024-10-16 09:16 | XMS_ITS | Encounter Summary ---
Author Organization [facility] Address [address] [facility] [place] [place] [address] Care Team Providers Care Political Science Professor Name Role Phone Rudy Kwok Primary Care Provider + Encounter Details Date Type Department Care Team (Late st Contact Info) Description 09/14/2023 Lab Requisition [facility] - DermPath Lab [address] 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 Gender Identity Not on file Sexual Orientation Not on file documented as of this encounter Plan of Treatment Not on file documented as of this encounter Procedures Procedure Name Priority Date/Time Associated Diagnosis Comments DERMATOPATHOLOGY Routine 09/13/2023 12:0 0 AM CDT documented in this encounter Results * DERMATOPATHOLOGY (09/13/2023 12:00 AM CDT) Case Report Dermatopathology Report Case: [id number] Authorizing Provider: Issac Mae Jr., MD Collected: 09/13/2023 12:00 AM Ordering Location: [facility] - Received: 09/14/2023 01:39 [...] characteristic determined by the Dermatopathology Laboratory at [facility], directed by Dr. Ольга Pope. These tests need not be, and therefore are not, approved by the [place] Food and Drug Administration. The tests are used for clinical purposes. Billing Codes Specimen Charges Stain Charges 78103 1 4 1:40 PM CDT DERMATOPATHOLOGY LABORATORY Embedded Images 1:40 PM CDT DERMATOPATHOLOGY LABORATORY Pathology/Cytolog y TISSUE SPECIMEN FROM SKIN / Unknown 09/13/2023 09/14/2023 1:39 PM CDT us Issac Mae Jr., MD LAB - PATHOLOGY/CYTOLOG Y ORDERABLES Final Result DERMATOPATHOLOGY LABORATORY [facility] - Department of Dermatology [address], [address] [phone] documented in this encounter Visit Diagnoses Not on filedocumented in this encounter Care Teams Political Science Professor Relationship Specialty Start Date End Date Rudy Kwok PA [address] [place], [place] [id number] PCP - General Physician Pump Rebuilder 09/13/18 documented as of this encounter
--- OUTSIDE RECORDS SUMMARY | 2024-10-16 09:16 | XMS_ITS | Encounter Summary ---
Author Organization [facility] Address [address] [place] [address] Care Team Providers Care Adult Educator Name Role Phone Francine Claudio MD Unavailable Jazzmine Siu Primary Care Provider [phone] Encounter Details Date Type Department Care Team (Late st Contact Info) Description 10/16/2024 Orders Only [facility] Family Medicine [address] [place] [address] Jazzmine Siu PA [address] [place] [address] Fatigue, unspecified type (Primary Dx) Social History Tobacco Use Types Packs/Day Years Used Date Smoking Tobacco: Every Day Cigarettes 0.5 53 Started: 10/30/1970 Smokeless Tobacco: Never Comments:Last smoked last ni ght at 2300 Alcohol Use Standard Drinks/Week Comments Not Currently 0 (1 standard drink = 0.6 oz pur e alcohol) PHQ-2 Answer Date Recorded PHQ-2 Total Score (If total score is 3 or more points, staff should administer the PHQ-9) 0 10/08/2024 AUDIT-C Answer Date Recorded Q1: How often do you have a drink containing alcohol? Never 10/08/2024 Q2: How many drinks containi ng alcohol do you have on a typical day when you are drinking? Patient does not drink 08/11/202 5 Q3: How often do you have si x or more drinks on one occasion? Never 10/08/2024 Personal Safety Answer Date Recorded Have you ever been in or are you currently in a harmful physical or emotional relationship or is someone making you feel afraid or unsafe? 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
--- OUTSIDE RECORDS SUMMARY | 2024-10-16 09:16 | XMS_ITS | Clinical Summary ---
Author Organization [facility] Address [address] [place] [address] Care Team Providers Care Engineering Lecturer Name Role Phone Francine Claudio MD Unavailable [phone] Jazzmine Siu Primary Care Provider [phone] Allergies Active Allergy Reactions Criticality Noted Date Comments Aspirin Nausea only Low 09/18/2018 Other Rash Medium 06/12/2024 Glove Powder Ragweed Eye irritation,Itching,Rash Medium 06/13/19 25 Medications estradioL (ESTRACE) 0.5 mg tablet Take 1 tablet (0.5 mg total) by mouth daily Active aspirin 81 mg enteric coated tablet Take 1 tablet (81 mg total) by mouth daily Active multivit-mine ylx-nbfw-qvmz in tablet Take 1 tablet/chew tab by mouth daily CENTRUM SILVER Active calcium carbonate (Tums) 500 mg (200 mg elemental calcium) chewable tablet Take 2 tablet/chew tab (1,000 mg total) by mouth daily Active docusate sodium (COLACE) 100 mg capsuleIndica tions:constip ation Take 1 capsule (100 mg total) by mouth daily Active ferrous sulfate ER 324 mg (65 mg iron) EC tabletIndicat ions:Iron Deficiency Anemia Take 65 mg by mouth Active bisacodyL 5 mg tablet Take by mouth Active cholecalcifer ol (VITAMIN D-3) 2000 unit capsule 1 capsule (2,000 Units total) Active melatonin 10 mg tablet 1 tablet (10 mg total) Active lidocaine HCL-benzyl alcohoL (Salonpas Lidocaine Plus) 4-10 % liquid roll-on Apply topically Acti ve losartan (COZAAR) 100 mg tablet Take 1 tablet (100 mg total) by mouth daily 90 tablet 1 10/09/19 25 Active Rybelsus 14 mg tablet Take 1 tablet (14 mg total) by mouth daily before breakfast 90 tablet 1 10/09/19 25 Active ezetimibe (ZETIA) 10 mg tablet Take 1 tablet (10 mg total) by mouth daily 90 tablet 1 10/09/19 25 Active linaCLOtide (LINZESS) 290 mcg capsule Take 1 capsule (290 mcg total) by mouth daily 90 capsule 1 10/09/19 25 Active hydroCHLOROth iazide (HYDRODIURIL) 25 mg tablet Take 1 tablet (25 mg total) by mouth daily 90 tablet 1 10/09/19 25 Active ibuprofen (ADVIL,MOTRIN ) 800 mg tablet Take 1 tablet (800 mg total) by mouth 2 (two) times a day 60 tablet 10/09/19 25 Active cyclobenzapri ne (FLEXERIL) 10 mg tablet Take 1.5 tablets (15 mg total) by mouth daily 45 tablet 10/09/19 25 Active cyclobenzapri ne (FLEXERIL) 10 mg tablet Take 1.5 tablets (15 mg total) by mouth daily 025 Discontinued(R eorder) ibuprofen (ADVIL,MOTRIN ) 800 mg tablet Take 1 tablet (800 mg total) by mouth 2 (two) times a day 025 Discontinued(R eorder) linaCLOtide (LINZESS) 290 mcg capsule Take 1 capsule (290 mcg total) by mouth daily 025 Discontinued(R eorder) ezetimibe (ZETIA) 10 mg tablet Take 1 tablet (10 mg total) by mouth daily 11/01/19 24 025 Discontinued(R eorder) hydroCHLOROth iazide (HYDRODIURIL) 25 mg tablet Take 1 tablet (25 mg total) by mouth daily 12/01/19 24 025 Discontinued(R eorder) losartan (COZAAR) 100 mg tablet Take 1 tablet (100 mg total) by mouth daily PREVENTATIVE PER PATIENT REPORT. 10/08/19 24 025 Discontinued(R eorder) magnesium citrate solution Take 296 mL by mouth once 025 Discontinued Rybelsus 14 mg tablet Take 1 tablet (14 mg total) by mouth daily before breakfast TAKES FOR WEIGHT LOSS PER PATIENT REPORT 11/22/19 24 025 Discontinued(R eorder) triamcinolone (KENALOG) 0.5 % ointment 12/02/19 24 025 Discontinued gabapentin (NEURONTIN) 300 mg capsule Take 1 capsule (300 mg total) by mouth nightly 30 capsule 2 12/13/19 24 025 Discontinued ammonium lactate (LAC-HYDRIN) 12 % lotion APPLY TO THE AFFECTED AREAS ON THE BODY TWICE A DAY 025 Discontinued diazePAM (VALIUM) 10 mg tablet Take 1 tablet (10 mg total) by mouth as needed 0 02/14/20 24 025 Discontinued chlorpheniram ine-dextromet horp 4-30 mg tablet Take by mouth 025 Discontinued Active Problems Problem Noted Date Diagnosed Date Obstructive sleep apnea 10/11/2024 RBD (REM behavioral disorder) 10/11/2024 Psychophysiological insomnia 10/11/2024 Cigarette nicotine dependence without complicati on 10/11/2024 Restless legs 10/11/2024 BMI 45.0-49.9, adult 10/08/2024 Assessment & Plan (10/08/2024 11:18 AM CDT): Discussed the patient's BMI. The BMI is above average. BMI management plan is completed. BMI Follow-up includes: nutrition counseling, exercise counseling and education provided. Morbid obesity 10/08/2024 Assessment & Plan (10/08/2024 11:18 AM CDT): Discussed the patient's BMI. The BMI is above average. BMI management plan is completed. BMI Follow-up includes: nutrition counseling, exercise counseling and education provided. Encounters Date Type Department Care Team Description 10/16/2024 Orders Only [facility] Family Medicine [address] [address] Jazzmine Siu PA Fatigue, unspecified type (Primary Dx) 10/16/2024 Telephone [facility] [address] [place] [address] Jazzmine Siu PA Medical Question/Miscellaneou s 10/11/2024 1:15 PM CDT Office Visit [facility] Pulmonology [address] [place] [phone] Augusto Sawant MD Obstructive sleep apnea (Primary Dx); RBD (REM behavioral disorder); Psychophysiological insomnia; Cigarette nicotine dependence without complication; Restless legs; BMI 45.0-49.9, adult ([facility]) 10/08/2024 11:00 AM CDT Office Visit [facility] [address] [place] [address] Jazzmine Siu PA Annual physical exam (Primary Dx); ROSITA (obstructive sleep apnea); Bizarre dreams; Hyperglycemia; Fatigue, unspecified type; Mixed hyperlipidemia; Anemia, unspecified type; Low vitamin D level; Morbid obesity with BMI of 45.0-49.9, adult ([facility]) 09/04/2024 Telephone [place] [id number] [facility] [address] [place] [address] Jazzmine Siu PA Medical Question/Miscellaneou s from Last 3 Months Surgical History Surgery [...] Edema Prurigo nodularis ELBOWS AND LEG S Sleep apnea 2004 Family History Medical History Relation Name Comments Asthma Daughter Toby Hearing loss Father Samson Heart attack Father Samson Heart disease Father Samson Alzheimer's disease Mother Renea Diabetes Mother Renea Hypertension Mother Renea Memory loss Mother Renea Cancer Sister 1 Verdion Rashes / Skin problems Sister 2 Self Hanane Fermin Relation Name Status Comments Daughter Toby Alive Father Samson Mother Renea Sister 1 Vergilsone Sister 2 Self Hanane Fermin Alive Social History Tobacco Use Types Packs/Day Years Used Date Smoking Tobacco: Every Day Cigarettes 0.5 53 Started: 10/30/1971 Smokeless Tobacco: Never Tobacco Cessation:Ready to Q uit: Not Asked; [...] on file 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 Gender Identity Not on file Sexual Orientation Not on file Obstetrics History Last Filed Vital Signs Vital Sign Reading Time Taken Comments Blood Pressure 157/82 10/11/2024 12:12 PM CDT Pulse 93 10/11/2024 12:12 PM CDT Temperature 36.3 C (97.4 F) 10/08/2024 11:16 AM CDT Respiratory Rate 18 10/11/2024 12:12 PM CDT Oxygen Saturation 97% 10/11/2024 12:12 PM CDT Inhaled Oxygen Concentration - - Weight 114.3 kg (252 lb) 10/11/2024 12:12 PM CDT Height 158.8 cm (5' 2.5) 10/11/2024 12:12 PM CD T Body Mass Index 45.36 10/11/2024 12:12 PM CDT Plan of Treatment Health Maintenance Due Date Last Done Comments Breast Cancer Screening-Mammogram 1956 Colon Cancer Screening-Colonoscopy 1955 Hepatitis C Screening 1955 Osteoporosis Screening-Bone Density Scan 1955 DTaP/Tdap/Td Vaccine (1 - Tdap) 12/30/1967 Hepatitis B Screening 1974 Lung Cancer Screening 2006 Well Visit 65+ 2021 Covid-19 Vaccine (2023-2 5 season) 2024 10/28/2023, 11/23/2022, 11/06/2021, Additional history exists Influenza Vaccine (#1) 2024 , 11/23/2022, 12/30/2021, Additional history exists Depression Screening 10/08/2025 10/08/2024 Fall Risk Assessment 10/08/2025 10/08/2024, 06/19/19 25 Pneumococcal vaccine 65+ Completed 11/25/2021, 10/30 Zoster Vaccine Completed 02/01/2022, 10/30, 11/23/2021 Medical Devices Implanted Type Area Emotional Disabilities Teacher Device Identifier Shelf Expiration Date Model / Serial / Lot Plate Plate N/A: Back Screw Screw N/A: Back Coil N/A: Back Description:PER PATIENT REPO RT Insurance [facility] MEDICARE ADVANTAGE IDPA [facility] MEDICARE ADVANTAGE IDPA Care Teams Engineering Lecturer Relationship Specialty Start Date End Date Jazzmine Siu PA [address] [place] [address] PCP - General Family Medicine 10/08/24 Francine Claudio MD [address] [facility] [address] [place] [address] Referring Physician Gynecology 03/15/24
--- OUTSIDE RECORDS SUMMARY | 2024-10-16 09:16 | XMS_ITS | Clinical Summary ---
Author Organization [facility] Address [address] [place] [address] Care Team Providers Care Rehabilitation Psychologist Name Role Phone Rudy Kwok Primary Care Provider + Source Comments [facility],non-owned Affiliates and Associated Physician Practices is amultiple site organization consisting of ambulatory clinics and hospital sitesin [place], [place], [place] and [place]. This disclosure is being madepursuant to the Care Everywhere program and may not contain all information available regarding this patient. Last updated 17.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
--- OUTSIDE RECORDS SUMMARY | 2024-10-16 09:16 | XMS_ITS | Encounter Summary ---
Author Organization [facility] Healthcare Address [address] [place] [address] Care Team Providers Care Chemical Lab Supervisor Name Role Phone Francine Claudio MD Unavailable [phone] Jazzmine Siu Primary Care Provider [phone] Reason for Visit * Reason Onset Date Comments Medical Question/Miscellaneous 10/16/2024 Encounter Details Date Type Department Care Team (Late st Contact Info) Description 10/16/2024 Telephone [facility] Family Medicine [address] [place] [address] Jazzmine Siu PA [address] [place] [address] Medical Question/Miscellaneous Social History Tobacco Use Types Packs/Day Years [...] on file 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 CS called back line where Ms. Chandler graciously had me warm transfer. Does message need to be routed? No documented in this encounter Plan of Treatment Not on file documented as of this encounter Visit Diagnoses Not on filedocumented in this encounter Care Teams Chemical Lab Supervisor Relationship Specialty Start Date End Date Jazzmine Siu PA [address] [facility] [address] [place] [address] PCP - General Family Medicine 10/08/24 Francine Claudio MD [facility] [address] [place] [address] Referring Physician Gynecology 03/15/24 documented as of this encounter
[2024-10-16 10:07] LABS: Hematocrit 41.1 % (37.0-47.0); Hemoglobin 13.4 g/dL (12.0-15.0); Immature Granulocyte Percent A 0.7 % (0-0.5); Lymphocytes Absolute Auto 1.20 K/mm3 (0.9-3.2); Mean Corpuscular HGB Conc 32.6 g/dl (32-36); Mean Corpuscular Hemoglobin 29.2 pg (26-34); Mean Corpuscular Volume 89.5 fl (80-100); Nucleated Red Blood Cells Absolute Auto 0.000 K/mm3 (0.0-0.012); Nucleated Red Blood Cells Perc 0.0 % (0.0-0.2); Platelet Count Result 333 k/mm3 (150-375); Red Blood Count 4.59 M/mm3 (4.2-5.4); White Blood Count 7.3 K/mm3 (4.5-10.0)
[2024-10-16 10:21] LABS: Iron 78 ug/dL (37-170)
[2024-10-16 10:27] LABS: Hemoglobin A1C 5.6 % (<5.7)
[2024-10-16 10:30] LABS: Percent Iron Saturation 20 % (20-50)
[2024-10-16 10:47] LABS: Alanine Aminotransferase 100 U/L (6-35); Albumin Level 4.3 g/dL (3.5-5.1); Alkaline Phosphatase 137 U/L (38-126); Anion Gap 6 mmol/L (4-12); Aspartate Amino Transferase 62 U/L (14-36); Bilirubin,Total 0.5 mg/dL (0.2-1.3); Blood Urea Nitrogen 13 mg/dL (7-17); Calcium 9.5 mg/dL (8.4-10.2); Carbon Dioxide 31 mmol/L (22-30); Chloride 100 mmol/L (98-107); Cholesterol 153 mg/dL (0-200); Estimated Glomerular Filt Rate > 60; Glucose 83 mg/dL (65-110); HDL Direct 46 mg/dL; Potassium 3.4 mmol/L (3.4-5.0); Sodium 137 mmol/L (137-145); Total Protein 7.8 g/dL (6.3-8.2); Triglycerides 79 mg/dL (<150)
[2024-10-16 11:17] LABS: Thyroid Stimulating Hormone 0.893 uIU/mL (0.465-4.680)
[2024-10-16 11:37] LABS: Vitamin B12 916.0 pg/mL (239-931)
== END 2024-10-16 08:49 | disposition home or self-care (01) ==
LOC: ANHLAB 08:54
PROVIDERS: PCP Physician Assistant; Visit Provider Physician Assistant
DX: E78.2 Mixed hyperlipidemia (principal); R53.83 Other fatigue; R73.9 Hyperglycemia, unspecified; D64.9 Anemia, unspecified; E66.01 Morbid (severe) obesity due to excess calories; Z68.42 Body mass index [BMI] 45.0-49.9, adult
CPT/HCPCS: 36415; 80053; 80061; 82306; 82607; 83036; 83540; 83550; 84443; 85025

== ENCOUNTER 2024-11-05 11:50 | Outpatient (CLI) | payer MEDICARE, MEDICAID, SELFPAY ==
--- OUTSIDE RECORDS SUMMARY | 2024-11-05 12:05 | XMS_ITS | Clinical Summary ---
Author Organization [facility] Address [address] [place] [address] Care Team Providers Care Program Admin Name Role Phone Francine Claudio MD Unavailable [phone] Jazzmine Siu Primary Care Provider [phone] Allergies Active Allergy Reactions Criticality Noted Date Comments Aspirin Nausea only Low 09/18/2018 Other Rash Medium 06/12/2024 Glove Powder Ragweed Eye irritation,Itching,Rash Medium 06/13/19 25 Medications estradioL (ESTRACE) 0.5 mg tablet Take 1 tablet (0.5 mg total) by mouth daily Active aspirin 81 mg enteric coated tablet Take 1 tablet (81 mg total) by mouth daily Active multivit-mine fkp-tmbl-[id number] in tablet Take 1 tablet/chew tab by [...] daily 90 tablet 1 10/09/19 25 Active clotrimazole- betamethasone (LOTRISONE) creamIndicati ons:tinea cruris Apply topically 2 (two) times a day 45 g 1 11/02/19 25 Active cyclobenzapri ne (FLEXERIL) 10 mg tablet TAKE 1 & 1/2 (ONE & ONE-HALF) TABLETS BY MOUTH ONCE DAILY 45 tablet 11/06/19 25 Active ibuprofen (ADVIL,MOTRIN ) 800 mg tablet Take 1 tablet by mouth twice daily 60 tablet 11/06/19 25 Active cyclobenzapri ne (FLEXERIL) 10 mg [...] mg tablet Take by mouth 025 Discontinued ibuprofen (ADVIL,MOTRIN ) 800 mg tablet Take 1 tablet (800 mg total) by mouth 2 (two) times a day 60 tablet 10/09/19 25 025 Discontinued cyclobenzapri ne (FLEXERIL) 10 mg tablet Take 1.5 tablets (15 mg total) by mouth daily 45 tablet 10/09/19 25 025 Discontinued Active Problems Problem Noted Date Diagnosed Date Prurigo nodularis 10/31/2024 Obstructive sleep apnea 10/11/2024 RBD (REM behavioral disorder) 10/11/2024 Psychophysiological insomnia 10/11/2024 Cigarette nicotine dependence without complicati on 10/11/2024 Restless legs 10/11/2024 BMI 45.0-49.9, adult 10/08/2024 Assessment & Plan (11/01/2024 11:23 AM CDT): Discussed the patient's BMI. The BMI is above average. BMI management plan is completed. BMI Follow-up includes: nutrition counseling, exercise counseling and education provided. Assessment & Plan (10/08/2024 11:18 AM CDT): Discussed the patient's BMI. The BMI is above average. BMI management plan is completed. BMI Follow-up includes: nutrition counseling, exercise counseling and education provided. Morbid obesity 10/08/2024 Assessment & Plan (11/01/2024 11:23 AM CDT): Discussed the patient's BMI. The BMI is above average. BMI management plan is completed. BMI Follow-up includes: nutrition counseling, exercise counseling and education provided. Assessment & Plan (10/08/2024 11:18 AM CDT): Discussed the patient's BMI. The BMI is above average. BMI management plan is completed. BMI Follow-up includes: nutrition counseling, exercise counseling and education provided. Encounters Date Type Department Care Team Description 11/03/2024 Results Follow-Up [address] [address] Jazzmine Siu PA CBC with auto differential, Comprehensive metabolic panel, Hemoglobin A1c, Additional followed-up results: 4 11/01/2024 11:00 AM CDT Office Visit [address] [address] Jazzmine Siu PA Medicare annual wellness visit, subsequent (Primary Dx); BMI 45.0-49.9, adult (HCC); Morbid obesity (HCC); Prurigo nodularis; Elevated LFTs 10/25/2024 Orders Only [address] [address] ProviderGabbi MD 10/16/2024 Orders Only [address] [address] Jazzmine Siu PA Fatigue, unspecified type (Primary Dx) 10/16/[address] [address] Jazzmine Siu PA Medical Question/Miscellaneou s 10/11/2024 1:15 PM CDT Office Visit [facility] [address] [address] [place] [address] Augusto Sawant MD Obstructive sleep apnea (Primary Dx); RBD (REM behavioral disorder); Psychophysiological insomnia; Cigarette nicotine dependence without complication; Restless legs; BMI 45.0-49.9, adult ([facility]) 10/08/2024 11:00 AM CDT Office Visit [address] [place] [address] Jazzmine Siu PA Annual physical exam (Primary Dx); ROSITA (obstructive sleep apnea); Bizarre dreams; Hyperglycemia; Fatigue, unspecified type; Mixed hyperlipidemia; Anemia, unspecified type; Low vitamin D level; Morbid obesity with BMI of 45.0-49.9, adult ([facility]) 09/04/[address] [place] [address] Jazzmine Siu PA Medical Question/Miscellaneou s from Last 3 Months Immunizations Immunization Administration Dates Next Due Influenza, Quad, Adjuvantate d, Intramuscular 12/30/2021 Influenza, Quadrivalent, Hig h Dose, Preservative Free, Intrr 11/23/2022 Influenza, Quadrivalent, Spl it, Intramuscular 01/02/2019,01/09/2018,12/02/2016 Influenza, Quadrivalent, Spl it, Preservative Free, Intramuscular 12/13/2020,2019 Influenza, Trivalent, Adjuva nted, Intramuscular 10/28/2023 Influenza, Trivalent, High D ose, Split, Preservative Free, Intramuscular 10/15/2024 Influenza, Trivalent, IM (MDV) 03/13/2014 Pneumococcal Conjugate Pcv20 11/23/2021 Pneumococcal, Unspecified 11/25/2021 RSV Vaccine, Pref, Recombina nt, Subunit, Adjuvanted, PF, IM (Arexvy) 10/15/2024 Tdap 10/15/2024 ZOSTER Recombinant 02/01/2022,11/23/2021 Zoster, unspecified 11/25/2021 Surgical History Surgery Date Site/Laterality Comments ESOPHAGOGASTRODUODENOSCOPY 06/20/2018 LUMBAR FUSION 09/28/2000 - 10/28/2000 LUMBAR 4-5 FUSION LUMBAR FUSION 01/28/2005 - 02/27/2005 L3-4 FUSION; L4-5 REVISION HYSTERECTOMY 02/28/1978 - 02/27/1979 THYROIDECTOMY, PARTIAL 02/28/1979 - 02/28/1980 Left CHOLECYSTECTOMY 02/28/2023 - 02/28/2024 SECTION 1972 (X2) COLONOSCOPY 10/29/2018 - 11/27/2018 Medical History Medical History Date Comments Chronic back pain IBS (irritable bowel syndrome) Hypertension Anxiety 2000 Edema Prurigo nodularis ELBOWS AND LEG S Sleep apnea 2004 Family History Medical History Relation Name Comments Asthma Daughter Toby Hearing loss Father Samson Heart attack Father Samson Heart disease Father Samson Alzheimer's disease Mother Renea Diabetes Mother Renea Hypertension Mother Renea Memory loss Mother Renea Cancer Sister 1 Verlene Rashes / Skin problems Sister 2 Self Hanane Fermin Relation Name Status Comments Daughter Toby Alive Father Samson Mother Renea Sister 1 Verlene Sister 2 Self Hanane Fermin Alive Social History Tobacco Use Types Packs/Day Years Used Date Smoking Tobacco: Every Day Cigarettes 0.5 53 Started: 10/30/1971 Smokeless Tobacco: Never Tobacco Cessation:Ready to Q uit: Not Asked; Counseling Given: Not Answered Alcohol Use Standard Drinks/Week Comments Not Currently 0 (1 standard drink = 0.6 oz pur e alcohol) PHQ-2 Answer Date Recorded PHQ-2 Total Score (If total score is 3 or more points, staff should administer the PHQ-9) 0 11/01/2024 AUDIT-C Answer Date Recorded Q1: How often do you have a drink containing alcohol? Never 11/01/2024 Q2: How many drinks containi ng alcohol do you have on a typical day when you are drinking? Patient does not drink Q3: How often do you have si x or more drinks on one occasion? Never 11/01/2024 Personal Safety Answer Date Recorded Have you ever been in or are you currently in a harmful physical or emotional relationship or is someone making you feel afraid or unsafe? 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 Gender Identity Not on file Sexual Orientation Not on file Obstetrics History Last Filed Vital Signs Vital Sign Reading Time Taken Comments Blood Pressure 140/82 11/01/2024 11:10 AM CDT Pulse 97 11/01/2024 11:10 AM CDT Temperature 36.7 C (98 F) 11/01/2024 11:10 AM CDT Respiratory Rate 18 10/11/2024 12:12 PM CDT Oxygen Saturation 96% 11/01/2024 11:10 AM CDT Inhaled Oxygen Concentration - - Weight 116.1 kg (256 lb) 11/01/2024 11:10 AM CDT Height 158.8 cm (5' 2.5) 11/01/2024 11:10 AM CD T Body Mass Index 46.08 11/01/2024 11:10 AM CDT Plan of Treatment Health Maintenance Due Date Last Done Comments Colon Cancer Screening-Colonoscopy 1955 Hepatitis C Screening 1955 Osteoporosis Screening-Bone Density Scan 1956 Hepatitis B Screening 1974 Lung Cancer Screening 2006 Covid-19 Vaccine (2023- 5 season) 2024 10/28/2023, 11/23/2022, 11/06/2021, Additional history exists Breast Cancer Screening-Mammogram 04/05/2025 025 Well Visit 65+ 10/08/2025 10/08/2024 Depression Screening 11/01/2025 11/01/2024, 10/09/19 25 Fall Risk Assessment 11/01/2025 11/01/2024, 10/08/2024, 06/18/2024 DTaP/Tdap/Td Vaccine (2 - Td or Tdap) 10/15/2034 10/15/2024 Pneumococcal vaccine 65+ Completed 11/25/2021, 10/30 Zoster Vaccine Completed 02/01/2022, 10/30, 11/23/2021 Influenza Vaccine Completed 10/15/2024, , 11/23/2022, Additional history exists Medical Devices Implanted Type Area Heart Doctor Device Identifier Shelf Expiration Date Model / Serial / Lot Plate Plate N/A: Back Screw Screw N/A: Back Coil N/A: Back Description:PER PATIENT REPO RT Procedures Procedure Name Priority Date/Time Associated Diagnosis Comments IRON PROFILE W/ IBC Routine 10/16/2024 Anemia, unspecified type VITAMIN D 25 HYDROXY Routine 10/16/2024 Anemia, unspecified type Morbid obesity with BMI of 45.0-49.9, adult (HCC) VITAMIN B12 Routine 10/16/2024 Fatigue, unspecified type TSH Routine 10/16/2024 Fatigue, unspecified type HEMOGLOBIN A1C Routine 10/16/2024 Hyperglycemia COMPREHENSIVE METABOLIC PANEL Routine 10/16/2024 Mixed hyperlipidemia CBC WITH AUTO DIFFERENTIAL Routine 10/16/2024 Fatigue, unspecified type HM MAMMOGRAPHY Routine 04/05/2024 2:45 PM DENTAL APPLIANCE FIXER from Last 3 Months or Most Recently Relevant to Health Maintenance Results * Iron profile w/ IBC (10/16/2024) Blood 10/16/2024 Impressions [facility] - 10/16/2024 2:19 PM CDT Iron - 78 Range 37-110 Iron Binding Capacity - 399 Range 261-462 Percent Iron Sat- 20 Range 20-50% us Jazzmine MCKENZIE LAB BLOOD ORDERABLES Final Result [facility] * (ABNORMAL) CBC with auto differential (10/16/2024) SCRIBED WBC 7.3 3.8 - 9.9 K/cumm [facility] SCRIBED Hemoglobin 13.4 11.9 - 15.5 g/dL [facility] SCRIBED Hematocrit 41.1 38.9 - 50.3 % [facility] SCRIBED Platelets 333 150 - 400 K/cumm [facility] SCRIBED MPV 10.0 9.1 - 12.3 fL [facility] SCRIBED RBC 4.59 3.90 - 5.20 M/cumm [facility] SCRIBED MCV 89.5 81.3 - 96.4 fL [facility] SCRIBED MCH 29.2 27.1 - 33.3 pg [facility] SCRIBED MCHC 32.6 32.3 - 35.7 g/dL [facility] SCRIBED RDW 14.7(A) 11.5 - 14.5 % [facility] SCRIBED Neutrophils 74.0(A) 45.5 - 73.1 % [facility] SCRIBED Imm Granulocytes 0.7(A) 0.0 - 0.5 % [facility] SCRIBED Lymphocytes 16.5(A) 18.3 - 44.2 % [facility] SCRIBED Monocytes 6.3 2.6 - 8.5 % [facility] SCRIBED Eosinophils 2.1 0.0 - 4.4 % [facility] SCRIBED Basophils 0.4 0.2 - 1.2 % [facility] SCRIBED Atypical Lymphocytes 1.2 0.9 - 3.2 % [facility] SCRIBED Neutrophils Abs 5.40 1.50 - 6.50 K/cumm [facility] SCRIBED Imm Granulocytes Abs 0.1(A) 0.0 - 0.0 K/cumm [facility] SCRIBED Lymphocytes Abs 1.0 0.8 - 3.3 K/cumm [facility] SCRIBED Monocytes Abs 1.2(A) 0.2 - 0.8 K/cumm [facility] SCRIBED Eosinophils Abs 0.2 0.0 - 0.5 K/cumm [facility] SCRIBED Basophils Abs 0.0 0.0 - 0.1 K/cumm [facility] Blood 10/16/2024 Jazzmine MCKENZ[facility] LAB BLOOD ORDERABLES Final Result [facility] * Vitamin D 25 hydroxy (10/16/2024) SCRIBED 25-OH Vitamin D 38.5 20 - 100 ng/mL [facility] Blood 10/16/2024 Jazzmine Siu [place] LAB BLOOD ORDERABLES Final Result Performing Organization Address [facility] de Phone Number [facility] * TSH (10/16/2024) Scribed TSH 0.89 0.47 - 4.68 mcU/mL [facility] Blood 10/16/2024 Jazzmine Siu [place] LAB BLOOD ORDERABLES Final Result Performing Organization Address [facility] de Phone Number [facility] * Hemoglobin A1c (10/16/2024) Pathologist [facility] SCRIBED Hemoglobin A1c 5.6 4.0 - 5.6 % [facility] Blood 10/16/2024 Jazzmine Siu [place] LAB BLOOD ORDERABLES Final Result Performing Organization Address [facility] de Phone Number [facility] * Vitamin B12 (10/16/2024) SCRIBED Vitamin B12 916.0 239 - 931 [facility] Blood 10/16/2024 Jazzmine Siu [place] LAB BLOOD ORDERABLES Final Result Performing Organization Address [facility] de Phone Number [facility] * (ABNORMAL) Comprehensive metabolic panel (10/16/2024) SCRIBED Sodium 137 137 - 145 mmol/L [facility] SCRIBED Potassium 3.4 3.4 - 5.0 mmol/L [facility] SCRIBED Chloride 100 98 - 107 mmol/L [facility] SCRIBED Carbon Dioxide 31(A) 22 - 30 mmol/L [facility] SCRIBED Anion Gap 6 4 - 12 mmol/L [facility] SCRIBED Urea Nitrogen (BUN) 13 7 - 17 mg/dl [facility] SCRIBED Creatinine 0.81 0.7 - 1.0 mg/dl [facility] SCRIBED Glucose 83 65 - 110 mg/dl [facility] SCRIBED Calcium 9.5 8.4 - 10.2 mg/dl [facility] SCRIBED Bilirubin 0.5 0.2 - 1.3 mg/dl [facility] SCRIBED Plasma Protein 7.8 6.3 - 8.2 g/dl [facility] SCRIBED Albumin 4.3 3.5 - 5.1 g/dl [facility] SCRIBED Alkaline Phosphatase 137(A) 38 - 126 Units/L EXTER[facility] LAB SCRIBED Alanine Transaminase (ALT) 100(A) 6 - 35 Units/L EXTER[facility] LAB SCRIBED Aspartate Transaminase (AST) 62(A) 14 - 36 Units/L EXTER[facility] LAB SCRIBED eGFR >60 >60 - >60 EXTERNAL LAB SCRIBED eGFR 0 0 - 0 EXTER[facility] LAB Blood 10/16/2024 Jazzmine MCKENZ[facility] LAB BLOOD ORDERABLES Final Result EXTERNAL LAB * MAMMOGRAPHY (04/05/2024 2:45 PM DENTAL APPLIANCE FIXER) Impressions Geraldine Castro, JERONIMO - 04/05/2024 2:45 PM DENTAL APPLIANCE FIXER There is no mammographic evidence of malignancy. A 1 year screening mammogram is recommended. Bi-Rads Category 1: Negative Historical Provider HEALTH MAINTENANCE Edited Result - Final from Last 3 Months or Most Recently Relevant to Health Maintenance Insurance [facility] MEDICARE ADVANTAGE IDPA [facility] MEDICARE ADVANTAGE IDPA Care Teams Program Admin Relationship Specialty Start Date End Date Jazzmine Siu PA [address] [place] [address] PCP - General Family Medicine 10/08/24 Francine Claudio MD [address] [facility] [address] [place] [address] Referring Physician Gynecology 03/15/24
--- OUTSIDE RECORDS SUMMARY | 2024-11-05 12:05 | XMS_ITS | Clinical Summary ---
Author Organization [facility] Address [address] [place] [address] Care Team Providers Care Deaf Interpreter Name Role Phone Rudy Kwok Primary Care Provider + Source Comments [facility],non-owned Affiliates and Associated Physician Practices is amultiple site organization consisting of ambulatory clinics and hospital sitesin [place], [place], [place] and [place]. This disclosure is being madepursuant to the Care Everywhere program and may not contain all information available regarding this patient. 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
--- OUTSIDE RECORDS SUMMARY | 2024-11-05 12:05 | XMS_ITS | Clinical Summary ---
Author Organization [facility] Address [address] [place] [address] Care Team Providers Care Warranty Administrator Name Role Phone Rudy Kwok Primary Care [...] on file Legal Sex Female 10:22 AM MANAGER OF SOFTWARE DEVELOPMENT Gender Identity Not on file Sexual Orientation [...] 10:25 AM CDT Height 165.1 cm (5' 5) 06/16/2018 10:25 AM CDT Body Mass Index 42.1 06/16/2018 10:25 AM CDT Plan of Treatment Health Maintenance Due Date Last Done Comments Colorectal Cancer Screening Colonoscopy (10 Years) 1956 Hepatitis C 1974 DTaP, Tdap and Td Vaccines ( 1 - Tdap) 12/30/1975 Pneumococcal Vaccine: 50+ Ye ars (1 of 2 - PCV) 12/30/1975 Mammogram Screening 1996 Zoster Vaccines (1 of 2) 2006 Dexa Scan (General) 2021 COVID-19 Vaccine (1 - 2023-2 5 season) 2024 RSV Immunization or 60+ Years (1 - 1-dose 75+ series) 12/30/2031 Meningococcal B Vaccine Aged Out No l onger eligible based on patient's age to complete this topic Meningococcal Vaccine Aged Out No shaina ramos eligible based on patient's age to complete this topic RSV Immunizations Under 20 Months Aged Out No longer eligible based on patient's age to complete this topic Insurance [place] Care Teams Warranty Administrator Relationship Specialty Start Date End Date Rudy Kwok PA PCP - General PHYSICIAN INSULATION WORKER FURNACE INSTALLER 06/19/18
--- OUTSIDE RECORDS SUMMARY | 2024-11-05 12:05 | XMS_ITS | Encounter Summary ---
Author Organization [facility] Address [address] [place] [address] Care Team Providers Care Trim Setter Name Role Phone Rudy Kwok Primary Care Provider + Francine Claudio MD Unavailable [phone] Jazzmine Siu Primary Care Provider [phone] Encounter Details Date Type Department Care Team (Late st Contact Info) Description 04/05/[address] 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 Gender Identity Not on file Sexual Orientation Not on file documented as of this encounter Plan of Treatment Not on file documented as of this encounter Visit Diagnoses Not on filedocumented in this encounter Care Teams Trim Setter Relationship Specialty Start Date End Date Rudy Kwok PA [address] [place] [address] [place] [address] PCP - General Internal Medicine 12/23/23 10/07/24 Jazzmine Siu PA [address] [address] PCP - General Family Medicine 10/08/24 Francine Claudio MD [facility] [address] [address] Referring Physician Gynecology 03/15/24 documented as of this encounter
--- OUTSIDE RECORDS SUMMARY | 2024-11-05 12:05 | XMS_ITS | Encounter Summary ---
Author Organization [facility] Address [address] [facility] [place] [address] Care Team Providers Care Fireproof Door Maker Name Role Phone Rudy Kwok Primary Care Provider + Encounter Details Date Type Department Care Team (Late st Contact Info) Description 09/14/2023 Lab Requisition [facility] - Derm[facility] Lab [address] [facility] [place] [address] Issac Mae Jr., MD [address] [place] [address] Social History Tobacco Use Types Packs/Day Years Used Date Smoking Tobacco: Never Assessed Comments Unknown Sex and Gender Information Value Date Recorded Sex Assigned at Not on file Legal Sex Female 7:47 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 Gender Identity Not on file Sexual Orientation Not on file documented as of this encounter Plan of Treatment Not on file documented as of this encounter Procedures Procedure Name Priority Date/Time Associated Diagnosis Comments DERMATOPATHOLOGY Routine 09/13/2023 12:0 0 AM CDT documented in this encounter Results * DERMATOPATHOLOGY (09/13/2023 12:00 AM CDT) Case Report Dermatopathology Report Case: [id number] Authorizing Provider: Issac Mae Jr., MD Collected: 09/13/2023 12:00 AM Ordering Location: [facility] - Received: 09/14/2023 01:39 PM [...] characteristic determined by the Dermatopathology Laboratory at [facility], directed by Dr. Ольга Pope. These tests need not be, and therefore are not, approved by the [place] Food and Drug Administration. The tests are used for clinical purposes. Billing Codes Specimen Charges Stain Charges 25343 1 4 1:40 PM CDT DERMATOPATHOLOGY LABORATORY Embedded Images 1:40 PM CDT DERMATOPATHOLOGY LABORATORY Pathology/Cytolog y TISSUE SPECIMEN FROM SKIN / Unknown 09/13/2023 09/14/2023 1:39 PM CDT us Issac Mae Jr., MD LAB - PATHOLOGY/CYTOLOG Y ORDERABLES Final Result DERMATOPATHOLOGY LABORATORY [facility] - Department of Dermatology [address] [phone] documented in this encounter Visit Diagnoses Not on filedocumented in this encounter Care Teams Fireproof Door Maker Relationship Specialty Start Date End Date Rudy Kwok PA [address] [place], [place] [phone] PCP - General Physician Sales Contractor 09/13/18 documented as of this encounter
--- OUTSIDE RECORDS SUMMARY | 2024-11-05 12:05 | XMS_ITS | Encounter Summary ---
Author Organization [facility] Address [address] [place] [address] Care Team Providers Care Mold Repair Technician Name Role Phone Rudy Kwok Primary Care Provider + Francine Claudio MD Unavailable [phone] Jazzmine Siu Primary Care Provider [phone] Encounter Details Date Type Department Care Team (Late st Contact Info) Description 06/03/2024 Imaging Exam [facility] Family Medicine [address] [place] [address] Jazzmine Siu PA [address] [place] [address] Social History Tobacco Use Types Packs/Day Years Used Date Smoking Tobacco: Every Day Cigarettes Alcohol Use Standard Drinks/Week Comments Not Currently 0 (1 standard drink = 0.6 oz pur e alcohol) Comments Unknown Sex and Gender Information Value Date Recorded Sex Assigned at Not on file Legal 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 [address] [address] Referring Physician Gynecology 03/15/24 documented as of this encounter
--- OUTSIDE RECORDS SUMMARY | 2024-11-05 12:06 | XMS_ITS | Encounter Summary ---
Author Organization [facility] Address [address] [place] [address] Care Team Providers Care Route Sales Manager Name Role Phone Francine Claudio MD Unavailable [phone] Jazzmine Siu Primary Care Provider [phone] Reason for Visit * Reason Onset Date Comments Medical Question/Miscellaneous 10/16/2024 Encounter Details Date Type Department Care Team (Late st Contact Info) Description 10/16/2024 Telephone [facility] Family Medicine [address] [place] [address] Jazzmine Siu PA [address] [place] [address] Medical Question/Miscellaneous Social History Tobacco [...] on file Legal Sex Female 11:58 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
--- OUTSIDE RECORDS SUMMARY | 2024-11-05 12:06 | XMS_ITS | Encounter Summary ---
Author Organization [facility] Address [address] [place] [address] Care Team Providers Care Chair Upholsterer Name Role Phone Francine Claudio MD Unavailable [phone] Jazzmine Siu Primary Care Provider [phone] Encounter Details Date Type Department Care Team (Latest Contact Info) Description 11/03/2024 Results Follow-Up [facility] Family Medicine [address] [place] [address] Jazzmine Siu PA [address] [place] [address] [place] [address] CBC with auto differential, Comprehensive metabolic panel, Hemoglobin A1c, Additional followed-up results: 4 Social History Tobacco Use Types Packs/Day Years Used Date Smoking Tobacco: Every Day Cigarettes 0.5 53 Started: [birth year]/30/1970 Smokeless Tobacco: Never Alcohol Use Standard Drinks/Week Comments Not Currently [...] you are drinking? Patient does not drink 09/04/202 5 Q3: How often do you have [...] on file Legal Sex Female 11:58 PM [employer] Gender Identity Not on file Sexual Orientation Not on file documented as of this encounter Plan of Treatment Not on file documented as of this encounter Visit Diagnoses Not on filedocumented in this encounter Care Teams Chair Upholsterer Relationship Specialty Start Date End Date Jazzmine Siu PA [address] [facility] [address] [place] [address] PCP - General Family Medicine 10/08/24 Francine Claudio MD [address] [facility] [address] [place] [address] Referring Physician Gynecology 03/15/24 documented as of this encounter
[2024-11-05 13:05] LABS: Alanine Aminotransferase 46 U/L (6-35); Albumin Level 4.1 g/dL (3.5-5.1); Alkaline Phosphatase 137 U/L (38-126); Anion Gap 5 mmol/L (4-12); Aspartate Amino Transferase 35 U/L (14-36); Bilirubin,Total 0.2 mg/dL (0.2-1.3); Blood Urea Nitrogen 17 mg/dL (7-17); Calcium 9.7 mg/dL (8.4-10.2); Carbon Dioxide 31 mmol/L (22-30); Chloride 101 mmol/L (98-107); Estimated Glomerular Filt Rate > 60; Glucose 100 mg/dL (65-110); Potassium 3.7 mmol/L (3.4-5.0); Sodium 137 mmol/L (137-145); Total Protein 7.4 g/dL (6.3-8.2)
== END 2024-11-05 11:51 | disposition home or self-care (01) ==
PROVIDERS: PCP Physician Assistant; Visit Provider Physician Assistant
DX: R79.89 Other specified abnormal findings of blood chemistry (principal)
CPT/HCPCS: 36415; 80053